=== PATIENT | female | born 1940 | race Caucasian/White ===

== ENCOUNTER 2017-04-21 11:37 | Emergency (ER) | payer OTHER ==
[2017-04-21 11:57] VITALS: BP 190/86; BMI 38.9
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
== END 2017-04-21 14:54 | disposition home or self-care (01) ==
LOC: ER 13:51
DX: Z04.3 Encounter for examination and observation following other accident (principal); M25.551 Pain in right hip; M79.89 Other specified soft tissue disorders; M16.11 Unilateral primary osteoarthritis, right hip; V49.9XXA Car occupant (driver) (passenger) injured in unspecified traffic accident, initial encounter
CPT/HCPCS: 73501; 73590; 99282

== ENCOUNTER 2020-11-20 11:23 | Inpatient (IN) ==
--- NOTE | 2020-11-20 13:24 | DR.H&P ---
H&P History & Physical for Day of: H&P Date: 11/20/20 Chief Complaint Chief Complaint: Fever, shortness of breath Chest pain, Weakness Allergies Allergies Allergy/AdvReac Type Severity Reaction Status Date / Time celecoxib [From Celebrex] Allergy Verified 04/21/17 12:14 codeine Allergy Verified 04/21/17 12:14 diphenhydramine Allergy Verified 04/21/17 12:14 [From Benadryl] Sulfa (Sulfonamide Allergy Verified 04/21/17 12:14 Antibiotics) [SULFA] sulfamethoxazole Allergy Verified 04/21/17 12:14 [From Bactrim] trimethoprim [From Bactrim] Allergy Verified 04/21/17 12:14 History of Present Illness History of Present Illness: Pt is a 80 year old female past medical history of atrial fibrillation(taking ASA 325mg), hypertension, hyperlipidemia, presenting as a direct admission from clinic after failing outpatient treatment. Pt reports for the past week having fevers, chills, chest pain, shortness of breath, and generalized weakness. Daughter reports she has been very weak and having intermittent fever spikes. Pt went to ED yesterday, with workup negative except for leukocytosis and fever. She was told to follow up with pcp. In clinic patient borderline hypoxic with pulse ox between 88%-90%. She reported continued fever and shortness of breath. Also having reduced appetite and oral intake. Denies abdominal pain, diarrhea, dysuria. Labs/imaging: Wbc 24.2, Hgb 13.9, Plt 162, Na 139, K 3.5, Creatinine 1.16, Glucose 102, D-dimer 1.52, LA 1.7, UA negative, Rapid flu, RSV, and COVID-19 negative, Troponin 0.04, Ekg NSR, Blood culture pending, CXR: 1. Mild cardiomegaly without evidence of failure. 2. No other significant abnormality identified. CTA Chest: 1. No evidence of pulmonary embolism. 2. Findings concerning for acute infection involving the right upper lobe with possible internal cavitation. Pt with RUL pneumonia seen on CTA of chest. Will start patient on IVF NS@75ml/h, antibiotics: Vancomycin and Zosyn, supplemental O2, consult RT, obtain sputum cultures, restart home medications. Will continue to monitor and follow up labs/imaging in the morning. Time spent on clinical assessment, reviewing labs and imaging, decision making, and documentation greater than 75 minutes. 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, Spleenectomy and Lithotripsy Family History Family Medical History: [place] and Hypertension Medications Home Medications: celecoxib [From Celebrex] Allergy (Verified 04/21/17 12:14) codeine Allergy (Verified 04/21/17 12:14) diphenhydramine [From Benadryl] Allergy (Verified 04/21/17 12:14) Sulfa (Sulfonamide Antibiotics) [SULFA] Allergy (Verified 04/21/17 12:14) sulfamethoxazole [From Bactrim] Allergy (Verified 04/21/17 12:14) trimethoprim [From Bactrim] Allergy (Verified 04/21/17 12:14) Labs Result Diagrams: 11/21/20 04:45 11/21/20 09:10 Review of Systems Constitutional: Fever, Chills and Weakness Eyes: No Symptoms Reported ENT: No Symptoms Reported Respiratory: Cough and Shortness of Breath; denies Sputum Cardiovascular: Chest Pain Gastrointestinal: No Symptoms Reported Genitourinary: No Symptoms Reported Musculoskeletal: No Symptoms Reported Skin: No Symptoms Reported Neurological: No Symptoms Reported Physical Exam Vital Signs: Blood Pressure [Left Arm] 143/74 Blood Pressure [Right Arm] 137/58 Blood Pressure 153/65 Oriented: Normal Eyes: Normal Ear: Normal Nose: Normal Throat: Normal Respiratory: RUL Diminished Cardiovascular: Normal : Normal Auscultation: Bowel Sounds: Normal Palpation: Normal Tenderness: Normal Skin: Normal Musculoskeletal: Normal Psychiatric: Normal Mood Description: Calm and Appropriate Affect: Normal Speech Pattern: Clear and Appropriate Assessment/Plan (1) CAP (community acquired pneumonia): Qualifiers: Laterality: right Lung location: upper lobe of lung Qualified Code(s): J18.9 - Pneumonia, unspecified organism Status: Acute Plan: RUL pneumonia Abx: Vancomycin and Zosyn Supplemental O2, RT support, pneumonia protocol Review H&P Reviewed: Yes Patient was examined?: Yes
[2020-11-20 13:42] LABS: BASOPHILS # (AUTO) 0.1 X10^3/uL (0.0-0.1); BASOPHILS % (AUTO) 0.5 % (0.2-1.0); EOSINOPHILS % (AUTO) 0.1 % (0.9-2.9); HEMOGLOBIN 13.9 g/dL (12.0-16.0); LYMPHOCYTES # (AUTO) 2.1 X10^3/uL (1.3-2.9); LYMPHOCYTES % (AUTO) 8.8 % (21.0-51.0); MEAN CORPUSCULAR HEMOGLOBIN 31.4 pg (27.0-34.0); MEAN CORPUSCULAR HGB CONC 34.6 g/dL (33.0-35.0); MEAN CORPUSCULAR VOLUME 90.6 fL (80.0-100.0); MEAN PLATELET VOLUME 10.3 fL (7.4-11.0); MONOCYTES # (AUTO) 1.9 x10^3/uL (0.3-0.8); MONOCYTES % (AUTO) 7.9 % (0.0-13.0); NEUTROPHILS % (AUTO) 82.7 % (42.0-75.0); PLATELET COUNT 162 X10^3/uL (150.0-450.0); RED BLOOD COUNT 4.42 X10^6/uL (3.5-5.4); RED CELL DISTRIBUTION WIDTH 13.9 % (11.6-16.5); WHITE BLOOD COUNT 24.2 X10^3/uL (3.6-10.0)
[2020-11-20 13:57] LABS: ALANINE AMINOTRANSFERASE 10 Units/L (12-78); ALBUMIN 2.9 g/dL (3.4-5.0); ALKALINE PHOSPHATASE 87 Units/L (46-116); ASPARTATE AMINO TRANSFERASE 22 Units/L (15-37); BLOOD UREA NITROGEN 22 mg/dL (7-18); CALCIUM 8.8 mg/dL (8.5-10.1); CARBON DIOXIDE 29.6 mmol/L (21-32); CHLORIDE 101 mmol/L (98-107); COR CA(FOR HYPOALB) 9.7 mg/dL (8.5-10.1); CREATININE 1.16 mg/dL (0.55-1.02); SODIUM 139 mmol/L (136-145); TOTAL PROTEIN 8.1 g/dL (6.4-8.2); TROPONIN I 0.04 ng/mL (0-1.5); eGFR NON BLACK RACES 48 (>60)
[2020-11-20 14:03] LABS: BAND NEUTROPHILS % 1 % (0-10); GIANT PLATELET RARE; PLATELET MORPHOLOGY COMMENT ABNORMAL (NORMAL)
[2020-11-20 14:04] LABS: ANISOCYTOSIS SLIGHT; POIKILOCYTOSIS SLIGHT
[2020-11-20] MEDS ORDERED: SALINE 3% 15 ML NEB TX NEB ONE (14:41)
[2020-11-20] MEDS ORDERED: PHARMACY CONSULT - VANCOMYCIN XX SCH (15:00)
[2020-11-20 15:22] VITALS: BMI 31.8
--- NOTE | 2020-11-20 15:32 | RAD ---
PROCEDURE: Chest X-ray 1 View .HISTORY: Short of breath and pneumonia.TECHNIQUE: PA view.COMPARISON: 11/19/2020.TECHNICAL QUALITY: Satisfactory .FINDINGS:Mild cardiomegaly.Mediastinum and hilar regions show no masses or lymphadenopathy .Normal central vascularity .No pulmonary consolidation, masses, pleural fluid, or pneumothorax .No acute bony abnormality .IMPRESSION:1. Mild cardiomegaly without evidence of failure.2. No other significant abnormality identified.Electronically signed by: Farzad Kitchen (Nov 20, 2020 15:30:02)
[2020-11-20] MEDS: NS 1000 ML 1,000 ML IV SCH (15:51)
[2020-11-20] MEDS: VANCOMYCIN IV *PREMIX 1.25 G/250 ML BAG 1.25 G/250 ML PIGGYBACK IV SCH (15:51)
[2020-11-20] MEDS: ZOSYN VIAL 3.375 GRAMS 3.375 G in NS 100 ML IV + SPIKE MINIBAG* 100 ML IV SCH ×3 (15:51→21:25)
[2020-11-20] MEDS ORDERED: NS 100 ML IV 100 ML ONE (16:05)
[2020-11-20 16:49] LABS: RSV AG DETECTION NEGATIVE (NEGATIVE)
--- NOTE | 2020-11-20 17:27 | CT ---
CTA CHESTCLINICAL INDICATION: ELEVATED DDIMERPROCEDURE: Non gated axial images of the chest were obtained with intravenous contrast according to pulmonary embolism protocol. MIPS were reconstructed Dose reduction techniques including Automated Exposure Control (AEC) and adjustment of mA and kV were utlized.COMPARISON:NoneFINDINGS:No evidence of a pulmonary embolism to the level of the segmental pulmonary arteries.Cardiomegaly.. No pericardial effusion . No suspicious mediastinal or axillary lymph nodes. Focal consolidation in the right upper lobe with internal cavitation. Subtle patchy regions of ground-glass throughout the lungs bilaterally. Streaky atelectasis at the lung bases..Airways are patent . No suspicious pulmonary nodules or masses .Limited images of the upper abdomen are unremarkable.No aggressive osseous lesions.IMPRESSION:1. No evidence of pulmonary embolism.2. Findings concerning for acute infection involving the right upper lobe with possible internal cavitation.Electronically signed by: WALKER SKY (Nov 20, 2020 17:24:39)
[2020-11-20] MEDS ORDERED: XOPENEX 1.25 MG/3 ML NEBULE NEB SCH (21:00)
[2020-11-20] MEDS ORDERED: K-RIDER 10 MEQ/NS 100 ML 10 MEQ/100 ML BAG IV PRN (22:52)
[2020-11-20] MEDS ORDERED: POTASSIUM CHL 60 MEQ/NS 0.45% 500 ML IV PRN (22:52)
[2020-11-20] MEDS ORDERED: POTASSIUM CHLORIDE LIQ 20 MEQ UDC PO PRN (22:52)
[2020-11-20] MEDS ORDERED: MICRO K EXTEN CAP 10 MEQ PO PRN (22:52)
[2020-11-20] MEDS ORDERED: POTASSIUM CHL 40 MEQ/NS 0.45% 500 ML IV PRN (22:52)
[2020-11-20] MEDS ORDERED: KLOR-CON PO PRN (22:52)
[2020-11-21] MEDS ORDERED: CATAPRES TAB 0.1 MG PO ONE (04:01)
[2020-11-21] MEDS ORDERED: LOPRESSOR TAB 25 MG PO ONE (04:01)
[2020-11-21] MEDS ORDERED: CATAPRES TAB 0.1 MG ONE (04:02)
[2020-11-21] MEDS ORDERED: LOPRESSOR TAB 25 MG ONE (04:02)
[2020-11-21] MEDS: NS 1000 ML 1,000 ML IV SCH ×3 (05:04→20:55)
[2020-11-21] MEDS: ZOSYN VIAL 3.375 GRAMS 3.375 G in NS 100 ML IV + SPIKE MINIBAG* 100 ML IV SCH ×3 (05:23→21:30)
[2020-11-21 05:56] LABS: ALANINE AMINOTRANSFERASE 7 Units/L (12-78); ALBUMIN 2.1 g/dL (3.4-5.0); ALKALINE PHOSPHATASE 78 Units/L (46-116); ASPARTATE AMINO TRANSFERASE 21 Units/L (15-37); BLOOD UREA NITROGEN 19 mg/dL (7-18); CARBON DIOXIDE 24.7 mmol/L (21-32); CHLORIDE 106 mmol/L (98-107); COR CA(FOR HYPOALB) 9.5 mg/dL (8.5-10.1); CREATININE 1.06 mg/dL (0.55-1.02); MAGNESIUM 1.7 mg/dL (1.7-2.9); SODIUM 142 mmol/L (136-145); TOTAL PROTEIN 6.4 g/dL (6.4-8.2); eGFR NON BLACK RACES 53 (>60)
[2020-11-21 06:05] LABS: BASOPHILS # (AUTO) 0.1 X10^3/uL (0.0-0.1); BASOPHILS % (AUTO) 0.3 % (0.2-1.0); EOSINOPHILS % (AUTO) 0.2 % (0.9-2.9); HEMATOCRIT 36.6 % (36.0-47.0); HEMOGLOBIN 12.6 g/dL (12.0-16.0); LYMPHOCYTES # (AUTO) 1.6 X10^3/uL (1.3-2.9); LYMPHOCYTES % (AUTO) 8.3 % (21.0-51.0); MEAN CORPUSCULAR HEMOGLOBIN 31.4 pg (27.0-34.0); MEAN CORPUSCULAR HGB CONC 34.4 g/dL (33.0-35.0); MEAN CORPUSCULAR VOLUME 91.5 fL (80.0-100.0); MEAN PLATELET VOLUME 10.4 fL (7.4-11.0); MONOCYTES # (AUTO) 1.8 x10^3/uL (0.3-0.8); MONOCYTES % (AUTO) 9.5 % (0.0-13.0); NEUTROPHILS # (AUTO) 15.7 x10^3/uL (2.2-4.8); NEUTROPHILS % (AUTO) 81.7 % (42.0-75.0); PLATELET COUNT 130 X10^3/uL (150.0-450.0); RED CELL DISTRIBUTION WIDTH 13.8 % (11.6-16.5); WHITE BLOOD COUNT 19.2 X10^3/uL (3.6-10.0)
[2020-11-21] MEDS: K-DUR TAB 20 MEQ PO PRN ×2 (06:20→23:21)
[2020-11-21 06:59] LABS: GIANT PLATELET PRESENT; PLATELET MORPHOLOGY COMMENT ABNORMAL (NORMAL)
[2020-11-21] MEDS ORDERED: TYLENOL 500 MG TAB EXTRA STRENGTH PO PRN (08:00)
[2020-11-21] MEDS: HYDROCHLOROTHIAZIDE 12.5 MG CAP PO SCH ×2 (08:42→20:33)
[2020-11-21] MEDS: VANCOMYCIN IV *PREMIX 1.25 G/250 ML BAG 1.25 G/250 ML PIGGYBACK IV SCH (08:42)
[2020-11-21] MEDS: CATAPRES TAB 0.1 MG PO SCH ×3 (08:43→21:30)
[2020-11-21] MEDS: ASPIRIN PO SCH (08:43)
[2020-11-21] MEDS: LOPRESSOR TAB 25 MG PO SCH ×3 (08:43→21:30)
[2020-11-21] MEDS: NexIUM PO SCH (08:43)
[2020-11-21] MEDS: VASOTEC TAB 20 MG PO SCH ×2 (09:41→20:34)
[2020-11-21] MEDS: LOVENOX INJ 40 MG SYR SC SCH (11:22)
--- NOTE | 2020-11-21 11:57 | PCM.PROG ---
Progress Note Progress Note for Day of Date of Exam: 11/21/20 Subjective Subjective: Pt is a 80 year old female past medical history of atrial fibrillation(taking ASA 325mg), hypertension, hyperlipidemia, admitted for community acquired pneumonia of right upper lobe. This morning patient reports still feeling weak, short of breath, loss of appetite, with fever overnight. She is currently on 2L nasal cannula supplemental O2. Labs/imaging: Wbc 24.2>19.2, Hgb 12.6, Plt 130, Na 142, K 3.3, Creatinine 1.06, Glucose 102, Blood cultures pending, CTA Chest: 1. No evidence of pulmonary embolism. 2. Findings concerning for acute infection involving the right upper lobe with possible internal cavitation. Treatment course includes: IVF NS@75ml/h, antibiotics: Vancomycin and Zosyn, supplemental O2, consult RT, obtain sputum cultures, home medications were resumed. Leukocytosis gradually trending down, add tylenol prn for fever. Will continue to monitor and follow up labs/imaging in the morning. Past Medical Family Social History Past Med/Fam/Surg Hx: No changes since H&P Allergies: Allergies celecoxib [From Celebrex] Allergy (Verified 04/21/17 12:14) codeine Allergy (Verified 04/21/17 12:14) diphenhydramine [From Benadryl] Allergy (Verified 04/21/17 12:14) Sulfa (Sulfonamide Antibiotics) [SULFA] Allergy (Verified 04/21/17 12:14) sulfamethoxazole [From Bactrim] Allergy (Verified 04/21/17 12:14) trimethoprim [From Bactrim] Allergy (Verified 04/21/17 12:14) Review of Systems ROS: No change since H&P Vital Signs and I&O's Vital Signs: Temperature 98.1 F Pulse Rate [Radial] 60 Pulse Rate 83 Respiratory Rate 22 Blood Pressure [Left Arm] 120/59 Blood Pressure [Right Arm] 147/66 Blood Pressure 153/65 O2 Sat by Pulse Oximetry 97 Intake and Output: Intake & Output 11/18/20 11/19/20 11/20/20 11/21/20 23:59 23:59 23:59 23:59 Intake Total 515 / 515 175 / 175 Balance 515 / 515 175 / 175 Physical Exam Oriented: Normal Eyes: Normal Ear: Normal Nose: Normal Throat: Normal Respiratory: Normal Cardiovascular: Normal : Normal Auscultation: Bowel Sounds: Normal Tenderness: Normal Skin: Normal Musculoskeletal: Normal Psychiatric: Normal Mood Description: Calm and Appropriate Affect: Normal Speech Pattern: Clear and Appropriate Laboratory and Diagnostics Result Diagrams: 11/21/20 04:45 11/21/20 09:10 Labs: 11/20/20 20:50 Urine,Clean Catch Urine Culture - Preliminary Laboratory WBC 19.2 X10^3/uL (3.6-10.0) H 11/21/20 04:45 RBC 4.00 X10^6/uL (3.5-5.4) 11/21/20 04:45 Hgb 12.6 g/dL (12.0-16.0) 11/21/20 04:45 Hct 36.6 % (36.0-47.0) 11/21/20 04:45 MCV 91.5 fL (80.0-100.0) 11/21/20 04:45 MCH 31.4 pg (27.0-34.0) 11/21/20 04:45 MCHC 34.4 g/dL (33.0-35.0) 11/21/20 04:45 RDW 13.8 % (11.6-16.5) 11/21/20 04:45 Plt Count 130 X10^3/uL (150.0-450.0) L 11/21/20 04:45 Plt Count Comment Adequate (ADEQUATE) 11/21/20 04:45 MPV 10.4 fL (7.4-11.0) 11/21/20 04:45 Neut % (Auto) 81.7 % (42.0-75.0) H 11/21/20 04:45 Lymph % (Auto) 8.3 % (21.0-51.0) L 11/21/20 04:45 [place] % (Auto) 9.5 % (0.0-13.0) 11/21/20 04:45 Eos % (Auto) 0.2 % (0.9-2.9) L 11/21/20 04:45 Baso % (Auto) 0.3 % (0.2-1.0) 11/21/20 04:45 Neut # (Auto) 15.7 x10^3/uL (2.2-4.8) H 11/21/20 04:45 Lymph # (Auto) 1.6 X10^3/uL (1.3-2.9) 11/21/20 04:45 [place] # (Auto) 1.8 x10^3/uL (0.3-0.8) H 11/21/20 04:45 Eos # (Auto) 0.0 x10^3/uL (0.0-0.2) 11/21/20 04:45 Baso # (Auto) 0.1 X10^3/uL (0.0-0.1) 11/21/20 04:45 Absolute Nucleated RBC 0.0 /100WBC 11/21/20 04:45 Total Counted 100 11/20/20 13:21 Neutrophils % (Manual) 81 % (39-76) H 11/20/20 13:21 Band Neutrophils % 1 % (0-10) 11/20/20 13:21 Lymphocytes % (Manual) 13 % (13-43) 11/20/20 13:21 Monocytes % (Manual) 5 % (4-9) 11/20/20 13:21 Giant Platelets Present 11/21/20 04:45 Plt Morphology Comment Abnormal (NORMAL) A 11/21/20 04:45 RBC Morphology Normal (NORMAL) 11/21/20 04:45 Poikilocytosis Slight A 11/20/20 13:21 Anisocytosis Slight A 11/20/20 13:21 D-Dimer 1.52 ug/ml (0.0-0.57) H* 11/20/20 13:21 Sodium 142 mmol/L (136-145) 11/21/20 04:45 Corrected Sodium TNP 11/21/20 04:45 Potassium 3.4 mmol/L (3.5-5.1) L 11/21/20 09:10 Chloride 106 mmol/L (98-107) 11/21/20 04:45 Carbon Dioxide 24.7 mmol/L (21-32) 11/21/20 04:45 BUN 19 mg/dL (7-18) H 11/21/20 04:45 Creatinine 1.06 mg/dL (0.55-1.02) H 11/21/20 04:45 Est GFR (MDRD) Af Amer > 60 (>60) 11/21/20 04:45 Est GFR (MDRD) Non-Af 53 (>60) L 11/21/20 04:45 Glucose 102 mg/dL (65-99) H 11/21/20 04:45 Lactic Acid 1.7 mmol/L (0.4-2.0) 11/20/20 14:59 Calcium 8.0 mg/dL (8.5-10.1) L 11/21/20 04:45 Corrected Calcium 9.5 mg/dL (8.5-10.1) 11/21/20 04:45 Magnesium 1.7 mg/dL (1.7-2.9) 11/21/20 04:45 Total Bilirubin 1.00 mg/dL (0.2-1.0) 11/21/20 04:45 AST 21 Units/L (15-37) 11/21/20 04:45 ALT 7 Units/L (12-78) L 11/21/20 04:45 Alkaline Phosphatase 78 Units/L (46-116) 11/21/20 04:45 Troponin I 0.04 ng/mL (0-1.5) 11/20/20 13:21 Total Protein 6.4 g/dL (6.4-8.2) 11/21/20 04:45 Albumin 2.1 g/dL (3.4-5.0) L 11/21/20 04:45 Globulin 4.3 g/dL (2.5-4.5) 11/21/20 04:45 Albumin/Globulin Ratio 0.5 Ratio (1.1-2.1) L 11/21/20 04:45 RSV Nasal Swab Negative (NEGATIVE) 11/20/20 16:07 Influenza Type A Ag Negative-presumptive (NEGATIVE) 11/20/20 16:07 Influenza Type B Ag Negative-presumptive (NEGATIVE) 11/20/20 16:07 SARS CoV-2 RNA Rapid SACHI Negative (NEGATIVE) 11/20/20 12:43 Plan (1) CAP (community acquired pneumonia): Status: Acute Qualifiers: Laterality: right Lung location: upper lobe of lung Qualified Code(s): J18.9 - Pneumonia, unspecified organism Plan: RUL pneumonia Abx: Vancomycin and Zosyn Supplemental O2, RT support, pneumonia protocol
[2020-11-21] MEDS: MAGNESIUM SULFATE 1 GRAM/100 mL PREMIX 1 GM/100 ML BAG IV PRN ×2 (16:27→18:40)
[2020-11-21] MEDS: MIRALAX POWDER (1 DOSE 17 G) PO SCH (20:36)
[2020-11-22 04:50] LABS: BASOPHILS % (AUTO) 0.3 % (0.2-1.0); EOSINOPHILS # (AUTO) 0.3 x10^3/uL (0.0-0.2); EOSINOPHILS % (AUTO) 2.1 % (0.9-2.9); HEMATOCRIT 35.3 % (36.0-47.0); HEMOGLOBIN 12.1 g/dL (12.0-16.0); LYMPHOCYTES # (AUTO) 2.1 X10^3/uL (1.3-2.9); LYMPHOCYTES % (AUTO) 13.5 % (21.0-51.0); MEAN CORPUSCULAR HEMOGLOBIN 31.3 pg (27.0-34.0); MEAN CORPUSCULAR HGB CONC 34.2 g/dL (33.0-35.0); MEAN CORPUSCULAR VOLUME 91.5 fL (80.0-100.0); MEAN PLATELET VOLUME 10.3 fL (7.4-11.0); MONOCYTES # (AUTO) 1.6 x10^3/uL (0.3-0.8); MONOCYTES % (AUTO) 10.2 % (0.0-13.0); NEUTROPHILS # (AUTO) 11.7 x10^3/uL (2.2-4.8); NEUTROPHILS % (AUTO) 73.9 % (42.0-75.0); PLATELET COUNT 150 X10^3/uL (150.0-450.0); RED BLOOD COUNT 3.86 X10^6/uL (3.5-5.4); RED CELL DISTRIBUTION WIDTH 14.2 % (11.6-16.5); WHITE BLOOD COUNT 15.8 X10^3/uL (3.6-10.0)
[2020-11-22 04:59] LABS: ALANINE AMINOTRANSFERASE 11 Units/L (12-78); ALKALINE PHOSPHATASE 82 Units/L (46-116); ASPARTATE AMINO TRANSFERASE 19 Units/L (15-37); BLOOD UREA NITROGEN 11 mg/dL (7-18); CALCIUM 8.1 mg/dL (8.5-10.1); CARBON DIOXIDE 28.2 mmol/L (21-32); CHLORIDE 107 mmol/L (98-107); COR CA(FOR HYPOALB) 9.7 mg/dL (8.5-10.1); CREATININE 1.12 mg/dL (0.55-1.02); MAGNESIUM 2.4 mg/dL (1.7-2.9); SODIUM 143 mmol/L (136-145); TOTAL PROTEIN 6.5 g/dL (6.4-8.2); eGFR NON BLACK RACES 50 (>60)
[2020-11-22 05:12] LABS: GIANT PLATELET FEW; PLATELET MORPHOLOGY COMMENT ABNORMAL (NORMAL)
[2020-11-22] MEDS: CATAPRES TAB 0.1 MG PO SCH ×3 (05:16→22:01)
[2020-11-22] MEDS: ZOSYN VIAL 3.375 GRAMS 3.375 G in NS 100 ML IV + SPIKE MINIBAG* 100 ML IV SCH ×3 (05:16→22:01)
[2020-11-22] MEDS: LOPRESSOR TAB 25 MG PO SCH ×3 (05:16→22:01)
[2020-11-22] MEDS: K-DUR TAB 20 MEQ PO PRN (05:22)
--- NOTE | 2020-11-22 07:22 | RAD ---
HISTORYF/U PNEUMONIASTUDYCHEST, 1 VIEWCOMPARISONChest radiograph dated November 20, 2020.FINDINGSThe trachea is midline. The cardiac silhouette is stable. There is a worsening right upper lobe infiltrate/pneumonia which may be aggressive, given the recent chest CT findings. No other cardiopulmonary changes are identified. The bony thorax is unremarkable.IMPRESSIONWorsening right lower lobe lobar infiltrate/pneumonia which may be aggressive in nature, given the recent findings on chest imaging. Please correlate for anaerobic/aggressive infections to account for this finding. Radiographic/clinical follow-up to complete resolution is recommended.Electronically signed by: ISAIAS KHAN III (Nov 22, 2020 07:21:29)
[2020-11-22] MEDS: HYDROCHLOROTHIAZIDE 12.5 MG CAP PO SCH ×2 (08:53→20:38)
[2020-11-22] MEDS: ASPIRIN PO SCH (08:53)
[2020-11-22] MEDS: LOVENOX INJ 40 MG SYR SC SCH (08:53)
[2020-11-22] MEDS: NexIUM PO SCH (08:54)
[2020-11-22] MEDS: VASOTEC TAB 20 MG PO SCH ×2 (08:55→20:38)
[2020-11-22] MEDS: NS 1000 ML 1,000 ML IV SCH ×3 (09:13→22:01)
[2020-11-22 09:53] LABS: CREATININE 0.98 mg/dL (0.55-1.02)
[2020-11-22] MEDS: VANCOMYCIN IV *PREMIX 1.25 G/250 ML BAG 1.25 G/250 ML PIGGYBACK IV SCH (09:55)
--- NOTE | 2020-11-22 10:30 | PCM.PROG ---
Progress Note Progress Note for Day of Date of Exam: 11/22/20 Subjective Subjective: Pt is a 80 year old female past medical history of atrial fibrillation(taking ASA 325mg), hypertension, hyperlipidemia, admitted for community acquired pneumonia. This morning patient reports some improvement in symptoms. She does not feel as short of breath as before and did not spike a fev er overnight. She remains on 2L nasal cannula supplemental O2. Labs/imaging: Wbc 15.8, Hgb 12.1, Plt 150, Na 143, K 3.6, Creatinine 1.12, Glucose 100, Blood cultures NGTD, CXR was obtained and revealed: Worsening right lower lobe lobar infiltrate/pneumonia which may be aggressive in nature, given the recent findings on chest imaging. Please correlate for anaerobic/aggressive infections to account for this finding. Radiographic/clinical follow-up to complete resolution is recommended. Treatment course includes: IVF NS@75ml/h, antibiotics: Vancomycin and Zosyn, supplemental O2, RT, obtain sputum cultures(pt has not been able to give sample), home medications. Leukocytosis gradually trending down. Will add Levaquin due to CXR findings, however pt appears to be improving clinically. Will continue to monitor and follow up labs/imaging in the morning. Past Medical Family Social History Past Med/Fam/Surg Hx: No changes since H&P Allergies: Allergies celecoxib [From Celebrex] Allergy (Verified 04/21/17 12:14) codeine Allergy (Verified 04/21/17 12:14) diphenhydramine [From Benadryl] Allergy (Verified 04/21/17 12:14) Sulfa (Sulfonamide Antibiotics) [SULFA] Allergy (Verified 04/21/17 12:14) sulfamethoxazole [From Bactrim] Allergy (Verified 04/21/17 12:14) trimethoprim [From Bactrim] Allergy (Verified 04/21/17 12:14) Review of Systems ROS: No change since H&P Vital Signs and I&O's Vital Signs: Temperature 99.2 F Pulse Rate [Radial] 66 Pulse Rate 74 Respiratory Rate 24 Blood Pressure [Left Arm] 121/58 Blood Pressure [Right Arm] 147/66 Blood Pressure 153/65 O2 Sat by Pulse Oximetry 97 Intake and Output: Intake & Output 11/19/20 11/20/20 11/21/20 11/22/20 23:59 23:59 23:59 23:59 Intake Total 515 / 515 1863 / 1863 1256 / 1256 Balance 515 / 515 1862 / 1863 1256 / 1256 Physical Exam Oriented: Normal Eyes: Normal Ear: Normal Nose: Normal Throat: Normal Respiratory: Normal Cardiovascular: Normal : Normal Auscultation: Bowel Sounds: Normal Tenderness: Normal Skin: Normal Musculoskeletal: Normal Psychiatric: Normal Mood Description: Calm and Appropriate Affect: Normal Speech Pattern: Clear and Appropriate Laboratory and Diagnostics Result Diagrams: 11/22/20 04:17 11/22/20 09:25 Labs: 11/20/20 13:32 Blood Blood Culture - Preliminary 11/20/20 13:21 Blood Blood Culture - Preliminary 11/20/20 20:50 Urine,Clean Catch Urine Culture - Final Laboratory WBC 15.8 X10^3/uL (3.6-10.0) H 11/22/20 04:17 RBC 3.86 X10^6/uL (3.5-5.4) 11/22/20 04:17 Hgb 12.1 g/dL (12.0-16.0) 11/22/20 04:17 Hct 35.3 % (36.0-47.0) L 11/22/20 04:17 MCV 91.5 fL (80.0-100.0) 11/22/20 04:17 MCH 31.3 pg (27.0-34.0) 11/22/20 04:17 MCHC 34.2 g/dL (33.0-35.0) 11/22/20 04:17 RDW 14.2 % (11.6-16.5) 11/22/20 04:17 Plt Count 150 X10^3/uL (150.0-450.0) 11/22/20 04:17 Plt Count Comment Adequate (ADEQUATE) 11/22/20 04:17 MPV 10.3 fL (7.4-11.0) 11/22/20 04:17 Neut % (Auto) 73.9 % (42.0-75.0) 11/22/20 04:17 Lymph % (Auto) 13.5 % (21.0-51.0) L 11/22/20 04:17 [place] % (Auto) 10.2 % (0.0-13.0) 11/22/20 04:17 Eos % (Auto) 2.1 % (0.9-2.9) 11/22/20 04:17 Baso % (Auto) 0.3 % (0.2-1.0) 11/22/20 04:17 Neut # (Auto) 11.7 x10^3/uL (2.2-4.8) H 11/22/20 04:17 Lymph # (Auto) 2.1 X10^3/uL (1.3-2.9) 11/22/20 04:17 [place] # (Auto) 1.6 x10^3/uL (0.3-0.8) H 11/22/20 04:17 Eos # (Auto) 0.3 x10^3/uL (0.0-0.2) H 11/22/20 04:17 Baso # (Auto) 0.0 X10^3/uL (0.0-0.1) 11/22/20 04:17 Absolute Nucleated RBC 0.0 /100WBC 11/22/20 04:17 Total Counted 100 11/20/20 13:21 Neutrophils % (Manual) 81 % (39-76) H 11/20/20 13:21 Band Neutrophils % 1 % (0-10) 11/20/20 13:21 Lymphocytes % (Manual) 13 % (13-43) 11/20/20 13:21 Monocytes % (Manual) 5 % (4-9) 11/20/20 13:21 Giant Platelets Few 11/22/20 04:17 Plt Morphology Comment Abnormal (NORMAL) A 11/22/20 04:17 RBC Morphology Normal (NORMAL) 11/22/20 04:17 Poikilocytosis Slight A 11/20/20 13:21 Anisocytosis Slight A 11/20/20 13:21 D-Dimer 1.52 ug/ml (0.0-0.57) H* 11/20/20 13:21 Sodium 143 mmol/L (136-145) 11/22/20 04:17 Corrected Sodium TNP 11/22/20 04:17 Potassium 3.6 mmol/L (3.5-5.1) 11/22/20 04:17 Chloride 107 mmol/L (98-107) 11/22/20 04:17 Carbon Dioxide 28.2 mmol/L (21-32) 11/22/20 04:17 BUN 11 mg/dL (7-18) 11/22/20 04:17 Creatinine 0.98 mg/dL (0.55-1.02) 11/22/20 09:25 Est GFR (MDRD) Af Amer > 60 (>60) 11/22/20 04:17 Est GFR (MDRD) Non-Af 50 (>60) L 11/22/20 04:17 Glucose 100 mg/dL (65-99) H 11/22/20 04:17 Lactic Acid 1.7 mmol/L (0.4-2.0) 11/20/20 14:59 Calcium 8.1 mg/dL (8.5-10.1) L 11/22/20 04:17 Corrected Calcium 9.7 mg/dL (8.5-10.1) 11/22/20 04:17 Magnesium 2.4 mg/dL (1.7-2.9) 11/22/20 04:17 Total Bilirubin 0.70 mg/dL (0.2-1.0) 11/22/20 04:17 AST 19 Units/L (15-37) 11/22/20 04:17 ALT 11 Units/L (12-78) L 11/22/20 04:17 Alkaline Phosphatase 82 Units/L (46-116) 11/22/20 04:17 Troponin I 0.04 ng/mL (0-1.5) 11/20/20 13:21 Total Protein 6.5 g/dL (6.4-8.2) 11/22/20 04:17 Albumin 2.0 g/dL (3.4-5.0) L 11/22/20 04:17 Globulin 4.5 g/dL (2.5-4.5) 11/22/20 04:17 Albumin/Globulin Ratio 0.4 Ratio (1.1-2.1) L 11/22/20 04:17 RSV Nasal Swab Negative (NEGATIVE) 11/20/20 16:07 Vancomycin Trough 12.0 ug/mL (15-20) L 11/22/20 09:25 Influenza Type A Ag Negative-presumptive (NEGATIVE) 11/20/20 16:07 Influenza Type B Ag Negative-presumptive (NEGATIVE) 11/20/20 16:07 SARS CoV-2 RNA Rapid SACHI Negative (NEGATIVE) 11/20/20 12:43 Plan (1) CAP (community acquired pneumonia): Status: Acute Qualifiers: Laterality: right Lung location: upper lobe of lung Qualified Code(s): J18.9 - Pneumonia, unspecified organism Plan: Abx: Vancomycin, Levaquin, Zosyn Supplemental O2, RT support, pneumonia protocol
[2020-11-22] MEDS ORDERED: LEVAQUIN PREMIX IV 500 MG 500 MG/100 ML BAG IV SCH (11:00)
[2020-11-22] MEDS: XOPENEX 1.25 MG/3 ML NEBULE NEB PRN (14:40)
[2020-11-22] MEDS: MIRALAX POWDER (1 DOSE 17 G) PO SCH (20:38)
[2020-11-23] MEDS: XOPENEX 1.25 MG/3 ML NEBULE NEB PRN (00:15)
[2020-11-23 04:53] LABS: BASOPHILS # (AUTO) 0.1 X10^3/uL (0.0-0.1); BASOPHILS % (AUTO) 0.4 % (0.2-1.0); EOSINOPHILS # (AUTO) 0.3 x10^3/uL (0.0-0.2); EOSINOPHILS % (AUTO) 2.4 % (0.9-2.9); HEMATOCRIT 33.9 % (36.0-47.0); HEMOGLOBIN 11.6 g/dL (12.0-16.0); LYMPHOCYTES # (AUTO) 1.9 X10^3/uL (1.3-2.9); LYMPHOCYTES % (AUTO) 12.8 % (21.0-51.0); MEAN CORPUSCULAR HEMOGLOBIN 31.1 pg (27.0-34.0); MEAN CORPUSCULAR HGB CONC 34.1 g/dL (33.0-35.0); MEAN CORPUSCULAR VOLUME 91.3 fL (80.0-100.0); MEAN PLATELET VOLUME 10.6 fL (7.4-11.0); MONOCYTES # (AUTO) 1.7 x10^3/uL (0.3-0.8); MONOCYTES % (AUTO) 11.5 % (0.0-13.0); NEUTROPHILS # (AUTO) 10.7 x10^3/uL (2.2-4.8); NEUTROPHILS % (AUTO) 72.9 % (42.0-75.0); PLATELET COUNT 151 X10^3/uL (150.0-450.0); RED BLOOD COUNT 3.71 X10^6/uL (3.5-5.4); WHITE BLOOD COUNT 14.6 X10^3/uL (3.6-10.0)
[2020-11-23 05:03] LABS: ALANINE AMINOTRANSFERASE 12 Units/L (12-78); ALBUMIN 1.7 g/dL (3.4-5.0); ALKALINE PHOSPHATASE 77 Units/L (46-116); ASPARTATE AMINO TRANSFERASE 19 Units/L (15-37); BLOOD UREA NITROGEN 7 mg/dL (7-18); CALCIUM 7.8 mg/dL (8.5-10.1); CARBON DIOXIDE 25.4 mmol/L (21-32); CHLORIDE 108 mmol/L (98-107); COR CA(FOR HYPOALB) 9.6 mg/dL (8.5-10.1); CREATININE 0.88 mg/dL (0.55-1.02); SODIUM 143 mmol/L (136-145); TOTAL PROTEIN 6.2 g/dL (6.4-8.2); eGFR NON BLACK RACES > 60 (>60)
[2020-11-23] MEDS: LOPRESSOR TAB 25 MG PO SCH ×3 (05:37→21:43)
[2020-11-23] MEDS: ZOSYN VIAL 3.375 GRAMS 3.375 G in NS 100 ML IV + SPIKE MINIBAG* 100 ML IV SCH ×3 (05:37→21:43)
[2020-11-23] MEDS: NS 1000 ML 1,000 ML IV SCH ×2 (05:37→13:33)
[2020-11-23] MEDS: CATAPRES TAB 0.1 MG PO SCH ×3 (05:37→21:43)
[2020-11-23 05:42] LABS: GIANT PLATELET FEW; PLATELET MORPHOLOGY COMMENT ABNORMAL (NORMAL)
[2020-11-23] MEDS: XOPENEX 1.25 MG/3 ML NEBULE NEB SCH ×4 (06:04→20:25)
--- NOTE | 2020-11-23 06:04 | RAD ---
HISTORYPNEUMONIASTUDYCHEST, 1 VIEWCOMPARISONChest radiograph dated November 22, 2020.FINDINGSThe trachea is midline. The cardiac silhouette is stable. There is an unchanged infiltrate seen throughout the right upper lobe. No other cardiopulmonary changes from prior identified. The bony thorax is unremarkable.IMPRESSIONUnchanged right upper lobe lobar infiltrate/pneumonia. Follow-up to resolution is recommended.Electronically signed by: ISAIAS KHAN III (Nov 23, 2020 06:01:47)
[2020-11-23] MEDS ORDERED: PHARMACY COMMENT IV NR (08:30)
[2020-11-23] MEDS: VASOTEC TAB 20 MG PO SCH ×2 (08:51→20:43)
[2020-11-23] MEDS: NexIUM PO SCH (08:52)
[2020-11-23] MEDS: HYDROCHLOROTHIAZIDE 12.5 MG CAP PO SCH ×2 (08:52→20:43)
[2020-11-23] MEDS: ASPIRIN PO SCH (08:52)
[2020-11-23 08:54] LABS: CREATININE 0.98 mg/dL (0.55-1.02); VANCOMYCIN,TROUGH 12.1 ug/mL (15-20)
[2020-11-23] MEDS: LOVENOX INJ 40 MG SYR SC SCH (08:58)
[2020-11-23] MEDS: VANCOMYCIN IV *PREMIX 1.25 G/250 ML BAG 1.25 G/250 ML PIGGYBACK IV SCH (08:59)
[2020-11-23] MEDS ORDERED: ZITHROMAX INJ 500 MG VIAL 500 MG in NS 250 ML IV 250 ML IV SCH (09:00)
--- NOTE | 2020-11-23 10:57 | PCM.PROG ---
Progress Note Progress Note for Day of Date of Exam: 11/23/20 Subjective Subjective: Pt is a 80 year old female past medical history of atrial fibrillation(taking ASA 325mg), hypertension, hyperlipidemia, admitted for community acquired pneumonia. This morning patient states she is feeling better than yesterday. Denies any fevers for the past 24 hours. She is on 2L nasal can nula supplemental O2. Labs/imaging: Wbc 14.6, Hgb 11.6, Plt 151, Na 143, K 3.4, Creatinine 0.88, Glucose 104, Blood cultures NGTD, CXR was obtained and revealed: Unchanged right upper lobe lobar infiltrate/pneumonia. Treatment course includes: IVF NS@75ml/h, antibiotics: Vancomycin, Zosyn, Azithromycin, supplemental O2, RT, home medications. Leukocytosis gradually trending down. Pt appears to be improving clinically. Otherwise continue with current treatment plan. Monitor and follow up labs/imaging in the morning. Past Medical Family Social History Past Med/Fam/Surg Hx: No changes since H&P Allergies: Allergies celecoxib [From Celebrex] Allergy (Verified 04/21/17 12:14) codeine Allergy (Verified 04/21/17 12:14) diphenhydramine [From Benadryl] Allergy (Verified 04/21/17 12:14) levofloxacin [From Levaquin] Allergy (Verified 11/22/20 13:08) DAUGHTER STATES GANG HEMSTITCHING MACHINE OPERATOR TOLD PT. TO NOT TAKE IT BECAUSE OF HER HEART AND A-FIB Sulfa (Sulfonamide Antibiotics) [SULFA] Allergy (Verified 04/21/17 12:14) sulfamethoxazole [From Bactrim] Allergy (Verified 04/21/17 12:14) trimethoprim [From Bactrim] Allergy (Verified 04/21/17 12:14) Review of Systems ROS: No change since H&P Vital Signs and I&O's Vital Signs: Temperature 97.9 F Pulse Rate [Radial] 69 Pulse Rate 77 Respiratory Rate 28 Blood Pressure [Left Arm] 126/61 Blood Pressure [Right Arm] 147/66 Blood Pressure 153/65 O2 Sat by Pulse Oximetry 96 Intake and Output: Intake & Output 11/20/20 11/21/20 11/22/20 11/23/20 23:59 23:59 23:59 23:59 Intake Total 515 / 515 1863 / 1863 3566 / 3566 759 / 266 Balance 515 / 515 1862 / 3565 998 / 774 Physical Exam Oriented: Normal Eyes: Normal Ear: Normal Nose: Normal Throat: Normal Respiratory: Normal Cardiovascular: Normal : Normal Auscultation: Bowel Sounds: Normal Tenderness: Normal Skin: Normal Musculoskeletal: Normal Psychiatric: Normal Mood Description: Calm and Appropriate Affect: Normal Speech Pattern: Clear and Appropriate Laboratory and Diagnostics Result Diagrams: 11/23/20 04:27 11/23/20 08:29 Labs: 11/20/20 13:32 Blood Blood Culture - Preliminary 11/20/20 13:21 Blood Blood Culture - Preliminary 11/20/20 20:50 Urine,Clean Catch Urine Culture - Final Laboratory WBC 14.6 X10^3/uL (3.6-10.0) H 11/23/20 04:27 RBC 3.71 X10^6/uL (3.5-5.4) 11/23/20 04:27 Hgb 11.6 g/dL (12.0-16.0) L 11/23/20 04:27 Hct 33.9 % (36.0-47.0) L 11/23/20 04:27 MCV 91.3 fL (80.0-100.0) 11/23/20 04:27 MCH 31.1 pg (27.0-34.0) 11/23/20 04:27 MCHC 34.1 g/dL (33.0-35.0) 11/23/20 04:27 RDW 14.0 % (11.6-16.5) 11/23/20 04:27 Plt Count 151 X10^3/uL (150.0-450.0) 11/23/20 04:27 Plt Count Comment Adequate (ADEQUATE) 11/23/20 04:27 MPV 10.6 fL (7.4-11.0) 11/23/20 04:27 Neut % (Auto) 72.9 % (42.0-75.0) 11/23/20 04:27 Lymph % (Auto) 12.8 % (21.0-51.0) L 11/23/20 04:27 [place] % (Auto) 11.5 % (0.0-13.0) 11/23/20 04:27 Eos % (Auto) 2.4 % (0.9-2.9) 11/23/20 04:27 Baso % (Auto) 0.4 % (0.2-1.0) 11/23/20 04:27 Neut # (Auto) 10.7 x10^3/uL (2.2-4.8) H 11/23/20 04:27 Lymph # (Auto) 1.9 X10^3/uL (1.3-2.9) 11/23/20 04:27 [place] # (Auto) 1.7 x10^3/uL (0.3-0.8) H 11/23/20 04:27 Eos # (Auto) 0.3 x10^3/uL (0.0-0.2) H 11/23/20 04:27 Baso # (Auto) 0.1 X10^3/uL (0.0-0.1) 11/23/20 04:27 Absolute Nucleated RBC 0.0 /100WBC 11/23/20 04:27 Total Counted 100 11/20/20 13:21 Neutrophils % (Manual) 81 % (39-76) H 11/20/20 13:21 Band Neutrophils % 1 % (0-10) 11/20/20 13:21 Lymphocytes % (Manual) 13 % (13-43) 11/20/20 13:21 Monocytes % (Manual) 5 % (4-9) 11/20/20 13:21 Giant Platelets Few 11/23/20 04:27 Plt Morphology Comment Abnormal (NORMAL) A 11/23/20 04:27 RBC Morphology Normal (NORMAL) 11/23/20 04:27 Poikilocytosis Slight A 11/20/20 13:21 Anisocytosis Slight A 11/20/20 13:21 D-Dimer 1.52 ug/ml (0.0-0.57) H* 11/20/20 13:21 Sodium 143 mmol/L (136-145) 11/23/20 04:27 Corrected Sodium TNP 11/23/20 04:27 Potassium 3.4 mmol/L (3.5-5.1) L 11/23/20 04:27 Chloride 108 mmol/L (98-107) H 11/23/20 04:27 Carbon Dioxide 25.4 mmol/L (21-32) 11/23/20 04:27 BUN 7 mg/dL (7-18) 11/23/20 04:27 Creatinine 0.98 mg/dL (0.55-1.02) 11/23/20 08:29 Est GFR (MDRD) Af Amer > 60 (>60) 11/23/20 04:27 Est GFR (MDRD) Non-Af > 60 (>60) 11/23/20 04:27 Glucose 104 mg/dL (65-99) H 11/23/20 04:27 Lactic Acid 1.7 mmol/L (0.4-2.0) 11/20/20 14:59 Calcium 7.8 mg/dL (8.5-10.1) L 11/23/20 04:27 Corrected Calcium 9.6 mg/dL (8.5-10.1) 11/23/20 04:27 Magnesium 2.4 mg/dL (1.7-2.9) 11/22/20 04:17 Total Bilirubin 0.40 mg/dL (0.2-1.0) 11/23/20 04:27 AST 19 Units/L (15-37) 11/23/20 04:27 ALT 12 Units/L (12-78) 11/23/20 04:27 Alkaline Phosphatase 77 Units/L (46-116) 11/23/20 04:27 Troponin I 0.04 ng/mL (0-1.5) 11/20/20 13:21 Total Protein 6.2 g/dL (6.4-8.2) L 11/23/20 04:27 Albumin 1.7 g/dL (3.4-5.0) L 11/23/20 04:27 Globulin 4.5 g/dL (2.5-4.5) 11/23/20 04:27 Albumin/Globulin Ratio 0.4 Ratio (1.1-2.1) L 11/23/20 04:27 RSV Nasal Swab Negative (NEGATIVE) 11/20/20 16:07 Vancomycin Trough 12.1 ug/mL (15-20) L 11/23/20 08:29 Influenza Type A Ag Negative-presumptive (NEGATIVE) 11/20/20 16:07 Influenza Type B Ag Negative-presumptive (NEGATIVE) 11/20/20 16:07 SARS CoV-2 RNA Rapid SACHI Negative (NEGATIVE) 11/20/20 12:43 Plan (1) CAP (community acquired pneumonia): Status: Acute Qualifiers: Laterality: right Lung location: upper lobe of lung Qualified Code(s): J18.9 - Pneumonia, unspecified organism Plan: Abx: Vancomycin, Azithromycin, Zosyn Supplemental O2, RT support, pneumonia protocol
[2020-11-23] MEDS ORDERED: MAGIC MOUTHWASH MT PRN (16:40)
[2020-11-23] MEDS: MIRALAX POWDER (1 DOSE 17 G) PO SCH (20:43)
[2020-11-24 04:38] LABS: BASOPHILS # (AUTO) 0.1 X10^3/uL (0.0-0.1); BASOPHILS % (AUTO) 0.8 % (0.2-1.0); EOSINOPHILS # (AUTO) 0.5 x10^3/uL (0.0-0.2); EOSINOPHILS % (AUTO) 3.9 % (0.9-2.9); HEMATOCRIT 35.3 % (36.0-47.0); LYMPHOCYTES # (AUTO) 2.3 X10^3/uL (1.3-2.9); LYMPHOCYTES % (AUTO) 16.6 % (21.0-51.0); MEAN CORPUSCULAR HEMOGLOBIN 30.9 pg (27.0-34.0); MEAN CORPUSCULAR HGB CONC 34.1 g/dL (33.0-35.0); MEAN CORPUSCULAR VOLUME 90.4 fL (80.0-100.0); MEAN PLATELET VOLUME 10.9 fL (7.4-11.0); MONOCYTES # (AUTO) 1.5 x10^3/uL (0.3-0.8); MONOCYTES % (AUTO) 10.9 % (0.0-13.0); NEUTROPHILS # (AUTO) 9.3 x10^3/uL (2.2-4.8); NEUTROPHILS % (AUTO) 67.8 % (42.0-75.0); PLATELET COUNT 211 X10^3/uL (150.0-450.0); RED CELL DISTRIBUTION WIDTH 13.9 % (11.6-16.5); WHITE BLOOD COUNT 13.8 X10^3/uL (3.6-10.0)
[2020-11-24 04:46] LABS: ALANINE AMINOTRANSFERASE 13 Units/L (12-78); ALBUMIN 1.9 g/dL (3.4-5.0); ALKALINE PHOSPHATASE 88 Units/L (46-116); ASPARTATE AMINO TRANSFERASE 24 Units/L (15-37); BLOOD UREA NITROGEN 6 mg/dL (7-18); CALCIUM 8.2 mg/dL (8.5-10.1); CHLORIDE 107 mmol/L (98-107); COR CA(FOR HYPOALB) 9.9 mg/dL (8.5-10.1); CREATININE 1.04 mg/dL (0.55-1.02); SODIUM 143 mmol/L (136-145); TOTAL PROTEIN 6.9 g/dL (6.4-8.2); eGFR NON BLACK RACES 54 (>60)
[2020-11-24 05:06] LABS: GIANT PLATELET FEW; PLATELET MORPHOLOGY COMMENT ABNORMAL (NORMAL)
[2020-11-24] MEDS: NS 1000 ML 1,000 ML IV SCH (05:13)
[2020-11-24] MEDS: CATAPRES TAB 0.1 MG PO SCH (05:13)
[2020-11-24] MEDS: ZOSYN VIAL 3.375 GRAMS 3.375 G in NS 100 ML IV + SPIKE MINIBAG* 100 ML IV SCH (05:14)
[2020-11-24] MEDS: LOPRESSOR TAB 25 MG PO SCH (05:14)
[2020-11-24] MEDS: K-DUR TAB 20 MEQ PO PRN (05:33)
[2020-11-24] MEDS: XOPENEX 1.25 MG/3 ML NEBULE NEB SCH (06:00)
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
[2020-11-24 08:30] VITALS: BP 134/63
[2020-11-24] MEDS: VANCOMYCIN IV *PREMIX 1.25 G/250 ML BAG 1.25 G/250 ML PIGGYBACK IV SCH (08:48)
[2020-11-24] MEDS: HYDROCHLOROTHIAZIDE 12.5 MG CAP PO SCH (08:50)
[2020-11-24] MEDS: VASOTEC TAB 20 MG PO SCH (08:50)
[2020-11-24] MEDS: NexIUM PO SCH (08:50)
[2020-11-24] MEDS: ASPIRIN PO SCH (08:50)
[2020-11-24] MEDS: LOVENOX INJ 40 MG SYR SC SCH (08:51)
[2020-11-24] MEDS ORDERED: ZITHROMAX TAB 250 MG PO SCH (09:00)
== END 2020-11-24 11:45 | disposition home health service (06) | DRG 195 ==
LOC: OBS → MED/SURG 13:54
PROVIDERS: ADMIT Family Medicine; ATTEND Family Medicine
DX: R06.02 Shortness of breath; J18.8 Other pneumonia, unspecified organism; E86.0 Dehydration; I48.91 Unspecified atrial fibrillation; R07.89 Other chest pain; Z20.822 Contact with and (suspected) exposure to COVID-19; E78.2 Mixed hyperlipidemia; J06.9 Acute upper respiratory infection, unspecified; I10 Essential (primary) hypertension

== ENCOUNTER 2020-11-26 14:01 | Observation (INO) ==
[2020-11-26 14:58] LABS: BASOPHILS # (AUTO) 0.1 X10^3/uL (0.0-0.1); BASOPHILS % (AUTO) 0.4 % (0.2-1.0); EOSINOPHILS # (AUTO) 0.2 x10^3/uL (0.0-0.2); EOSINOPHILS % (AUTO) 1.7 % (0.9-2.9); HEMATOCRIT 38.6 % (36.0-47.0); HEMOGLOBIN 13.4 g/dL (12.0-16.0); LYMPHOCYTES # (AUTO) 2.8 X10^3/uL (1.3-2.9); MEAN CORPUSCULAR HGB CONC 34.6 g/dL (33.0-35.0); MEAN CORPUSCULAR VOLUME 89.4 fL (80.0-100.0); MEAN PLATELET VOLUME 10.4 fL (7.4-11.0); MONOCYTES # (AUTO) 1.6 x10^3/uL (0.3-0.8); MONOCYTES % (AUTO) 11.6 % (0.0-13.0); NEUTROPHILS # (AUTO) 8.7 x10^3/uL (2.2-4.8); NEUTROPHILS % (AUTO) 65.3 % (42.0-75.0); PLATELET COUNT 309 X10^3/uL (150.0-450.0); RED BLOOD COUNT 4.32 X10^6/uL (3.5-5.4); RED CELL DISTRIBUTION WIDTH 13.7 % (11.6-16.5); WHITE BLOOD COUNT 13.4 X10^3/uL (3.6-10.0)
[2020-11-26 15:02] LABS: ALANINE AMINOTRANSFERASE 19 Units/L (12-78); ALBUMIN 2.3 g/dL (3.4-5.0); ALKALINE PHOSPHATASE 91 Units/L (46-116); ASPARTATE AMINO TRANSFERASE 26 Units/L (15-37); BLOOD UREA NITROGEN 8 mg/dL (7-18); CALCIUM 9.2 mg/dL (8.5-10.1); CARBON DIOXIDE 29.5 mmol/L (21-32); CHLORIDE 106 mmol/L (98-107); COR CA(FOR HYPOALB) 10.6 mg/dL (8.5-10.1); CREATININE 1.05 mg/dL (0.55-1.02); SODIUM 144 mmol/L (136-145); eGFR NON BLACK RACES 54 (>60)
[2020-11-26 15:22] LABS: GIANT PLATELET FEW; OVALOCYTES SLIGHT; PLATELET MORPHOLOGY COMMENT ABNORMAL (NORMAL)
[2020-11-26] MEDS ORDERED: KLOR-CON PO PRN (15:42)
[2020-11-26] MEDS ORDERED: MICRO K EXTEN CAP 10 MEQ PO PRN (15:42)
[2020-11-26] MEDS ORDERED: POTASSIUM CHL 60 MEQ/NS 0.45% 500 ML IV PRN (15:42)
[2020-11-26] MEDS ORDERED: POTASSIUM CHLORIDE LIQ 20 MEQ UDC PO PRN (15:42)
[2020-11-26] MEDS ORDERED: K-DUR TAB 20 MEQ PO PRN (15:42)
[2020-11-26] MEDS ORDERED: POTASSIUM CHL 40 MEQ/NS 0.45% 500 ML IV PRN (15:42)
[2020-11-26] MEDS ORDERED: K-RIDER 10 MEQ/NS 100 ML 10 MEQ/100 ML BAG IV PRN (15:42)
[2020-11-26] MEDS ORDERED: MAGNESIUM SULFATE 1 GRAM/100 mL PREMIX 1 GM/100 ML BAG IV PRN (15:42)
[2020-11-26 15:50] VITALS: BMI 34.3
[2020-11-26] MEDS: LOPRESSOR TAB 25 MG PO SCH ×2 (15:59→20:59)
[2020-11-26] MEDS: VASOTEC TAB 20 MG PO SCH ×2 (15:59→21:00)
[2020-11-26] MEDS: ASPIRIN PO SCH (16:00)
[2020-11-26] MEDS: CATAPRES TAB 0.1 MG PO SCH ×2 (16:00→21:00)
[2020-11-26] MEDS: ROCEPHIN 1 GRAM IV PREMIX 1 G/50 ML IV.SOLN. IV SCH (16:02)
[2020-11-26] MEDS: NS 1000 ML 1,000 ML IV SCH (16:03)
[2020-11-26 16:44] LABS: CRYPTOSPORIDIUM PARVUM ANTIGEN NEGATIVE (NEGATIVE); GIARDIA LAMBLIA ANTIGEN NEGATIVE (NEGATIVE)
[2020-11-26] MEDS: HYDROCHLOROTHIAZIDE 25 MG TAB PO SCH (20:58)
[2020-11-26] MEDS: NYSTATIN SUSP MT SCH (20:59)
[2020-11-27 05:06] LABS: BASOPHILS # (AUTO) 0.1 X10^3/uL (0.0-0.1); BASOPHILS % (AUTO) 1.2 % (0.2-1.0); EOSINOPHILS # (AUTO) 0.4 x10^3/uL (0.0-0.2); EOSINOPHILS % (AUTO) 3.8 % (0.9-2.9); HEMATOCRIT 33.2 % (36.0-47.0); HEMOGLOBIN 11.5 g/dL (12.0-16.0); LYMPHOCYTES % (AUTO) 18.5 % (21.0-51.0); MEAN CORPUSCULAR HGB CONC 34.6 g/dL (33.0-35.0); MEAN CORPUSCULAR VOLUME 89.5 fL (80.0-100.0); MEAN PLATELET VOLUME 10.5 fL (7.4-11.0); MONOCYTES # (AUTO) 1.8 x10^3/uL (0.3-0.8); MONOCYTES % (AUTO) 16.4 % (0.0-13.0); NEUTROPHILS # (AUTO) 6.5 x10^3/uL (2.2-4.8); NEUTROPHILS % (AUTO) 60.1 % (42.0-75.0); PLATELET COUNT 327 X10^3/uL (150.0-450.0); RED CELL DISTRIBUTION WIDTH 13.7 % (11.6-16.5); WHITE BLOOD COUNT 10.8 X10^3/uL (3.6-10.0)
[2020-11-27 05:16] LABS: ALANINE AMINOTRANSFERASE 18 Units/L (12-78); ALBUMIN 1.8 g/dL (3.4-5.0); ALKALINE PHOSPHATASE 70 Units/L (46-116); ASPARTATE AMINO TRANSFERASE 27 Units/L (15-37); BLOOD UREA NITROGEN 8 mg/dL (7-18); CALCIUM 8.6 mg/dL (8.5-10.1); CHLORIDE 111 mmol/L (98-107); COR CA(FOR HYPOALB) 10.4 mg/dL (8.5-10.1); CREATININE 0.85 mg/dL (0.55-1.02); MAGNESIUM 1.9 mg/dL (1.7-2.9); SODIUM 146 mmol/L (136-145); TOTAL PROTEIN 6.4 g/dL (6.4-8.2); eGFR NON BLACK RACES > 60 (>60)
[2020-11-27] MEDS: CATAPRES TAB 0.1 MG PO SCH ×3 (05:25→22:04)
[2020-11-27] MEDS: LOPRESSOR TAB 25 MG PO SCH ×3 (05:26→22:05)
[2020-11-27] MEDS: NS 1000 ML 1,000 ML IV SCH ×2 (05:26→20:16)
[2020-11-27 05:34] LABS: GIANT PLATELET FEW; PLATELET MORPHOLOGY COMMENT ABNORMAL (NORMAL)
[2020-11-27] MEDS: XOPENEX 1.25 MG/3 ML NEBULE NEB PRN ×4 (05:36→21:13)
--- NOTE | 2020-11-27 08:05 | DR.H&P ---
H&P History & Physical for Day of: H&P Date: 11/26/20 Chief Complaint Chief Complaint: Shortness of breath Weakness Allergies Allergies Allergy/AdvReac Type Severity Reaction Status Date / Time celecoxib [From Celebrex] Allergy Verified 11/26/20 15:02 codeine Allergy Verified 11/26/20 15:02 diphenhydramine Allergy Verified 11/26/20 15:02 [From Benadryl] levofloxacin [From Levaquin] Allergy Verified 11/26/20 15:02 Sulfa (Sulfonamide Allergy Verified 11/26/20 15:02 Antibiotics) [SULFA] sulfamethoxazole Allergy Verified 11/26/20 15:02 [From Bactrim] trimethoprim [From Bactrim] Allergy Verified 11/26/20 15:02 History of Present Illness History of Present Illness: Pt is a 80 year old female past medical history of atrial fibrillation(taking ASA 325mg), hypertension, hyperlipidemia, recently discharged for pneumonia returning due to continuing shortness of breath and significant weakness. Per daughter, pt has not been able to tolerate much activity to care for herself due to weakness. She also becomes short of breath easily. Pt has not been eating or drinking adequate amount since back home. Reports also having frequent loose stools since discharge. Denies abdominal pain. Labs/imaging: Wbc 13.4, Hgb 13.4, Plt 327, Na 144, K 2.9, Creatinine 1.05, Glucose 96, CXR:1. Persistent right upper lobe opacity without significant change from prior. Pt admitted for pneumonia, generalized weakness, and dehydrat ion. Her leukocytosis continues to trend down as she had continued antibiotic course at home. Stool cultures were obtained and negative for C.diff or other organisms. Will start on IV Rocephin, IVF NS@75ml/h, supplemental O2, RT consult for bronchodilators prn, PT/OT, restart home medications. Replete electrolytes per protocol. Continue to monitor and follow up labs/imaging in the morning. 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: MANAGER SUMMER Surgery, Spleenectomy and Lithotripsy Family History Family Medical History: MS and Hypertension Social History Does patient currently use any type of tobacco product: No Have you used tobacco products in the last 12 months: No Type of Tobacco Use: None Does any household member use tobacco: No Alcohol Use: None Drug Use: None Medications Home Medications: celecoxib [From Celebrex] Allergy (Verified 11/26/20 15:02) codeine Allergy (Verified 11/26/20 15:02) diphenhydramine [From Benadryl] Allergy (Verified 11/26/20 15:02) levofloxacin [From Levaquin] Allergy (Verified 11/26/20 15:02) Sulfa (Sulfonamide Antibiotics) [SULFA] Allergy (Verified 11/26/20 15:02) sulfamethoxazole [From Bactrim] Allergy (Verified 11/26/20 15:02) trimethoprim [From Bactrim] Allergy (Verified 11/26/20 15:02) Labs Result Diagrams: 11/27/20 04:12 11/27/20 04:12 Labs: 11/26/20 10:20 Stool - Final Laboratory WBC 10.8 X10^3/uL (3.6-10.0) H 11/27/20 04:12 RBC 3.70 X10^6/uL (3.5-5.4) 11/27/20 04:12 Hgb 11.5 g/dL (12.0-16.0) L 11/27/20 04:12 Hct 33.2 % (36.0-47.0) L 11/27/20 04:12 MCV 89.5 fL (80.0-100.0) 11/27/20 04:12 MCH 31.0 pg (27.0-34.0) 11/27/20 04:12 MCHC 34.6 g/dL (33.0-35.0) 11/27/20 04:12 RDW 13.7 % (11.6-16.5) 11/27/20 04:12 Plt Count 327 X10^3/uL (150.0-450.0) 11/27/20 04:12 Plt Count Comment Adequate (ADEQUATE) 11/27/20 04:12 MPV 10.5 fL (7.4-11.0) 11/27/20 04:12 Neut % (Auto) 60.1 % (42.0-75.0) 11/27/20 04:12 Lymph % (Auto) 18.5 % (21.0-51.0) L 11/27/20 04:12 [place] % (Auto) 16.4 % (0.0-13.0) H 11/27/20 04:12 Eos % (Auto) 3.8 % (0.9-2.9) H 11/27/20 04:12 Baso % (Auto) 1.2 % (0.2-1.0) H 11/27/20 04:12 Neut # (Auto) 6.5 x10^3/uL (2.2-4.8) H 11/27/20 04:12 Lymph # (Auto) 2.0 X10^3/uL (1.3-2.9) 11/27/20 04:12 [place] # (Auto) 1.8 x10^3/uL (0.3-0.8) H 11/27/20 04:12 Eos # (Auto) 0.4 x10^3/uL (0.0-0.2) H 11/27/20 04:12 Baso # (Auto) 0.1 X10^3/uL (0.0-0.1) 11/27/20 04:12 Absolute Nucleated RBC 0.2 /100WBC 11/27/20 04:12 Giant Platelets Few 11/27/20 04:12 Plt Morphology Comment Abnormal (NORMAL) A 11/27/20 04:12 RBC Morphology Normal (NORMAL) 11/27/20 04:12 Ovalocytes Slight A 11/26/20 14:25 Sodium 146 mmol/L (136-145) H 11/27/20 04:12 Corrected Sodium TNP 11/27/20 04:12 Potassium 3.5 mmol/L (3.5-5.1) 11/27/20 04:12 Chloride 111 mmol/L (98-107) H 11/27/20 04:12 Carbon Dioxide 27.0 mmol/L (21-32) 11/27/20 04:12 BUN 8 mg/dL (7-18) 11/27/20 04:12 Creatinine 0.85 mg/dL (0.55-1.02) 11/27/20 04:12 Est GFR (MDRD) Af Amer > 60 (>60) 11/27/20 04:12 Est GFR (MDRD) Non-Af > 60 (>60) 11/27/20 04:12 Glucose 93 mg/dL (65-99) 11/27/20 04:12 Calcium 8.6 mg/dL (8.5-10.1) 11/27/20 04:12 Corrected Calcium 10.4 mg/dL (8.5-10.1) H 11/27/20 04:12 Magnesium 1.9 mg/dL (1.7-2.9) 11/27/20 04:12 Total Bilirubin 0.20 mg/dL (0.2-1.0) 11/27/20 04:12 AST 27 Units/L (15-37) 11/27/20 04:12 ALT 18 Units/L (12-78) 11/27/20 04:12 Alkaline Phosphatase 70 Units/L (46-116) 11/27/20 04:12 Total Protein 6.4 g/dL (6.4-8.2) 11/27/20 04:12 Albumin 1.8 g/dL (3.4-5.0) L 11/27/20 04:12 Globulin 4.6 g/dL (2.5-4.5) H 11/27/20 04:12 Albumin/Globulin Ratio 0.4 Ratio (1.1-2.1) L 11/27/20 04:12 Stool Description 50g brown mucoid 11/26/20 10:20 Stool Description 50g brown mucoid 11/26/20 10:20 Stl Occult Blood (IFOB) Positive (NEGATIVE) A 11/26/20 10:20 Stool for White Cells Positive (NEGATIVE) A 11/26/20 10:20 Stl C. diff Tox B Gene Negative (NEGATIVE) 11/26/20 10:20 Stl C. diff [id number] Presumptive negative (NEGATIVE) 11/26/20 10:20 Cryptosporid parvum Ag Negative (NEGATIVE) 11/26/20 10:20 Giardia lamblia Ag Negative (NEGATIVE) 11/26/20 10:20 SARS CoV-2 RNA Rapid SACHI Negative (NEGATIVE) 11/26/20 17:30 Review of Systems Constitutional: Weakness; denies Fever and Chills Eyes: No Symptoms Reported ENT: No Symptoms Reported Respiratory: Shortness of Breath; denies Cough and Wheezing Cardiovascular: No Symptoms Reported Gastrointestinal: No Symptoms Reported Genitourinary: No Symptoms Reported Musculoskeletal: No Symptoms Reported Skin: No Symptoms Reported Neurological: No Symptoms Reported Physical Exam Vital Signs: Temperature 98.2 F Pulse Rate [Right Brachial] 68 Pulse Rate 77 Respiratory Rate 28 Blood Pressure [Right Arm] 177/73 Blood Pressure [Left Arm] 134/63 Blood Pressure 153/65 O2 Sat by Pulse Oximetry 95 Oriented: Normal Eyes: Normal Ear: Normal Nose: Normal Throat: Normal Respiratory: Clear Throughout Cardiovascular: Normal : Normal Auscultation: Bowel Sounds: Normal Palpation: Normal Tenderness: Normal Skin: Decreased [place] Musculoskeletal: Normal Psychiatric: Normal Mood Description: Calm and Appropriate Affect: Normal Speech Pattern: Clear and Appropriate Assessment/Plan (1) CAP (community acquired pneumonia): Qualifiers: Laterality: right Lung location: upper lobe of lung Qualified Code(s): J18.9 - Pneumonia, unspecified organism Status: Acute Plan: IV Rocephin (2) Generalized weakness: Status: Acute Plan: PT/OT (3) Dehydration: Status: Acute Plan: IVF (4) Hypokalemia: Status: Acute Plan: Replete per protocol Review H&P Reviewed: Yes Patient was examined?: Yes
[2020-11-27] MEDS: NYSTATIN SUSP MT SCH ×5 (09:28→20:17)
[2020-11-27] MEDS: VSL#3 PO SCH (09:28)
[2020-11-27] MEDS: VASOTEC TAB 20 MG PO SCH ×2 (09:28→20:19)
[2020-11-27] MEDS: HYDROCHLOROTHIAZIDE 25 MG TAB PO SCH ×2 (09:28→20:18)
[2020-11-27] MEDS: ROCEPHIN 1 GRAM IV PREMIX 1 G/50 ML IV.SOLN. IV SCH (09:29)
--- NOTE | 2020-11-27 09:59 | RAD ---
CHEST, 1 VIEWHISTORY: SOBStudy: Single view of the chest.Comparison:CT November 20, 2020Findings:Cardiomegaly.Right upper lobe opacity is present. Similar to recent CT osseous structures demonstrate no acute abnormality.IMPRESSION:1. Persistent right upper lobe opacity without significant change from priorElectronically signed by: WALKER SKY (Nov 26, 2020 15:21:39)
[2020-11-27] MEDS: ASPIRIN PO SCH (10:27)
[2020-11-27] MEDS: LOVENOX INJ 40 MG SYR SC SCH (10:28)
--- NOTE | 2020-11-27 11:10 | PCM.PROG ---
Progress Note Progress Note for Day of Date of Exam: 11/27/20 Subjective Subjective: Pt is a 80 year old female past medical history of atrial fibrillation(taking ASA 325mg), hypertension, hyperlipidemia, admitted for pneumonia, generalized weakness, and dehydration. This morning she is sitting up in bed eating some of her breakfast. Reports some improvement in breathing and weakness. She still has loose stools when she goes to the bathroom. Labs/imaging: Wbc 10.8, Hgb 11.5, Plt 327, Na 146, K 3.5, Creatinine 0.85, Glucose 93, Hospital/treatment course includes: IV Rocephin, IVF NS@75ml/h,supplemental O2, RT consult for bronchodilators prn, PT/OT, home medications. Leukocytosis continues to trend down. Will add probiotics and immodium to help with loose stools. PT/OT to evaluate patient, follow up recommendations. Continue to monitor and follow up labs/imaging in the morning. Past Medical Family Social History Past Med/Fam/Surg Hx: No changes since H&P Allergies: Allergies celecoxib [From Celebrex] Allergy (Verified 11/26/20 15:02) codeine Allergy (Verified 11/26/20 15:02) diphenhydramine [From Benadryl] Allergy (Verified 11/26/20 15:02) levofloxacin [From Levaquin] Allergy (Verified 11/26/20 15:02) DAUGHTER STATES [employer] TOLD PT. TO NOT TAKE IT BECAUSE OF HER HEART AND A-FIB Sulfa (Sulfonamide Antibiotics) [SULFA] Allergy (Verified 11/26/20 15:02) sulfamethoxazole [From Bactrim] Allergy (Verified 11/26/20 15:02) trimethoprim [From Bactrim] Allergy (Verified 11/26/20 15:02) Review of Systems ROS: No change since H&P Vital Signs and I&O's Vital Signs: Temperature 98.2 F Pulse Rate [Right Brachial] 62 Pulse Rate 84 Respiratory Rate 18 Blood Pressure [Right Arm] 136/63 Blood Pressure [Left Arm] 134/63 Blood Pressure 153/65 O2 Sat by Pulse Oximetry 94 Intake and Output: Intake & Output 11/24/20 11/25/20 11/26/20 11/27/20 23:59 23:59 23:59 23:59 Intake Total 510 / 510 500 / 500 Balance 510 / 510 500 / 500 Physical Exam Oriented: Normal Eyes: Normal Ear: Normal Nose: Normal Throat: Normal Respiratory: Normal Cardiovascular: Normal : Normal Auscultation: Bowel Sounds: Normal Tenderness: Normal Skin: Decreased [place] Musculoskeletal: Normal Psychiatric: Normal Mood Description: Calm and Appropriate Affect: Normal Speech Pattern: Clear and Appropriate Laboratory and Diagnostics Result Diagrams: 11/27/20 04:12 11/27/20 04:12 Labs: 11/26/20 10:20 Stool - Final Laboratory WBC 10.8 X10^3/uL (3.6-10.0) H 11/27/20 04:12 RBC 3.70 X10^6/uL (3.5-5.4) 11/27/20 04:12 Hgb 11.5 g/dL (12.0-16.0) L 11/27/20 04:12 Hct 33.2 % (36.0-47.0) L 11/27/20 04:12 MCV 89.5 fL (80.0-100.0) 11/27/20 04:12 MCH 31.0 pg (27.0-34.0) 11/27/20 04:12 MCHC 34.6 g/dL (33.0-35.0) 11/27/20 04:12 RDW 13.7 % (11.6-16.5) 11/27/20 04:12 Plt Count 327 X10^3/uL (150.0-450.0) 11/27/20 04:12 Plt Count Comment Adequate (ADEQUATE) 11/27/20 04:12 MPV 10.5 fL (7.4-11.0) 11/27/20 04:12 Neut % (Auto) 60.1 % (42.0-75.0) 11/27/20 04:12 Lymph % (Auto) 18.5 % (21.0-51.0) L 11/27/20 04:12 [place] % (Auto) 16.4 % (0.0-13.0) H 11/27/20 04:12 Eos % (Auto) 3.8 % (0.9-2.9) H 11/27/20 04:12 Baso % (Auto) 1.2 % (0.2-1.0) H 11/27/20 04:12 Neut # (Auto) 6.5 x10^3/uL (2.2-4.8) H 11/27/20 04:12 Lymph # (Auto) 2.0 X10^3/uL (1.3-2.9) 11/27/20 04:12 [place] # (Auto) 1.8 x10^3/uL (0.3-0.8) H 11/27/20 04:12 Eos # (Auto) 0.4 x10^3/uL (0.0-0.2) H 11/27/20 04:12 Baso # (Auto) 0.1 X10^3/uL (0.0-0.1) 11/27/20 04:12 Absolute Nucleated RBC 0.2 /100WBC 11/27/20 04:12 Giant Platelets Few 11/27/20 04:12 Plt Morphology Comment Abnormal (NORMAL) A 11/27/20 04:12 RBC Morphology Normal (NORMAL) 11/27/20 04:12 Ovalocytes Slight A 11/26/20 14:25 Sodium 146 mmol/L (136-145) H 11/27/20 04:12 Corrected Sodium TNP 11/27/20 04:12 Potassium 3.5 mmol/L (3.5-5.1) 11/27/20 04:12 Chloride 111 mmol/L (98-107) H 11/27/20 04:12 Carbon Dioxide 27.0 mmol/L (21-32) 11/27/20 04:12 BUN 8 mg/dL (7-18) 11/27/20 04:12 Creatinine 0.85 mg/dL (0.55-1.02) 11/27/20 04:12 Est GFR (MDRD) Af Amer > 60 (>60) 11/27/20 04:12 Est GFR (MDRD) Non-Af > 60 (>60) 11/27/20 04:12 Glucose 93 mg/dL (65-99) 11/27/20 04:12 Calcium 8.6 mg/dL (8.5-10.1) 11/27/20 04:12 Corrected Calcium 10.4 mg/dL (8.5-10.1) H 11/27/20 04:12 Magnesium 1.9 mg/dL (1.7-2.9) 11/27/20 04:12 Total Bilirubin 0.20 mg/dL (0.2-1.0) 11/27/20 04:12 AST 27 Units/L (15-37) 11/27/20 04:12 ALT 18 Units/L (12-78) 11/27/20 04:12 Alkaline Phosphatase 70 Units/L (46-116) 11/27/20 04:12 Total Protein 6.4 g/dL (6.4-8.2) 11/27/20 04:12 Albumin 1.8 g/dL (3.4-5.0) L 11/27/20 04:12 Globulin 4.6 g/dL (2.5-4.5) H 11/27/20 04:12 Albumin/Globulin Ratio 0.4 Ratio (1.1-2.1) L 11/27/20 04:12 Stool Description 50g brown mucoid 11/26/20 10:20 Stool Description 50g brown mucoid 11/26/20 10:20 Stl Occult Blood (IFOB) Positive (NEGATIVE) A 11/26/20 10:20 Stool for White Cells Positive (NEGATIVE) A 11/26/20 10:20 Stl C. diff Tox B Gene Negative (NEGATIVE) 11/26/20 10:20 Stl C. diff [id number]-[id number] Presumptive negative (NEGATIVE) 11/26/20 10:20 Cryptosporid parvum Ag Negative (NEGATIVE) 11/26/20 10:20 Giardia lamblia Ag Negative (NEGATIVE) 11/26/20 10:20 SARS CoV-2 RNA Rapid SACHI Negative (NEGATIVE) 11/26/20 17:30 Plan (1) CAP (community acquired pneumonia): Status: Acute Qualifiers: Laterality: right Lung location: upper lobe of lung Qualified Code(s): J18.9 - Pneumonia, unspecified organism Plan: IV Rocephin (2) Generalized weakness: Status: Acute Plan: PT/OT (3) Dehydration: Status: Acute Plan: IVF (4) Hypokalemia: Status: Acute Plan: Replete per protocol
[2020-11-27] MEDS: IMODIUM CAP 2 MG PO PRN ×2 (18:02→23:09)
[2020-11-28] MEDS: CATAPRES TAB 0.1 MG PO SCH ×2 (05:28→14:43)
[2020-11-28] MEDS: LOPRESSOR TAB 25 MG PO SCH ×2 (05:28→14:43)
[2020-11-28] MEDS: IMODIUM CAP 2 MG PO PRN (05:31)
[2020-11-28 06:34] LABS: ALANINE AMINOTRANSFERASE 22 Units/L (12-78); ALBUMIN 2.1 g/dL (3.4-5.0); ALKALINE PHOSPHATASE 79 Units/L (46-116); ASPARTATE AMINO TRANSFERASE 23 Units/L (15-37); BLOOD UREA NITROGEN 4 mg/dL (7-18); CALCIUM 8.6 mg/dL (8.5-10.1); CARBON DIOXIDE 31.2 mmol/L (21-32); CHLORIDE 107 mmol/L (98-107); COR CA(FOR HYPOALB) 10.1 mg/dL (8.5-10.1); CREATININE 1.08 mg/dL (0.55-1.02); SODIUM 146 mmol/L (136-145); TOTAL PROTEIN 7.1 g/dL (6.4-8.2); eGFR NON BLACK RACES 52 (>60)
[2020-11-28 06:36] LABS: BASOPHILS # (AUTO) 0.1 X10^3/uL (0.0-0.1); BASOPHILS % (AUTO) 0.7 % (0.2-1.0); EOSINOPHILS # (AUTO) 0.6 x10^3/uL (0.0-0.2); EOSINOPHILS % (AUTO) 5.2 % (0.9-2.9); HEMATOCRIT 34.3 % (36.0-47.0); HEMOGLOBIN 11.9 g/dL (12.0-16.0); MEAN CORPUSCULAR HEMOGLOBIN 31.2 pg (27.0-34.0); MEAN CORPUSCULAR HGB CONC 34.7 g/dL (33.0-35.0); MEAN PLATELET VOLUME 10.3 fL (7.4-11.0); MONOCYTES # (AUTO) 1.7 x10^3/uL (0.3-0.8); MONOCYTES % (AUTO) 14.8 % (0.0-13.0); NEUTROPHILS % (AUTO) 61.3 % (42.0-75.0); PLATELET COUNT 422 X10^3/uL (150.0-450.0); RED BLOOD COUNT 3.81 X10^6/uL (3.5-5.4); WHITE BLOOD COUNT 11.3 X10^3/uL (3.6-10.0)
[2020-11-28 07:22] LABS: GIANT PLATELET FEW; PLATELET MORPHOLOGY COMMENT ABNORMAL (NORMAL)
[2020-11-28] MEDS: ASPIRIN PO SCH (08:45)
[2020-11-28] MEDS: HYDROCHLOROTHIAZIDE 25 MG TAB PO SCH (08:45)
[2020-11-28] MEDS: LOVENOX INJ 40 MG SYR SC SCH (08:45)
[2020-11-28] MEDS: ROCEPHIN 1 GRAM IV PREMIX 1 G/50 ML IV.SOLN. IV SCH (08:46)
[2020-11-28] MEDS: VASOTEC TAB 20 MG PO SCH (08:46)
[2020-11-28] MEDS: VSL#3 PO SCH (08:46)
[2020-11-28] MEDS: NYSTATIN SUSP MT SCH ×3 (08:46→17:10)
[2020-11-28 08:57] LABS: CKMB % 2.1 % (<4); CREATINE KINASE MB 1.6 ng/mL (0-4.0); TROPONIN I 0.17 ng/mL (0-1.5)
[2020-11-28] MEDS: NS 1000 ML 1,000 ML IV SCH (10:04)
--- NOTE | 2020-11-28 10:17 | CT ---
CHEST W/O CONCLINICAL INDICATION: PNUEMONIA FOLLOW UPPROCEDURE: Noncontrast CT images were obtained through the chest. Dose reduction techniques including Automated Exposure Control (AEC) and adjustment of mA and kV were utlized.COMPARISON: [November 20, 2020]FINDINGS:The sensitivity for focal lesion detection within the mediastinum is diminished without the use of IV contrast.Cardiomegaly. No pericardial effusion . No suspicious mediastinal or axillary lymph nodes. Worsening cavitary consolidation of the right lung apex with new sub solid opacity in the right lung base. New small bilateral pleural effusions also present..Airways are patent . No suspicious pulmonary nodules or masses .Limited images of the upper abdomen are unremarkable.No aggressive osseous lesions.IMPRESSION:1. Worsening cavitary consolidation in the right lung apex. Differential considerations include necrotizing pneumonia or possibly tuberculosis. Bilateral parapneumonic effusions are now present as well as a new opacity right lower lobe suggesting worsening infection.Electronically signed by: WALKER SKY (Nov 28, 2020 10:15:32)
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
[2020-11-28] MEDS ORDERED: PHARMACY CONSULT - VANCOMYCIN XX SCH (11:00)
[2020-11-28] MEDS ORDERED: VANCOMYCIN IV *PREMIX 1.25 G/250 ML BAG 1.25 G/250 ML PIGGYBACK IV SCH (11:00)
[2020-11-28] MEDS: ZOSYN VIAL 3.375 GRAMS 3.375 G in NS 100 ML IV + SPIKE MINIBAG* 100 ML IV SCH ×2 (11:10→14:44)
[2020-11-28] MEDS ORDERED: SALINE 3% 15 ML NEB TX ONE (12:02)
[2020-11-28] MEDS: XOPENEX 1.25 MG/3 ML NEBULE NEB PRN ×2 (12:05→16:02)
[2020-11-28] MEDS ORDERED: SALINE 3% 15 ML NEB TX NEB ONE (12:05)
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
--- NOTE | 2020-11-28 16:01 | RAD ---
HISTORYCENTRAL LINE PLACEMENTSTUDYCHEST, 1 VIEWCOMPARISONChest radiograph, November 26, [address], November 28, 2020TE[facility]t [facility], frontal projection, 1 imageFINDINGSNo cardiomegaly.Airspace disease in the right upper lobe.Interval placement of a right subclavian central line with the tip overlying the cavoatrial junction.No pleural effusion.No pneumothorax.No acute osseous abnormality.IMPRESSION1. Airspace disease in the right upper lobe has progressed since the previous chest radiograph. See the same day CT report for further discussion.2. Interval placement of a right subclavian central line with the tip overlying the cavoatrial junction.Electronically signed by: Yasir Casillas (Nov 28, 2020 15:58:42)
[2020-11-28 17:09] VITALS: BP 134/61
[2020-11-29] MEDS ORDERED: PHARMACY COMMENT IV NR (20:30)
== END 2020-11-28 17:45 | disposition short-term general hospital (02) ==
LOC: MED/SURG
PROVIDERS: ADMIT Family Medicine; ATTEND Family Medicine
DX: R26.89 Other abnormalities of gait and mobility; J18.8 Other pneumonia, unspecified organism; R94.31 Abnormal electrocardiogram [ECG] [EKG]; E78.2 Mixed hyperlipidemia; I48.91 Unspecified atrial fibrillation; E86.0 Dehydration; R53.1 Weakness; Z20.822 Contact with and (suspected) exposure to COVID-19; I10 Essential (primary) hypertension; E87.6 Hypokalemia; R06.02 Shortness of breath

== ENCOUNTER 2021-03-09 10:15 | Inpatient (IN) ==
--- NOTE | 2021-03-09 10:39 | DR.GENAD ---
HPI Time Seen Time Seen by Provider: 03/09/21 10:39 PCP Primary Care Physician: Ananya Garcia Complaint/Symptoms Chief Complaint:: Pt has been feeling weak for several days, has congestion and junky cough, also c/o diarrhea. Pt was dx with COVID on 03/04/21, had antibody infusion 03/06/21. Pt was sent for eval of her cough and a-fib; phototypesetting equipment monitor showing a-fib 148. COVID-19 Coronavirus risk:travel/contact w/high risk person: No Has patient experienced Coronavirus symptoms: Yes Coronavirus symptoms experienced: Coughing and Shortness of Breath Source History Provided: Patient and EMS Mode of Arrival Mode of Arrival: EMS Timing Onset of Chief Complaint: 03/07/21 PMH PMH Past Medical History: Yes Past Medical History: Hypertension Past Medical History Comment: atrial fib Past Surgical History: Yes Surgical History: Spleenectomy Past Surgical History Comment: R oophrectomy, cataracts Family History History of Family Medical Conditions: Yes Family Medical History: Heart Failure and Hypertension Social History Alcohol Use: None Do you use any recreational Drugs:: No Lives Where: Home Travel Risk Coronavirus risk:travel/contact w/high risk person: No Has patient experienced Coronavirus symptoms: Yes Coronavirus symptoms experienced: Coughing and Shortness of Breath Infectious screening In the last 2 months have you had wt loss of >10#?: NO Have you had fever, night sweats or hemotysis?: No Have you traveled outside the country in the last 6 months?: No Isolation: Droplet PE Vital Signs Vitals: Temperature 98.5 F Pulse Rate 79 Respiratory Rate 26 Blood Pressure [Right Arm] 188/74 Blood Pressure 126/58 O2 Sat by Pulse Oximetry 93 ROR Labs Reviewed Result Diagrams: 03/09/21 11:10 03/09/21 11:10 Laboratory: 03/09/21 12:21 Sputum - Expectorated Sputum - Final WBC 15.4 X10^3/uL (3.6-10.0) H 03/09/21 11:10 RBC 4.75 X10^6/uL (3.5-5.4) 03/09/21 11:10 Hgb 14.6 g/dL (12.0-16.0) 03/09/21 11:10 Hct 42.5 % (36.0-47.0) 03/09/21 11:10 MCV 89.6 fL (80.0-100.0) 03/09/21 11:10 MCH 30.8 pg (27.0-34.0) 03/09/21 11:10 MCHC 34.4 g/dL (33.0-35.0) 03/09/21 11:10 RDW 13.6 % (11.6-16.5) 03/09/21 11:10 Plt Count 168 X10^3/uL (150.0-450.0) 03/09/21 11:10 Plt Count Comment Adequate (ADEQUATE) 03/09/21 11:10 MPV 10.2 fL (7.4-11.0) 03/09/21 11:10 Neut % (Auto) 73.2 % (42.0-75.0) 03/09/21 11:10 Lymph % (Auto) 16.3 % (21.0-51.0) L 03/09/21 11:10 [place] % (Auto) 9.6 % (0.0-13.0) 03/09/21 11:10 Eos % (Auto) 0.1 % (0.9-2.9) L 03/09/21 11:10 Baso % (Auto) 0.8 % (0.2-1.0) 03/09/21 11:10 Neut # (Auto) 11.3 x10^3/uL (2.2-4.8) H 03/09/21 11:10 Lymph # (Auto) 2.5 X10^3/uL (1.3-2.9) 03/09/21 11:10 [place] # (Auto) 1.5 x10^3/uL (0.3-0.8) H 03/09/21 11:10 Eos # (Auto) 0.0 x10^3/uL (0.0-0.2) 03/09/21 11:10 Baso # (Auto) 0.1 X10^3/uL (0.0-0.1) 03/09/21 11:10 Absolute Nucleated RBC 0.3 /100WBC 03/09/21 11:10 Giant Platelets Few 03/09/21 11:10 Plt Morphology Comment Abnormal (NORMAL) A 03/09/21 11:10 RBC Morphology Normal (NORMAL) 03/09/21 11:10 D-Dimer 0.56 ug/ml (0.0-0.57) 03/09/21 12:42 Sodium 138 mmol/L (136-145) 03/09/21 11:10 Corrected Sodium TNP 03/09/21 11:10 Potassium 3.0 mmol/L (3.5-5.1) L* 03/09/21 11:10 Chloride 102 mmol/L (98-107) 03/09/21 11:10 Carbon Dioxide 26.7 mmol/L (21-32) 03/09/21 11:10 BUN 19 mg/dL (7-18) H 03/09/21 11:10 Creatinine 1.24 mg/dL (0.55-1.02) H 03/09/21 11:10 Est GFR (MDRD) Af Amer 54 (>60) L 03/09/21 11:10 Est GFR (MDRD) Non-Af 44 (>60) L 03/09/21 11:10 Glucose 109 mg/dL (65-99) H 03/09/21 11:10 Calcium 8.5 mg/dL (8.5-10.1) 03/09/21 11:10 Corrected Calcium 9.5 mg/dL (8.5-10.1) 03/09/21 11:10 Ferritin 378 ng/mL (8-252) H 03/09/21 12:42 Total Bilirubin 0.60 mg/dL (0.2-1.0) 03/09/21 11:10 AST 37 Units/L (15-37) 03/09/21 11:10 ALT 27 Units/L (12-78) 03/09/21 11:10 Alkaline Phosphatase 78 Units/L (46-116) 03/09/21 11:10 Creatine Kinase 58 Units/L (26-192) 03/09/21 11:10 CK-MB (CK-2) < 1.0 ng/mL (0-4.0) 03/09/21 11:10 CK/CKMB % Calc 1.7 % (<4) 03/09/21 11:10 Troponin I < 0.02 ng/mL (0-1.5) 03/09/21 11:10 C-Reactive Protein 22.80 mg/L (0-3.0) H 03/09/21 12:42 B-Natriuretic Peptide 273 pg/mL (0-79) H 03/09/21 11:10 Total Protein 7.8 g/dL (6.4-8.2) 03/09/21 11:10 Albumin 2.8 g/dL (3.4-5.0) L 03/09/21 11:10 Globulin 5.0 g/dL (2.5-4.5) H 03/09/21 11:10 Albumin/Globulin Ratio 0.6 Ratio (1.1-2.1) L 03/09/21 11:10 Specimen Type Clean catch urine 03/09/21 14:52 Urine Color Straw (YELLOW) 03/09/21 14:52 Urine Appearance Clear (CLEAR) 03/09/21 14:52 Urine pH 6.5 (5.0 - 8.0) 03/09/21 14:52 Ur Specific [place] 1.010 (1.000-1.030) 03/09/21 14:52 Urine Protein 2+ (NEGATIVE) 03/09/21 14:52 Urine Glucose (UA) Negative (NEGATIVE) 03/09/21 14:52 Urine Ketones Negative (NEGATIVE) 03/09/21 14:52 Urine Occult Blood Negative (NEGATIVE) 03/09/21 14:52 Urine Nitrite Negative (NEGATIVE) 03/09/21 14:52 Urine Bilirubin Negative (NEGATIVE) 03/09/21 14:52 Urine Urobilinogen Normal (NORMAL) 03/09/21 14:52 Ur Leukocyte Esterase Negative (NEGATIVE) 03/09/21 14:52 Urine RBC 3-5 /HPF (0-3) A 03/09/21 14:52 Urine WBC 0-2 /HPF (0-5) 03/09/21 14:52 Ur Squamous Epith Cells Moderate /HPF (NEGATIVE) 03/09/21 14:52 Ur Transition Epith Cell Few /HPF (NEGATIVE) 03/09/21 14:52 Urine Bacteria Trace /HPF (NEGATIVE) 03/09/21 14:52 Urine Mucus Rare /HPF (NEGATIVE) 03/09/21 14:52 Ur Culture Indicated? No/not indicated 03/09/21 14:52 SARS-CoV-2 (PCR) Positive (NEGATIVE) A 03/09/21 13:54 Influenza Type A (PCR) Negative (NEGATIVE) 03/09/21 13:54 Influenza Type B (PCR) Negative (NEGATIVE) 03/09/21 13:54 RSV (PCR) Negative (NEGATIVE) 03/09/21 13:54 Opioid Opioid Risk Tool Age (Harry box if 16-45): No History of Preadolescent Sexual Abuse: No Total: 0 Total Score Risk Category: Low Risk Copyright: [facility] predicting aberrant behaviors Diagnosis Discharge Problem: Atrial fibrillation with rapid ventricular response, Hypokalemia, Acute respiratory distress, Bronchitis Instructions Forms: Precautions for COVID19 [facility] Patient [facility] Social Distancing
[2021-03-09 11:27] LABS: BASOPHILS # (AUTO) 0.1 X10^3/uL (0.0-0.1); BASOPHILS % (AUTO) 0.8 % (0.2-1.0); EOSINOPHILS % (AUTO) 0.1 % (0.9-2.9); HEMATOCRIT 42.5 % (36.0-47.0); HEMOGLOBIN 14.6 g/dL (12.0-16.0); LYMPHOCYTES # (AUTO) 2.5 X10^3/uL (1.3-2.9); LYMPHOCYTES % (AUTO) 16.3 % (21.0-51.0); MEAN CORPUSCULAR HEMOGLOBIN 30.8 pg (27.0-34.0); MEAN CORPUSCULAR HGB CONC 34.4 g/dL (33.0-35.0); MEAN CORPUSCULAR VOLUME 89.6 fL (80.0-100.0); MEAN PLATELET VOLUME 10.2 fL (7.4-11.0); MONOCYTES # (AUTO) 1.5 x10^3/uL (0.3-0.8); MONOCYTES % (AUTO) 9.6 % (0.0-13.0); NEUTROPHILS # (AUTO) 11.3 x10^3/uL (2.2-4.8); NEUTROPHILS % (AUTO) 73.2 % (42.0-75.0); PLATELET COUNT 168 X10^3/uL (150.0-450.0); RED BLOOD COUNT 4.75 X10^6/uL (3.5-5.4); RED CELL DISTRIBUTION WIDTH 13.6 % (11.6-16.5); WHITE BLOOD COUNT 15.4 X10^3/uL (3.6-10.0)
--- NOTE | 2021-03-09 11:37 | RAD ---
HISTORYCP, SOB, AFIB HX: HTN, MVP, A-FIB SX: SPLEENECTOMYSTUDYCHEST, 1 VIEWCOMPARISONPortable chest November 28, 2020FINDINGSThe trachea is midline. The cardiac silhouette is unremarkable. The lungs are clear without focal infiltrate or effusion. The bony thorax is unremarkable.IMPRESSIONNo acute cardiopulmonary disease. The infiltrate that was present previously in the right upper lobe in November of 2020 has resolved without residual.Electronically signed by: ROMEL ALLEN (Mar 09, 2021 11:35:23)
[2021-03-09 11:43] LABS: GIANT PLATELET FEW; PLATELET MORPHOLOGY COMMENT ABNORMAL (NORMAL)
[2021-03-09 11:53] LABS: ALANINE AMINOTRANSFERASE 27 Units/L (12-78); ALBUMIN 2.8 g/dL (3.4-5.0); ALKALINE PHOSPHATASE 78 Units/L (46-116); ASPARTATE AMINO TRANSFERASE 37 Units/L (15-37); BLOOD UREA NITROGEN 19 mg/dL (7-18); CALCIUM 8.5 mg/dL (8.5-10.1); CARBON DIOXIDE 26.7 mmol/L (21-32); CHLORIDE 102 mmol/L (98-107); CKMB % 1.7 % (<4); COR CA(FOR HYPOALB) 9.5 mg/dL (8.5-10.1); CREATINE KINASE 58 Units/L (26-192); CREATINE KINASE MB < 1.0 ng/mL (0-4.0); CREATININE 1.24 mg/dL (0.55-1.02); SODIUM 138 mmol/L (136-145); TOTAL PROTEIN 7.8 g/dL (6.4-8.2); TROPONIN I < 0.02 ng/mL (0-1.5); eGFR NON BLACK RACES 44 (>60)
[2021-03-09] MEDS ORDERED: CARDIZEM INJ 50 MG VIAL IVP ONE (12:31)
[2021-03-09] MEDS ORDERED: NS 100 ML IV + SPIKE MINIBAG* 100 ML IV ONE ×2 (12:48→16:06)
[2021-03-09] MEDS ORDERED: CARDIZEM INJ 125 MG VIAL ONE (12:49)
[2021-03-09] MEDS ORDERED: CARDIZEM INJ 50 MG VIAL ONE (12:49)
[2021-03-09] MEDS: CARDIZEM INJ 125 MG VIAL 125 MG in NS 100 ML IV 100 ML IV PRN ×2 (13:06→21:30)
[2021-03-09] MEDS ORDERED: KLOR-CON PO ONE (13:14)
[2021-03-09] MEDS ORDERED: KLOR-CON ONE (13:24)
[2021-03-09 15:20] LABS: BILIRUBIN,URINE NEGATIVE (NEGATIVE); BLOOD/HEMOGLOBIN,URINE NEGATIVE (NEGATIVE); GLUCOSE, URINE NEGATIVE (NEGATIVE); KETONES,URINE NEGATIVE (NEGATIVE); LEUKOCYTE ESTERASE ,URINE NEGATIVE (NEGATIVE); NITRITES,URINE NEGATIVE (NEGATIVE); PH,URINE 6.5 (5.0 - 8.0); PROTEIN,URINE 2+ (NEGATIVE); UROBILINOGEN,URINE NORMAL (NORMAL)
[2021-03-09] MEDS ORDERED: ZOSYN VIAL 3.375 GRAMS 3.375 G in NS 50 ML IV + SPIKE MINIBAG* 50 ML IV ONE (15:27)
[2021-03-09 15:30] LABS: APPEARANCE,URINE CLEAR (CLEAR); BACTERIA,URINE TRACE /HPF (NEGATIVE); COLOR,URINE STRAW (YELLOW); MUCUS,URINE RARE /HPF (NEGATIVE); SQUAMOUS EPITHELIAL CELL,UR MODERATE /HPF (NEGATIVE); TRANSITIONAL EPI CELLS,URINE FEW /HPF (NEGATIVE)
[2021-03-09] MEDS ORDERED: ZOSYN VIAL 3.375 GRAMS IV ONE (16:06)
[2021-03-09] MEDS ORDERED: MIRALAX POWDER (1 DOSE 17 G) PO PRN (16:44)
[2021-03-09] MEDS ORDERED: BROVANA ONE (19:18)
[2021-03-09] MEDS ORDERED: PULMICORT NEB TX 0.5 MG NEB ONE (19:18)
[2021-03-09] MEDS ORDERED: PULMICORT NEB TX 0.5 MG NEB SCH (21:00)
[2021-03-09] MEDS ORDERED: BROVANA IN SCH (21:00)
[2021-03-09] MEDS ORDERED: CARDIZEM INJ 125 MG VIAL 125 MG in NS 100 ML IV 100 ML IV PRN (21:16)
[2021-03-09] MEDS ORDERED: NS 50 ML IV + SPIKE MINIBAG* 50 ML IV ONE (21:19)
[2021-03-09] MEDS: ASCORBIC ACID INJ MULTI-DOSE VIAL 1,500 MG in NS 100 ML IV 100 ML IV SCH (21:28)
[2021-03-09] MEDS: ZOSYN VIAL 3.375 GRAMS 3.375 G in NS 50 ML IV + SPIKE MINIBAG* 50 ML IV SCH (21:29)
[2021-03-09] MEDS: SOLU-Medrol 40 MG VIAL IVP SCH (21:29)
[2021-03-09] MEDS: ZINC SULFATE PO SCH (21:30)
[2021-03-09] MEDS: PEPCID TAB 40 MG PO SCH (21:30)
[2021-03-09] MEDS: LOVENOX INJ 30 MG SYR SC SCH (21:31)
[2021-03-09] MEDS: HYDROCHLOROTHIAZIDE 25 MG TAB PO SCH (21:32)
[2021-03-09] MEDS: LOPRESSOR TAB 25 MG PO SCH (21:32)
[2021-03-09] MEDS: ZANAFLEX PO SCH (21:32)
[2021-03-09] MEDS: COZAAR PO SCH (21:33)
[2021-03-09] MEDS: CATAPRES TAB 0.1 MG PO SCH (21:33)
[2021-03-10] MEDS: ASCORBIC ACID INJ MULTI-DOSE VIAL 1,500 MG in NS 100 ML IV 100 ML IV SCH ×3 (02:44→16:30)
[2021-03-10 05:16] LABS: BASOPHILS % (AUTO) 0.2 % (0.2-1.0); HEMATOCRIT 39.2 % (36.0-47.0); HEMOGLOBIN 13.7 g/dL (12.0-16.0); LYMPHOCYTES # (AUTO) 1.3 X10^3/uL (1.3-2.9); LYMPHOCYTES % (AUTO) 6.5 % (21.0-51.0); MEAN CORPUSCULAR HEMOGLOBIN 30.8 pg (27.0-34.0); MEAN CORPUSCULAR HGB CONC 34.9 g/dL (33.0-35.0); MEAN CORPUSCULAR VOLUME 88.2 fL (80.0-100.0); MEAN PLATELET VOLUME 10.9 fL (7.4-11.0); MONOCYTES # (AUTO) 0.4 x10^3/uL (0.3-0.8); NEUTROPHILS # (AUTO) 17.6 x10^3/uL (2.2-4.8); NEUTROPHILS % (AUTO) 91.3 % (42.0-75.0); PLATELET COUNT 163 X10^3/uL (150.0-450.0); RED BLOOD COUNT 4.45 X10^6/uL (3.5-5.4); RED CELL DISTRIBUTION WIDTH 14.1 % (11.6-16.5); WHITE BLOOD COUNT 19.2 X10^3/uL (3.6-10.0)
[2021-03-10 05:41] LABS: ALANINE AMINOTRANSFERASE 23 Units/L (12-78); ALBUMIN 2.5 g/dL (3.4-5.0); ALKALINE PHOSPHATASE 78 Units/L (46-116); ASPARTATE AMINO TRANSFERASE 32 Units/L (15-37); BLOOD UREA NITROGEN 15 mg/dL (7-18); CALCIUM 8.3 mg/dL (8.5-10.1); CARBON DIOXIDE 25.8 mmol/L (21-32); CHLORIDE 101 mmol/L (98-107); CKMB % 2.6 % (<4); COR CA(FOR HYPOALB) 9.5 mg/dL (8.5-10.1); COR NA(FOR HYPERGLY) 138 mmol/L (136-145); CREATINE KINASE 39 Units/L (26-192); CREATINE KINASE MB < 1.0 ng/mL (0-4.0); CREATININE 1.08 mg/dL (0.55-1.02); SODIUM 137 mmol/L (136-145); TOTAL PROTEIN 7.4 g/dL (6.4-8.2); TROPONIN I < 0.02 ng/mL (0-1.5); eGFR NON BLACK RACES 52 (>60)
[2021-03-10 05:52] LABS: GIANT PLATELET MANY; PLATELET MORPHOLOGY COMMENT ABNORMAL (NORMAL)
[2021-03-10] MEDS: SOLU-Medrol 40 MG VIAL IVP SCH (05:52)
[2021-03-10] MEDS: ZOSYN VIAL 3.375 GRAMS 3.375 G in NS 50 ML IV + SPIKE MINIBAG* 50 ML IV SCH ×3 (05:53→21:01)
[2021-03-10] MEDS ORDERED: POTASSIUM CHL 40 MEQ/NS 0.45% 500 ML IV PRN (05:54)
[2021-03-10] MEDS ORDERED: POTASSIUM CHLORIDE LIQ 20 MEQ UDC PO PRN (05:54)
[2021-03-10] MEDS ORDERED: MICRO K EXTEN CAP 10 MEQ PO PRN (05:54)
[2021-03-10] MEDS ORDERED: POTASSIUM CHL 60 MEQ/NS 0.45% 500 ML IV PRN (05:54)
[2021-03-10] MEDS ORDERED: K-RIDER 10 MEQ/NS 100 ML 10 MEQ/100 ML BAG IV PRN (05:54)
[2021-03-10] MEDS: KLOR-CON PO PRN (06:44)
[2021-03-10] MEDS: HYDROCHLOROTHIAZIDE 25 MG TAB PO SCH ×2 (08:44→21:12)
[2021-03-10] MEDS: ZINC SULFATE PO SCH ×2 (08:46→20:55)
[2021-03-10] MEDS: MOBIC TAB 15 MG PO SCH (08:47)
[2021-03-10] MEDS: PEPCID TAB 40 MG PO SCH ×2 (08:48→20:54)
[2021-03-10] MEDS: COZAAR PO SCH ×2 (08:49→20:52)
[2021-03-10] MEDS: PriLOSEC PO SCH (08:49)
[2021-03-10] MEDS: LOVENOX INJ 30 MG SYR SC SCH ×2 (08:49→20:53)
[2021-03-10] MEDS: CATAPRES TAB 0.1 MG PO SCH ×2 (08:50→23:38)
[2021-03-10] MEDS: ASPIRIN PO SCH (08:50)
[2021-03-10] MEDS ORDERED: NS 1000 ML 1,000 ML ONE (08:54)
[2021-03-10] MEDS ORDERED: VITAMIN A PO SCH (09:00)
[2021-03-10] MEDS ORDERED: VITAMIN D (1.25MG) PO SCH (09:00)
[2021-03-10] MEDS: NS 1000 ML 1,000 ML IV SCH ×2 (09:00→23:38)
[2021-03-10] MEDS ORDERED: SOLU-Medrol 40 MG VIAL IVP SCH (09:00)
[2021-03-10] MEDS ORDERED: TRICOR TAB 160 MG PO SCH (09:00)
--- NOTE | 2021-03-10 09:30 | DR.H&P ---
H&P History & Physical for Day of: H&P Date: 03/10/21 Chief Complaint Chief Complaint: Generalized weakness, Diarrhea Palpitations Allergies Allergies Allergy/AdvReac Type Severity Reaction Status Date / Time celecoxib [From Celebrex] Allergy Unknown Verified 03/06/21 10:53 codeine Allergy Unknown Verified 03/06/21 10:53 diphenhydramine Allergy Unknown Verified 03/06/21 10:53 [From Benadryl] levofloxacin [From Levaquin] Allergy Unknown Verified 03/06/21 10:53 Sulfa (Sulfonamide Allergy Unknown Verified 03/06/21 10:53 Antibiotics) [SULFA] sulfamethoxazole Allergy Unknown Verified 03/06/21 10:53 [From Bactrim] trimethoprim [From Bactrim] Allergy Unknown Verified 03/06/21 10:53 History of Present Illness History of Present Illness: Pt is a 80 year old female past medical history of Atrial fibrillation, Hypertension, presenting after feeling weak and having diarrhea for the past 3-4 days. She was recently diagnosed with COVID-19 and received Regen-COV infusion outpatient. Her fatigue and weakness did not improve since. In the ED, she was noted have Atrial fibrillation with RVR and was started on a cardizem gtt. Labs/imaging:COVID-19 positive, Wbc 19.2, Hgb 13.7, Plt 163, Na 137, K 3.3, Creatinine 1.08, Glucose 153, Troponin negative x 2, CRP 22, UA negative, D-dimer 0.56, Sputum culture pending, CXR: No acute cardiopulmonary disease. The infiltrate that was present previously in the right upper lobe in November of 2020 has resolved without residual. Pt was started on treatment: IVF NS@75ml/h, Remdesivir, IV Solumedrol 80mg Q8h, Antibiotics: Zosyn, scheduled bronchodilators, immune supporting supplements, Lovenox 30mg BID, physical therapy, respiratory therapy. She is currently utilizing 2L nasal cannula supplemental O2, however has had respiratory concerns. She has declined bronchodilators because she believes it will effect her atrial fibrillation. Since no concerns with lungs, will discontinue bronchodilators and monitor. Decrease IV Solumedrol to 40mg daily. Overnight patient became bradycardic, cardizem gtt discontinued. Restart home medications. Replete potassium. Leukocytosis likely steroid induced. Continue to closely monitor and follow up labs/imaging in the morning. Time spent on clinical assessment, reviewing labs/imaging, decision making, and documentation greater than 45 minutes. Past Medical History Past Medical History: Hypertension Past Surgical History Surgical History: Spleenectomy Family History Family Medical History: Heart Failure and Hypertension Social History Does patient currently use any type of tobacco product: No Have you used tobacco products in the last 12 months: No Type of Tobacco Use: None Does any household member use tobacco: No Alcohol Use: None Drug Use: None Medications Home Medications: celecoxib [From Celebrex] Allergy (Unknown, Verified 03/06/21 10:53) codeine Allergy (Unknown, Verified 03/06/21 10:53) diphenhydramine [From Benadryl] Allergy (Unknown, Verified 03/06/21 10:53) levofloxacin [From Levaquin] Allergy (Unknown, Verified 03/06/21 10:53) Sulfa (Sulfonamide Antibiotics) [SULFA] Allergy (Unknown, Verified 03/06/21 10:53) sulfamethoxazole [From Bactrim] Allergy (Unknown, Verified 03/06/21 10:53) trimethoprim [From Bactrim] Allergy (Unknown, Verified 03/06/21 10:53) CONTINUE taking the following medications losartan 50 mg PO BID 03/09/21 [History] omeprazole 40 mg PO DAILY 03/09/21 [History] polyethylene glycol 3350 [Miralax] 17 g PO DAILY PRN 03/09/21 [History] tizanidine 2 mg PO QHS 03/09/21 [History] Labs Result Diagrams: 03/10/21 04:37 03/10/21 04:37 Labs: 03/09/21 12:21 Sputum - Expectorated Sputum - Final Laboratory WBC 19.2 X10^3/uL (3.6-10.0) H 03/10/21 04:37 RBC 4.45 X10^6/uL (3.5-5.4) 03/10/21 04:37 Hgb 13.7 g/dL (12.0-16.0) 03/10/21 04:37 Hct 39.2 % (36.0-47.0) 03/10/21 04:37 MCV 88.2 fL (80.0-100.0) 03/10/21 04:37 MCH 30.8 pg (27.0-34.0) 03/10/21 04:37 MCHC 34.9 g/dL (33.0-35.0) 03/10/21 04:37 RDW 14.1 % (11.6-16.5) 03/10/21 04:37 Plt Count 163 X10^3/uL (150.0-450.0) 03/10/21 04:37 Plt Count Comment Adequate (ADEQUATE) 03/10/21 04:37 MPV 10.9 fL (7.4-11.0) 03/10/21 04:37 Neut % (Auto) 91.3 % (42.0-75.0) H 03/10/21 04:37 Lymph % (Auto) 6.5 % (21.0-51.0) L 03/10/21 04:37 [place] % (Auto) 2.0 % (0.0-13.0) 03/10/21 04:37 Eos % (Auto) 0.0 % (0.9-2.9) L 03/10/21 04:37 Baso % (Auto) 0.2 % (0.2-1.0) 03/10/21 04:37 Neut # (Auto) 17.6 x10^3/uL (2.2-4.8) H 03/10/21 04:37 Lymph # (Auto) 1.3 X10^3/uL (1.3-2.9) 03/10/21 04:37 [place] # (Auto) 0.4 x10^3/uL (0.3-0.8) 03/10/21 04:37 Eos # (Auto) 0.0 x10^3/uL (0.0-0.2) 03/10/21 04:37 Baso # (Auto) 0.0 X10^3/uL (0.0-0.1) 03/10/21 04:37 Absolute Nucleated RBC 0.3 /100WBC 03/10/21 04:37 Total Counted 100 03/10/21 04:37 Neutrophils % (Manual) 92 % (39-76) H 03/10/21 04:37 Lymphocytes % (Manual) 6 % (13-43) L 03/10/21 04:37 Monocytes % (Manual) 2 % (4-9) L 03/10/21 04:37 Giant Platelets Many 03/10/21 04:37 Plt Morphology Comment Abnormal (NORMAL) A 03/10/21 04:37 RBC Morphology Normal (NORMAL) 03/10/21 04:37 PT 14.3 SECONDS (11.8-14.3) 03/10/21 04:37 INR Target Range - 03/10/21 04:37 INR 1.17 (0.8-1.3) 03/10/21 04:37 APTT 39.1 SECONDS (22.9-36.5) H 03/10/21 04:37 PTT Comment - 03/10/21 04:37 D-Dimer 0.56 ug/ml (0.0-0.57) 03/09/21 12:42 Sodium 137 mmol/L (136-145) 03/10/21 04:37 Corrected Sodium 138 mmol/L (136-145) 03/10/21 04:37 Potassium 3.3 mmol/L (3.5-5.1) L 03/10/21 04:37 Chloride 101 mmol/L (98-107) 03/10/21 04:37 Carbon Dioxide 25.8 mmol/L (21-32) 03/10/21 04:37 BUN 15 mg/dL (7-18) 03/10/21 04:37 Creatinine 1.08 mg/dL (0.55-1.02) H 03/10/21 04:37 Est GFR (MDRD) Af Amer > 60 (>60) 03/10/21 04:37 Est GFR (MDRD) Non-Af 52 (>60) L 03/10/21 04:37 Glucose 153 mg/dL (65-99) H 03/10/21 04:37 Calcium 8.3 mg/dL (8.5-10.1) L 03/10/21 04:37 Corrected Calcium 9.5 mg/dL (8.5-10.1) 03/10/21 04:37 Magnesium 2.0 mg/dL (1.7-2.9) 03/10/21 04:37 Magnesium 2.1 mg/dL (1.7-2.9) 03/10/21 04:37 Ferritin 378 ng/mL (8-252) H 03/09/21 12:42 Total Bilirubin 1.00 mg/dL (0.2-1.0) 03/10/21 04:37 AST 32 Units/L (15-37) 03/10/21 04:37 ALT 23 Units/L (12-78) 03/10/21 04:37 Alkaline Phosphatase 78 Units/L (46-116) 03/10/21 04:37 Creatine Kinase 39 Units/L (26-192) 03/10/21 04:37 CK-MB (CK-2) < 1.0 ng/mL (0-4.0) 03/10/21 04:37 CK/CKMB % Calc 2.6 % (<4) 03/10/21 04:37 Troponin I < 0.02 ng/mL (0-1.5) 03/10/21 04:37 C-Reactive Protein 22.80 mg/L (0-3.0) H 03/09/21 12:42 B-Natriuretic Peptide 273 pg/mL (0-79) H 03/09/21 11:10 Total Protein 7.4 g/dL (6.4-8.2) 03/10/21 04:37 Albumin 2.5 g/dL (3.4-5.0) L 03/10/21 04:37 Globulin 4.9 g/dL (2.5-4.5) H 03/10/21 04:37 Albumin/Globulin Ratio 0.5 Ratio (1.1-2.1) L 03/10/21 04:37 Specimen Type Clean catch urine 03/09/21 14:52 Urine Color Straw (YELLOW) 03/09/21 14:52 Urine Appearance Clear (CLEAR) 03/09/21 14:52 Urine pH 6.5 (5.0 - 8.0) 03/09/21 14:52 Ur Specific [place] 1.010 (1.000-1.030) 03/09/21 14:52 Urine Protein 2+ (NEGATIVE) 03/09/21 14:52 Urine Glucose (UA) Negative (NEGATIVE) 03/09/21 14:52 Urine Ketones Negative (NEGATIVE) 03/09/21 14:52 Urine Occult Blood Negative (NEGATIVE) 03/09/21 14:52 Urine Nitrite Negative (NEGATIVE) 03/09/21 14:52 Urine Bilirubin Negative (NEGATIVE) 03/09/21 14:52 Urine Urobilinogen Normal (NORMAL) 03/09/21 14:52 Ur Leukocyte Esterase Negative (NEGATIVE) 03/09/21 14:52 Urine RBC 3-5 /HPF (0-3) A 03/09/21 14:52 Urine WBC 0-2 /HPF (0-5) 03/09/21 14:52 Ur Squamous Epith Cells Moderate /HPF (NEGATIVE) 03/09/21 14:52 Ur Transition Epith Cell Few /HPF (NEGATIVE) 03/09/21 14:52 Urine Bacteria Trace /HPF (NEGATIVE) 03/09/21 14:52 Urine Mucus Rare /HPF (NEGATIVE) 03/09/21 14:52 Ur Culture Indicated? No/not indicated 03/09/21 14:52 SARS-CoV-2 (PCR) Positive (NEGATIVE) A 03/09/21 13:54 Influenza Type A (PCR) Negative (NEGATIVE) 03/09/21 13:54 Influenza Type B (PCR) Negative (NEGATIVE) 03/09/21 13:54 RSV (PCR) Negative (NEGATIVE) 03/09/21 13:54 Review of Systems Constitutional: Weakness; denies Fever and Chills Eyes: No Symptoms Reported ENT: No Symptoms Reported Respiratory: No Symptoms Reported Cardiovascular: Palpitations Gastrointestinal: Diarrhea Genitourinary: No Symptoms Reported Musculoskeletal: No Symptoms Reported Skin: No Symptoms Reported Neurological: No Symptoms Reported Physical Exam Vital Signs: Temperature 97.9 F Pulse Rate [Left] 60 Pulse Rate 49 Respiratory Rate 29 Blood Pressure [Right Arm] 106/54 Blood Pressure 148/65 O2 Sat by Pulse Oximetry 96 Oriented: Normal Eyes: Normal Ear: Normal Nose: Normal Throat: Normal Respiratory: Clear Throughout Cardiovascular: Tachycardia and Irregular : Normal Auscultation: Bowel Sounds: Normal Palpation: Normal Tenderness: Normal Skin: Normal Musculoskeletal: Normal Psychiatric: Normal Mood Description: Calm and Appropriate Affect: Normal Speech Pattern: Clear and Appropriate Assessment/Plan (1) Atrial fibrillation with rapid ventricular response: Status: Acute (2) Hypokalemia: Status: Acute (3) Generalized weakness: Status: Acute (4) Dehydration: Status: Acute (5) COVID-19: Status: Acute Review H&P Reviewed: Yes Patient was examined?: Yes
[2021-03-10] MEDS ORDERED: REMDESIVIR 200 MG in NS 100 ML IV 140 ML IV NR (09:46)
[2021-03-10] MEDS: LOPRESSOR TAB 25 MG PO SCH ×2 (12:14→20:51)
[2021-03-10 15:36] LABS: APPEARANCE,URINE CLEAR (CLEAR); BLOOD/HEMOGLOBIN,URINE NEGATIVE (NEGATIVE); COLOR,URINE YELLOW (YELLOW); GLUCOSE, URINE NEGATIVE (NEGATIVE); KETONES,URINE 1+ (NEGATIVE); NITRITES,URINE NEGATIVE (NEGATIVE); PROTEIN,URINE 2+ (NEGATIVE)
[2021-03-10 15:37] LABS: BILIRUBIN,URINE NEGATIVE (NEGATIVE); LEUKOCYTE ESTERASE ,URINE NEGATIVE (NEGATIVE); UROBILINOGEN,URINE NORMAL (NORMAL)
[2021-03-10 15:38] LABS: BACTERIA,URINE TRACE /HPF (NEGATIVE); RBC,URINE NONE SEEN /HPF (0-3); SQUAMOUS EPITHELIAL CELL,UR FEW /HPF (NEGATIVE)
[2021-03-10] MEDS: TYLENOL 325 MG TAB PO PRN (18:05)
[2021-03-10] MEDS: ZANAFLEX PO SCH (20:55)
[2021-03-11 05:11] LABS: BASOPHILS # (AUTO) 0.1 X10^3/uL (0.0-0.1); BASOPHILS % (AUTO) 0.7 % (0.2-1.0); EOSINOPHILS # (AUTO) 0.1 x10^3/uL (0.0-0.2); EOSINOPHILS % (AUTO) 0.4 % (0.9-2.9); HEMATOCRIT 39.7 % (36.0-47.0); HEMOGLOBIN 13.5 g/dL (12.0-16.0); LYMPHOCYTES # (AUTO) 1.5 X10^3/uL (1.3-2.9); LYMPHOCYTES % (AUTO) 7.4 % (21.0-51.0); MEAN CORPUSCULAR HEMOGLOBIN 30.5 pg (27.0-34.0); MEAN CORPUSCULAR HGB CONC 34.1 g/dL (33.0-35.0); MEAN CORPUSCULAR VOLUME 89.4 fL (80.0-100.0); MONOCYTES # (AUTO) 0.7 x10^3/uL (0.3-0.8); MONOCYTES % (AUTO) 3.5 % (0.0-13.0); NEUTROPHILS # (AUTO) 17.6 x10^3/uL (2.2-4.8); PLATELET COUNT 175 X10^3/uL (150.0-450.0); RED BLOOD COUNT 4.44 X10^6/uL (3.5-5.4); RED CELL DISTRIBUTION WIDTH 14.2 % (11.6-16.5)
[2021-03-11] MEDS: ZOSYN VIAL 3.375 GRAMS 3.375 G in NS 50 ML IV + SPIKE MINIBAG* 50 ML IV SCH ×3 (05:23→22:14)
[2021-03-11 05:35] LABS: ALBUMIN 2.2 g/dL (3.4-5.0); CALCIUM 8.3 mg/dL (8.5-10.1); CARBON DIOXIDE 27.5 mmol/L (21-32); COR CA(FOR HYPOALB) 9.7 mg/dL (8.5-10.1); CREATININE 1.36 mg/dL (0.55-1.02); TOTAL PROTEIN 7.4 g/dL (6.4-8.2)
[2021-03-11 05:58] LABS: GIANT PLATELET MANY; PLATELET MORPHOLOGY COMMENT ABNORMAL (NORMAL)
[2021-03-11] MEDS: ASPIRIN PO SCH (08:51)
[2021-03-11] MEDS: HYDROCHLOROTHIAZIDE 25 MG TAB PO SCH ×2 (08:53→20:58)
[2021-03-11] MEDS: CATAPRES TAB 0.1 MG PO SCH ×2 (08:55→22:47)
[2021-03-11] MEDS: COZAAR PO SCH ×2 (08:55→20:56)
[2021-03-11] MEDS: LOVENOX INJ 30 MG SYR SC SCH ×2 (08:56→20:58)
[2021-03-11] MEDS: REMDESIVIR 100 MG in NS 100 ML IV + SPIKE MINIBAG* 120 ML IV SCH (08:56)
[2021-03-11] MEDS: LOPRESSOR TAB 25 MG PO SCH ×2 (08:56→20:58)
[2021-03-11] MEDS: PEPCID TAB 40 MG PO SCH (08:57)
[2021-03-11] MEDS: MOBIC TAB 15 MG PO SCH (08:57)
[2021-03-11] MEDS: VITAMIN C PO SCH (08:57)
[2021-03-11] MEDS: PriLOSEC PO SCH (08:58)
[2021-03-11] MEDS: VITAMIN D3 125 mcg (5,000 UNITS) PO SCH (08:58)
[2021-03-11] MEDS: ZINC SULFATE PO SCH ×2 (08:58→21:00)
[2021-03-11] MEDS ORDERED: VITAMIN A PO SCH (09:00)
[2021-03-11] MEDS ORDERED: IMODIUM CAP 2 MG PO PRN (09:03)
--- NOTE | 2021-03-11 09:11 | PCM.PROG ---
Progress Note Progress Note for Day of Date of Exam: 03/11/21 Subjective Subjective: Pt is a 80 year old female past medical history of Atrial fibrillation, Hypertension, admitted for COVID-19 infection, Atrial fibrillation w/ RVR(resolved), generalized weakness and diarrhea. This morning patient reports feeling a little better. She states she had episode of diarrhea this mo rning and does feel some abdominal discomfort and nausea at times. Labs/imaging: Wbc 19.2>20, Hgb 13.5, Plt 175, Na 139, K 4.0, Creatinine 1.36, Glucose 128, Sputum culture prelim gram negative rods. Pt is currently receiving treatments: IVF NS@KVO, Remdesivir, IV Solumedrol 40mg daily, Antibiotics: Zosyn, scheduled bronchodilators, immune supporting supplements, Lovenox 30mg BID, physical therapy, respiratory therapy. Her oxygen saturations are excellent. Will discontinue IV Solumedrol and monitor if leukocytosis improves. Previous sputum culture also showed gram negative rods that was positive for pseudomonas resistant to zosyn, will add ciprofloxacin for additional coverage while awaiting culture results. Will order stool cultures, add carafate for abdominal discomfort, loperamide for diarrhea, and add probiotic. Continue to closely monitor and follow up labs/imaging in the morning. Time spent on clinical assessment, reviewing labs/imaging, decision making, and documentation greater than 45 minutes. Past Medical Family Social History Past Med/Fam/Surg Hx: No changes since H&P Allergies: Allergies celecoxib [From Celebrex] Allergy (Unknown, Verified 03/06/21 10:53) codeine Allergy (Unknown, Verified 03/06/21 10:53) diphenhydramine [From Benadryl] Allergy (Unknown, Verified 03/06/21 10:53) levofloxacin [From Levaquin] Allergy (Unknown, Verified 03/06/21 10:53) DAUGHTER STATES TUBE CUTTER TOLD PT. TO NOT TAKE IT BECAUSE OF HER HEART AND A-FIB Sulfa (Sulfonamide Antibiotics) [SULFA] Allergy (Unknown, Verified 03/06/21 10:53) sulfamethoxazole [From Bactrim] Allergy (Unknown, Verified 03/06/21 10:53) trimethoprim [From Bactrim] Allergy (Unknown, Verified 03/06/21 10:53) Review of Systems ROS: No change since H&P Vital Signs and I&O's Vital Signs: Temperature 98.1 F Pulse Rate [Left] 60 Pulse Rate 70 Respiratory Rate 24 Blood Pressure [Right Arm] 106/54 Blood Pressure 170/75 O2 Sat by Pulse Oximetry 98 Intake and Output: Intake & Output 03/08/21 03/09/21 03/10/21 03/11/21 23:59 23:59 23:59 23:59 Intake Total 695 / 695 2359 / 2359 220 / 220 Balance 695 / 695 2359 / 2359 220 / 220 Physical Exam Oriented: Normal Eyes: Normal Ear: Normal Nose: Normal Throat: Normal Respiratory: Diminished and Rales Cardiovascular: Normal and Irregular : Normal Auscultation: Bowel Sounds: Normal Tenderness: Normal Skin: Normal Musculoskeletal: Normal Psychiatric: Normal Mood Description: Calm and Appropriate Affect: Normal Speech Pattern: Clear and Appropriate Laboratory and Diagnostics Result Diagrams: 03/11/21 04:40 03/11/21 04:40 Labs: 03/09/21 12:21 Sputum - Expectorated Sputum Sputum Culture - Preliminary 03/09/21 12:21 Sputum - Expectorated Sputum - Final Laboratory WBC 20.0 X10^3/uL (3.6-10.0) H 03/11/21 04:40 RBC 4.44 X10^6/uL (3.5-5.4) 03/11/21 04:40 Hgb 13.5 g/dL (12.0-16.0) 03/11/21 04:40 Hct 39.7 % (36.0-47.0) 03/11/21 04:40 MCV 89.4 fL (80.0-100.0) 03/11/21 04:40 MCH 30.5 pg (27.0-34.0) 03/11/21 04:40 MCHC 34.1 g/dL (33.0-35.0) 03/11/21 04:40 RDW 14.2 % (11.6-16.5) 03/11/21 04:40 Plt Count 175 X10^3/uL (150.0-450.0) 03/11/21 04:40 Plt Count Comment Adequate (ADEQUATE) 03/11/21 04:40 MPV 11.0 fL (7.4-11.0) 03/11/21 04:40 Neut % (Auto) 88.0 % (42.0-75.0) H 03/11/21 04:40 Lymph % (Auto) 7.4 % (21.0-51.0) L 03/11/21 04:40 [place] % (Auto) 3.5 % (0.0-13.0) 03/11/21 04:40 Eos % (Auto) 0.4 % (0.9-2.9) L 03/11/21 04:40 Baso % (Auto) 0.7 % (0.2-1.0) 03/11/21 04:40 Neut # (Auto) 17.6 x10^3/uL (2.2-4.8) H 03/11/21 04:40 Lymph # (Auto) 1.5 X10^3/uL (1.3-2.9) 03/11/21 04:40 [place] # (Auto) 0.7 x10^3/uL (0.3-0.8) 03/11/21 04:40 Eos # (Auto) 0.1 x10^3/uL (0.0-0.2) 03/11/21 04:40 Baso # (Auto) 0.1 X10^3/uL (0.0-0.1) 03/11/21 04:40 Absolute Nucleated RBC 0.1 /100WBC 03/11/21 04:40 Total Counted 100 03/11/21 04:40 Neutrophils % (Manual) 85 % (39-76) H 03/11/21 04:40 Lymphocytes % (Manual) 7 % (13-43) L 03/11/21 04:40 Monocytes % (Manual) 8 % (4-9) 03/11/21 04:40 Giant Platelets Many 03/11/21 04:40 Plt Morphology Comment Abnormal (NORMAL) A 03/11/21 04:40 RBC Morphology Normal (NORMAL) 03/11/21 04:40 PT 14.3 SECONDS (11.8-14.3) 03/10/21 04:37 INR Target Range - 03/10/21 04:37 INR 1.17 (0.8-1.3) 03/10/21 04:37 APTT 39.1 SECONDS (22.9-36.5) H 03/10/21 04:37 PTT Comment - 03/10/21 04:37 D-Dimer 0.56 ug/ml (0.0-0.57) 03/09/21 12:42 Sodium 139 mmol/L (136-145) 03/11/21 04:40 Corrected Sodium 140 mmol/L (136-145) 03/11/21 04:40 Potassium 4.0 mmol/L (3.5-5.1) 03/11/21 04:40 Chloride 104 mmol/L (98-107) 03/11/21 04:40 Carbon Dioxide 27.5 mmol/L (21-32) 03/11/21 04:40 BUN 24 mg/dL (7-18) H 03/11/21 04:40 Creatinine 1.36 mg/dL (0.55-1.02) H 03/11/21 04:40 Est GFR (MDRD) Af Amer 48 (>60) L 03/11/21 04:40 Est GFR (MDRD) Non-Af 40 (>60) L 03/11/21 04:40 Glucose 128 mg/dL (65-99) H 03/11/21 04:40 Calcium 8.3 mg/dL (8.5-10.1) L 03/11/21 04:40 Corrected Calcium 9.7 mg/dL (8.5-10.1) 03/11/21 04:40 Magnesium 2.0 mg/dL (1.7-2.9) 03/10/21 04:37 Magnesium 2.1 mg/dL (1.7-2.9) 03/10/21 04:37 Ferritin 378 ng/mL (8-252) H 03/09/21 12:42 Total Bilirubin 0.50 mg/dL (0.2-1.0) 03/11/21 04:40 AST 29 Units/L (15-37) 03/11/21 04:40 ALT 20 Units/L (12-78) 03/11/21 04:40 Alkaline Phosphatase 77 Units/L (46-116) 03/11/21 04:40 Creatine Kinase 39 Units/L (26-192) 03/10/21 04:37 CK-MB (CK-2) < 1.0 ng/mL (0-4.0) 03/10/21 04:37 CK/CKMB % Calc 2.6 % (<4) 03/10/21 04:37 Troponin I < 0.02 ng/mL (0-1.5) 03/10/21 04:37 C-Reactive Protein 22.80 mg/L (0-3.0) H 03/09/21 12:42 B-Natriuretic Peptide 273 pg/mL (0-79) H 03/09/21 11:10 Total Protein 7.4 g/dL (6.4-8.2) 03/11/21 04:40 Albumin 2.2 g/dL (3.4-5.0) L 03/11/21 04:40 Globulin 5.2 g/dL (2.5-4.5) H 03/11/21 04:40 Albumin/Globulin Ratio 0.4 Ratio (1.1-2.1) L 03/11/21 04:40 Specimen Type Clean catch urine 03/10/21 14:50 Urine Color Yellow (YELLOW) 03/10/21 14:50 Urine Appearance Clear (CLEAR) 03/10/21 14:50 Urine pH 5.0 (5.0 - 8.0) 03/10/21 14:50 Ur Specific [place] 1.015 (1.000-1.030) 03/10/21 14:50 Urine Protein 2+ (NEGATIVE) 03/10/21 14:50 Urine Glucose (UA) Negative (NEGATIVE) 03/10/21 14:50 Urine Ketones 1+ (NEGATIVE) 03/10/21 14:50 Urine Occult Blood Negative (NEGATIVE) 03/10/21 14:50 Urine Nitrite Negative (NEGATIVE) 03/10/21 14:50 Urine Bilirubin Negative (NEGATIVE) 03/10/21 14:50 Urine Urobilinogen Normal (NORMAL) 03/10/21 14:50 Ur Leukocyte Esterase Negative (NEGATIVE) 03/10/21 14:50 Urine RBC None seen /HPF (0-3) 03/10/21 14:50 Urine WBC 3-5 /HPF (0-5) 03/10/21 14:50 Ur Squamous Epith Cells Few /HPF (NEGATIVE) 03/10/21 14:50 Ur Transition Epith Cell Few /HPF (NEGATIVE) 03/09/21 14:52 Urine Bacteria Trace /HPF (NEGATIVE) 03/10/21 14:50 Urine Mucus Rare /HPF (NEGATIVE) 03/09/21 14:52 Ur Culture Indicated? No/not indicated 03/10/21 14:50 SARS-CoV-2 (PCR) Positive (NEGATIVE) A 03/09/21 13:54 Influenza Type A (PCR) Negative (NEGATIVE) 03/09/21 13:54 Influenza Type B (PCR) Negative (NEGATIVE) 03/09/21 13:54 RSV (PCR) Negative (NEGATIVE) 03/09/21 13:54 Plan (1) Atrial fibrillation with rapid ventricular response: Status: Acute (2) Hypokalemia: Status: Acute (3) Generalized weakness: Status: Acute (4) Dehydration: Status: Acute (5) COVID-19: Status: Acute
[2021-03-11] MEDS: VSL#3 PO SCH (10:15)
[2021-03-11] MEDS: CIPRO IV 400 MG PREMIX* 400 MG/200 ML IV.SOLN. IV SCH ×2 (10:15→20:55)
[2021-03-11] MEDS: CARAFATE ORAL SUSP PO SCH ×4 (11:41→20:55)
[2021-03-11] MEDS: NS 1000 ML 1,000 ML IV SCH (13:23)
[2021-03-11 18:16] LABS: CRYPTOSPORIDIUM PARVUM ANTIGEN NEGATIVE (NEGATIVE); GIARDIA LAMBLIA ANTIGEN NEGATIVE (NEGATIVE)
[2021-03-11] MEDS: ZANAFLEX PO SCH (20:59)
[2021-03-12] MEDS: NS 1000 ML 1,000 ML IV SCH ×2 (04:28→17:40)
[2021-03-12] MEDS: ZOSYN VIAL 3.375 GRAMS 3.375 G in NS 50 ML IV + SPIKE MINIBAG* 50 ML IV SCH (05:05)
[2021-03-12 05:14] LABS: BASOPHILS % (AUTO) 0.1 % (0.2-1.0); HEMATOCRIT 36.7 % (36.0-47.0); HEMOGLOBIN 12.4 g/dL (12.0-16.0); LYMPHOCYTES # (AUTO) 2.3 X10^3/uL (1.3-2.9); LYMPHOCYTES % (AUTO) 12.7 % (21.0-51.0); MEAN CORPUSCULAR HEMOGLOBIN 30.2 pg (27.0-34.0); MEAN CORPUSCULAR HGB CONC 33.9 g/dL (33.0-35.0); MEAN CORPUSCULAR VOLUME 89.1 fL (80.0-100.0); MEAN PLATELET VOLUME 10.3 fL (7.4-11.0); MONOCYTES # (AUTO) 1.3 x10^3/uL (0.3-0.8); MONOCYTES % (AUTO) 7.1 % (0.0-13.0); NEUTROPHILS # (AUTO) 14.5 x10^3/uL (2.2-4.8); NEUTROPHILS % (AUTO) 80.1 % (42.0-75.0); PLATELET COUNT 179 X10^3/uL (150.0-450.0); RED BLOOD COUNT 4.12 X10^6/uL (3.5-5.4); RED CELL DISTRIBUTION WIDTH 14.3 % (11.6-16.5); WHITE BLOOD COUNT 18.2 X10^3/uL (3.6-10.0)
[2021-03-12 05:36] LABS: CALCIUM 7.9 mg/dL (8.5-10.1); CARBON DIOXIDE 26.1 mmol/L (21-32); COR CA(FOR HYPOALB) 9.5 mg/dL (8.5-10.1); CREATININE 1.58 mg/dL (0.55-1.02); TOTAL PROTEIN 6.3 g/dL (6.4-8.2)
[2021-03-12 05:41] LABS: GIANT PLATELET MODERATE; PLATELET MORPHOLOGY COMMENT ABNORMAL (NORMAL)
[2021-03-12] MEDS: KLOR-CON PO PRN (06:04)
--- NOTE | 2021-03-12 06:22 | RAD ---
HISTORYCOVID-19STUDYAP [id number]/2021FINDINGSNormal heart size with clear right lung. There is now noted obscuration of the left diaphragm, previously visualized. The hilar structures and pleural spaces are unremarkable.IMPRESSIONFindings at the left base may be related to technical artifact although a developing airspace process in the left lower lobe is not excluded. Continued follow-up suggested.Electronically signed by: ABDULKADIR RUTHERFORD (Mar 12, 2021 06:20:25)
[2021-03-12] MEDS: CIPRO IV 400 MG PREMIX* 400 MG/200 ML IV.SOLN. IV SCH (10:41)
[2021-03-12] MEDS: ASPIRIN PO SCH (10:41)
[2021-03-12] MEDS: CARAFATE ORAL SUSP PO SCH ×4 (10:41→22:17)
[2021-03-12] MEDS: LOPRESSOR TAB 25 MG PO SCH ×2 (10:42→21:08)
[2021-03-12] MEDS: CATAPRES TAB 0.1 MG PO SCH ×2 (10:42→21:06)
[2021-03-12] MEDS: COZAAR PO SCH (10:42)
[2021-03-12] MEDS: HYDROCHLOROTHIAZIDE 25 MG TAB PO SCH ×2 (10:42→21:07)
[2021-03-12] MEDS: PriLOSEC PO SCH (10:43)
[2021-03-12] MEDS: PEPCID TAB 20 MG PO SCH (10:43)
[2021-03-12] MEDS: LOVENOX INJ 30 MG SYR SC SCH ×2 (10:43→21:08)
[2021-03-12] MEDS: MOBIC TAB 15 MG PO SCH (10:43)
[2021-03-12] MEDS: VITAMIN D3 125 mcg (5,000 UNITS) PO SCH (10:44)
[2021-03-12] MEDS: REMDESIVIR 100 MG in NS 100 ML IV + SPIKE MINIBAG* 120 ML IV SCH (10:44)
[2021-03-12] MEDS: VITAMIN C PO SCH (10:44)
[2021-03-12] MEDS: ZINC SULFATE PO SCH ×2 (10:45→21:09)
[2021-03-12] MEDS: VSL#3 PO SCH (10:45)
[2021-03-12] MEDS: MAXIPIME VIAL 1 GRAM 1 G in NS 50 ML IV + SPIKE MINIBAG* 50 ML IV SCH ×2 (14:54→21:08)
[2021-03-12] MEDS ORDERED: DIFLUCAN 200 MG IV PREMIX* 200 MG/100 ML BAG IV ONE (15:00)
[2021-03-12] MEDS: ZANAFLEX PO SCH (21:09)
[2021-03-13] MEDS: ZINC SULFATE PO SCH ×3 (02:15→20:46)
[2021-03-13 05:24] LABS: ALANINE AMINOTRANSFERASE 14 Units/L (12-78); ALKALINE PHOSPHATASE 72 Units/L (46-116); ASPARTATE AMINO TRANSFERASE 20 Units/L (15-37); BLOOD UREA NITROGEN 27 mg/dL (7-18); CALCIUM 8.2 mg/dL (8.5-10.1); CHLORIDE 106 mmol/L (98-107); COR CA(FOR HYPOALB) 9.8 mg/dL (8.5-10.1); CREATININE 1.23 mg/dL (0.55-1.02); SODIUM 139 mmol/L (136-145); TOTAL PROTEIN 6.5 g/dL (6.4-8.2); eGFR NON BLACK RACES 45 (>60)
[2021-03-13 05:52] LABS: BASOPHILS # (AUTO) 0.1 X10^3/uL (0.0-0.1); BASOPHILS % (AUTO) 0.4 % (0.2-1.0); EOSINOPHILS # (AUTO) 0.2 x10^3/uL (0.0-0.2); EOSINOPHILS % (AUTO) 1.3 % (0.9-2.9); HEMATOCRIT 38.6 % (36.0-47.0); HEMOGLOBIN 13.2 g/dL (12.0-16.0); LYMPHOCYTES # (AUTO) 3.5 X10^3/uL (1.3-2.9); LYMPHOCYTES % (AUTO) 24.7 % (21.0-51.0); MEAN CORPUSCULAR HEMOGLOBIN 30.6 pg (27.0-34.0); MEAN CORPUSCULAR HGB CONC 34.3 g/dL (33.0-35.0); MEAN CORPUSCULAR VOLUME 89.4 fL (80.0-100.0); MEAN PLATELET VOLUME 11.1 fL (7.4-11.0); MONOCYTES # (AUTO) 1.9 x10^3/uL (0.3-0.8); MONOCYTES % (AUTO) 13.4 % (0.0-13.0); NEUTROPHILS # (AUTO) 8.6 x10^3/uL (2.2-4.8); NEUTROPHILS % (AUTO) 60.2 % (42.0-75.0); PLATELET COUNT 206 X10^3/uL (150.0-450.0); RED BLOOD COUNT 4.32 X10^6/uL (3.5-5.4); WHITE BLOOD COUNT 14.2 X10^3/uL (3.6-10.0)
[2021-03-13] MEDS: ZOFRAN INJ 4 MG VIAL IVP PRN (06:00)
[2021-03-13] MEDS: CARAFATE ORAL SUSP PO SCH ×4 (06:16→20:48)
[2021-03-13 06:17] LABS: BURR CELLS PRESENT; GIANT PLATELET FEW; PLATELET MORPHOLOGY COMMENT ABNORMAL (NORMAL); TARGET CELLS PRESENT
[2021-03-13] MEDS: NS 1000 ML 1,000 ML IV SCH ×2 (08:17→23:02)
[2021-03-13] MEDS: ASPIRIN PO SCH (09:00)
[2021-03-13] MEDS: HYDROCHLOROTHIAZIDE 25 MG TAB PO SCH ×2 (09:00→20:45)
[2021-03-13] MEDS: COZAAR PO SCH (09:01)
[2021-03-13] MEDS: CATAPRES TAB 0.1 MG PO SCH ×3 (09:01→23:03)
[2021-03-13] MEDS: LOPRESSOR TAB 25 MG PO SCH ×2 (09:01→20:47)
[2021-03-13] MEDS: DIFLUCAN 100 MG IV (MIX by PHARMACY)* 100 MG/50 ML BAG IV SCH (09:01)
[2021-03-13] MEDS: VITAMIN C PO SCH (09:02)
[2021-03-13] MEDS: MAXIPIME VIAL 1 GRAM 1 G in NS 50 ML IV + SPIKE MINIBAG* 50 ML IV SCH ×2 (09:02→20:46)
[2021-03-13] MEDS: VITAMIN D3 125 mcg (5,000 UNITS) PO SCH (09:02)
[2021-03-13] MEDS: MOBIC TAB 15 MG PO SCH (09:03)
[2021-03-13] MEDS: PEPCID TAB 20 MG PO SCH (09:03)
[2021-03-13] MEDS: VSL#3 PO SCH (09:03)
[2021-03-13] MEDS: PriLOSEC PO SCH (09:03)
[2021-03-13] MEDS: LOVENOX INJ 30 MG SYR SC SCH ×2 (09:04→20:47)
[2021-03-13] MEDS: REMDESIVIR 100 MG in NS 100 ML IV + SPIKE MINIBAG* 120 ML IV SCH (10:32)
--- NOTE | 2021-03-13 14:35 | PCM.PROG ---
Progress Note Progress Note for Day of Date of Exam: 03/12/21 Subjective Subjective: Pt is a 80 year old female past medical history of Atrial fibrillation, Hypertension, admitted for COVID-19 infection, Atrial fibrillation w/ RVR(resolved), generalized weakness and diarrhea. This morning patient reports some improvement in her symptoms. No acute events overnight. Labs/imagi ng: Wbc 18.2, Hgb 12.4, Plt 179, Na 142, K 3.0, Creatinine 1.58, Glucose 116, Sputum culture positive Pseudomonas aur. Pt is currently receiving treatments: IVF NS@KVO, Remdesivir, Antibiotics: Zosyn, scheduled bronchodilators, immune supporting supplements, Lovenox 30mg BID, physical therapy, respiratory therapy. Her oxygen saturations are excellent. Will add ciprofloxacin for additional coverage while awaiting culture results. Stool cultures positive for yeast, will add diflucan. Increase IVF to 75ml/h. Pt has been having episodes of bradycardia. Will decrease metoprolol tartrate to 25mg BID. Otherwise continue with current treatment plan. Continue to closely monitor and follow up labs/estiven ging in the morning. Time spent on clinical assessment, reviewing labs/imaging, decision making, and documentation greater than 45 minutes. Past Medical Family Social History Past Med/Fam/Surg Hx: No changes since H&P Allergies: Allergies celecoxib [From Celebrex] Allergy (Unknown, Verified 03/06/21 10:53) codeine Allergy (Unknown, Verified 03/06/21 10:53) diphenhydramine [From Benadryl] Allergy (Unknown, Verified 03/06/21 10:53) levofloxacin [From Levaquin] Allergy (Unknown, Verified 03/06/21 10:53) DAUGHTER STATES ANTIQUE REFINISHER TOLD PT. TO NOT TAKE IT BECAUSE OF HER HEART AND A-FIB Sulfa (Sulfonamide Antibiotics) [SULFA] Allergy (Unknown, Verified 03/06/21 10:53) sulfamethoxazole [From Bactrim] Allergy (Unknown, Verified 03/06/21 10:53) trimethoprim [From Bactrim] Allergy (Unknown, Verified 03/06/21 10:53) Review of Systems ROS: No change since H&P Vital Signs and I&O's Vital Signs: Temperature 98.2 F Pulse Rate [Left] 60 Pulse Rate 67 Respiratory Rate 27 Blood Pressure [Right Arm] 106/54 Blood Pressure 161/72 O2 Sat by Pulse Oximetry 95 Intake and Output: Intake & Output 03/10/21 03/11/21 03/12/21 03/13/21 23:59 23:59 23:59 23:59 Intake Total 2359 / 2359 1406 / 1406 1166 / 1166 591 / 591 Balance 2359 / 2359 1406 / 1406 1166 / 1166 591 / 591 Physical Exam Oriented: Normal Eyes: Normal Ear: Normal Nose: Normal Throat: Normal Respiratory: Normal Cardiovascular: Normal and Irregular : Normal Auscultation: Bowel Sounds: Normal Tenderness: Normal Skin: Normal Musculoskeletal: Normal Psychiatric: Normal Mood Description: Calm and Appropriate Affect: Normal Speech Pattern: Clear and Appropriate Laboratory and Diagnostics Result Diagrams: 03/13/21 04:40 03/13/21 04:40 Labs: 03/11/21 16:24 Stool Stool Culture - Preliminary 03/11/21 16:24 Stool - Final 03/09/21 12:21 Sputum - Expectorated Sputum Sputum Culture - Final Pseudomonas Aeruginosa 03/09/21 12:21 Sputum - Expectorated Sputum - Final Laboratory WBC 14.2 X10^3/uL (3.6-10.0) H 03/13/21 04:40 RBC 4.32 X10^6/uL (3.5-5.4) 03/13/21 04:40 Hgb 13.2 g/dL (12.0-16.0) 03/13/21 04:40 Hct 38.6 % (36.0-47.0) 03/13/21 04:40 MCV 89.4 fL (80.0-100.0) 03/13/21 04:40 MCH 30.6 pg (27.0-34.0) 03/13/21 04:40 MCHC 34.3 g/dL (33.0-35.0) 03/13/21 04:40 RDW 14.0 % (11.6-16.5) 03/13/21 04:40 Plt Count 206 X10^3/uL (150.0-450.0) 03/13/21 04:40 Plt Count Comment Adequate (ADEQUATE) 03/13/21 04:40 MPV 11.1 fL (7.4-11.0) H 03/13/21 04:40 Neut % (Auto) 60.2 % (42.0-75.0) 03/13/21 04:40 Lymph % (Auto) 24.7 % (21.0-51.0) 03/13/21 04:40 [place] % (Auto) 13.4 % (0.0-13.0) H 03/13/21 04:40 Eos % (Auto) 1.3 % (0.9-2.9) 03/13/21 04:40 Baso % (Auto) 0.4 % (0.2-1.0) 03/13/21 04:40 Neut # (Auto) 8.6 x10^3/uL (2.2-4.8) H 03/13/21 04:40 Lymph # (Auto) 3.5 X10^3/uL (1.3-2.9) H 03/13/21 04:40 [place] # (Auto) 1.9 x10^3/uL (0.3-0.8) H 03/13/21 04:40 Eos # (Auto) 0.2 x10^3/uL (0.0-0.2) 03/13/21 04:40 Baso # (Auto) 0.1 X10^3/uL (0.0-0.1) 03/13/21 04:40 Absolute Nucleated RBC 0.2 /100WBC 03/13/21 04:40 Total Counted 100 03/11/21 04:40 Neutrophils % (Manual) 85 % (39-76) H 03/11/21 04:40 Lymphocytes % (Manual) 7 % (13-43) L 03/11/21 04:40 Monocytes % (Manual) 8 % (4-9) 03/11/21 04:40 Giant Platelets Few 03/13/21 04:40 Plt Morphology Comment Abnormal (NORMAL) A 03/13/21 04:40 RBC Morphology Abnormal (NORMAL) A 03/13/21 04:40 Target Cells Present 03/13/21 04:40 Michael Cells Present 03/13/21 04:40 PT 14.3 SECONDS (11.8-14.3) 03/10/21 04:37 INR Target Range - 03/10/21 04:37 INR 1.17 (0.8-1.3) 03/10/21 04:37 APTT 39.1 SECONDS (22.9-36.5) H 03/10/21 04:37 PTT Comment - 03/10/21 04:37 D-Dimer 0.56 ug/ml (0.0-0.57) 03/09/21 12:42 Sodium 139 mmol/L (136-145) 03/13/21 04:40 Corrected Sodium TNP 03/13/21 04:40 Potassium 3.5 mmol/L (3.5-5.1) 03/13/21 04:40 Chloride 106 mmol/L (98-107) 03/13/21 04:40 Carbon Dioxide 26.0 mmol/L (21-32) 03/13/21 04:40 BUN 27 mg/dL (7-18) H 03/13/21 04:40 Creatinine 1.23 mg/dL (0.55-1.02) H 03/13/21 04:40 Est GFR (MDRD) Af Amer 54 (>60) L 03/13/21 04:40 Est GFR (MDRD) Non-Af 45 (>60) L 03/13/21 04:40 Glucose 94 mg/dL (65-99) 03/13/21 04:40 Calcium 8.2 mg/dL (8.5-10.1) L 03/13/21 04:40 Corrected Calcium 9.8 mg/dL (8.5-10.1) 03/13/21 04:40 Magnesium 2.0 mg/dL (1.7-2.9) 03/10/21 04:37 Magnesium 2.1 mg/dL (1.7-2.9) 03/10/21 04:37 Ferritin 378 ng/mL (8-252) H 03/09/21 12:42 Total Bilirubin 0.30 mg/dL (0.2-1.0) 03/13/21 04:40 AST 20 Units/L (15-37) 03/13/21 04:40 ALT 14 Units/L (12-78) 03/13/21 04:40 Alkaline Phosphatase 72 Units/L (46-116) 03/13/21 04:40 Creatine Kinase 39 Units/L (26-192) 03/10/21 04:37 CK-MB (CK-2) < 1.0 ng/mL (0-4.0) 03/10/21 04:37 CK/CKMB % Calc 2.6 % (<4) 03/10/21 04:37 Troponin I < 0.02 ng/mL (0-1.5) 03/10/21 04:37 C-Reactive Protein 22.80 mg/L (0-3.0) H 03/09/21 12:42 B-Natriuretic Peptide 273 pg/mL (0-79) H 03/09/21 11:10 Total Protein 6.5 g/dL (6.4-8.2) 03/13/21 04:40 Albumin 2.0 g/dL (3.4-5.0) L 03/13/21 04:40 Globulin 4.5 g/dL (2.5-4.5) 03/13/21 04:40 Albumin/Globulin Ratio 0.4 Ratio (1.1-2.1) L 03/13/21 04:40 Specimen Type Clean catch urine 03/10/21 14:50 Urine Color Yellow (YELLOW) 03/10/21 14:50 Urine Appearance Clear (CLEAR) 03/10/21 14:50 Urine pH 5.0 (5.0 - 8.0) 03/10/21 14:50 Ur Specific [place] 1.015 (1.000-1.030) 03/10/21 14:50 Urine Protein 2+ (NEGATIVE) 03/10/21 14:50 Urine Glucose (UA) Negative (NEGATIVE) 03/10/21 14:50 Urine Ketones 1+ (NEGATIVE) 03/10/21 14:50 Urine Occult Blood Negative (NEGATIVE) 03/10/21 14:50 Urine Nitrite Negative (NEGATIVE) 03/10/21 14:50 Urine Bilirubin Negative (NEGATIVE) 03/10/21 14:50 Urine Urobilinogen Normal (NORMAL) 03/10/21 14:50 Ur Leukocyte Esterase Negative (NEGATIVE) 03/10/21 14:50 Urine RBC None seen /HPF (0-3) 03/10/21 14:50 Urine WBC 3-5 /HPF (0-5) 03/10/21 14:50 Ur Squamous Epith Cells Few /HPF (NEGATIVE) 03/10/21 14:50 Ur Transition Epith Cell Few /HPF (NEGATIVE) 03/09/21 14:52 Urine Bacteria Trace /HPF (NEGATIVE) 03/10/21 14:50 Urine Mucus Rare /HPF (NEGATIVE) 03/09/21 14:52 Ur Culture Indicated? No/not indicated 03/10/21 14:50 Stool Description 25 gms soft brown 03/11/21 16:24 Stl C. diff Tox B Gene Negative (NEGATIVE) 03/11/21 16:24 Stl C. diff [id number] Presumptive negative (NEGATIVE) 03/11/21 16:24 SARS-CoV-2 (PCR) Positive (NEGATIVE) A 03/09/21 13:54 Cryptosporid parvum Ag Negative (NEGATIVE) 03/11/21 16:24 Giardia lamblia Ag Negative (NEGATIVE) 03/11/21 16:24 Influenza Type A (PCR) Negative (NEGATIVE) 03/09/21 13:54 Influenza Type B (PCR) Negative (NEGATIVE) 03/09/21 13:54 RSV (PCR) Negative (NEGATIVE) 03/09/21 13:54 Plan (1) Atrial fibrillation with rapid ventricular response: Status: Acute (2) Hypokalemia: Status: Acute (3) Generalized weakness: Status: Acute (4) Dehydration: Status: Acute (5) COVID-19: Status: Acute
--- NOTE | 2021-03-13 14:42 | PCM.PROG ---
Progress Note Progress Note for Day of Date of Exam: 03/13/21 Subjective Subjective: Pt is a 80 year old female past medical history of Atrial fibrillation, Hypertension, admitted for COVID-19 infection, Atrial fibrillation w/ RVR(resolved), generalized weakness and diarrhea. Yesterday, pt had facial flushing after given ciprofloxacin. Changed antibiotic to cefepime. Stool c ultures positive for yeast. No acute events overnight. Labs/imaging: Wbc 18.2>14.2, Hgb 13.2, Plt 206, Na 139, K 3.5, Creatinine 1.58>1.23, Glucose 94, Sputum culture positive Pseudomonas aur. Pt is currently receiving treatments: IVF NS@75ml/h, Remdesivir, Antibiotics: Cefepime, Diflucan, scheduled bronchodilators, immune supporting supplements, Lovenox 30mg BID, physical therapy, respiratory therapy. Her oxygen saturations are excellent, she is on room air. Decrease IVF back to KVO to prevent fluid overload. Renal function has improved. Heart rate well controlled. Otherwise continue with current treatment plan. Continue to closely monitor and follow up labs/imaging in the morning. Past Medical Family Social History Past Med/Fam/Surg Hx: No changes since H&P Allergies: Allergies celecoxib [From Celebrex] Allergy (Unknown, Verified 03/06/21 10:53) codeine Allergy (Unknown, Verified 03/06/21 10:53) diphenhydramine [From Benadryl] Allergy (Unknown, Verified 03/06/21 10:53) levofloxacin [From Levaquin] Allergy (Unknown, Verified 03/06/21 10:53) DAUGHTER STATES MEDICAL DELIVERY TECHNICIAN TOLD PT. TO NOT TAKE IT BECAUSE OF HER HEART AND A-FIB Sulfa (Sulfonamide Antibiotics) [SULFA] Allergy (Unknown, Verified 03/06/21 10:53) sulfamethoxazole [From Bactrim] Allergy (Unknown, Verified 03/06/21 10:53) trimethoprim [From Bactrim] Allergy (Unknown, Verified 03/06/21 10:53) Review of Systems ROS: No change since H&P Vital Signs and I&O's Vital Signs: Temperature 98.3 F Pulse Rate [Left] 60 Pulse Rate 67 Respiratory Rate 27 Blood Pressure [Right Arm] 106/54 Blood Pressure 161/72 O2 Sat by Pulse Oximetry 95 Intake and Output: Intake & Output 03/10/21 03/11/21 03/12/21 03/13/21 23:59 23:59 23:59 23:59 Intake Total 2359 / 2359 1406 / 1406 1166 / 1166 591 / 591 Balance 2359 / 2359 1406 / 1406 1166 / 1166 591 / 591 Physical Exam Oriented: Normal Eyes: Normal Ear: Normal Nose: Normal Throat: Normal Respiratory: Normal Cardiovascular: Normal and Irregular : Normal Auscultation: Bowel Sounds: Normal Tenderness: Normal Skin: Normal Musculoskeletal: Normal Psychiatric: Normal Mood Description: Calm and Appropriate Affect: Normal Speech Pattern: Clear and Appropriate Laboratory and Diagnostics Result Diagrams: 03/13/21 04:40 03/13/21 04:40 Labs: 03/11/21 16:24 Stool Stool Culture - Preliminary 03/11/21 16:24 Stool - Final 03/09/21 12:21 Sputum - Expectorated Sputum Sputum Culture - Final Pseudomonas Aeruginosa 03/09/21 12:21 Sputum - Expectorated Sputum - Final Laboratory WBC 14.2 X10^3/uL (3.6-10.0) H 03/13/21 04:40 RBC 4.32 X10^6/uL (3.5-5.4) 03/13/21 04:40 Hgb 13.2 g/dL (12.0-16.0) 03/13/21 04:40 Hct 38.6 % (36.0-47.0) 03/13/21 04:40 MCV 89.4 fL (80.0-100.0) 03/13/21 04:40 MCH 30.6 pg (27.0-34.0) 03/13/21 04:40 MCHC 34.3 g/dL (33.0-35.0) 03/13/21 04:40 RDW 14.0 % (11.6-16.5) 03/13/21 04:40 Plt Count 206 X10^3/uL (150.0-450.0) 03/13/21 04:40 Plt Count Comment Adequate (ADEQUATE) 03/13/21 04:40 MPV 11.1 fL (7.4-11.0) H 03/13/21 04:40 Neut % (Auto) 60.2 % (42.0-75.0) 03/13/21 04:40 Lymph % (Auto) 24.7 % (21.0-51.0) 03/13/21 04:40 [place] % (Auto) 13.4 % (0.0-13.0) H 03/13/21 04:40 Eos % (Auto) 1.3 % (0.9-2.9) 03/13/21 04:40 Baso % (Auto) 0.4 % (0.2-1.0) 03/13/21 04:40 Neut # (Auto) 8.6 x10^3/uL (2.2-4.8) H 03/13/21 04:40 Lymph # (Auto) 3.5 X10^3/uL (1.3-2.9) H 03/13/21 04:40 [place] # (Auto) 1.9 x10^3/uL (0.3-0.8) H 03/13/21 04:40 Eos # (Auto) 0.2 x10^3/uL (0.0-0.2) 03/13/21 04:40 Baso # (Auto) 0.1 X10^3/uL (0.0-0.1) 03/13/21 04:40 Absolute Nucleated RBC 0.2 /100WBC 03/13/21 04:40 Total Counted 100 03/11/21 04:40 Neutrophils % (Manual) 85 % (39-76) H 03/11/21 04:40 Lymphocytes % (Manual) 7 % (13-43) L 03/11/21 04:40 Monocytes % (Manual) 8 % (4-9) 03/11/21 04:40 Giant Platelets Few 03/13/21 04:40 Plt Morphology Comment Abnormal (NORMAL) A 03/13/21 04:40 RBC Morphology Abnormal (NORMAL) A 03/13/21 04:40 Target Cells Present 03/13/21 04:40 [place] Cells Present 03/13/21 04:40 PT 14.3 SECONDS (11.8-14.3) 03/10/21 04:37 INR Target Range - 03/10/21 04:37 INR 1.17 (0.8-1.3) 03/10/21 04:37 APTT 39.1 SECONDS (22.9-36.5) H 03/10/21 04:37 PTT Comment - 03/10/21 04:37 D-Dimer 0.56 ug/ml (0.0-0.57) 03/09/21 12:42 Sodium 139 mmol/L (136-145) 03/13/21 04:40 Corrected Sodium TNP 03/13/21 04:40 Potassium 3.5 mmol/L (3.5-5.1) 03/13/21 04:40 Chloride 106 mmol/L (98-107) 03/13/21 04:40 Carbon Dioxide 26.0 mmol/L (21-32) 03/13/21 04:40 BUN 27 mg/dL (7-18) H 03/13/21 04:40 Creatinine 1.23 mg/dL (0.55-1.02) H 03/13/21 04:40 Est GFR (MDRD) Af Amer 54 (>60) L 03/13/21 04:40 Est GFR (MDRD) Non-Af 45 (>60) L 03/13/21 04:40 Glucose 94 mg/dL (65-99) 03/13/21 04:40 Calcium 8.2 mg/dL (8.5-10.1) L 03/13/21 04:40 Corrected Calcium 9.8 mg/dL (8.5-10.1) 03/13/21 04:40 Magnesium 2.0 mg/dL (1.7-2.9) 03/10/21 04:37 Magnesium 2.1 mg/dL (1.7-2.9) 03/10/21 04:37 Ferritin 378 ng/mL (8-252) H 03/09/21 12:42 Total Bilirubin 0.30 mg/dL (0.2-1.0) 03/13/21 04:40 AST 20 Units/L (15-37) 03/13/21 04:40 ALT 14 Units/L (12-78) 03/13/21 04:40 Alkaline Phosphatase 72 Units/L (46-116) 03/13/21 04:40 Creatine Kinase 39 Units/L (26-192) 03/10/21 04:37 CK-MB (CK-2) < 1.0 ng/mL (0-4.0) 03/10/21 04:37 CK/CKMB % Calc 2.6 % (<4) 03/10/21 04:37 Troponin I < 0.02 ng/mL (0-1.5) 03/10/21 04:37 C-Reactive Protein 22.80 mg/L (0-3.0) H 03/09/21 12:42 B-Natriuretic Peptide 273 pg/mL (0-79) H 03/09/21 11:10 Total Protein 6.5 g/dL (6.4-8.2) 03/13/21 04:40 Albumin 2.0 g/dL (3.4-5.0) L 03/13/21 04:40 Globulin 4.5 g/dL (2.5-4.5) 03/13/21 04:40 Albumin/Globulin Ratio 0.4 Ratio (1.1-2.1) L 03/13/21 04:40 Specimen Type Clean catch urine 03/10/21 14:50 Urine Color Yellow (YELLOW) 03/10/21 14:50 Urine Appearance Clear (CLEAR) 03/10/21 14:50 Urine pH 5.0 (5.0 - 8.0) 03/10/21 14:50 Ur Specific [place] 1.015 (1.000-1.030) 03/10/21 14:50 Urine Protein 2+ (NEGATIVE) 03/10/21 14:50 Urine Glucose (UA) Negative (NEGATIVE) 03/10/21 14:50 Urine Ketones 1+ (NEGATIVE) 03/10/21 14:50 Urine Occult Blood Negative (NEGATIVE) 03/10/21 14:50 Urine Nitrite Negative (NEGATIVE) 03/10/21 14:50 Urine Bilirubin Negative (NEGATIVE) 03/10/21 14:50 Urine Urobilinogen Normal (NORMAL) 03/10/21 14:50 Ur Leukocyte Esterase Negative (NEGATIVE) 03/10/21 14:50 Urine RBC None seen /HPF (0-3) 03/10/21 14:50 Urine WBC 3-5 /HPF (0-5) 03/10/21 14:50 Ur Squamous Epith Cells Few /HPF (NEGATIVE) 03/10/21 14:50 Ur Transition Epith Cell Few /HPF (NEGATIVE) 03/09/21 14:52 Urine Bacteria Trace /HPF (NEGATIVE) 03/10/21 14:50 Urine Mucus Rare /HPF (NEGATIVE) 03/09/21 14:52 Ur Culture Indicated? No/not indicated 03/10/21 14:50 Stool Description 25 gms soft brown 03/11/21 16:24 Stl C. diff Tox B Gene Negative (NEGATIVE) 03/11/21 16:24 Stl C. diff [id number] Presumptive negative (NEGATIVE) 03/11/21 16:24 SARS-CoV-2 (PCR) Positive (NEGATIVE) A 03/09/21 13:54 Cryptosporid parvum Ag Negative (NEGATIVE) 03/11/21 16:24 Giardia lamblia Ag Negative (NEGATIVE) 03/11/21 16:24 Influenza Type A (PCR) Negative (NEGATIVE) 03/09/21 13:54 Influenza Type B (PCR) Negative (NEGATIVE) 03/09/21 13:54 RSV (PCR) Negative (NEGATIVE) 03/09/21 13:54 Plan (1) Atrial fibrillation with rapid ventricular response: Status: Acute (2) Hypokalemia: Status: Acute (3) Generalized weakness: Status: Acute (4) Dehydration: Status: Acute (5) COVID-19: Status: Acute
--- NOTE | 2021-03-13 15:34 | RAD ---
HISTORYCENTRAL LINE PLACEMENT A FIB.brSTUDYCHEST, 1 VIEWCOMPARISONPortable chest March 12, 2021FINDINGSThe trachea is midline. The cardiac silhouette is unremarkable. There is a new right subclavian central venous catheter tip in good position at the junction of the superior vena cava to the right atrium. There is no pneumothorax. The infiltrate in the right costophrenic angle has increased in density in distribution compared to yesterdays film. The lungs are clear without focal infiltrate or effusion. The bony thorax is unremarkable.IMPRESSIONMild worsening of the infiltrate in the right costophrenic angle compared to March 12, 2021New right subclavian central venous catheter in good position without pneumothorax.Electronically signed by: ROMEL ALLEN (Mar 13, 2021 15:33:27)
[2021-03-13] MEDS: ZANAFLEX PO SCH (20:46)
[2021-03-14] MEDS: CATAPRES TAB 0.1 MG PO SCH ×3 (05:06→21:00)
[2021-03-14 05:26] LABS: BASOPHILS % (AUTO) 0.4 % (0.2-1.0); EOSINOPHILS # (AUTO) 0.4 x10^3/uL (0.0-0.2); EOSINOPHILS % (AUTO) 2.9 % (0.9-2.9); HEMOGLOBIN 12.2 g/dL (12.0-16.0); LYMPHOCYTES # (AUTO) 2.7 X10^3/uL (1.3-2.9); LYMPHOCYTES % (AUTO) 21.4 % (21.0-51.0); MEAN CORPUSCULAR HEMOGLOBIN 30.1 pg (27.0-34.0); MEAN CORPUSCULAR HGB CONC 33.9 g/dL (33.0-35.0); MEAN CORPUSCULAR VOLUME 88.9 fL (80.0-100.0); MEAN PLATELET VOLUME 10.8 fL (7.4-11.0); MONOCYTES # (AUTO) 1.7 x10^3/uL (0.3-0.8); MONOCYTES % (AUTO) 13.3 % (0.0-13.0); NEUTROPHILS # (AUTO) 7.7 x10^3/uL (2.2-4.8); PLATELET COUNT 204 X10^3/uL (150.0-450.0); RED BLOOD COUNT 4.05 X10^6/uL (3.5-5.4); RED CELL DISTRIBUTION WIDTH 14.2 % (11.6-16.5); WHITE BLOOD COUNT 12.5 X10^3/uL (3.6-10.0)
[2021-03-14 05:40] LABS: ALANINE AMINOTRANSFERASE 13 Units/L (12-78); ALBUMIN 1.7 g/dL (3.4-5.0); ALKALINE PHOSPHATASE 69 Units/L (46-116); ASPARTATE AMINO TRANSFERASE 21 Units/L (15-37); BLOOD UREA NITROGEN 21 mg/dL (7-18); CARBON DIOXIDE 27.2 mmol/L (21-32); CHLORIDE 107 mmol/L (98-107); COR CA(FOR HYPOALB) 9.8 mg/dL (8.5-10.1); CREATININE 0.95 mg/dL (0.55-1.02); SODIUM 140 mmol/L (136-145); TOTAL PROTEIN 5.7 g/dL (6.4-8.2); eGFR NON BLACK RACES > 60 (>60)
[2021-03-14] MEDS: CARAFATE ORAL SUSP PO SCH ×4 (06:07→21:00)
[2021-03-14] MEDS: K-DUR TAB 20 MEQ PO PRN (06:09)
[2021-03-14 06:12] LABS: BURR CELLS PRESENT; GIANT PLATELET FEW; PLATELET MORPHOLOGY COMMENT ABNORMAL (NORMAL); TARGET CELLS PRESENT
[2021-03-14] MEDS: COZAAR PO SCH (10:03)
[2021-03-14] MEDS: ASPIRIN PO SCH (10:03)
[2021-03-14] MEDS: MOBIC TAB 15 MG PO SCH (10:04)
[2021-03-14] MEDS: MAXIPIME VIAL 1 GRAM 1 G in NS 50 ML IV + SPIKE MINIBAG* 50 ML IV SCH ×2 (10:04→21:00)
[2021-03-14] MEDS: DIFLUCAN 100 MG IV (MIX by PHARMACY)* 100 MG/50 ML BAG IV SCH (10:04)
[2021-03-14] MEDS: PriLOSEC PO SCH (10:04)
[2021-03-14] MEDS: LOPRESSOR TAB 25 MG PO SCH ×2 (10:04→21:00)
[2021-03-14] MEDS: PEPCID TAB 20 MG PO SCH (10:04)
[2021-03-14] MEDS: HYDROCHLOROTHIAZIDE 25 MG TAB PO SCH ×2 (10:04→21:00)
[2021-03-14] MEDS: REMDESIVIR 100 MG in NS 100 ML IV + SPIKE MINIBAG* 120 ML IV SCH (10:05)
[2021-03-14] MEDS: LOVENOX INJ 30 MG SYR SC SCH ×2 (10:05→21:00)
[2021-03-14] MEDS: VITAMIN D3 125 mcg (5,000 UNITS) PO SCH (10:05)
[2021-03-14] MEDS: VSL#3 PO SCH (10:05)
[2021-03-14] MEDS: ZINC SULFATE PO SCH ×2 (10:05→21:00)
[2021-03-14] MEDS: VITAMIN C PO SCH (10:05)
[2021-03-14] MEDS: NS 1000 ML 1,000 ML IV SCH ×2 (12:31→21:00)
--- NOTE | 2021-03-14 16:10 | PCM.PROG ---
Progress Note Progress Note for Day of Date of Exam: 03/14/21 Subjective Subjective: Pt is a 80 year old female past medical history of Atrial fibrillation, Hypertension, admitted for COVID-19 infection, Atrial fibrillation w/ RVR(resolved), generalized weakness and diarrhea. Yesterday, pt had facial flushing after given ciprofloxacin. Changed antibiotic to cefepime. Stool c ultures positive for yeast. No acute events overnight. Labs/imaging: Wbc 18.2>14.2, Hgb 13.2, Plt 206, Na 139, K 3.5, Creatinine 1.58>1.23, Glucose 94, Sputum culture positive Pseudomonas aur. Pt is currently receiving treatments: IVF NS@75ml/h, Remdesivir, Antibiotics: Cefepime, Diflucan, scheduled bronchodilators, immune supporting supplements, Lovenox 30mg BID, physical therapy, respiratory therapy. Her oxygen saturations are excellent, she is on room air. Decrease IVF back to KVO to prevent fluid overload. Renal function has improved. Heart rate well controlled. Otherwise continue with current treatment plan. Continue to closely monitor and follow up labs/imaging in the morning. Past Medical Family Social History Past Med/Fam/Surg Hx: No changes since H&P Allergies: Allergies celecoxib [From Celebrex] Allergy (Unknown, Verified 03/06/21 10:53) codeine Allergy (Unknown, Verified 03/06/21 10:53) diphenhydramine [From Benadryl] Allergy (Unknown, Verified 03/06/21 10:53) levofloxacin [From Levaquin] Allergy (Unknown, Verified 03/06/21 10:53) DAUGHTER STATES TRACE EVIDENCE TECHNICIAN TOLD PT. TO NOT TAKE IT BECAUSE OF HER HEART AND A-FIB Sulfa (Sulfonamide Antibiotics) [SULFA] Allergy (Unknown, Verified 03/06/21 10:53) sulfamethoxazole [From Bactrim] Allergy (Unknown, Verified 03/06/21 10:53) trimethoprim [From Bactrim] Allergy (Unknown, Verified 03/06/21 10:53) Review of Systems ROS: No change since H&P Vital Signs and I&O's Vital Signs: Temperature 98.1 F Pulse Rate [Left] 60 Pulse Rate 61 Respiratory Rate 24 Blood Pressure [Right Arm] 106/54 Blood Pressure 162/70 O2 Sat by Pulse Oximetry 96 Intake and Output: Intake & Output 03/12/21 03/13/21 03/14/21 03/15/21 11:59 11:59 11:59 11:59 Intake Total 1554 / 1554 1389 / 1389 1752 / 1752 120 / 120 Output Total 300 / 300 Balance 1554 / 1554 1389 / 1389 1452 / 1452 120 / 120 Physical Exam Oriented: Normal Eyes: Normal Respiratory: Normal Cardiovascular: Normal and Irregular : Normal Auscultation: Bowel Sounds: Normal Tenderness: Normal Skin: Normal Musculoskeletal: Normal Psychiatric: Normal Mood Description: Calm and Appropriate Affect: Normal Speech Pattern: Clear and Appropriate Laboratory and Diagnostics Result Diagrams: 03/14/21 04:43 03/14/21 12:12 Labs: 03/11/21 16:24 Stool Stool Culture - Preliminary 03/11/21 16:24 Stool - Final 03/09/21 12:21 Sputum - Expectorated Sputum Sputum Culture - Final Pseudomonas Aeruginosa 03/09/21 12:21 Sputum - Expectorated Sputum - Final Laboratory WBC 12.5 X10^3/uL (3.6-10.0) H 03/14/21 04:43 RBC 4.05 X10^6/uL (3.5-5.4) 03/14/21 04:43 Hgb 12.2 g/dL (12.0-16.0) 03/14/21 04:43 Hct 36.0 % (36.0-47.0) 03/14/21 04:43 MCV 88.9 fL (80.0-100.0) 03/14/21 04:43 MCH 30.1 pg (27.0-34.0) 03/14/21 04:43 MCHC 33.9 g/dL (33.0-35.0) 03/14/21 04:43 RDW 14.2 % (11.6-16.5) 03/14/21 04:43 Plt Count 204 X10^3/uL (150.0-450.0) 03/14/21 04:43 Plt Count Comment Adequate (ADEQUATE) 03/14/21 04:43 MPV 10.8 fL (7.4-11.0) 03/14/21 04:43 Neut % (Auto) 62.0 % (42.0-75.0) 03/14/21 04:43 Lymph % (Auto) 21.4 % (21.0-51.0) 03/14/21 04:43 [place] % (Auto) 13.3 % (0.0-13.0) H 03/14/21 04:43 Eos % (Auto) 2.9 % (0.9-2.9) 03/14/21 04:43 Baso % (Auto) 0.4 % (0.2-1.0) 03/14/21 04:43 Neut # (Auto) 7.7 x10^3/uL (2.2-4.8) H 03/14/21 04:43 Lymph # (Auto) 2.7 X10^3/uL (1.3-2.9) 03/14/21 04:43 [place] # (Auto) 1.7 x10^3/uL (0.3-0.8) H 03/14/21 04:43 Eos # (Auto) 0.4 x10^3/uL (0.0-0.2) H 03/14/21 04:43 Baso # (Auto) 0.0 X10^3/uL (0.0-0.1) 03/14/21 04:43 Absolute Nucleated RBC 0.1 /100WBC 03/14/21 04:43 Total Counted 100 03/11/21 04:40 Neutrophils % (Manual) 85 % (39-76) H 03/11/21 04:40 Lymphocytes % (Manual) 7 % (13-43) L 03/11/21 04:40 Monocytes % (Manual) 8 % (4-9) 03/11/21 04:40 Giant Platelets Few 03/14/21 04:43 Plt Morphology Comment Abnormal (NORMAL) A 03/14/21 04:43 RBC Morphology Abnormal (NORMAL) A 03/14/21 04:43 Target Cells Present 03/14/21 04:43 [place] Cells Present 03/14/21 04:43 PT 14.3 SECONDS (11.8-14.3) 03/10/21 04:37 INR Target Range - 03/10/21 04:37 INR 1.17 (0.8-1.3) 03/10/21 04:37 APTT 39.1 SECONDS (22.9-36.5) H 03/10/21 04:37 PTT Comment - 03/10/21 04:37 D-Dimer 0.56 ug/ml (0.0-0.57) 03/09/21 12:42 Sodium 140 mmol/L (136-145) 03/14/21 04:43 Corrected Sodium TNP 03/14/21 04:43 Potassium 3.6 mmol/L (3.5-5.1) 03/14/21 12:12 Chloride 107 mmol/L (98-107) 03/14/21 04:43 Carbon Dioxide 27.2 mmol/L (21-32) 03/14/21 04:43 BUN 21 mg/dL (7-18) H 03/14/21 04:43 Creatinine 0.95 mg/dL (0.55-1.02) 03/14/21 04:43 Est GFR (MDRD) Af Amer > 60 (>60) 03/14/21 04:43 Est GFR (MDRD) Non-Af > 60 (>60) 03/14/21 04:43 Glucose 106 mg/dL (65-99) H 03/14/21 04:43 POC Glucose (mg/dL) 131 mg/dL (65-99) H 03/13/21 17:33 Calcium 8.0 mg/dL (8.5-10.1) L 03/14/21 04:43 Corrected Calcium 9.8 mg/dL (8.5-10.1) 03/14/21 04:43 Magnesium 2.0 mg/dL (1.7-2.9) 03/14/21 05:04 Ferritin 378 ng/mL (8-252) H 03/09/21 12:42 Total Bilirubin 0.30 mg/dL (0.2-1.0) 03/14/21 04:43 AST 21 Units/L (15-37) 03/14/21 04:43 ALT 13 Units/L (12-78) 03/14/21 04:43 Alkaline Phosphatase 69 Units/L (46-116) 03/14/21 04:43 Creatine Kinase 39 Units/L (26-192) 03/10/21 04:37 CK-MB (CK-2) < 1.0 ng/mL (0-4.0) 03/10/21 04:37 CK/CKMB % Calc 2.6 % (<4) 03/10/21 04:37 Troponin I < 0.02 ng/mL (0-1.5) 03/10/21 04:37 C-Reactive Protein 22.80 mg/L (0-3.0) H 03/09/21 12:42 B-Natriuretic Peptide 273 pg/mL (0-79) H 03/09/21 11:10 Total Protein 5.7 g/dL (6.4-8.2) L 03/14/21 04:43 Albumin 1.7 g/dL (3.4-5.0) L 03/14/21 04:43 Globulin 4.0 g/dL (2.5-4.5) 03/14/21 04:43 Albumin/Globulin Ratio 0.4 Ratio (1.1-2.1) L 03/14/21 04:43 Specimen Type Clean catch urine 03/10/21 14:50 Urine Color Yellow (YELLOW) 03/10/21 14:50 Urine Appearance Clear (CLEAR) 03/10/21 14:50 Urine pH 5.0 (5.0 - 8.0) 03/10/21 14:50 Ur Specific [place] 1.015 (1.000-1.030) 03/10/21 14:50 Urine Protein 2+ (NEGATIVE) 03/10/21 14:50 Urine Glucose (UA) Negative (NEGATIVE) 03/10/21 14:50 Urine Ketones 1+ (NEGATIVE) 03/10/21 14:50 Urine Occult Blood Negative (NEGATIVE) 03/10/21 14:50 Urine Nitrite Negative (NEGATIVE) 03/10/21 14:50 Urine Bilirubin Negative (NEGATIVE) 03/10/21 14:50 Urine Urobilinogen Normal (NORMAL) 03/10/21 14:50 Ur Leukocyte Esterase Negative (NEGATIVE) 03/10/21 14:50 Urine RBC None seen /HPF (0-3) 03/10/21 14:50 Urine WBC 3-5 /HPF (0-5) 03/10/21 14:50 Ur Squamous Epith Cells Few /HPF (NEGATIVE) 03/10/21 14:50 Ur Transition Epith Cell Few /HPF (NEGATIVE) 03/09/21 14:52 Urine Bacteria Trace /HPF (NEGATIVE) 03/10/21 14:50 Urine Mucus Rare /HPF (NEGATIVE) 03/09/21 14:52 Ur Culture Indicated? No/not indicated 03/10/21 14:50 Stool Description 25 gms soft brown 03/11/21 16:24 Stl C. diff Tox B Gene Negative (NEGATIVE) 03/11/21 16:24 Stl C. diff [id number] Presumptive negative (NEGATIVE) 03/11/21 16:24 SARS-CoV-2 (PCR) Positive (NEGATIVE) A 03/09/21 13:54 Cryptosporid parvum Ag Negative (NEGATIVE) 03/11/21 16:24 Giardia lamblia Ag Negative (NEGATIVE) 03/11/21 16:24 Influenza Type A (PCR) Negative (NEGATIVE) 03/09/21 13:54 Influenza Type B (PCR) Negative (NEGATIVE) 03/09/21 13:54 RSV (PCR) Negative (NEGATIVE) 03/09/21 13:54 Plan (1) Atrial fibrillation with rapid ventricular response: Status: Acute (2) Hypokalemia: Status: Acute (3) Generalized weakness: Status: Acute (4) Dehydration: Status: Acute (5) COVID-19: Status: Acute Narrative Support Text: Still Improving. Plan: Cont. Rx plan.
[2021-03-14] MEDS: ZANAFLEX PO SCH (21:00)
[2021-03-15] MEDS: NS 1000 ML 1,000 ML IV SCH ×2 (00:59→16:22)
[2021-03-15] MEDS: TYLENOL 325 MG TAB PO PRN (03:45)
[2021-03-15] MEDS: CATAPRES TAB 0.1 MG PO SCH ×3 (05:22→21:07)
[2021-03-15 05:57] LABS: BASOPHILS # (AUTO) 0.1 X10^3/uL (0.0-0.1); BASOPHILS % (AUTO) 0.6 % (0.2-1.0); EOSINOPHILS # (AUTO) 0.4 x10^3/uL (0.0-0.2); EOSINOPHILS % (AUTO) 3.2 % (0.9-2.9); HEMATOCRIT 34.9 % (36.0-47.0); HEMOGLOBIN 11.9 g/dL (12.0-16.0); LYMPHOCYTES # (AUTO) 2.5 X10^3/uL (1.3-2.9); LYMPHOCYTES % (AUTO) 18.4 % (21.0-51.0); MEAN CORPUSCULAR HEMOGLOBIN 30.2 pg (27.0-34.0); MEAN CORPUSCULAR HGB CONC 34.2 g/dL (33.0-35.0); MEAN CORPUSCULAR VOLUME 88.2 fL (80.0-100.0); MEAN PLATELET VOLUME 10.7 fL (7.4-11.0); MONOCYTES # (AUTO) 1.7 x10^3/uL (0.3-0.8); MONOCYTES % (AUTO) 12.6 % (0.0-13.0); NEUTROPHILS % (AUTO) 65.2 % (42.0-75.0); PLATELET COUNT 220 X10^3/uL (150.0-450.0); RED BLOOD COUNT 3.95 X10^6/uL (3.5-5.4); RED CELL DISTRIBUTION WIDTH 14.2 % (11.6-16.5); WHITE BLOOD COUNT 13.7 X10^3/uL (3.6-10.0)
[2021-03-15] MEDS: CARAFATE ORAL SUSP PO SCH ×4 (06:03→21:02)
[2021-03-15 06:11] LABS: ALANINE AMINOTRANSFERASE 13 Units/L (12-78); ALBUMIN 1.7 g/dL (3.4-5.0); ALKALINE PHOSPHATASE 76 Units/L (46-116); ASPARTATE AMINO TRANSFERASE 18 Units/L (15-37); BLOOD UREA NITROGEN 26 mg/dL (7-18); CALCIUM 8.1 mg/dL (8.5-10.1); CARBON DIOXIDE 26.7 mmol/L (21-32); CHLORIDE 107 mmol/L (98-107); COR CA(FOR HYPOALB) 9.9 mg/dL (8.5-10.1); CREATININE 0.96 mg/dL (0.55-1.02); SODIUM 140 mmol/L (136-145); TOTAL PROTEIN 5.9 g/dL (6.4-8.2); eGFR NON BLACK RACES 60 (>60)
--- NOTE | 2021-03-15 06:23 | RAD ---
HISTORYCOVID-19STUDYCHEST, 1 [id number]/08/2021FINDINGSThe cardiomediastinal silhouette is stable. Right-sided central venous catheter unchanged. Slight improvement of right basilar airspace opacities. Possible developing left basilar opacities. The bony thorax appears intact.IMPRESSIONImproving right basilar opacities. Possible developing left basilar opacities.Electronically signed by: TIFFANY IVERSON (Mar 15, 2021 06:21:50)
[2021-03-15 07:43] LABS: GIANT PLATELET RARE; PLATELET MORPHOLOGY COMMENT ABNORMAL (NORMAL)
[2021-03-15 07:44] LABS: HOWELL-JOLLY BODIES PRESENT; TARGET CELLS PRESENT
[2021-03-15 07:46] LABS: POIKILOCYTOSIS SLIGHT
[2021-03-15] MEDS: DIFLUCAN 200 MG IV PREMIX* 200 MG/100 ML BAG IV SCH (10:24)
[2021-03-15] MEDS: ASPIRIN PO SCH (10:24)
[2021-03-15] MEDS: COZAAR PO SCH (10:24)
[2021-03-15] MEDS: MOBIC TAB 15 MG PO SCH (10:25)
[2021-03-15] MEDS: HYDROCHLOROTHIAZIDE 25 MG TAB PO SCH ×2 (10:25→21:02)
[2021-03-15] MEDS: MAXIPIME VIAL 1 GRAM 1 G in NS 50 ML IV + SPIKE MINIBAG* 50 ML IV SCH ×2 (10:25→21:04)
[2021-03-15] MEDS: LOPRESSOR TAB 25 MG PO SCH ×2 (10:25→21:03)
[2021-03-15] MEDS: VITAMIN C PO SCH (10:25)
[2021-03-15] MEDS: PEPCID TAB 20 MG PO SCH (10:25)
[2021-03-15] MEDS: PriLOSEC PO SCH (10:25)
[2021-03-15] MEDS: VITAMIN D3 125 mcg (5,000 UNITS) PO SCH (10:26)
[2021-03-15] MEDS: ZINC SULFATE PO SCH ×2 (10:26→21:07)
[2021-03-15] MEDS: VSL#3 PO SCH (10:26)
[2021-03-15] MEDS: LOVENOX INJ 30 MG SYR SC SCH ×2 (10:35→21:04)
[2021-03-15] MEDS ORDERED: MUCINEX DM PO SCH (11:00)
--- NOTE | 2021-03-15 14:07 | PCM.PROG ---
Progress Note Progress Note for Day of Date of Exam: 03/15/21 Subjective Subjective: Pt is a 80 year old female past medical history of Atrial fibrillation, Hypertension, admitted for COVID-19 infection, Atrial fibrillation w/ RVR(resolved), generalized weakness and diarrhea. Yesterday, pt had facial flushing after given ciprofloxacin. Changed antibiotic to cefepime. Stool c ultures positive for yeast. No acute events overnight. Labs/imaging: Wbc 18.2>14.2, Hgb 13.2, Plt 206, Na 139, K 3.5, Creatinine 1.58>1.23, Glucose 94, Sputum culture positive Pseudomonas aur. Pt is currently receiving treatments: IVF NS@75ml/h, Remdesivir, Antibiotics: Cefepime, Diflucan, scheduled bronchodilators, immune supporting supplements, Lovenox 30mg BID, physical therapy, respiratory therapy. Her oxygen saturations are excellent, she is on room air. Decrease IVF back to KVO to prevent fluid overload. Renal function has improved. Heart rate well controlled. Otherwise continue with current treatment plan. Continue to closely monitor and follow up labs/imaging in the morning. Past Medical Family Social History Past Med/Fam/Surg Hx: No changes since H&P Allergies: Allergies ciprofloxacin Allergy (Severe, Verified 03/15/21 13:58) CARDIOVASCULAR COMPLICATIONS patient has flushing and cardiovascular complications including bijeminy and freq pvcs celecoxib [From Celebrex] Allergy (Unknown, Verified 03/06/21 10:53) codeine Allergy (Unknown, Verified 03/06/21 10:53) diphenhydramine [From Benadryl] Allergy (Unknown, Verified 03/06/21 10:53) levofloxacin [From Levaquin] Allergy (Unknown, Verified 03/06/21 10:53) DAUGHTER STATES MANAGER CHANGE TOLD PT. TO NOT TAKE IT BECAUSE OF HER HEART AND A-FIB Sulfa (Sulfonamide Antibiotics) [SULFA] Allergy (Unknown, Verified 03/06/21 10:53) sulfamethoxazole [From Bactrim] Allergy (Unknown, Verified 03/06/21 10:53) trimethoprim [From Bactrim] Allergy (Unknown, Verified 03/06/21 10:53) Review of Systems ROS: No change since H&P Vital Signs and I&O's Vital Signs: Temperature 97.9 F Pulse Rate [Left] 60 Pulse Rate 55 Respiratory Rate 25 Blood Pressure [Right Arm] 106/54 Blood Pressure 119/58 O2 Sat by Pulse Oximetry 93 Intake and Output: Intake & Output 03/13/21 03/14/21 03/15/21 03/16/21 11:59 11:59 11:59 11:59 Intake Total 1389 / 1389 1752 / 1752 1179 / 1179 Output Total 300 / 300 Balance 1389 / 1389 1452 / 1452 1179 / 1179 Physical Exam Oriented: Normal Eyes: Normal Respiratory: Right, Left and Rhonchi Cardiovascular: Normal and Irregular : Normal Auscultation: Bowel Sounds: Normal Tenderness: Normal Skin: Normal Musculoskeletal: Normal Psychiatric: Normal Mood Description: Calm and Appropriate Affect: Normal Speech Pattern: Clear and Appropriate Laboratory and Diagnostics Result Diagrams: 03/15/21 05:14 03/15/21 05:14 Labs: 03/11/21 16:24 Stool Stool Culture - Preliminary 03/11/21 16:24 Stool - Final 03/09/21 12:21 Sputum - Expectorated Sputum Sputum Culture - Final Pseudomonas Aeruginosa 03/09/21 12:21 Sputum - Expectorated Sputum - Final Laboratory WBC 13.7 X10^3/uL (3.6-10.0) H 03/15/21 05:14 RBC 3.95 X10^6/uL (3.5-5.4) 03/15/21 05:14 Hgb 11.9 g/dL (12.0-16.0) L 03/15/21 05:14 Hct 34.9 % (36.0-47.0) L 03/15/21 05:14 MCV 88.2 fL (80.0-100.0) 03/15/21 05:14 MCH 30.2 pg (27.0-34.0) 03/15/21 05:14 MCHC 34.2 g/dL (33.0-35.0) 03/15/21 05:14 RDW 14.2 % (11.6-16.5) 03/15/21 05:14 Plt Count 220 X10^3/uL (150.0-450.0) 03/15/21 05:14 Plt Count Comment Adequate (ADEQUATE) 03/15/21 05:14 MPV 10.7 fL (7.4-11.0) 03/15/21 05:14 Neut % (Auto) 65.2 % (42.0-75.0) 03/15/21 05:14 Lymph % (Auto) 18.4 % (21.0-51.0) L 03/15/21 05:14 [place] % (Auto) 12.6 % (0.0-13.0) 03/15/21 05:14 Eos % (Auto) 3.2 % (0.9-2.9) H 03/15/21 05:14 Baso % (Auto) 0.6 % (0.2-1.0) 03/15/21 05:14 Neut # (Auto) 9.0 x10^3/uL (2.2-4.8) H 03/15/21 05:14 Lymph # (Auto) 2.5 X10^3/uL (1.3-2.9) 03/15/21 05:14 [place] # (Auto) 1.7 x10^3/uL (0.3-0.8) H 03/15/21 05:14 Eos # (Auto) 0.4 x10^3/uL (0.0-0.2) H 03/15/21 05:14 Baso # (Auto) 0.1 X10^3/uL (0.0-0.1) 03/15/21 05:14 Absolute Nucleated RBC 0.0 /100WBC 03/15/21 05:14 Total Counted 100 03/11/21 04:40 Neutrophils % (Manual) 85 % (39-76) H 03/11/21 04:40 Lymphocytes % (Manual) 7 % (13-43) L 03/11/21 04:40 Monocytes % (Manual) 8 % (4-9) 03/11/21 04:40 Giant Platelets Rare 03/15/21 05:14 Plt Morphology Comment Abnormal (NORMAL) A 03/15/21 05:14 RBC Morphology Abnormal (NORMAL) A 03/15/21 05:14 Poikilocytosis Slight A 03/15/21 05:14 Target Cells Present 03/15/21 05:14 [place] Bodies Present 03/15/21 05:14 Michael Cells Present 03/14/21 04:43 Acanthocytes (Spur) Present 03/15/21 05:14 PT 14.3 SECONDS (11.8-14.3) 03/10/21 04:37 INR Target Range - 03/10/21 04:37 INR 1.17 (0.8-1.3) 03/10/21 04:37 APTT 39.1 SECONDS (22.9-36.5) H 03/10/21 04:37 PTT Comment - 03/10/21 04:37 D-Dimer 0.56 ug/ml (0.0-0.57) 03/09/21 12:42 Sodium 140 mmol/L (136-145) 03/15/21 05:14 Corrected Sodium TNP 03/15/21 05:14 Potassium 3.7 mmol/L (3.5-5.1) 03/15/21 05:14 Chloride 107 mmol/L (98-107) 03/15/21 05:14 Carbon Dioxide 26.7 mmol/L (21-32) 03/15/21 05:14 BUN 26 mg/dL (7-18) H 03/15/21 05:14 Creatinine 0.96 mg/dL (0.55-1.02) 03/15/21 05:14 Est GFR (MDRD) Af Amer > 60 (>60) 03/15/21 05:14 Est GFR (MDRD) Non-Af 60 (>60) 03/15/21 05:14 Glucose 110 mg/dL (65-99) H 03/15/21 05:14 POC Glucose (mg/dL) 131 mg/dL (65-99) H 03/13/21 17:33 Calcium 8.1 mg/dL (8.5-10.1) L 03/15/21 05:14 Corrected Calcium 9.9 mg/dL (8.5-10.1) 03/15/21 05:14 Magnesium 2.0 mg/dL (1.7-2.9) 03/14/21 05:04 Ferritin 378 ng/mL (8-252) H 03/09/21 12:42 Total Bilirubin 0.30 mg/dL (0.2-1.0) 03/15/21 05:14 AST 18 Units/L (15-37) 03/15/21 05:14 ALT 13 Units/L (12-78) 03/15/21 05:14 Alkaline Phosphatase 76 Units/L (46-116) 03/15/21 05:14 Creatine Kinase 39 Units/L (26-192) 03/10/21 04:37 CK-MB (CK-2) < 1.0 ng/mL (0-4.0) 03/10/21 04:37 CK/CKMB % Calc 2.6 % (<4) 03/10/21 04:37 Troponin I < 0.02 ng/mL (0-1.5) 03/10/21 04:37 C-Reactive Protein 22.80 mg/L (0-3.0) H 03/09/21 12:42 B-Natriuretic Peptide 273 pg/mL (0-79) H 03/09/21 11:10 Total Protein 5.9 g/dL (6.4-8.2) L 03/15/21 05:14 Albumin 1.7 g/dL (3.4-5.0) L 03/15/21 05:14 Globulin 4.2 g/dL (2.5-4.5) 03/15/21 05:14 Albumin/Globulin Ratio 0.4 Ratio (1.1-2.1) L 03/15/21 05:14 Specimen Type Clean catch urine 03/10/21 14:50 Urine Color Yellow (YELLOW) 03/10/21 14:50 Urine Appearance Clear (CLEAR) 03/10/21 14:50 Urine pH 5.0 (5.0 - 8.0) 03/10/21 14:50 Ur Specific [place] 1.015 (1.000-1.030) 03/10/21 14:50 Urine Protein 2+ (NEGATIVE) 03/10/21 14:50 Urine Glucose (UA) Negative (NEGATIVE) 03/10/21 14:50 Urine Ketones 1+ (NEGATIVE) 03/10/21 14:50 Urine Occult Blood Negative (NEGATIVE) 03/10/21 14:50 Urine Nitrite Negative (NEGATIVE) 03/10/21 14:50 Urine Bilirubin Negative (NEGATIVE) 03/10/21 14:50 Urine Urobilinogen Normal (NORMAL) 03/10/21 14:50 Ur Leukocyte Esterase Negative (NEGATIVE) 03/10/21 14:50 Urine RBC None seen /HPF (0-3) 03/10/21 14:50 Urine WBC 3-5 /HPF (0-5) 03/10/21 14:50 Ur Squamous Epith Cells Few /HPF (NEGATIVE) 03/10/21 14:50 Ur Transition Epith Cell Few /HPF (NEGATIVE) 03/09/21 14:52 Urine Bacteria Trace /HPF (NEGATIVE) 03/10/21 14:50 Urine Mucus Rare /HPF (NEGATIVE) 03/09/21 14:52 Ur Culture Indicated? No/not indicated 03/10/21 14:50 Stool Description 25 gms soft brown 03/11/21 16:24 Stl C. diff Tox B Gene Negative (NEGATIVE) 03/11/21 16:24 Stl C. diff [id number] Presumptive negative (NEGATIVE) 03/11/21 16:24 SARS-CoV-2 (PCR) Positive (NEGATIVE) A 03/09/21 13:54 Cryptosporid parvum Ag Negative (NEGATIVE) 03/11/21 16:24 Giardia lamblia Ag Negative (NEGATIVE) 03/11/21 16:24 Influenza Type A (PCR) Negative (NEGATIVE) 03/09/21 13:54 Influenza Type B (PCR) Negative (NEGATIVE) 03/09/21 13:54 RSV (PCR) Negative (NEGATIVE) 03/09/21 13:54 Radiology Reviewed: Yes Plan (1) Pulmonary infiltrate in left lung on CXR: Status: Acute Plan: Continue Cefepime and will add Fortaz. (2) Atrial fibrillation with rapid ventricular response: Status: Acute (3) Hypokalemia: Status: Acute (4) Generalized weakness: Status: Acute (5) Dehydration: Status: Acute (6) COVID-19: Status: Acute Plan: Cont. Rx plan.
[2021-03-15] MEDS: ZOFRAN INJ 4 MG VIAL IVP PRN ×2 (14:54→21:08)
[2021-03-15] MEDS ORDERED: ZOFRAN INJ 4 MG VIAL IV ONE (16:25)
[2021-03-15] MEDS: VIBRAMYCIN 100 MG in D5W 250 ML IV 250 ML IV SCH ×2 (21:06→21:53)
[2021-03-15] MEDS: ZANAFLEX PO SCH (21:06)
[2021-03-16] MEDS: CATAPRES TAB 0.1 MG PO SCH ×3 (05:00→23:12)
[2021-03-16] MEDS: NS 1000 ML 1,000 ML IV SCH ×2 (05:00→20:25)
[2021-03-16] MEDS: ZOFRAN INJ 4 MG VIAL IVP PRN ×2 (05:01→19:35)
[2021-03-16 05:11] LABS: BASOPHILS # (AUTO) 0.3 X10^3/uL (0.0-0.1); BASOPHILS % (AUTO) 1.6 % (0.2-1.0); EOSINOPHILS # (AUTO) 0.4 x10^3/uL (0.0-0.2); EOSINOPHILS % (AUTO) 2.7 % (0.9-2.9); HEMATOCRIT 35.3 % (36.0-47.0); LYMPHOCYTES # (AUTO) 2.8 X10^3/uL (1.3-2.9); LYMPHOCYTES % (AUTO) 17.2 % (21.0-51.0); MEAN CORPUSCULAR HEMOGLOBIN 30.1 pg (27.0-34.0); MEAN CORPUSCULAR HGB CONC 33.9 g/dL (33.0-35.0); MEAN CORPUSCULAR VOLUME 88.9 fL (80.0-100.0); MEAN PLATELET VOLUME 10.7 fL (7.4-11.0); MONOCYTES # (AUTO) 1.8 x10^3/uL (0.3-0.8); MONOCYTES % (AUTO) 10.9 % (0.0-13.0); NEUTROPHILS % (AUTO) 67.6 % (42.0-75.0); PLATELET COUNT 255 X10^3/uL (150.0-450.0); RED BLOOD COUNT 3.97 X10^6/uL (3.5-5.4); WHITE BLOOD COUNT 16.2 X10^3/uL (3.6-10.0)
[2021-03-16 05:35] LABS: ALANINE AMINOTRANSFERASE 12 Units/L (12-78); ALBUMIN 1.9 g/dL (3.4-5.0); ALKALINE PHOSPHATASE 85 Units/L (46-116); ASPARTATE AMINO TRANSFERASE 19 Units/L (15-37); BLOOD UREA NITROGEN 23 mg/dL (7-18); CALCIUM 8.2 mg/dL (8.5-10.1); CARBON DIOXIDE 26.4 mmol/L (21-32); CHLORIDE 105 mmol/L (98-107); COR CA(FOR HYPOALB) 9.9 mg/dL (8.5-10.1); CREATININE 0.92 mg/dL (0.55-1.02); SODIUM 139 mmol/L (136-145); TOTAL PROTEIN 6.4 g/dL (6.4-8.2); eGFR NON BLACK RACES > 60 (>60)
[2021-03-16 05:53] LABS: GIANT PLATELET RARE; PLATELET MORPHOLOGY COMMENT ABNORMAL (NORMAL); TARGET CELLS PRESENT
[2021-03-16] MEDS: CARAFATE ORAL SUSP PO SCH ×2 (06:31→14:17)
--- NOTE | 2021-03-16 06:56 | RAD ---
HISTORYCOVID PNEUMONIASTUDYCHEST, 1 [id number]/10/2021.TECHNIQUEAP view of the chestFINDINGSRight subclavian central line is in good position. Cardiac and mediastinal contours are within normal limits. Development of a small right pneumothorax with approximately 1.9 cm of pleural separation at the lateral right base. No convincing depression of the right hemidiaphragm or contralateral shift of the heart and mediastinum. No pleural effusion. Similar mild patchy right base opacity.IMPRESSIONSmall right pneumothorax without evidence of tension.Electronically signed by: Lawrence Campbell (Mar 16, 2021 06:55:03)
[2021-03-16] MEDS: ASPIRIN PO SCH ×2 (08:46→17:29)
[2021-03-16] MEDS: COZAAR PO SCH (08:47)
[2021-03-16] MEDS: HYDROCHLOROTHIAZIDE 25 MG TAB PO SCH ×2 (08:47→20:26)
[2021-03-16] MEDS: LOPRESSOR TAB 25 MG PO SCH ×2 (08:49→20:31)
[2021-03-16] MEDS: LOVENOX INJ 30 MG SYR SC SCH ×2 (08:49→20:32)
[2021-03-16] MEDS: MAXIPIME VIAL 1 GRAM 1 G in NS 50 ML IV + SPIKE MINIBAG* 50 ML IV SCH ×2 (08:49→20:32)
[2021-03-16] MEDS: MOBIC TAB 15 MG PO SCH ×2 (08:50→17:29)
[2021-03-16] MEDS: PEPCID TAB 20 MG PO SCH ×2 (08:50→17:32)
[2021-03-16] MEDS: VSL#3 PO SCH ×2 (08:51→17:33)
[2021-03-16] MEDS: PriLOSEC PO SCH ×2 (08:51→17:33)
[2021-03-16] MEDS: VITAMIN C PO SCH (08:51)
[2021-03-16] MEDS: VITAMIN D3 125 mcg (5,000 UNITS) PO SCH (08:51)
[2021-03-16 09:39] LABS: CKMB % 3.5 % (<4); CREATINE KINASE 29 Units/L (26-192); TROPONIN I < 0.02 ng/mL (0-1.5)
[2021-03-16] MEDS: DIFLUCAN 200 MG IV PREMIX* 200 MG/100 ML BAG IV SCH (09:40)
--- NOTE | 2021-03-16 14:24 | PCM.PROG ---
Progress Note Progress Note for Day of Date of Exam: 03/16/21 Subjective Subjective: Pt is a 80 year old female past medical history of Atrial fibrillation, Hypertension, admitted for COVID-19 infection, Atrial fibrillation w/ RVR(resolved), generalized weakness and diarrhea. Over the weekend, treatments were continued with addition of vibramycin and central line placement due to poor vascular access. Labs/imaging: Wbc 16.2, Hgb 12, Plt 255, Na 139, K 3.5, Creatinine 0.92, Glucose 91, Sputum culture positive Pseudomonas aur. Pt is currently receiving treatments: IVF NS@KVO, Remdesivir(completed), Antibiotics: Cefepime, Diflucan, scheduled bronchodilators, immune supporting supplements, Lovenox 30mg BID, physical therapy, respiratory therapy. Concern this morning for possible small right pneumothorax that appears non-tension on CXR. Will consult surgery-Dr Dill for further evaluation. Heart rate well controlled. Pt appears nauseous that she attributes to new medications. Will discontinue vibramycin. Otherwise continue with current treatment plan. Continue to closely monitor and follow up labs/imaging. Past Medical Family Social History Past Med/Fam/Surg Hx: No changes since H&P Allergies: Allergies ciprofloxacin Allergy (Severe, Verified 03/15/21 13:58) CARDIOVASCULAR COMPLICATIONS patient has flushing and cardiovascular complications including bijeminy and freq pvcs celecoxib [From Celebrex] Allergy (Unknown, Verified 03/06/21 10:53) codeine Allergy (Unknown, Verified 03/06/21 10:53) diphenhydramine [From Benadryl] Allergy (Unknown, Verified 03/06/21 10:53) levofloxacin [From Levaquin] Allergy (Unknown, Verified 03/06/21 10:53) [facility] STATES CHEESE PROCESSOR TOLD PT. TO NOT TAKE IT BECAUSE OF HER HEART AND A-FIB Sulfa (Sulfonamide Antibiotics) [SULFA] Allergy (Unknown, Verified 03/06/21 10:53) sulfamethoxazole [From Bactrim] Allergy (Unknown, Verified 03/06/21 10:53) trimethoprim [From Bactrim] Allergy (Unknown, Verified 03/06/21 10:53) Review of Systems ROS: No change since H&P Vital Signs and I&O's Vital Signs: Temperature 98.4 F Pulse Rate [Left] 60 Pulse Rate 75 Respiratory Rate 30 Blood Pressure [Right Arm] 106/54 Blood Pressure 183/78 O2 Sat by Pulse Oximetry 90 Intake and Output: Intake & Output 03/13/21 03/14/21 03/15/21 03/16/21 23:59 23:59 23:59 23:59 Intake Total 1644 / 1644 1683 / 1683 441 / 441 293 / 293 Output Total 300 / 300 Balance 1644 / 1644 1383 / 1383 441 / 441 293 / 293 Physical Exam Oriented: Normal Eyes: Normal Ear: Normal Nose: Normal Throat: Normal Respiratory: Right, Left and Rhonchi Cardiovascular: Normal and Irregular : Normal Auscultation: Bowel Sounds: Normal Tenderness: Normal Skin: Normal Musculoskeletal: Normal Psychiatric: Normal Mood Description: Calm and Appropriate Affect: Normal Speech Pattern: Clear and Appropriate Laboratory and Diagnostics Result Diagrams: 03/16/21 04:37 03/16/21 04:37 Labs: 03/16/21 04:30 Sputum - Expectorated Sputum - Final 03/11/21 16:24 Stool Stool Culture - Preliminary 03/11/21 16:24 Stool - Final 03/09/21 12:21 Sputum - Expectorated Sputum Sputum Culture - Final Pseudomonas Aeruginosa 03/09/21 12:21 Sputum - Expectorated Sputum - Final Laboratory WBC 16.2 X10^3/uL (3.6-10.0) H 03/16/21 04:37 RBC 3.97 X10^6/uL (3.5-5.4) 03/16/21 04:37 Hgb 12.0 g/dL (12.0-16.0) 03/16/21 04:37 Hct 35.3 % (36.0-47.0) L 03/16/21 04:37 MCV 88.9 fL (80.0-100.0) 03/16/21 04:37 MCH 30.1 pg (27.0-34.0) 03/16/21 04:37 MCHC 33.9 g/dL (33.0-35.0) 03/16/21 04:37 RDW 14.0 % (11.6-16.5) 03/16/21 04:37 Plt Count 255 X10^3/uL (150.0-450.0) 03/16/21 04:37 Plt Count Comment Adequate (ADEQUATE) 03/16/21 04:37 MPV 10.7 fL (7.4-11.0) 03/16/21 04:37 Neut % (Auto) 67.6 % (42.0-75.0) 03/16/21 04:37 Lymph % (Auto) 17.2 % (21.0-51.0) L 03/16/21 04:37 [place] % (Auto) 10.9 % (0.0-13.0) 03/16/21 04:37 Eos % (Auto) 2.7 % (0.9-2.9) 03/16/21 04:37 Baso % (Auto) 1.6 % (0.2-1.0) H 03/16/21 04:37 Neut # (Auto) 11.0 x10^3/uL (2.2-4.8) H 03/16/21 04:37 Lymph # (Auto) 2.8 X10^3/uL (1.3-2.9) 03/16/21 04:37 [place] # (Auto) 1.8 x10^3/uL (0.3-0.8) H 03/16/21 04:37 Eos # (Auto) 0.4 x10^3/uL (0.0-0.2) H 03/16/21 04:37 Baso # (Auto) 0.3 X10^3/uL (0.0-0.1) H 03/16/21 04:37 Absolute Nucleated RBC 0.0 /100WBC 03/16/21 04:37 Total Counted 100 03/11/21 04:40 Neutrophils % (Manual) 85 % (39-76) H 03/11/21 04:40 Lymphocytes % (Manual) 7 % (13-43) L 03/11/21 04:40 Monocytes % (Manual) 8 % (4-9) 03/11/21 04:40 Giant Platelets Rare 03/16/21 04:37 Plt Morphology Comment Abnormal (NORMAL) A 03/16/21 04:37 RBC Morphology Abnormal (NORMAL) A 03/16/21 04:37 Poikilocytosis Slight A 03/15/21 05:14 Target Cells Present 03/16/21 04:37 [place] Bodies Present 03/15/21 05:14 Michael Cells Present 03/14/21 04:43 Acanthocytes (Spur) Present 03/16/21 04:37 PT 14.3 SECONDS (11.8-14.3) 03/10/21 04:37 INR Target Range - 03/10/21 04:37 INR 1.17 (0.8-1.3) 03/10/21 04:37 APTT 39.1 SECONDS (22.9-36.5) H 03/10/21 04:37 PTT Comment - 03/10/21 04:37 D-Dimer 0.56 ug/ml (0.0-0.57) 03/09/21 12:42 Sodium 139 mmol/L (136-145) 03/16/21 04:37 Corrected Sodium TNP 03/16/21 04:37 Potassium 3.5 mmol/L (3.5-5.1) 03/16/21 04:37 Chloride 105 mmol/L (98-107) 03/16/21 04:37 Carbon Dioxide 26.4 mmol/L (21-32) 03/16/21 04:37 BUN 23 mg/dL (7-18) H 03/16/21 04:37 Creatinine 0.92 mg/dL (0.55-1.02) 03/16/21 04:37 Est GFR (MDRD) Af Amer > 60 (>60) 03/16/21 04:37 Est GFR (MDRD) Non-Af > 60 (>60) 03/16/21 04:37 Glucose 91 mg/dL (65-99) 03/16/21 04:37 POC Glucose (mg/dL) 131 mg/dL (65-99) H 03/13/21 17:33 Calcium 8.2 mg/dL (8.5-10.1) L 03/16/21 04:37 Corrected Calcium 9.9 mg/dL (8.5-10.1) 03/16/21 04:37 Magnesium 2.0 mg/dL (1.7-2.9) 03/14/21 05:04 Ferritin 378 ng/mL (8-252) H 03/09/21 12:42 Total Bilirubin 0.50 mg/dL (0.2-1.0) 03/16/21 04:37 AST 19 Units/L (15-37) 03/16/21 04:37 ALT 12 Units/L (12-78) 03/16/21 04:37 Alkaline Phosphatase 85 Units/L (46-116) 03/16/21 04:37 Creatine Kinase 29 Units/L (26-192) 03/16/21 09:03 CK-MB (CK-2) 1.0 ng/mL (0-4.0) 03/16/21 09:03 CK/CKMB % Calc 3.5 % (<4) 03/16/21 09:03 Troponin I < 0.02 ng/mL (0-1.5) 03/16/21 09:03 C-Reactive Protein 22.80 mg/L (0-3.0) H 03/09/21 12:42 B-Natriuretic Peptide 273 pg/mL (0-79) H 03/09/21 11:10 Total Protein 6.4 g/dL (6.4-8.2) 03/16/21 04:37 Albumin 1.9 g/dL (3.4-5.0) L 03/16/21 04:37 Globulin 4.5 g/dL (2.5-4.5) 03/16/21 04:37 Albumin/Globulin Ratio 0.4 Ratio (1.1-2.1) L 03/16/21 04:37 Specimen Type Clean catch urine 03/10/21 14:50 Urine Color Yellow (YELLOW) 03/10/21 14:50 Urine Appearance Clear (CLEAR) 03/10/21 14:50 Urine pH 5.0 (5.0 - 8.0) 03/10/21 14:50 Ur Specific [place] 1.015 (1.000-1.030) 03/10/21 14:50 Urine Protein 2+ (NEGATIVE) 03/10/21 14:50 Urine Glucose (UA) Negative (NEGATIVE) 03/10/21 14:50 Urine Ketones 1+ (NEGATIVE) 03/10/21 14:50 Urine Occult Blood Negative (NEGATIVE) 03/10/21 14:50 Urine Nitrite Negative (NEGATIVE) 03/10/21 14:50 Urine Bilirubin Negative (NEGATIVE) 03/10/21 14:50 Urine Urobilinogen Normal (NORMAL) 03/10/21 14:50 Ur Leukocyte Esterase Negative (NEGATIVE) 03/10/21 14:50 Urine RBC None seen /HPF (0-3) 03/10/21 14:50 Urine WBC 3-5 /HPF (0-5) 03/10/21 14:50 Ur Squamous Epith Cells Few /HPF (NEGATIVE) 03/10/21 14:50 Ur Transition Epith Cell Few /HPF (NEGATIVE) 03/09/21 14:52 Urine Bacteria Trace /HPF (NEGATIVE) 03/10/21 14:50 Urine Mucus Rare /HPF (NEGATIVE) 03/09/21 14:52 Ur Culture Indicated? No/not indicated 03/10/21 14:50 Stool Description 25 gms soft brown 03/11/21 16:24 Stl C. diff Tox B Gene Negative (NEGATIVE) 03/11/21 16:24 Stl C. diff [id number] Presumptive negative (NEGATIVE) 03/11/21 16:24 SARS-CoV-2 (PCR) Positive (NEGATIVE) A 03/09/21 13:54 Cryptosporid parvum Ag Negative (NEGATIVE) 03/11/21 16:24 Giardia lamblia Ag Negative (NEGATIVE) 03/11/21 16:24 Influenza Type A (PCR) Negative (NEGATIVE) 03/09/21 13:54 Influenza Type B (PCR) Negative (NEGATIVE) 03/09/21 13:54 RSV (PCR) Negative (NEGATIVE) 03/09/21 13:54 Plan (1) Pulmonary infiltrate in left lung on CXR: Status: Acute Plan: Continue Cefepime (2) Atrial fibrillation with rapid ventricular response: Status: Acute (3) Hypokalemia: Status: Acute (4) Generalized weakness: Status: Acute (5) Dehydration: Status: Acute (6) COVID-19: Status: Acute Plan: Cont. Rx plan.
--- NOTE | 2021-03-16 15:46 | DR.PROGNOT ---
Hospital Progress Notes - Progress Note for Day of: Progress Note Date: 03/16/21 - Chief Complaint Chief Complaint: called to check for small Rt pneumothorax . no acute resperatoty distress. - Past Medical Family Social History Past Med/Fam/Surg Hx: No changes since H&P Allergies: Allergies ciprofloxacin Allergy (Severe, Verified 03/15/21 13:58) CARDIOVASCULAR COMPLICATIONS patient has flushing and cardiovascular complications including bijeminy and freq pvcs celecoxib [From Celebrex] Allergy (Unknown, Verified 03/06/21 10:53) codeine Allergy (Unknown, Verified 03/06/21 10:53) diphenhydramine [From Benadryl] Allergy (Unknown, Verified 03/06/21 10:53) levofloxacin [From Levaquin] Allergy (Unknown, Verified 03/06/21 10:53) DAUGHTER STATES DIRECTOR ERP TOLD PT. TO NOT TAKE IT BECAUSE OF HER HEART AND A-FIB Sulfa (Sulfonamide Antibiotics) [SULFA] Allergy (Unknown, Verified 03/06/21 10:53) sulfamethoxazole [From Bactrim] Allergy (Unknown, Verified 03/06/21 10:53) trimethoprim [From Bactrim] Allergy (Unknown, Verified 03/06/21 10:53) - Review Of Systems ROS: No change since H&P - Vital Signs Vital Signs: Temperature 98.2 F Pulse Rate [Left] 60 Pulse Rate 78 Respiratory Rate 30 Blood Pressure [Right Arm] 106/54 Blood Pressure 189/83 O2 Sat by Pulse Oximetry 90 - Physical Exam Oriented: Normal Eyes: Normal Ear: Normal Nose: Normal Throat: Normal Respiratory: Right, Left, Rhonchi Cardiovascular: Irregular, Normal : Normal GI:Auscultation: Normal GI:Palpation: Normal GI: Tenderness: Normal Skin: Normal Musculoskeletal: Normal Psychiatric: Normal Mood Description: Calm, Appropriate Affect: Normal Speech Pattern: Clear, Appropriate - Laboratory and Diagnostics Result Diagrams: 03/16/21 04:37 03/16/21 04:37 Labs: 03/16/21 04:30 Sputum - Expectorated Sputum - Final 03/11/21 16:24 Stool Stool Culture - Preliminary 03/11/21 16:24 Stool - Final 03/09/21 12:21 Sputum - Expectorated Sputum Sputum Culture - Final Pseudomonas Aeruginosa 03/09/21 12:21 Sputum - Expectorated Sputum - Final Laboratory WBC 16.2 X10^3/uL (3.6-10.0) H 03/16/21 04:37 RBC 3.97 X10^6/uL (3.5-5.4) 03/16/21 04:37 Hgb 12.0 g/dL (12.0-16.0) 03/16/21 04:37 Hct 35.3 % (36.0-47.0) L 03/16/21 04:37 MCV 88.9 fL (80.0-100.0) 03/16/21 04:37 MCH 30.1 pg (27.0-34.0) 03/16/21 04:37 MCHC 33.9 g/dL (33.0-35.0) 03/16/21 04:37 RDW 14.0 % (11.6-16.5) 03/16/21 04:37 Plt Count 255 X10^3/uL (150.0-450.0) 03/16/21 04:37 Plt Count Comment Adequate (ADEQUATE) 03/16/21 04:37 MPV 10.7 fL (7.4-11.0) 03/16/21 04:37 Neut % (Auto) 67.6 % (42.0-75.0) 03/16/21 04:37 Lymph % (Auto) 17.2 % (21.0-51.0) L 03/16/21 04:37 [place] % (Auto) 10.9 % (0.0-13.0) 03/16/21 04:37 Eos % (Auto) 2.7 % (0.9-2.9) 03/16/21 04:37 Baso % (Auto) 1.6 % (0.2-1.0) H 03/16/21 04:37 Neut # (Auto) 11.0 x10^3/uL (2.2-4.8) H 03/16/21 04:37 Lymph # (Auto) 2.8 X10^3/uL (1.3-2.9) 03/16/21 04:37 [place] # (Auto) 1.8 x10^3/uL (0.3-0.8) H 03/16/21 04:37 Eos # (Auto) 0.4 x10^3/uL (0.0-0.2) H 03/16/21 04:37 Baso # (Auto) 0.3 X10^3/uL (0.0-0.1) H 03/16/21 04:37 Absolute Nucleated RBC 0.0 /100WBC 03/16/21 04:37 Total Counted 100 03/11/21 04:40 Neutrophils % (Manual) 85 % (39-76) H 03/11/21 04:40 Lymphocytes % (Manual) 7 % (13-43) L 03/11/21 04:40 Monocytes % (Manual) 8 % (4-9) 03/11/21 04:40 Giant Platelets Rare 03/16/21 04:37 Plt Morphology Comment Abnormal (NORMAL) A 03/16/21 04:37 RBC Morphology Abnormal (NORMAL) A 03/16/21 04:37 Poikilocytosis Slight A 03/15/21 05:14 Target Cells Present 03/16/21 04:37 [place] Bodies Present 03/15/21 05:14 [place] Cells Present 03/14/21 04:43 Acanthocytes (Spur) Present 03/16/21 04:37 PT 14.3 SECONDS (11.8-14.3) 03/10/21 04:37 INR Target Range - 03/10/21 04:37 INR 1.17 (0.8-1.3) 03/10/21 04:37 APTT 39.1 SECONDS (22.9-36.5) H 03/10/21 04:37 PTT Comment - 03/10/21 04:37 D-Dimer 0.56 ug/ml (0.0-0.57) 03/09/21 12:42 Sodium 139 mmol/L (136-145) 03/16/21 04:37 Corrected Sodium TNP 03/16/21 04:37 Potassium 3.5 mmol/L (3.5-5.1) 03/16/21 04:37 Chloride 105 mmol/L (98-107) 03/16/21 04:37 Carbon Dioxide 26.4 mmol/L (21-32) 03/16/21 04:37 BUN 23 mg/dL (7-18) H 03/16/21 04:37 Creatinine 0.92 mg/dL (0.55-1.02) 03/16/21 04:37 Est GFR (MDRD) Af Amer > 60 (>60) 03/16/21 04:37 Est GFR (MDRD) Non-Af > 60 (>60) 03/16/21 04:37 Glucose 91 mg/dL (65-99) 03/16/21 04:37 POC Glucose (mg/dL) 131 mg/dL (65-99) H 03/13/21 17:33 Calcium 8.2 mg/dL (8.5-10.1) L 03/16/21 04:37 Corrected Calcium 9.9 mg/dL (8.5-10.1) 03/16/21 04:37 Magnesium 2.0 mg/dL (1.7-2.9) 03/14/21 05:04 Ferritin 378 ng/mL (8-252) H 03/09/21 12:42 Total Bilirubin 0.50 mg/dL (0.2-1.0) 03/16/21 04:37 AST 19 Units/L (15-37) 03/16/21 04:37 ALT 12 Units/L (12-78) 03/16/21 04:37 Alkaline Phosphatase 85 Units/L (46-116) 03/16/21 04:37 Creatine Kinase 29 Units/L (26-192) 03/16/21 09:03 CK-MB (CK-2) 1.0 ng/mL (0-4.0) 03/16/21 09:03 CK/CKMB % Calc 3.5 % (<4) 03/16/21 09:03 Troponin I < 0.02 ng/mL (0-1.5) 03/16/21 09:03 C-Reactive Protein 22.80 mg/L (0-3.0) H 03/09/21 12:42 B-Natriuretic Peptide 273 pg/mL (0-79) H 03/09/21 11:10 Total Protein 6.4 g/dL (6.4-8.2) 03/16/21 04:37 Albumin 1.9 g/dL (3.4-5.0) L 03/16/21 04:37 Globulin 4.5 g/dL (2.5-4.5) 03/16/21 04:37 Albumin/Globulin Ratio 0.4 Ratio (1.1-2.1) L 03/16/21 04:37 Specimen Type Clean catch urine 03/10/21 14:50 Urine Color Yellow (YELLOW) 03/10/21 14:50 Urine Appearance Clear (CLEAR) 03/10/21 14:50 Urine pH 5.0 (5.0 - 8.0) 03/10/21 14:50 Ur Specific [place] 1.015 (1.000-1.030) 03/10/21 14:50 Urine Protein 2+ (NEGATIVE) 03/10/21 14:50 Urine Glucose (UA) Negative (NEGATIVE) 03/10/21 14:50 Urine Ketones 1+ (NEGATIVE) 03/10/21 14:50 Urine Occult Blood Negative (NEGATIVE) 03/10/21 14:50 Urine Nitrite Negative (NEGATIVE) 03/10/21 14:50 Urine Bilirubin Negative (NEGATIVE) 03/10/21 14:50 Urine Urobilinogen Normal (NORMAL) 03/10/21 14:50 Ur Leukocyte Esterase Negative (NEGATIVE) 03/10/21 14:50 Urine RBC None seen /HPF (0-3) 03/10/21 14:50 Urine WBC 3-5 /HPF (0-5) 03/10/21 14:50 Ur Squamous Epith Cells Few /HPF (NEGATIVE) 03/10/21 14:50 Ur Transition Epith Cell Few /HPF (NEGATIVE) 03/09/21 14:52 Urine Bacteria Trace /HPF (NEGATIVE) 03/10/21 14:50 Urine Mucus Rare /HPF (NEGATIVE) 03/09/21 14:52 Ur Culture Indicated? No/not indicated 03/10/21 14:50 Stool Description 25 gms soft brown 03/11/21 16:24 Stl C. diff Tox B Gene Negative (NEGATIVE) 03/11/21 16:24 Stl C. diff [id number] Presumptive negative (NEGATIVE) 03/11/21 16:24 SARS-CoV-2 (PCR) Positive (NEGATIVE) A 03/09/21 13:54 Cryptosporid parvum Ag Negative (NEGATIVE) 03/11/21 16:24 Giardia lamblia Ag Negative (NEGATIVE) 03/11/21 16:24 Influenza Type A (PCR) Negative (NEGATIVE) 03/09/21 13:54 Influenza Type B (PCR) Negative (NEGATIVE) 03/09/21 13:54 RSV (PCR) Negative (NEGATIVE) 03/09/21 13:54 - Assessment and Plan 1: small RT pneumothorax . to observe for now and repeat chest Xray in am .. - Problem Patient Problems: Patient Problems Atrial fibrillation with rapid ventricular response (Acute) I48.91 Hypokalemia (Acute) E87.6 Acute respiratory distress (Acute) R06.03 Bronchitis (Acute) J40
[2021-03-16] MEDS ORDERED: APRESOLINE INJ 20 MG VIAL IVP PRN (17:21)
[2021-03-16] MEDS ORDERED: APRESOLINE INJ 20 MG VIAL ONE (17:23)
[2021-03-16 18:12] VITALS: BMI 33.6
[2021-03-16 19:49] LABS: BILIRUBIN,URINE NEGATIVE (NEGATIVE); BLOOD/HEMOGLOBIN,URINE NEGATIVE (NEGATIVE); GLUCOSE, URINE NEGATIVE (NEGATIVE); KETONES,URINE 3+ (NEGATIVE); LEUKOCYTE ESTERASE ,URINE NEGATIVE (NEGATIVE); NITRITES,URINE NEGATIVE (NEGATIVE); PROTEIN,URINE NEGATIVE (NEGATIVE); UROBILINOGEN,URINE NORMAL (NORMAL)
[2021-03-16 19:55] LABS: APPEARANCE,URINE CLEAR (CLEAR); COLOR,URINE YELLOW (YELLOW)
[2021-03-16 20:30] LABS: ABG ALLEN TEST POS; ABG BASE EXCESS 2.4 mmol/L (-2.0-2.0); ABG HCO3 26.4 mmol/L (22-26)
[2021-03-16] MEDS: ZANAFLEX PO SCH (20:33)
--- NOTE | 2021-03-16 20:57 | RAD ---
Chest AP portableIndication: [email or web address] radiograph from earlier the same day.Findings: Moderate right pneumothorax is essentially unchanged from the prior, about 30 percent volume. Heart size is prominent. Left lung is clear. Patchy right upper lobe opacity and right lower lobe opacity suspected. No large effusion seenImpression: 30 percent right pneumothorax. This is similar to slightly increased from the prior.Electronically signed by: DIXIE RAI (Mar 16, 2021 20:55:45)
[2021-03-16] MEDS ORDERED: STERILE WATER IRRIGATION IR ONE (21:19)
[2021-03-16] MEDS ORDERED: XYLOCAINE 1 % (PLAIN) ONE (21:26)
[2021-03-17] MEDS: KLOR-CON PO PRN (00:14)
[2021-03-17] MEDS: CATAPRES TAB 0.1 MG PO SCH ×3 (05:18→21:07)
[2021-03-17] MEDS: NS 1000 ML 1,000 ML IV SCH ×2 (05:19→13:08)
[2021-03-17 05:33] LABS: BASOPHILS # (AUTO) 0.2 X10^3/uL (0.0-0.1); BASOPHILS % (AUTO) 1.2 % (0.2-1.0); EOSINOPHILS # (AUTO) 0.3 x10^3/uL (0.0-0.2); EOSINOPHILS % (AUTO) 2.2 % (0.9-2.9); LYMPHOCYTES # (AUTO) 2.1 X10^3/uL (1.3-2.9); LYMPHOCYTES % (AUTO) 15.2 % (21.0-51.0); MEAN CORPUSCULAR HEMOGLOBIN 30.4 pg (27.0-34.0); MEAN CORPUSCULAR HGB CONC 34.4 g/dL (33.0-35.0); MEAN CORPUSCULAR VOLUME 88.3 fL (80.0-100.0); MEAN PLATELET VOLUME 10.3 fL (7.4-11.0); MONOCYTES # (AUTO) 1.4 x10^3/uL (0.3-0.8); MONOCYTES % (AUTO) 10.2 % (0.0-13.0); NEUTROPHILS # (AUTO) 9.7 x10^3/uL (2.2-4.8); NEUTROPHILS % (AUTO) 71.2 % (42.0-75.0); PLATELET COUNT 263 X10^3/uL (150.0-450.0); RED BLOOD COUNT 3.96 X10^6/uL (3.5-5.4); RED CELL DISTRIBUTION WIDTH 14.1 % (11.6-16.5); WHITE BLOOD COUNT 13.6 X10^3/uL (3.6-10.0)
[2021-03-17 05:47] LABS: ALANINE AMINOTRANSFERASE 11 Units/L (12-78); ALBUMIN 1.9 g/dL (3.4-5.0); ALKALINE PHOSPHATASE 82 Units/L (46-116); ASPARTATE AMINO TRANSFERASE 18 Units/L (15-37); BLOOD UREA NITROGEN 17 mg/dL (7-18); CALCIUM 8.6 mg/dL (8.5-10.1); CARBON DIOXIDE 26.5 mmol/L (21-32); CHLORIDE 101 mmol/L (98-107); COR CA(FOR HYPOALB) 10.3 mg/dL (8.5-10.1); CREATININE 0.83 mg/dL (0.55-1.02); SODIUM 136 mmol/L (136-145); TOTAL PROTEIN 6.6 g/dL (6.4-8.2); eGFR NON BLACK RACES > 60 (>60)
[2021-03-17] MEDS: K-DUR TAB 20 MEQ PO PRN (06:16)
[2021-03-17 06:17] LABS: GIANT PLATELET RARE; PLATELET MORPHOLOGY COMMENT ABNORMAL (NORMAL)
[2021-03-17 06:18] LABS: TARGET CELLS PRESENT
--- NOTE | 2021-03-17 06:27 | RAD ---
HISTORYSMALL RIGHT PNEUMOTHORAX F/USTUDYCHEST, 1 VIEWCOMPARISONOne day prior.TECHNIQUEAP view of the chestFINDINGSCardiac and mediastinal contours are within normal limits. No significant change in right-sided pneumothorax accompanying approximately 30 percent volume. No significant change in mild scattered right lung opacities. Blunted left costophrenic sulcus. Right subclavian central line is in good position.IMPRESSIONNo significant change in right pneumothorax.Electronically signed by: Lawrence Campbell (Mar 17, 2021 06:25:24)
[2021-03-17] MEDS ORDERED: APRESOLINE INJ 20 MG VIAL IVP PRN (06:46)
--- NOTE | 2021-03-17 08:38 | DR.PROGNOT ---
Hospital Progress Notes - Progress Note for Day of: Progress Note Date: 03/17/21 - Chief Complaint Chief Complaint: repeated chest X Ray still showin RT pneumothorax .. no changes in Pt's general condition or oxygenation .. - Past Medical Family Social History Past Med/Fam/Surg Hx: No changes since H&P Allergies: Allergies ciprofloxacin Allergy (Severe, Verified 03/15/21 13:58) CARDIOVASCULAR COMPLICATIONS patient has flushing and cardiovascular complications including bijeminy and freq pvcs celecoxib [From Celebrex] Allergy (Unknown, Verified 03/06/21 10:53) codeine Allergy (Unknown, Verified 03/06/21 10:53) diphenhydramine [From Benadryl] Allergy (Unknown, Verified 03/06/21 10:53) levofloxacin [From Levaquin] Allergy (Unknown, Verified 03/06/21 10:53) DAUGHTER STATES ENVIRONMENTAL SAFETY SPECIALIST TOLD PT. TO NOT TAKE IT BECAUSE OF HER HEART AND A-FIB Sulfa (Sulfonamide Antibiotics) [SULFA] Allergy (Unknown, Verified 03/06/21 10:53) sulfamethoxazole [From Bactrim] Allergy (Unknown, Verified 03/06/21 10:53) trimethoprim [From Bactrim] Allergy (Unknown, Verified 03/06/21 10:53) - Review Of Systems ROS: No change since H&P - Vital Signs Vital Signs: Temperature 97.9 F Pulse Rate [Left] 60 Pulse Rate 65 Respiratory Rate 27 Blood Pressure [Right Arm] 106/54 Blood Pressure 167/75 O2 Sat by Pulse Oximetry 98 - Physical Exam Oriented: Normal Eyes: Normal Ear: Normal Nose: Normal Throat: Normal Respiratory: Right, Left, Rhonchi Cardiovascular: Irregular, Normal : Normal GI:Auscultation: Normal GI:Palpation: Normal GI: Tenderness: Normal Skin: Normal Musculoskeletal: Normal Psychiatric: Normal Mood Description: Calm, Appropriate Affect: Normal Speech Pattern: Clear, Appropriate - Laboratory and Diagnostics Result Diagrams: 03/17/21 05:03 03/17/21 05:03 Labs: 03/16/21 04:30 Sputum - Expectorated Sputum - Final 03/11/21 16:24 Stool Stool Culture - Preliminary 03/11/21 16:24 Stool - Final 03/09/21 12:21 Sputum - Expectorated Sputum Sputum Culture - Final Pseudomonas Aeruginosa 03/09/21 12:21 Sputum - Expectorated Sputum - Final Laboratory WBC 13.6 X10^3/uL (3.6-10.0) H 03/17/21 05:03 RBC 3.96 X10^6/uL (3.5-5.4) 03/17/21 05:03 Hgb 12.0 g/dL (12.0-16.0) 03/17/21 05:03 Hct 35.0 % (36.0-47.0) L 03/17/21 05:03 MCV 88.3 fL (80.0-100.0) 03/17/21 05:03 MCH 30.4 pg (27.0-34.0) 03/17/21 05:03 MCHC 34.4 g/dL (33.0-35.0) 03/17/21 05:03 RDW 14.1 % (11.6-16.5) 03/17/21 05:03 Plt Count 263 X10^3/uL (150.0-450.0) 03/17/21 05:03 Plt Count Comment Adequate (ADEQUATE) 03/17/21 05:03 MPV 10.3 fL (7.4-11.0) 03/17/21 05:03 Neut % (Auto) 71.2 % (42.0-75.0) 03/17/21 05:03 Lymph % (Auto) 15.2 % (21.0-51.0) L 03/17/21 05:03 [place] % (Auto) 10.2 % (0.0-13.0) 03/17/21 05:03 Eos % (Auto) 2.2 % (0.9-2.9) 03/17/21 05:03 Baso % (Auto) 1.2 % (0.2-1.0) H 03/17/21 05:03 Neut # (Auto) 9.7 x10^3/uL (2.2-4.8) H 03/17/21 05:03 Lymph # (Auto) 2.1 X10^3/uL (1.3-2.9) 03/17/21 05:03 [place] # (Auto) 1.4 x10^3/uL (0.3-0.8) H 03/17/21 05:03 Eos # (Auto) 0.3 x10^3/uL (0.0-0.2) H 03/17/21 05:03 Baso # (Auto) 0.2 X10^3/uL (0.0-0.1) H 03/17/21 05:03 Absolute Nucleated RBC 0.0 /100WBC 03/17/21 05:03 Total Counted 100 03/11/21 04:40 Neutrophils % (Manual) 85 % (39-76) H 03/11/21 04:40 Lymphocytes % (Manual) 7 % (13-43) L 03/11/21 04:40 Monocytes % (Manual) 8 % (4-9) 03/11/21 04:40 Giant Platelets Rare 03/17/21 05:03 Plt Morphology Comment Abnormal (NORMAL) A 03/17/21 05:03 RBC Morphology Abnormal (NORMAL) A 03/17/21 05:03 Poikilocytosis Slight A 03/15/21 05:14 Target Cells Present 03/17/21 05:03 [place] Bodies Present 03/15/21 05:14 [place] Cells Present 03/14/21 04:43 Acanthocytes (Spur) Present 03/17/21 05:03 PT 14.3 SECONDS (11.8-14.3) 03/10/21 04:37 INR Target Range - 03/10/21 04:37 INR 1.17 (0.8-1.3) 03/10/21 04:37 APTT 39.1 SECONDS (22.9-36.5) H 03/10/21 04:37 PTT Comment - 03/10/21 04:37 D-Dimer 0.56 ug/ml (0.0-0.57) 03/09/21 12:42 Sample Site Lr 03/16/21 20:25 ABG pH 7.450 (7.35-7.45) 03/16/21 20:25 ABG pCO2 38.0 mmHg (35.0-45.0) 03/16/21 20:25 ABG pO2 73.0 mmHg (80.0-100.0) L 03/16/21 20:25 ABG HCO3 26.4 mmol/L (22-26) H 03/16/21 20:25 ABG O2 Saturation 95.0 % (90-100) 03/16/21 20:25 ABG Base Excess 2.4 mmol/L (-2.0-2.0) H 03/16/21 20:25 [place] Test Pos 03/16/21 20:25 A-a Gradient 79.0 mmHg 03/16/21 20:25 FiO2 28.0 03/16/21 20:25 Blood Gas Comments [place] well ae 03/16/21 20:25 Sodium 136 mmol/L (136-145) 03/17/21 05:03 Corrected Sodium TNP 03/17/21 05:03 Potassium 3.9 mmol/L (3.5-5.1) 03/17/21 05:03 Chloride 101 mmol/L (98-107) 03/17/21 05:03 Carbon Dioxide 26.5 mmol/L (21-32) 03/17/21 05:03 BUN 17 mg/dL (7-18) 03/17/21 05:03 Creatinine 0.83 mg/dL (0.55-1.02) 03/17/21 05:03 Est GFR (MDRD) Af Amer > 60 (>60) 03/17/21 05:03 Est GFR (MDRD) Non-Af > 60 (>60) 03/17/21 05:03 Glucose 83 mg/dL (65-99) 03/17/21 05:03 POC Glucose (mg/dL) 131 mg/dL (65-99) H 03/13/21 17:33 Calcium 8.6 mg/dL (8.5-10.1) 03/17/21 05:03 Corrected Calcium 10.3 mg/dL (8.5-10.1) H 03/17/21 05:03 Magnesium 2.0 mg/dL (1.7-2.9) 03/14/21 05:04 Ferritin 378 ng/mL (8-252) H 03/09/21 12:42 Total Bilirubin 0.50 mg/dL (0.2-1.0) 03/17/21 05:03 AST 18 Units/L (15-37) 03/17/21 05:03 ALT 11 Units/L (12-78) L 03/17/21 05:03 Alkaline Phosphatase 82 Units/L (46-116) 03/17/21 05:03 Creatine Kinase 29 Units/L (26-192) 03/16/21 09:03 CK-MB (CK-2) 1.0 ng/mL (0-4.0) 03/16/21 09:03 CK/CKMB % Calc 3.5 % (<4) 03/16/21 09:03 Troponin I < 0.02 ng/mL (0-1.5) 03/16/21 09:03 C-Reactive Protein 22.80 mg/L (0-3.0) H 03/09/21 12:42 B-Natriuretic Peptide 273 pg/mL (0-79) H 03/09/21 11:10 Total Protein 6.6 g/dL (6.4-8.2) 03/17/21 05:03 Albumin 1.9 g/dL (3.4-5.0) L 03/17/21 05:03 Globulin 4.7 g/dL (2.5-4.5) H 03/17/21 05:03 Albumin/Globulin Ratio 0.4 Ratio (1.1-2.1) L 03/17/21 05:03 Specimen Type Clean catch urine 03/16/21 19:30 Urine Color Yellow (YELLOW) 03/16/21 19:30 Urine Appearance Clear (CLEAR) 03/16/21 19:30 Urine pH 6.0 (5.0 - 8.0) 03/16/21 19:30 Ur Specific [place] 1.020 (1.000-1.030) 03/16/21 19:30 Urine Protein Negative (NEGATIVE) 03/16/21 19:30 Urine Glucose (UA) Negative (NEGATIVE) 03/16/21 19:30 Urine Ketones 3+ (NEGATIVE) 03/16/21 19:30 Urine Occult Blood Negative (NEGATIVE) 03/16/21 19:30 Urine Nitrite Negative (NEGATIVE) 03/16/21 19:30 Urine Bilirubin Negative (NEGATIVE) 03/16/21 19:30 Urine Urobilinogen Normal (NORMAL) 03/16/21 19: Ur Leukocyte Esterase Negative (NEGATIVE) 03/16/21 19:30 Urine RBC None seen /HPF (0-3) 03/10/21 14:50 Urine WBC 3-5 /HPF (0-5) 03/10/21 14:50 Ur Squamous Epith Cells Few /HPF (NEGATIVE) 03/10/21 14:50 Ur Transition Epith Cell Few /HPF (NEGATIVE) 03/09/21 14:52 Urine Bacteria Trace /HPF (NEGATIVE) 03/10/21 14:50 Urine Mucus Rare /HPF (NEGATIVE) 03/09/21 14:52 Ur Culture Indicated? No/not indicated 03/10/21 14:50 Stool Description 25 gms soft brown 03/11/21 16:24 Stl C. diff Tox B Gene Negative (NEGATIVE) 03/11/21 16:24 Stl C. diff [id number] Presumptive negative (NEGATIVE) 03/11/21 16:24 SARS-CoV-2 (PCR) Positive (NEGATIVE) A 03/09/21 13:54 Cryptosporid parvum Ag Negative (NEGATIVE) 03/11/21 16:24 Giardia lamblia Ag Negative (NEGATIVE) 03/11/21 16:24 Influenza Type A (PCR) Negative (NEGATIVE) 03/09/21 13:54 Influenza Type B (PCR) Negative (NEGATIVE) 03/09/21 13:54 RSV (PCR) Negative (NEGATIVE) 03/09/21 13:54 - Assessment and Plan 1: RT pneumothorax . still dont think she needs chest tube .. to observe for now and repeat chest Xray in am .. - Problem Patient Problems: Patient Problems Atrial fibrillation with rapid ventricular response (Acute) I48.91 Hypokalemia (Acute) E87.6 Acute respiratory distress (Acute) R06.03 Bronchitis (Acute) J40
[2021-03-17] MEDS: LOPRESSOR TAB 25 MG PO SCH ×2 (08:45→21:08)
[2021-03-17] MEDS: MOBIC TAB 15 MG PO SCH (08:45)
[2021-03-17] MEDS: HYDROCHLOROTHIAZIDE 25 MG TAB PO SCH ×2 (08:45→21:06)
[2021-03-17] MEDS: ASPIRIN PO SCH (08:45)
[2021-03-17] MEDS: PEPCID TAB 20 MG PO SCH (08:45)
[2021-03-17] MEDS: COZAAR PO SCH (08:45)
[2021-03-17] MEDS: PriLOSEC PO SCH (08:45)
[2021-03-17] MEDS: MAXIPIME VIAL 1 GRAM 1 G in NS 50 ML IV + SPIKE MINIBAG* 50 ML IV SCH (08:45)
[2021-03-17] MEDS: LOVENOX INJ 30 MG SYR SC SCH ×2 (08:45→21:07)
[2021-03-17] MEDS: VSL#3 PO SCH (09:11)
[2021-03-17] MEDS ORDERED: LASIX PO ONE (10:00)
--- NOTE | 2021-03-17 10:13 | PCM.PROG ---
Progress Note Progress Note for Day of Date of Exam: 03/17/21 Subjective Subjective: Pt is a 80 year old female past medical history of Atrial fibrillation, Hypertension, admitted for COVID-19 infection, Atrial fibrillation w/ RVR(resolved), generalized weakness, and right pneumothorax. This morning she reports some improvement compared to yesterday. She reports having some swelling in bother her hands. Labs/imaging: Wbc 13.6, Hgb 12, Plt 263, Na 136, K 3.9, Creatinine 0.83, Glucose 83, Sputum culture positive Pseudomonas aur. Pt is currently receiving treatments: IVF NS@KVO, Remdesivir(completed), Antibiotics: Cefepime, Diflucan, scheduled bronchodilators, immune supporting supplements, Lovenox 30mg BID, physical therapy, respiratory therapy. CXR this morning report s no change in right pneumothorax size. Surgery-Dr Dill was consulted, recommendations to monitor for now due to size and patient is not in any respiratory distress and does not require supplemental O2. Heart rate well controlled. Will discontinue antibiotics today, patient has completed course. Give one time PO lasix 20mg to help with upper extremity edema. PT to evaluate. Otherwise continue with current treatment plan. Repeat CXR in the morning. Continue to closely monitor and follow up labs/imaging. Past Medical Family Social History Past Med/Fam/Surg Hx: No changes since H&P Allergies: Allergies ciprofloxacin Allergy (Severe, Verified 03/15/21 13:58) CARDIOVASCULAR COMPLICATIONS patient has flushing and cardiovascular complications including bijeminy and freq pvcs celecoxib [From Celebrex] Allergy (Unknown, Verified 03/06/21 10:53) codeine Allergy (Unknown, Verified 03/06/21 10:53) diphenhydramine [From Benadryl] Allergy (Unknown, Verified 03/06/21 10:53) levofloxacin [From Levaquin] Allergy (Unknown, Verified 03/06/21 10:53) DAUGHTER STATES AGED OR DISABLED CARER TOLD PT. TO NOT TAKE IT BECAUSE OF HER HEART AND A-FIB Sulfa (Sulfonamide Antibiotics) [SULFA] Allergy (Unknown, Verified 03/06/21 10:53) sulfamethoxazole [From Bactrim] Allergy (Unknown, Verified 03/06/21 10:53) trimethoprim [From Bactrim] Allergy (Unknown, Verified 03/06/21 10:53) Review of Systems ROS: No change since H&P Vital Signs and I&O's Vital Signs: Temperature 97.9 F Pulse Rate [Left] 60 Pulse Rate 65 Respiratory Rate 27 Blood Pressure [Right Arm] 106/54 Blood Pressure 167/75 O2 Sat by Pulse Oximetry 98 Intake and Output: Intake & Output 03/14/21 03/15/21 03/16/21 03/17/21 23:59 23:59 23:59 23:59 Intake Total 1683 / 1683 441 / 441 1471 / 1471 293 / 293 Output Total 300 / 300 4 / 4 400 / 400 Balance 1383 / 1383 441 / 441 1467 / 1467 -107 / -107 Physical Exam Oriented: Normal Eyes: Normal Ear: Normal Nose: Normal Throat: Normal Respiratory: Right and Left Cardiovascular: Normal and Irregular : Normal Auscultation: Bowel Sounds: Normal Tenderness: Normal Skin: Normal Musculoskeletal: Normal Psychiatric: Normal Mood Description: Calm and Appropriate Affect: Normal Speech Pattern: Clear and Appropriate Laboratory and Diagnostics Result Diagrams: 03/17/21 05:03 03/17/21 08:46 Labs: 03/16/21 04:30 Sputum - Expectorated Sputum Sputum Culture - Preliminary 03/16/21 04:30 Sputum - Expectorated Sputum - Final 03/11/21 16:24 Stool Stool Culture - Preliminary 03/11/21 16:24 Stool - Final 03/09/21 12:21 Sputum - Expectorated Sputum Sputum Culture - Final Pseudomonas Aeruginosa 03/09/21 12:21 Sputum - Expectorated Sputum - Final Laboratory WBC 13.6 X10^3/uL (3.6-10.0) H 03/17/21 05:03 RBC 3.96 X10^6/uL (3.5-5.4) 03/17/21 05:03 Hgb 12.0 g/dL (12.0-16.0) 03/17/21 05:03 Hct 35.0 % (36.0-47.0) L 03/17/21 05:03 MCV 88.3 fL (80.0-100.0) 03/17/21 05:03 MCH 30.4 pg (27.0-34.0) 03/17/21 05:03 MCHC 34.4 g/dL (33.0-35.0) 03/17/21 05:03 RDW 14.1 % (11.6-16.5) 03/17/21 05:03 Plt Count 263 X10^3/uL (150.0-450.0) 03/17/21 05:03 Plt Count Comment Adequate (ADEQUATE) 03/17/21 05:03 MPV 10.3 fL (7.4-11.0) 03/17/21 05:03 Neut % (Auto) 71.2 % (42.0-75.0) 03/17/21 05:03 Lymph % (Auto) 15.2 % (21.0-51.0) L 03/17/21 05:03 [place] % (Auto) 10.2 % (0.0-13.0) 03/17/21 05:03 Eos % (Auto) 2.2 % (0.9-2.9) 03/17/21 05:03 Baso % (Auto) 1.2 % (0.2-1.0) H 03/17/21 05:03 Neut # (Auto) 9.7 x10^3/uL (2.2-4.8) H 03/17/21 05:03 Lymph # (Auto) 2.1 X10^3/uL (1.3-2.9) 03/17/21 05:03 [place] # (Auto) 1.4 x10^3/uL (0.3-0.8) H 03/17/21 05:03 Eos # (Auto) 0.3 x10^3/uL (0.0-0.2) H 03/17/21 05:03 Baso # (Auto) 0.2 X10^3/uL (0.0-0.1) H 03/17/21 05:03 Absolute Nucleated RBC 0.0 /100WBC 03/17/21 05:03 Total Counted 100 03/11/21 04:40 Neutrophils % (Manual) 85 % (39-76) H 03/11/21 04:40 Lymphocytes % (Manual) 7 % (13-43) L 03/11/21 04:40 Monocytes % (Manual) 8 % (4-9) 03/11/21 04:40 Giant Platelets Rare 03/17/21 05:03 Plt Morphology Comment Abnormal (NORMAL) A 03/17/21 05:03 RBC Morphology Abnormal (NORMAL) A 03/17/21 05:03 Poikilocytosis Slight A 03/15/21 05:14 Target Cells Present 03/17/21 05:03 [place] Bodies Present 03/15/21 05:14 [place] Cells Present 03/14/21 04:43 Acanthocytes (Spur) Present 03/17/21 05:03 PT 14.3 SECONDS (11.8-14.3) 03/10/21 04:37 INR Target Range - 03/10/21 04:37 INR 1.17 (0.8-1.3) 03/10/21 04:37 APTT 39.1 SECONDS (22.9-36.5) H 03/10/21 04:37 PTT Comment - 03/10/21 04:37 D-Dimer 0.56 ug/ml (0.0-0.57) 03/09/21 12:42 Sample Site Lr 03/16/21 20:25 ABG pH 7.450 (7.35-7.45) 03/16/21 20:25 ABG pCO2 38.0 mmHg (35.0-45.0) 03/16/21 20:25 ABG pO2 73.0 mmHg (80.0-100.0) L 03/16/21 20:25 ABG HCO3 26.4 mmol/L (22-26) H 03/16/21 20:25 ABG O2 Saturation 95.0 % (90-100) 03/16/21 20:25 ABG Base Excess 2.4 mmol/L (-2.0-2.0) H 03/16/21 20:25 Keyur Test Pos 03/16/21 20:25 A-a Gradient 79.0 mmHg 03/16/21 20:25 FiO2 28.0 03/16/21 20:25 Blood Gas Comments [place] well ae 03/16/21 20:25 Sodium 136 mmol/L (136-145) 03/17/21 05:03 Corrected Sodium TNP 03/17/21 05:03 Potassium 4.2 mmol/L (3.5-5.1) 03/17/21 08:46 Chloride 101 mmol/L (98-107) 03/17/21 05:03 Carbon Dioxide 26.5 mmol/L (21-32) 03/17/21 05:03 BUN 17 mg/dL (7-18) 03/17/21 05:03 Creatinine 0.83 mg/dL (0.55-1.02) 03/17/21 05:03 Est GFR (MDRD) Af Amer > 60 (>60) 03/17/21 05:03 Est GFR (MDRD) Non-Af > 60 (>60) 03/17/21 05:03 Glucose 83 mg/dL (65-99) 03/17/21 05:03 POC Glucose (mg/dL) 131 mg/dL (65-99) H 03/13/21 17:33 Calcium 8.6 mg/dL (8.5-10.1) 03/17/21 05:03 Corrected Calcium 10.3 mg/dL (8.5-10.1) H 03/17/21 05:03 Magnesium 2.0 mg/dL (1.7-2.9) 03/14/21 05:04 Ferritin 378 ng/mL (8-252) H 03/09/21 12:42 Total Bilirubin 0.50 mg/dL (0.2-1.0) 03/17/21 05:03 AST 18 Units/L (15-37) 03/17/21 05:03 ALT 11 Units/L (12-78) L 03/17/21 05:03 Alkaline Phosphatase 82 Units/L (46-116) 03/17/21 05:03 Creatine Kinase 29 Units/L (26-192) 03/16/21 09:03 CK-MB (CK-2) 1.0 ng/mL (0-4.0) 03/16/21 09:03 CK/CKMB % Calc 3.5 % (<4) 03/16/21 09:03 Troponin I < 0.02 ng/mL (0-1.5) 03/16/21 09:03 C-Reactive Protein 22.80 mg/L (0-3.0) H 03/09/21 12:42 B-Natriuretic Peptide 273 pg/mL (0-79) H 03/09/21 11:10 Total Protein 6.6 g/dL (6.4-8.2) 03/17/21 05:03 Albumin 1.9 g/dL (3.4-5.0) L 03/17/21 05:03 Globulin 4.7 g/dL (2.5-4.5) H 03/17/21 05:03 Albumin/Globulin Ratio 0.4 Ratio (1.1-2.1) L 03/17/21 05:03 Specimen Type Clean catch urine 03/16/21 19:30 Urine Color Yellow (YELLOW) 03/16/21 19:30 Urine Appearance Clear (CLEAR) 03/16/21 19: Urine pH 6.0 (5.0 - 8.0) 03/16/21 19:30 Ur Specific [place] 1.020 (1.000-1.030) 03/16/21 19:30 Urine Protein Negative (NEGATIVE) 03/16/21 19: Urine Glucose (UA) Negative (NEGATIVE) 03/16/21 19: Urine Ketones 3+ (NEGATIVE) 03/16/21 19: Urine Occult Blood Negative (NEGATIVE) 03/16/21 19: Urine Nitrite Negative (NEGATIVE) 03/16/21 19: Urine Bilirubin Negative (NEGATIVE) 03/16/21 19: Urine Urobilinogen Normal (NORMAL) 03/16/21 19:30 Ur Leukocyte Esterase Negative (NEGATIVE) 03/16/21 19:30 Urine RBC None seen /HPF (0-3) 03/10/21 14:50 Urine WBC 3-5 /HPF (0-5) 03/10/21 14:50 Ur Squamous Epith Cells Few /HPF (NEGATIVE) 03/10/21 14:50 Ur Transition Epith Cell Few /HPF (NEGATIVE) 03/09/21 14:52 Urine Bacteria Trace /HPF (NEGATIVE) 03/10/21 14:50 Urine Mucus Rare /HPF (NEGATIVE) 03/09/21 14:52 Ur Culture Indicated? No/not indicated 03/10/21 14:50 Stool Description 25 gms soft brown 03/11/21 16:24 Stl C. diff Tox B Gene Negative (NEGATIVE) 03/11/21 16:24 Stl C. diff [id number] Presumptive negative (NEGATIVE) 03/11/21 16:24 SARS-CoV-2 (PCR) Positive (NEGATIVE) A 03/09/21 13:54 Cryptosporid parvum Ag Negative (NEGATIVE) 03/11/21 16:24 Giardia lamblia Ag Negative (NEGATIVE) 10/06/21 16:24 Influenza Type A (PCR) Negative (NEGATIVE) 03/09/21 13:54 Influenza Type B (PCR) Negative (NEGATIVE) 03/09/21 13:54 RSV (PCR) Negative (NEGATIVE) 03/09/21 13:54 Plan (1) Pulmonary infiltrate in left lung on CXR: Status: Acute Plan: Continue Cefepime (2) Atrial fibrillation with rapid ventricular response: Status: Acute (3) Hypokalemia: Status: Acute (4) Generalized weakness: Status: Acute (5) Dehydration: Status: Acute (6) COVID-19: Status: Acute Plan: Cont. Rx plan. (7) Pneumothorax, right: Status: Acute
[2021-03-17] MEDS: ZANAFLEX PO SCH (21:07)
[2021-03-18] MEDS: NS 1000 ML 1,000 ML IV SCH ×2 (03:13→14:35)
[2021-03-18 05:25] LABS: BASOPHILS # (AUTO) 0.2 X10^3/uL (0.0-0.1); EOSINOPHILS # (AUTO) 0.5 x10^3/uL (0.0-0.2); EOSINOPHILS % (AUTO) 3.9 % (0.9-2.9); HEMATOCRIT 35.7 % (36.0-47.0); HEMOGLOBIN 12.3 g/dL (12.0-16.0); LYMPHOCYTES % (AUTO) 16.6 % (21.0-51.0); MEAN CORPUSCULAR HEMOGLOBIN 30.5 pg (27.0-34.0); MEAN CORPUSCULAR HGB CONC 34.5 g/dL (33.0-35.0); MEAN CORPUSCULAR VOLUME 88.3 fL (80.0-100.0); MONOCYTES # (AUTO) 1.6 x10^3/uL (0.3-0.8); MONOCYTES % (AUTO) 12.7 % (0.0-13.0); NEUTROPHILS % (AUTO) 64.8 % (42.0-75.0); PLATELET COUNT 257 X10^3/uL (150.0-450.0); RED BLOOD COUNT 4.04 X10^6/uL (3.5-5.4); WHITE BLOOD COUNT 12.3 X10^3/uL (3.6-10.0)
[2021-03-18 05:38] LABS: ALANINE AMINOTRANSFERASE 12 Units/L (12-78); ALKALINE PHOSPHATASE 92 Units/L (46-116); ASPARTATE AMINO TRANSFERASE 22 Units/L (15-37); BLOOD UREA NITROGEN 23 mg/dL (7-18); CALCIUM 8.8 mg/dL (8.5-10.1); CARBON DIOXIDE 29.4 mmol/L (21-32); CHLORIDE 100 mmol/L (98-107); COR CA(FOR HYPOALB) 10.4 mg/dL (8.5-10.1); COR NA(FOR HYPERGLY) 137 mmol/L (136-145); CREATININE 0.88 mg/dL (0.55-1.02); SODIUM 137 mmol/L (136-145); eGFR NON BLACK RACES > 60 (>60)
[2021-03-18] MEDS: CATAPRES TAB 0.1 MG PO SCH ×3 (05:40→21:15)
[2021-03-18] MEDS: LOPRESSOR TAB 25 MG PO SCH ×2 (05:40→14:35)
[2021-03-18 05:56] LABS: GIANT PLATELET RARE; PLATELET MORPHOLOGY COMMENT ABNORMAL (NORMAL); TARGET CELLS PRESENT
--- NOTE | 2021-03-18 05:57 | RAD ---
PROCEDURE: Chest X-ray 1 View .HISTORY: Follow-up pneumothorax.TECHNIQUE: AP view .COMPARISON: 03/17/2021.TECHNICAL QUALITY: Satisfactory .FINDINGS:Normal size heart .Mediastinum and hilar regions show no masses or lymphadenopathy .Normal central vascularity .Unchanged 20-30 percent pneumothorax on the right. No pleural fluid, significant atelectasis, or consolidation.No acute bony abnormality .IMPRESSION:Unchanged right-sided pneumothorax.Electronically signed by: Farzad Kitchen (Mar 18, 2021 05:55:19)
[2021-03-18] MEDS: LOVENOX INJ 30 MG SYR SC SCH ×2 (08:53→20:55)
[2021-03-18] MEDS: PriLOSEC PO SCH (08:53)
[2021-03-18] MEDS: PEPCID TAB 20 MG PO SCH (08:53)
[2021-03-18] MEDS: MOBIC TAB 15 MG PO SCH (08:53)
[2021-03-18] MEDS: HYDROCHLOROTHIAZIDE 25 MG TAB PO SCH ×2 (08:54→20:54)
[2021-03-18] MEDS: ASPIRIN PO SCH (08:54)
[2021-03-18] MEDS: COZAAR PO SCH (08:54)
[2021-03-18] MEDS: VSL#3 PO SCH (08:54)
[2021-03-18] MEDS ORDERED: LOPRESSOR INJ 5 MG AMP IVP ONE ×4 (09:57→18:25)
--- NOTE | 2021-03-18 10:05 | PCM.PROG ---
Progress Note Progress Note for Day of Date of Exam: 03/18/21 Subjective Subjective: Pt is a 80 year old female past medical history of Atrial fibrillation, Hypertension, admitted for COVID-19 infection, Atrial fibrillation w/ RVR(resolved), generalized weakness, and right pneumothorax. This morning she is feeling some abdominal discomfort. No acute events overnight. Labs/imaging: Wbc 12.3, Hgb 12.3, Plt 257, Na 137, K 3.8, Creatinine 0.88, Glucose 112. Pt is currently receiving treatments: IVF NS@KVO, Remdesivir(completed), Antibiotics: Cefepime(completed), Diflucan(completed), scheduled bronchodilators, immune supporting supplements, Lovenox 30mg BID, physical therapy, respiratory therapy. CXR this morning reports no change in right pneumothorax size. Surgery-Dr Crawley was consulted, recommendations to monitor for now due to size and patient is not in any respiratory distress and does not require supplemental O2. Heart rate well controlled. PT to evaluate. Otherwise continue with current treatment plan. Repeat CXR in the morning. Continue to closely monitor and follow up labs/imaging. Past Medical Family Social History Past Med/Fam/Surg Hx: No changes since H&P Allergies: Allergies ciprofloxacin Allergy (Severe, Verified 03/15/21 13:58) CARDIOVASCULAR COMPLICATIONS patient has flushing and cardiovascular complications including bijeminy and freq pvcs celecoxib [From Celebrex] Allergy (Unknown, Verified 03/06/21 10:53) codeine Allergy (Unknown, Verified 03/06/21 10:53) diphenhydramine [From Benadryl] Allergy (Unknown, Verified 03/06/21 10:53) levofloxacin [From Levaquin] Allergy (Unknown, Verified 03/06/21 10:53) DAUGHTER STATES HEEL PAINTER TOLD PT. TO NOT TAKE IT BECAUSE OF HER HEART AND A-FIB Sulfa (Sulfonamide Antibiotics) [SULFA] Allergy (Unknown, Verified 03/06/21 10:53) sulfamethoxazole [From Bactrim] Allergy (Unknown, Verified 03/06/21 10:53) trimethoprim [From Bactrim] Allergy (Unknown, Verified 03/06/21 10:53) Review of Systems ROS: No change since H&P Vital Signs and I&O's Vital Signs: Temperature 97.6 F Pulse Rate [Left] 60 Pulse Rate 76 Respiratory Rate 31 Blood Pressure [Right Arm] 106/54 Blood Pressure 175/77 O2 Sat by Pulse Oximetry 90 Intake and Output: Intake & Output 03/15/21 03/16/21 03/17/21 03/18/21 23:59 23:59 23:59 23:59 Intake Total 441 / 441 1471 / 1471 2378 / 2378 142 / 142 Output Total 4 / 400 / 400 Balance 441 / 441 1467 / 1467 1977 142 / 142 Physical Exam Oriented: Normal Eyes: Normal Ear: Normal Nose: Normal Throat: Normal Respiratory: Right and Left Cardiovascular: Normal and Irregular : Normal Auscultation: Bowel Sounds: Normal Tenderness: Normal Skin: Normal Musculoskeletal: Normal Psychiatric: Normal Mood Description: Calm and Appropriate Affect: Normal Speech Pattern: Clear and Appropriate Laboratory and Diagnostics Result Diagrams: 03/18/21 05:05 03/18/21 05:05 Labs: 03/16/21 04:30 Sputum - Expectorated Sputum Sputum Culture - Final 03/16/21 04:30 Sputum - Expectorated Sputum - Final 03/15/21 15:17 Blood Blood Culture - Preliminary 03/15/21 15:07 Blood Blood Culture - Preliminary 03/11/21 16:24 Stool Stool Culture - Preliminary 03/11/21 16:24 Stool - Final 03/09/21 12:21 Sputum - Expectorated Sputum Sputum Culture - Final Pseudomonas Aeruginosa 03/09/21 12:21 Sputum - Expectorated Sputum - Final Laboratory WBC 12.3 X10^3/uL (3.6-10.0) H 03/18/21 05:05 RBC 4.04 X10^6/uL (3.5-5.4) 03/18/21 05:05 Hgb 12.3 g/dL (12.0-16.0) 03/18/21 05:05 Hct 35.7 % (36.0-47.0) L 03/18/21 05:05 MCV 88.3 fL (80.0-100.0) 03/18/21 05:05 MCH 30.5 pg (27.0-34.0) 03/18/21 05:05 MCHC 34.5 g/dL (33.0-35.0) 03/18/21 05:05 RDW 14.0 % (11.6-16.5) 03/18/21 05:05 Plt Count 257 X10^3/uL (150.0-450.0) 03/18/21 05:05 Plt Count Comment Adequate (ADEQUATE) 03/18/21 05:05 MPV 10.0 fL (7.4-11.0) 03/18/21 05:05 Neut % (Auto) 64.8 % (42.0-75.0) 03/18/21 05:05 Lymph % (Auto) 16.6 % (21.0-51.0) L 03/18/21 05:05 [place] % (Auto) 12.7 % (0.0-13.0) 03/18/21 05:05 Eos % (Auto) 3.9 % (0.9-2.9) H 03/18/21 05:05 Baso % (Auto) 2.0 % (0.2-1.0) H 03/18/21 05:05 Neut # (Auto) 8.0 x10^3/uL (2.2-4.8) H 03/18/21 05:05 Lymph # (Auto) 2.0 X10^3/uL (1.3-2.9) 03/18/21 05:05 [place] # (Auto) 1.6 x10^3/uL (0.3-0.8) H 03/18/21 05:05 Eos # (Auto) 0.5 x10^3/uL (0.0-0.2) H 03/18/21 05:05 Baso # (Auto) 0.2 X10^3/uL (0.0-0.1) H 03/18/21 05:05 Absolute Nucleated RBC 0.0 /100WBC 03/18/21 05:05 Total Counted 100 03/18/21 05:05 Neutrophils % (Manual) 57 % (39-76) 03/18/21 05:05 Lymphocytes % (Manual) 24 % (13-43) 03/18/21 05:05 Monocytes % (Manual) 13 % (4-9) H 03/18/21 05:05 Eosinophils % (Manual) 6 % (0-6) 03/18/21 05:05 Giant Platelets Rare 03/18/21 05:05 Plt Morphology Comment Abnormal (NORMAL) A 03/18/21 05:05 RBC Morphology Abnormal (NORMAL) A 03/18/21 05:05 Poikilocytosis Slight A 03/15/21 05:14 Target Cells Present 03/18/21 05:05 [place] Bodies Present 03/15/21 05:14 [place] Cells Present 03/14/21 04:43 Acanthocytes (Spur) Present 03/17/21 05:03 PT 14.3 SECONDS (11.8-14.3) 03/10/21 04:37 INR Target Range - 03/10/21 04:37 INR 1.17 (0.8-1.3) 03/10/21 04:37 APTT 39.1 SECONDS (22.9-36.5) H 03/10/21 04:37 PTT Comment - 03/10/21 04:37 D-Dimer 0.56 ug/ml (0.0-0.57) 03/09/21 12:42 Sample Site Lr 03/16/21 20:25 ABG pH 7.450 (7.35-7.45) 03/16/21 20:25 ABG pCO2 38.0 mmHg (35.0-45.0) 03/16/21 20:25 ABG pO2 73.0 mmHg (80.0-100.0) L 03/16/21 20:25 ABG HCO3 26.4 mmol/L (22-26) H 03/16/21 20:25 ABG O2 Saturation 95.0 % (90-100) 03/16/21 20:25 ABG Base Excess 2.4 mmol/L (-2.0-2.0) H 03/16/21 20:25 Keyur Test Pos 03/16/21 20:25 A-a Gradient 79.0 mmHg 03/16/21 20:25 FiO2 28.0 03/16/21 20:25 Blood Gas Comments [place] well ae 03/16/21 20:25 Sodium 137 mmol/L (136-145) 03/18/21 05:05 Corrected Sodium 137 mmol/L (136-145) 03/18/21 05:05 Potassium 3.8 mmol/L (3.5-5.1) 03/18/21 05:05 Chloride 100 mmol/L (98-107) 03/18/21 05:05 Carbon Dioxide 29.4 mmol/L (21-32) 03/18/21 05:05 BUN 23 mg/dL (7-18) H 03/18/21 05:05 Creatinine 0.88 mg/dL (0.55-1.02) 03/18/21 05:05 Est GFR (MDRD) Af Amer > 60 (>60) 03/18/21 05:05 Est GFR (MDRD) Non-Af > 60 (>60) 03/18/21 05:05 Glucose 112 mg/dL (65-99) H 03/18/21 05:05 POC Glucose (mg/dL) 131 mg/dL (65-99) H 03/13/21 17:33 Calcium 8.8 mg/dL (8.5-10.1) 03/18/21 05:05 Corrected Calcium 10.4 mg/dL (8.5-10.1) H 03/18/21 05:05 Magnesium 2.0 mg/dL (1.7-2.9) 03/14/21 05:04 Ferritin 378 ng/mL (8-252) H 03/09/21 12:42 Total Bilirubin 0.30 mg/dL (0.2-1.0) 03/18/21 05:05 AST 22 Units/L (15-37) 03/18/21 05:05 ALT 12 Units/L (12-78) 03/18/21 05:05 Alkaline Phosphatase 92 Units/L (46-116) 03/18/21 05:05 Creatine Kinase 29 Units/L (26-192) 03/16/21 09:03 CK-MB (CK-2) 1.0 ng/mL (0-4.0) 03/16/21 09:03 CK/CKMB % Calc 3.5 % (<4) 03/16/21 09:03 Troponin I < 0.02 ng/mL (0-1.5) 03/16/21 09:03 C-Reactive Protein 22.80 mg/L (0-3.0) H 03/09/21 12:42 B-Natriuretic Peptide 273 pg/mL (0-79) H 03/09/21 11:10 Total Protein 7.0 g/dL (6.4-8.2) 03/18/21 05:05 Albumin 2.0 g/dL (3.4-5.0) L 03/18/21 05:05 Globulin 5.0 g/dL (2.5-4.5) H 03/18/21 05:05 Albumin/Globulin Ratio 0.4 Ratio (1.1-2.1) L 03/18/21 05:05 Specimen Type Clean catch urine 03/16/21 19:30 Urine Color Yellow (YELLOW) 03/16/21 19: Urine Appearance Clear (CLEAR) 03/16/21 19: Urine pH 6.0 (5.0 - 8.0) 03/16/21 19: Ur Specific [place] 1.020 (1.000-1.030) 03/16/21 19: Urine Protein Negative (NEGATIVE) 03/16/21 19: Urine Glucose (UA) Negative (NEGATIVE) 03/16/21 19: Urine Ketones 3+ (NEGATIVE) 03/16/21 19: Urine Occult Blood Negative (NEGATIVE) 03/16/21 19: Urine Nitrite Negative (NEGATIVE) 03/16/21 19: Urine Bilirubin Negative (NEGATIVE) 03/16/21 19:30 Urine Urobilinogen Normal (NORMAL) 03/16/21 19:30 Ur Leukocyte Esterase Negative (NEGATIVE) 03/16/21 19:30 Urine RBC None seen /HPF (0-3) 03/10/21 14:50 Urine WBC 3-5 /HPF (0-5) 03/10/21 14:50 Ur Squamous Epith Cells Few /HPF (NEGATIVE) 03/10/21 14:50 Ur Transition Epith Cell Few /HPF (NEGATIVE) 03/09/21 14:52 Urine Bacteria Trace /HPF (NEGATIVE) 03/10/21 14:50 Urine Mucus Rare /HPF (NEGATIVE) 03/09/21 14:52 Ur Culture Indicated? No/not indicated 03/10/21 14:50 Stool Description 25 gms soft brown 03/11/21 16:24 Stl C. diff Tox B Gene Negative (NEGATIVE) 03/11/21 16:24 Stl C. diff [id number] Presumptive negative (NEGATIVE) 03/11/21 16:24 SARS-CoV-2 (PCR) Positive (NEGATIVE) A 03/09/21 13:54 Cryptosporid parvum Ag Negative (NEGATIVE) 03/11/21 16:24 Giardia lamblia Ag Negative (NEGATIVE) 03/11/21 16:24 Influenza Type A (PCR) Negative (NEGATIVE) 03/09/21 13:54 Influenza Type B (PCR) Negative (NEGATIVE) 03/09/21 13:54 RSV (PCR) Negative (NEGATIVE) 03/09/21 13:54 Plan (1) Pulmonary infiltrate in left lung on CXR: Status: Acute Plan: Continue Cefepime (2) Atrial fibrillation with rapid ventricular response: Status: Acute (3) Hypokalemia: Status: Acute (4) Generalized weakness: Status: Acute (5) Dehydration: Status: Acute (6) COVID-19: Status: Acute Plan: Cont. Rx plan. (7) Pneumothorax, right: Status: Acute
--- NOTE | 2021-03-18 11:19 | RAD ---
HISTORYCHEST PAIN, A-FIBSTUDYCHEST x-ray, 1 VIEWCOMPARISONX-ray 03/18/2021FINDINGSRight-sided pneumothorax is likely [id number] in size, unchanged. There is likely associated atelectasis at the right lung base that is greater than prior study. Heart is normal in size. No mediastinal shift is seen. Central venous catheter terminates in the region of the distal SVC. No left pneumothorax is seen. Possible tiny left pleural effusion.IMPRESSIONNo change in right-sided pneumothorax.Electronically signed by: Noam Munoz (Mar 18, 2021 11:17:15)
[2021-03-18] MEDS: ZANAFLEX PO SCH (20:55)
[2021-03-18] MEDS: LOPRESSOR TAB 50 MG PO SCH (20:55)
[2021-03-18] MEDS ORDERED: LOPRESSOR INJ 5 MG AMP IVP PRN (22:57)
[2021-03-18] MEDS ORDERED: LANOXIN INJ IVP ONE (23:24)
[2021-03-19] MEDS: NS 1000 ML 1,000 ML IV SCH ×2 (04:56→18:42)
[2021-03-19] MEDS: CATAPRES TAB 0.1 MG PO SCH ×3 (05:00→23:00)
[2021-03-19 05:13] LABS: BASOPHILS # (AUTO) 0.1 X10^3/uL (0.0-0.1); BASOPHILS % (AUTO) 0.9 % (0.2-1.0); EOSINOPHILS # (AUTO) 0.3 x10^3/uL (0.0-0.2); EOSINOPHILS % (AUTO) 2.9 % (0.9-2.9); HEMATOCRIT 32.3 % (36.0-47.0); LYMPHOCYTES # (AUTO) 3.3 X10^3/uL (1.3-2.9); LYMPHOCYTES % (AUTO) 29.1 % (21.0-51.0); MEAN CORPUSCULAR HEMOGLOBIN 30.2 pg (27.0-34.0); MEAN CORPUSCULAR VOLUME 88.7 fL (80.0-100.0); MONOCYTES # (AUTO) 1.5 x10^3/uL (0.3-0.8); MONOCYTES % (AUTO) 13.2 % (0.0-13.0); NEUTROPHILS # (AUTO) 6.1 x10^3/uL (2.2-4.8); NEUTROPHILS % (AUTO) 53.9 % (42.0-75.0); PLATELET COUNT 236 X10^3/uL (150.0-450.0); RED BLOOD COUNT 3.63 X10^6/uL (3.5-5.4); RED CELL DISTRIBUTION WIDTH 14.1 % (11.6-16.5); WHITE BLOOD COUNT 11.4 X10^3/uL (3.6-10.0)
[2021-03-19 05:28] LABS: GIANT PLATELET RARE; PLATELET MORPHOLOGY COMMENT ABNORMAL (NORMAL); TARGET CELLS PRESENT
[2021-03-19 05:32] LABS: ALANINE AMINOTRANSFERASE 13 Units/L (12-78); ALBUMIN 1.9 g/dL (3.4-5.0); ALKALINE PHOSPHATASE 79 Units/L (46-116); ASPARTATE AMINO TRANSFERASE 26 Units/L (15-37); BLOOD UREA NITROGEN 17 mg/dL (7-18); CALCIUM 8.6 mg/dL (8.5-10.1); CARBON DIOXIDE 31.6 mmol/L (21-32); CHLORIDE 101 mmol/L (98-107); COR CA(FOR HYPOALB) 10.3 mg/dL (8.5-10.1); CREATININE 0.77 mg/dL (0.55-1.02); SODIUM 137 mmol/L (136-145); TOTAL PROTEIN 6.4 g/dL (6.4-8.2); eGFR NON BLACK RACES > 60 (>60)
[2021-03-19] MEDS: K-DUR TAB 20 MEQ PO PRN (06:20)
--- NOTE | 2021-03-19 06:40 | RAD ---
HISTORYPNEUMOTHORAX F/USTUDYCHEST, 1 VIEWCOMPARISONOne day prior.TECHNIQUEAP view of the chestFINDINGSCardiac and mediastinal contours are within normal limits. Stable right base parenchymal opacity. Stable right-sided pneumothorax. No evidence of tension. Blunted left costophrenic sulcus suspicious for pleural effusion. Right subclavian central line is in good position.IMPRESSIONNo significant change. Stable small to moderate right pneumothorax.Electronically signed by: Lawrence Campbell (Mar 19, 2021 06:38:12)
[2021-03-19] MEDS: ZOFRAN INJ 4 MG VIAL IVP PRN (08:15)
[2021-03-19] MEDS: ASPIRIN PO SCH (08:40)
[2021-03-19] MEDS: VSL#3 PO SCH (08:45)
[2021-03-19] MEDS: COZAAR PO SCH (08:45)
[2021-03-19] MEDS: MOBIC TAB 15 MG PO SCH (08:45)
[2021-03-19] MEDS: HYDROCHLOROTHIAZIDE 25 MG TAB PO SCH ×2 (08:45→20:11)
[2021-03-19] MEDS: LOPRESSOR TAB 50 MG PO SCH ×2 (08:45→20:12)
[2021-03-19] MEDS: PriLOSEC PO SCH (08:45)
[2021-03-19] MEDS: PEPCID TAB 20 MG PO SCH (08:45)
[2021-03-19] MEDS: LOVENOX INJ 30 MG SYR SC SCH ×2 (10:39→20:12)
[2021-03-19] MEDS: LANOXIN PO SCH (13:15)
[2021-03-19] MEDS: ZANAFLEX PO SCH (20:12)
--- NOTE | 2021-03-19 21:10 | PCM.PROG ---
Progress Note Progress Note for Day of Date of Exam: 03/19/21 Subjective Subjective: No significant events overnight. No new complaints. Past Medical Family Social History Past Med/Fam/Surg Hx: No changes since H&P Allergies: Allergies ciprofloxacin Allergy (Severe, Verified 03/15/21 13:58) CARDIOVASCULAR COMPLICATIONS patient has flushing and cardiovascular complications including bijeminy and freq pvcs celecoxib [From Celebrex] Allergy (Unknown, Verified 03/06/21 10:53) codeine Allergy (Unknown, Verified 03/06/21 10:53) diphenhydramine [From Benadryl] Allergy (Unknown, Verified 03/06/21 10:53) levofloxacin [From Levaquin] Allergy (Unknown, Verified 03/06/21 10:53) DAUGHTER STATES PLATE AND WELD INSPECTOR TOLD PT. TO NOT TAKE IT BECAUSE OF HER HEART AND A-FIB Sulfa (Sulfonamide Antibiotics) [SULFA] Allergy (Unknown, Verified 03/06/21 10:53) sulfamethoxazole [From Bactrim] Allergy (Unknown, Verified 03/06/21 10:53) trimethoprim [From Bactrim] Allergy (Unknown, Verified 03/06/21 10:53) Review of Systems ROS: No change since H&P Vital Signs and I&O's Vital Signs: Temperature 97.8 F Pulse Rate [Left] 60 Pulse Rate 73 Respiratory Rate 57 Blood Pressure [Right Arm] 106/54 Blood Pressure 153/69 O2 Sat by Pulse Oximetry 91 Intake and Output: Intake & Output 03/17/21 03/18/21 03/19/21 03/20/21 11:59 11:59 11:59 11:59 Intake Total 1471 / 1471 2227 / 2227 682 / 682 780 / 780 Output Total 404 / 404 840 / 840 Balance 1067 / 1067 2227 / 222 682 / 682 -60 / -60 Physical Exam Oriented: Normal Eyes: Normal Ear: Normal Respiratory: Right, Left and Diminished Cardiovascular: Normal and Irregular : Normal Auscultation: Bowel Sounds: Normal Tenderness: Normal Skin: Normal Musculoskeletal: Normal Psychiatric: Normal Mood Description: Calm and Appropriate Affect: Normal Speech Pattern: Clear and Appropriate Laboratory and Diagnostics Result Diagrams: 03/19/21 04:50 03/19/21 04:50 Labs: 03/11/21 16:24 Stool Stool Culture - Final 03/11/21 16:24 Stool - Final 03/16/21 04:30 Sputum - Expectorated Sputum Sputum Culture - Final 03/16/21 04:30 Sputum - Expectorated Sputum - Final 03/15/21 15:17 Blood Blood Culture - Preliminary 03/15/21 15:07 Blood Blood Culture - Preliminary 03/09/21 12:21 Sputum - Expectorated Sputum Sputum Culture - Final Pseudomonas Aeruginosa 03/09/21 12:21 Sputum - Expectorated Sputum - Final Laboratory WBC 11.4 X10^3/uL (3.6-10.0) H 03/19/21 04:50 RBC 3.63 X10^6/uL (3.5-5.4) 03/19/21 04:50 Hgb 11.0 g/dL (12.0-16.0) L 03/19/21 04:50 Hct 32.3 % (36.0-47.0) L 03/19/21 04:50 MCV 88.7 fL (80.0-100.0) 03/19/21 04:50 MCH 30.2 pg (27.0-34.0) 03/19/21 04:50 MCHC 34.0 g/dL (33.0-35.0) 03/19/21 04:50 RDW 14.1 % (11.6-16.5) 03/19/21 04:50 Plt Count 236 X10^3/uL (150.0-450.0) 03/19/21 04:50 Plt Count Comment Adequate (ADEQUATE) 03/19/21 04:50 MPV 10.0 fL (7.4-11.0) 03/19/21 04:50 Neut % (Auto) 53.9 % (42.0-75.0) 03/19/21 04:50 Lymph % (Auto) 29.1 % (21.0-51.0) 03/19/21 04:50 [place] % (Auto) 13.2 % (0.0-13.0) H 03/19/21 04:50 Eos % (Auto) 2.9 % (0.9-2.9) 03/19/21 04:50 Baso % (Auto) 0.9 % (0.2-1.0) 03/19/21 04:50 Neut # (Auto) 6.1 x10^3/uL (2.2-4.8) H 03/19/21 04:50 Lymph # (Auto) 3.3 X10^3/uL (1.3-2.9) H 03/19/21 04:50 [place] # (Auto) 1.5 x10^3/uL (0.3-0.8) H 03/19/21 04:50 Eos # (Auto) 0.3 x10^3/uL (0.0-0.2) H 03/19/21 04:50 Baso # (Auto) 0.1 X10^3/uL (0.0-0.1) 03/19/21 04:50 Absolute Nucleated RBC 0.1 /100WBC 03/19/21 04:50 Total Counted 100 03/18/21 05:05 Neutrophils % (Manual) 57 % (39-76) 03/18/21 05:05 Lymphocytes % (Manual) 24 % (13-43) 03/18/21 05:05 Monocytes % (Manual) 13 % (4-9) H 03/18/21 05:05 Eosinophils % (Manual) 6 % (0-6) 03/18/21 05:05 Giant Platelets Rare 03/19/21 04:50 Plt Morphology Comment Abnormal (NORMAL) A 03/19/21 04:50 RBC Morphology Abnormal (NORMAL) A 03/19/21 04:50 Poikilocytosis Slight A 03/15/21 05:14 Target Cells Present 03/19/21 04:50 [place] Bodies Present 03/15/21 05:14 [place] Cells Present 03/14/21 04:43 Acanthocytes (Spur) Present 03/17/21 05:03 PT 14.3 SECONDS (11.8-14.3) 03/10/21 04:37 INR Target Range - 03/10/21 04:37 INR 1.17 (0.8-1.3) 03/10/21 04:37 APTT 39.1 SECONDS (22.9-36.5) H 03/10/21 04:37 PTT Comment - 03/10/21 04:37 D-Dimer 0.56 ug/ml (0.0-0.57) 03/09/21 12:42 Sample Site Lr 03/16/21 20:25 ABG pH 7.450 (7.35-7.45) 03/16/21 20:25 ABG pCO2 38.0 mmHg (35.0-45.0) 03/16/21 20:25 ABG pO2 73.0 mmHg (80.0-100.0) L 03/16/21 20:25 ABG HCO3 26.4 mmol/L (22-26) H 03/16/21 20:25 ABG O2 Saturation 95.0 % (90-100) 03/16/21 20:25 ABG Base Excess 2.4 mmol/L (-2.0-2.0) H 03/16/21 20:25 Keyur Test Pos 03/16/21 20:25 A-a Gradient 79.0 mmHg 03/16/21 20:25 FiO2 28.0 03/16/21 20:25 Blood Gas Comments [place] well ae 03/16/21 20:25 Sodium 137 mmol/L (136-145) 03/19/21 04:50 Corrected Sodium TNP 03/19/21 04:50 Potassium 3.7 mmol/L (3.5-5.1) 03/19/21 04:50 Chloride 101 mmol/L (98-107) 03/19/21 04:50 Carbon Dioxide 31.6 mmol/L (21-32) 03/19/21 04:50 BUN 17 mg/dL (7-18) 03/19/21 04:50 Creatinine 0.77 mg/dL (0.55-1.02) 03/19/21 04:50 Est GFR (MDRD) Af Amer > 60 (>60) 03/19/21 04:50 Est GFR (MDRD) Non-Af > 60 (>60) 03/19/21 04:50 Glucose 95 mg/dL (65-99) 03/19/21 04:50 POC Glucose (mg/dL) 131 mg/dL (65-99) H 03/13/21 17:33 Calcium 8.6 mg/dL (8.5-10.1) 03/19/21 04:50 Corrected Calcium 10.3 mg/dL (8.5-10.1) H 03/19/21 04:50 Magnesium 2.0 mg/dL (1.7-2.9) 03/14/21 05:04 Ferritin 378 ng/mL (8-252) H 03/09/21 12:42 Total Bilirubin 0.30 mg/dL (0.2-1.0) 03/19/21 04:50 AST 26 Units/L (15-37) 03/19/21 04:50 ALT 13 Units/L (12-78) 03/19/21 04:50 Alkaline Phosphatase 79 Units/L (46-116) 03/19/21 04:50 Creatine Kinase 29 Units/L (26-192) 03/16/21 09:03 CK-MB (CK-2) 1.0 ng/mL (0-4.0) 03/16/21 09:03 CK/CKMB % Calc 3.5 % (<4) 03/16/21 09:03 Troponin I < 0.02 ng/mL (0-1.5) 03/16/21 09:03 C-Reactive Protein 22.80 mg/L (0-3.0) H 03/09/21 12:42 B-Natriuretic Peptide 273 pg/mL (0-79) H 03/09/21 11:10 Total Protein 6.4 g/dL (6.4-8.2) 03/19/21 04:50 Albumin 1.9 g/dL (3.4-5.0) L 03/19/21 04:50 Globulin 4.5 g/dL (2.5-4.5) 03/19/21 04:50 Albumin/Globulin Ratio 0.4 Ratio (1.1-2.1) L 03/19/21 04:50 Specimen Type Clean catch urine 03/16/21 19:30 Urine Color Yellow (YELLOW) 03/16/21 19:30 Urine Appearance Clear (CLEAR) 03/16/21 19:30 Urine pH 6.0 (5.0 - 8.0) 03/16/21 19:30 Ur Specific [place] 1.020 (1.000-1.030) 03/16/21 19:30 Urine Protein Negative (NEGATIVE) 03/16/21 19: Urine Glucose (UA) Negative (NEGATIVE) 03/16/21 19:30 Urine Ketones 3+ (NEGATIVE) 03/16/21 19:30 Urine Occult Blood Negative (NEGATIVE) 03/16/21 19: Urine Nitrite Negative (NEGATIVE) 03/16/21 19:30 Urine Bilirubin Negative (NEGATIVE) 03/16/21 19:30 Urine Urobilinogen Normal (NORMAL) 03/16/21 19:30 Ur Leukocyte Esterase Negative (NEGATIVE) 03/16/21 19:30 Urine RBC None seen /HPF (0-3) 03/10/21 14:50 Urine WBC 3-5 /HPF (0-5) 03/10/21 14:50 Ur Squamous Epith Cells Few /HPF (NEGATIVE) 03/10/21 14:50 Ur Transition Epith Cell Few /HPF (NEGATIVE) 03/09/21 14:52 Urine Bacteria Trace /HPF (NEGATIVE) 03/10/21 14:50 Urine Mucus Rare /HPF (NEGATIVE) 03/09/21 14:52 Ur Culture Indicated? No/not indicated 03/10/21 14:50 Stool Description 25 gms soft brown 03/11/21 16:24 Stl C. diff Tox B Gene Negative (NEGATIVE) 03/11/21 16:24 Stl C. diff [id number] Presumptive negative (NEGATIVE) 03/11/21 16:24 Digoxin < 0.20 ng/mL (0.9-2) L 03/19/21 04:50 SARS-CoV-2 (PCR) Positive (NEGATIVE) A 03/09/21 13:54 Cryptosporid parvum Ag Negative (NEGATIVE) 03/11/21 16:24 Giardia lamblia Ag Negative (NEGATIVE) 03/11/21 16:24 Influenza Type A (PCR) Negative (NEGATIVE) 03/09/21 13:54 Influenza Type B (PCR) Negative (NEGATIVE) 03/09/21 13:54 RSV (PCR) Negative (NEGATIVE) 03/09/21 13:54 Radiology Reviewed: Yes Plan (1) Pulmonary infiltrate in left lung on CXR: Status: Acute Plan: Continue Cefepime. (2) Atrial fibrillation with rapid ventricular response: Status: Acute Plan: Check dig level. Start po digoxin today. (3) Hypokalemia: Status: Acute (4) Generalized weakness: Status: Acute (5) Dehydration: Status: Acute (6) COVID-19: Status: Acute Plan: Cont. Rx plan. (7) Pneumothorax, right: Status: Acute Narrative Support Text: Small pneumothorax is still present. Plan: follow with cxr's
[2021-03-20 04:51] LABS: BASOPHILS # (AUTO) 0.1 X10^3/uL (0.0-0.1); EOSINOPHILS # (AUTO) 0.4 x10^3/uL (0.0-0.2); HEMATOCRIT 30.2 % (36.0-47.0); HEMOGLOBIN 10.3 g/dL (12.0-16.0); LYMPHOCYTES # (AUTO) 2.9 X10^3/uL (1.3-2.9); LYMPHOCYTES % (AUTO) 28.8 % (21.0-51.0); MEAN CORPUSCULAR HEMOGLOBIN 30.6 pg (27.0-34.0); MEAN CORPUSCULAR HGB CONC 34.2 g/dL (33.0-35.0); MEAN CORPUSCULAR VOLUME 89.3 fL (80.0-100.0); MEAN PLATELET VOLUME 10.5 fL (7.4-11.0); MONOCYTES # (AUTO) 1.3 x10^3/uL (0.3-0.8); MONOCYTES % (AUTO) 12.4 % (0.0-13.0); NEUTROPHILS # (AUTO) 5.5 x10^3/uL (2.2-4.8); NEUTROPHILS % (AUTO) 53.8 % (42.0-75.0); PLATELET COUNT 206 X10^3/uL (150.0-450.0); RED BLOOD COUNT 3.38 X10^6/uL (3.5-5.4); RED CELL DISTRIBUTION WIDTH 14.2 % (11.6-16.5); WHITE BLOOD COUNT 10.2 X10^3/uL (3.6-10.0)
[2021-03-20 05:08] LABS: ALANINE AMINOTRANSFERASE 18 Units/L (12-78); ALBUMIN 1.8 g/dL (3.4-5.0); ALKALINE PHOSPHATASE 76 Units/L (46-116); ASPARTATE AMINO TRANSFERASE 32 Units/L (15-37); BLOOD UREA NITROGEN 18 mg/dL (7-18); CALCIUM 8.5 mg/dL (8.5-10.1); CARBON DIOXIDE 32.8 mmol/L (21-32); CHLORIDE 102 mmol/L (98-107); COR CA(FOR HYPOALB) 10.3 mg/dL (8.5-10.1); CREATININE 0.82 mg/dL (0.55-1.02); SODIUM 137 mmol/L (136-145); TOTAL PROTEIN 5.9 g/dL (6.4-8.2); eGFR NON BLACK RACES > 60 (>60)
[2021-03-20] MEDS: CATAPRES TAB 0.1 MG PO SCH (05:50)
[2021-03-20] MEDS: NS 1000 ML 1,000 ML IV SCH (06:15)
--- NOTE | 2021-03-20 08:35 | DR.PROGNOT ---
Hospital Progress Notes - Progress Note for Day of: Progress Note Date: 03/20/21 - Chief Complaint Chief Complaint: repeated chest X Ray still showin small RT pneumothorax .. no changes in Pt's general condition or oxygenation .. - Past Medical Family Social History Past Med/Fam/Surg Hx: No changes since H&P Allergies: Allergies ciprofloxacin Allergy (Severe, Verified 03/15/21 13:58) CARDIOVASCULAR COMPLICATIONS patient has flushing and cardiovascular complications including bijeminy and freq pvcs celecoxib [From Celebrex] Allergy (Unknown, Verified 03/06/21 10:53) codeine Allergy (Unknown, Verified 03/06/21 10:53) diphenhydramine [From Benadryl] Allergy (Unknown, Verified 03/06/21 10:53) levofloxacin [From Levaquin] Allergy (Unknown, Verified 03/06/21 10:53) DAUGHTER STATES LOAN WORKOUT OFFICER TOLD PT. TO NOT TAKE IT BECAUSE OF HER HEART AND A-FIB Sulfa (Sulfonamide Antibiotics) [SULFA] Allergy (Unknown, Verified 03/06/21 10:53) sulfamethoxazole [From Bactrim] Allergy (Unknown, Verified 03/06/21 10:53) trimethoprim [From Bactrim] Allergy (Unknown, Verified 03/06/21 10:53) - Review Of Systems ROS: No change since H&P - Vital Signs Vital Signs: Temperature 97.7 F Pulse Rate [Left] 60 Pulse Rate 53 Respiratory Rate 19 Blood Pressure [Right Arm] 106/54 Blood Pressure 143/67 O2 Sat by Pulse Oximetry 99 - Physical Exam Oriented: Normal Eyes: Normal Ear: Normal Nose: Normal Throat: Normal Respiratory: Right, Left, Diminished Cardiovascular: Irregular, Normal : Normal GI:Auscultation: Normal GI:Palpation: Normal GI: Tenderness: Normal Skin: Normal Musculoskeletal: Normal Psychiatric: Normal Mood Description: Calm, Appropriate Affect: Normal Speech Pattern: Clear, Appropriate - Laboratory and Diagnostics Result Diagrams: 03/20/21 04:00 03/20/21 04:00 Labs: 03/11/21 16:24 Stool Stool Culture - Final 03/11/21 16:24 Stool - Final 03/16/21 04:30 Sputum - Expectorated Sputum Sputum Culture - Final 03/16/21 04:30 Sputum - Expectorated Sputum - Final 03/15/21 15:17 Blood Blood Culture - Preliminary 03/15/21 15:07 Blood Blood Culture - Preliminary 03/09/21 12:21 Sputum - Expectorated Sputum Sputum Culture - Final Pseudomonas Aeruginosa 03/09/21 12:21 Sputum - Expectorated Sputum - Final Laboratory WBC 10.2 X10^3/uL (3.6-10.0) H 03/20/21 04:00 RBC 3.38 X10^6/uL (3.5-5.4) L 03/20/21 04:00 Hgb 10.3 g/dL (12.0-16.0) L 03/20/21 04:00 Hct 30.2 % (36.0-47.0) L 03/20/21 04:00 MCV 89.3 fL (80.0-100.0) 03/20/21 04:00 MCH 30.6 pg (27.0-34.0) 03/20/21 04:00 MCHC 34.2 g/dL (33.0-35.0) 03/20/21 04:00 RDW 14.2 % (11.6-16.5) 03/20/21 04:00 Plt Count 206 X10^3/uL (150.0-450.0) 03/20/21 04:00 Plt Count Comment Adequate (ADEQUATE) 03/19/21 04:50 MPV 10.5 fL (7.4-11.0) 03/20/21 04:00 Neut % (Auto) 53.8 % (42.0-75.0) 03/20/21 04:00 Lymph % (Auto) 28.8 % (21.0-51.0) 03/20/21 04:00 [place] % (Auto) 12.4 % (0.0-13.0) 03/20/21 04:00 Eos % (Auto) 4.0 % (0.9-2.9) H 03/20/21 04:00 Baso % (Auto) 1.0 % (0.2-1.0) 03/20/21 04:00 Neut # (Auto) 5.5 x10^3/uL (2.2-4.8) H 03/20/21 04:00 Lymph # (Auto) 2.9 X10^3/uL (1.3-2.9) 03/20/21 04:00 [place] # (Auto) 1.3 x10^3/uL (0.3-0.8) H 03/20/21 04:00 Eos # (Auto) 0.4 x10^3/uL (0.0-0.2) H 03/20/21 04:00 Baso # (Auto) 0.1 X10^3/uL (0.0-0.1) 03/20/21 04:00 Absolute Nucleated RBC 0.1 /100WBC 03/20/21 04:00 Total Counted 100 03/18/21 05:05 Neutrophils % (Manual) 57 % (39-76) 03/18/21 05:05 Lymphocytes % (Manual) 24 % (13-43) 03/18/21 05:05 Monocytes % (Manual) 13 % (4-9) H 03/18/21 05:05 Eosinophils % (Manual) 6 % (0-6) 03/18/21 05:05 Giant Platelets Rare 03/19/21 04:50 Plt Morphology Comment Abnormal (NORMAL) A 03/19/21 04:50 RBC Morphology Abnormal (NORMAL) A 03/19/21 04:50 Poikilocytosis Slight A 03/15/21 05:14 Target Cells Present 03/19/21 04:50 [place] Bodies Present 03/15/21 05:14 [place] Cells Present 03/14/21 04:43 Acanthocytes (Spur) Present 03/17/21 05:03 PT 14.3 SECONDS (11.8-14.3) 03/10/21 04:37 INR Target Range - 03/10/21 04:37 INR 1.17 (0.8-1.3) 03/10/21 04:37 APTT 39.1 SECONDS (22.9-36.5) H 03/10/21 04:37 PTT Comment - 03/10/21 04:37 D-Dimer 0.56 ug/ml (0.0-0.57) 03/09/21 12:42 Sample Site Lr 03/16/21 20:25 ABG pH 7.450 (7.35-7.45) 03/16/21 20:25 ABG pCO2 38.0 mmHg (35.0-45.0) 03/16/21 20:25 ABG pO2 73.0 mmHg (80.0-100.0) L 03/16/21 20:25 ABG HCO3 26.4 mmol/L (22-26) H 03/16/21 20:25 ABG O2 Saturation 95.0 % (90-100) 03/16/21 20:25 ABG Base Excess 2.4 mmol/L (-2.0-2.0) H 03/16/21 20:25 Keyur Test Pos 03/16/21 20:25 A-a Gradient 79.0 mmHg 03/16/21 20:25 FiO2 28.0 03/16/21 20:25 Blood Gas Comments [place] well ae 03/16/21 20:25 Sodium 137 mmol/L (136-145) 03/20/21 04:00 Corrected Sodium TNP 03/20/21 04:00 Potassium 4.1 mmol/L (3.5-5.1) 03/20/21 04:00 Chloride 102 mmol/L (98-107) 03/20/21 04:00 Carbon Dioxide 32.8 mmol/L (21-32) H 03/20/21 04:00 BUN 18 mg/dL (7-18) 03/20/21 04:00 Creatinine 0.82 mg/dL (0.55-1.02) 03/20/21 04:00 Est GFR (MDRD) Af Amer > 60 (>60) 03/20/21 04:00 Est GFR (MDRD) Non-Af > 60 (>60) 03/20/21 04:00 Glucose 101 mg/dL (65-99) H 03/20/21 04:00 POC Glucose (mg/dL) 131 mg/dL (65-99) H 03/13/21 17:33 Calcium 8.5 mg/dL (8.5-10.1) 03/20/21 04:00 Corrected Calcium 10.3 mg/dL (8.5-10.1) H 03/20/21 04:00 Magnesium 2.1 mg/dL (1.7-2.9) 03/20/21 04:00 Ferritin 378 ng/mL (8-252) H 03/09/21 12:42 Total Bilirubin 0.20 mg/dL (0.2-1.0) 03/20/21 04:00 AST 32 Units/L (15-37) 03/20/21 04:00 ALT 18 Units/L (12-78) 03/20/21 04:00 Alkaline Phosphatase 76 Units/L (46-116) 03/20/21 04:00 Creatine Kinase 29 Units/L (26-192) 03/16/21 09:03 CK-MB (CK-2) 1.0 ng/mL (0-4.0) 03/16/21 09:03 CK/CKMB % Calc 3.5 % (<4) 03/16/21 09:03 Troponin I < 0.02 ng/mL (0-1.5) 03/16/21 09:03 C-Reactive Protein 22.80 mg/L (0-3.0) H 03/09/21 12:42 B-Natriuretic Peptide 273 pg/mL (0-79) H 03/09/21 11:10 Total Protein 5.9 g/dL (6.4-8.2) L 03/20/21 04:00 Albumin 1.8 g/dL (3.4-5.0) L 03/20/21 04:00 Globulin 4.1 g/dL (2.5-4.5) 03/20/21 04:00 Albumin/Globulin Ratio 0.4 Ratio (1.1-2.1) L 03/20/21 04:00 Specimen Type Clean catch urine 03/16/21 19: Urine Color Yellow (YELLOW) 03/16/21 19: Urine Appearance Clear (CLEAR) 03/16/21 19: Urine pH 6.0 (5.0 - 8.0) 03/16/21: Ur Specific [place] 1.020 (1.000-1.030) 03/16/21 19: Urine Protein Negative (NEGATIVE) 03/16/21 19: Urine Glucose (UA) Negative (NEGATIVE) 03/16/21: Urine Ketones 3+ (NEGATIVE) 03/16/21: Urine Occult Blood Negative (NEGATIVE) 03/16/21: Urine Nitrite Negative (NEGATIVE) 03/16/21: Urine Bilirubin Negative (NEGATIVE) 03/16/21: Urine Urobilinogen Normal (NORMAL) 03/16/21: Ur Leukocyte Esterase Negative (NEGATIVE) 10/11/21 19:30 Urine RBC None seen /HPF (0-3) 03/10/21 14:50 Urine WBC 3-5 /HPF (0-5) 03/10/21 14:50 Ur Squamous Epith Cells Few /HPF (NEGATIVE) 03/10/21 14:50 Ur Transition Epith Cell Few /HPF (NEGATIVE) 03/09/21 14:52 Urine Bacteria Trace /HPF (NEGATIVE) 03/10/21 14:50 Urine Mucus Rare /HPF (NEGATIVE) 03/09/21 14:52 Ur Culture Indicated? No/not indicated 03/10/21 14:50 Stool Description 25 gms soft brown 03/11/21 16:24 Stl C. diff Tox B Gene Negative (NEGATIVE) 03/11/21 16:24 Stl C. diff [id number] Presumptive negative (NEGATIVE) 03/11/21 16:24 Digoxin < 0.20 ng/mL (0.9-2) L 03/19/21 04:50 SARS-CoV-2 (PCR) Positive (NEGATIVE) A 03/09/21 13:54 Cryptosporid parvum Ag Negative (NEGATIVE) 03/11/21 16:24 Giardia lamblia Ag Negative (NEGATIVE) 03/11/21 16:24 Influenza Type A (PCR) Negative (NEGATIVE) 03/09/21 13:54 Influenza Type B (PCR) Negative (NEGATIVE) 03/09/21 13:54 RSV (PCR) Negative (NEGATIVE) 03/09/21 13:54 - Assessment and Plan 1: small , stable RT pneumothorax . Covid pneumonia and other medical problems as before . no needs chest tube .. to observe for now and repeat chest Xray in am .. - Problem Patient Problems: Patient Problems Atrial fibrillation with rapid ventricular response (Acute) I48.91 Hypokalemia (Acute) E87.6 Acute respiratory distress (Acute) R06.03 Bronchitis (Acute) J40
[2021-03-20] MEDS: LOPRESSOR TAB 50 MG PO SCH (10:00)
[2021-03-20] MEDS: PriLOSEC PO SCH (10:00)
[2021-03-20] MEDS: ASPIRIN PO SCH (10:00)
[2021-03-20] MEDS: HYDROCHLOROTHIAZIDE 25 MG TAB PO SCH (10:00)
[2021-03-20] MEDS: COZAAR PO SCH (10:00)
[2021-03-20] MEDS: PEPCID TAB 20 MG PO SCH (10:00)
[2021-03-20] MEDS: MOBIC TAB 15 MG PO SCH (10:00)
[2021-03-20] MEDS: VSL#3 PO SCH (10:00)
[2021-03-20] MEDS: LOVENOX INJ 30 MG SYR SC SCH (10:00)
[2021-03-20 10:06] VITALS: BP 139/65
[2021-03-20] MEDS: LANOXIN PO SCH (10:17)
== END 2021-03-20 11:00 | DRG 178 ==
LOC: ER 10:15 → ICU 16:31
PROVIDERS: ADMIT Family Medicine; ATTEND Family Medicine
DX: E86.0 Dehydration; B96.5 Pseudomonas (aeruginosa) (mallei) (pseudomallei) as the cause of diseases classified elsewhere; R79.89 Other specified abnormal findings of blood chemistry; I87.2 Venous insufficiency (chronic) (peripheral); I48.91 Unspecified atrial fibrillation; B37.89 Other sites of candidiasis; R06.03 Acute respiratory distress; I10 Essential (primary) hypertension; J20.8 Acute bronchitis due to other specified organisms; R79.82 Elevated C-reactive protein (CRP); J93.83 Other pneumothorax; U07.1 COVID-19; E87.6 Hypokalemia; R91.8 Other nonspecific abnormal finding of lung field; R53.1 Weakness; R94.31 Abnormal electrocardiogram [ECG] [EKG]; R19.7 Diarrhea, unspecified

== ENCOUNTER 2022-03-18 07:43 | Inpatient (IN) ==
--- NOTE | 2022-03-18 07:47 | DR.GENAD ---
HPI <JERONIMO HODGE - Last Filed: 03/18/22 08:07> Time Seen Time Seen by Provider: 03/18/22 07:47 HPI Comment HPI Comment: A 81 y/o female presenting with - 1): Upper abdominal pain, chest pain and SOB since last night. The c/p is not radiating. She is oxygen dependent at home. She has hx. of A. fib. 2): She has nausea, vomiting and diarrhea x 2 days. There is associated fever. She denies recent travel or consumption of poorly prepared meals. COVID-19 Coronavirus symptoms experienced: Fever and Shortness of Breath Nurses notes reviewed Nurses Notes Review: Yes Source History Provided: Patient and EMS Mode of Arrival Mode of Arrival: EMS Timing Onset of Chief Complaint: 03/16/22 Came on: Gradually Duration Duration: Intermittent Modifying Factors Worsens:: nothing Improves:: nothing PMH <JERONIMO HODGE - Last Filed: 03/18/22 08:07> PMH Past Medical History: Hypertension Past Surgical History: Yes Surgical History: Spleenectomy Family History Family Medical History: Heart Failure and Hypertension Social History Do you use any recreational Drugs:: No ROS <JERONIMO KIRAN Last Filed: 03/18/22 08:07> Review of Systems Constitutional: Fever Eyes: No Symptoms Reported ENTM: No Symptoms Reported Respiratoy: Short of Breath Cardiovascular: Chest Pain Gastrointestinal/Abdominal: Diarrhea, Nausea and Vomiting Genitourinary: No Symptoms Reported Neurological: No Symptoms Reported Musculoskeletal: No Symptoms Reported Integumentary: No Symptoms Reported Hematologic/Lymphatic: No Symptoms Reported Endocrine: No Symptoms Reported Psychiatric: No Symptoms Reported All Other Systems: Reviewed and Negative PE <JERONIMO KIRAN - Last Filed: 03/18/22 08:07> Vital Signs Vitals: Temperature 98.8 F Pulse Rate 85 Respiratory Rate 40 Blood Pressure [Right Arm] 106/54 Blood Pressure 153/70 O2 Sat by Pulse Oximetry 93 General Limitations: No Limitations General Appearance: Alert and In No Apparent Distress Head Head Exam: Normal Inspection, Atraumatic and Normocephalic Eyes Eye exam: Normal Appearance and EOMI ENT ENT Exam: Normal Exam, Normal Oropharynx, Normal External Ear Exam and Mucous Membranes Moist Neck Neck Exam: Normal Inspection, Full ROM and Trachea Midline Chest Chest Inspection: Normal Inspection and Symmetric Chest Wall Rise Respiratory Respiratory Exam: Normal Lung Sounds Bilat Cardiovascular Cardiovascular Exam: Regular Rate, Normal Rhythm, Normal Heart Sounds, +S1 and +S2 Abdominal Exam Abdominal Exam: Normal Inspection, Normal Bowel Sounds and Soft Extremities Extremities Exam: Normal Inspection and Full ROM Back Back Exam: Normal Inspection and Full ROM Neurologic Neurological Exam: Alert and Oriented X3 Psychiatric Psychiatric Exam: Normal Affect and Normal Mood Skin Skin Exam: Dry, Intact and Normal Color <Ajit Rolon - Last Filed: 03/18/22 11:30> Vital Signs Vitals: Temperature 98.8 F Pulse Rate 85 Respiratory Rate 40 Blood Pressure [Right Arm] 106/54 Blood Pressure 153/70 O2 Sat by Pulse Oximetry 93 COURSE <SHARRONDWIGHTCARMEN TOBARKAYLIN - Last Filed: 03/18/22 08:07> Treatment Treatment: Her initial encounter notes was put in and labs wer ordered/pending. Her care was endorsed to incoming Dr. Rolon. <Ajit Rolon - Last Filed: 03/18/22 11:30> Treatment Treatment: Her initial encounter notes was put in and labs wer ordered/pending. Her care was endorsed to incoming Dr. Rolon. [id number] - Pt remains stable. WBC elevated 25K, with left shift, CXR - with consolidation of RUL, possible cavitary. CT with IV contrast recommended, but pt had a CT of chest with IV contrast done 03/02, no mention of RUL abnormalitiy then. Discussed with Dr Johnson, will admit and treat for pneumonia. ROR <HSARRONLISA AMADOUKAYLIN - Last Filed: 03/18/22 08:07> Labs Reviewed Result Diagrams: 03/18/22 08:00 03/18/22 08:00 Laboratory: WBC 25.9 X10^3/uL (3.6-10.0) H 03/18/22 08:00 RBC 4.70 X10^6/uL (3.5-5.4) 03/18/22 08:00 Hgb 14.6 g/dL (12.0-16.0) 03/18/22 08:00 Hct 42.3 % (36.0-47.0) 03/18/22 08:00 MCV 89.9 fL (80.0-100.0) 03/18/22 08:00 MCH 31.0 pg (27.0-34.0) 03/18/22 08:00 MCHC 34.5 g/dL (33.0-35.0) 03/18/22 08:00 RDW 14.1 % (11.6-16.5) 03/18/22 08:00 Plt Count 163 X10^3/uL (150.0-450.0) 03/18/22 08:00 Plt Count Comment Adequate (ADEQUATE) 03/18/22 08:00 MPV 10.0 fL (7.4-11.0) 03/18/22 08:00 Neut % (Auto) 87.8 % (42.0-75.0) H 03/18/22 08:00 Lymph % (Auto) 4.6 % (21.0-51.0) L 03/18/22 08:00 [place] % (Auto) 6.8 % (0.0-13.0) 03/18/22 08:00 Eos % (Auto) 0.7 % (0.9-2.9) L 03/18/22 08:00 Baso % (Auto) 0.1 % (0.2-1.0) L 03/18/22 08:00 Neut # (Auto) 22.8 x10^3/uL (2.2-4.8) H 03/18/22 08:00 Lymph # (Auto) 1.2 X10^3/uL (1.3-2.9) L 03/18/22 08:00 [place] # (Auto) 1.8 x10^3/uL (0.3-0.8) H 03/18/22 08:00 Eos # (Auto) 0.2 x10^3/uL (0.0-0.2) 03/18/22 08:00 Baso # (Auto) 0.0 X10^3/uL (0.0-0.1) 03/18/22 08:00 Absolute Nucleated RBC 0.0 /100WBC 03/18/22 08:00 Total Counted 100 03/18/22 08:00 Neutrophils % (Manual) 82 % (39-76) H 03/18/22 08:00 Band Neutrophils % 8 % (0-10) 03/18/22 08:00 Lymphocytes % (Manual) 4 % (13-43) L 03/18/22 08:00 Monocytes % (Manual) 6 % (4-9) 03/18/22 08:00 Plt Morphology Comment Normal (NORMAL) 03/18/22 08:00 RBC Morphology Normal (NORMAL) 03/18/22 08:00 Sodium 134 mmol/L (136-145) L 03/18/22 08:00 Corrected Sodium TNP 03/18/22 08:00 Potassium 3.6 mmol/L (3.5-5.1) 03/18/22 08:00 Chloride 99 mmol/L (98-107) 03/18/22 08:00 Carbon Dioxide 26.7 mmol/L (21-32) 03/18/22 08:00 BUN 27 mg/dL (7-18) H 03/18/22 08:00 Creatinine 1.03 mg/dL (0.55-1.02) H 03/18/22 08:00 Est GFR (MDRD) Af Amer > 60 (>60) 03/18/22 08:00 Est GFR (MDRD) Non-Af 55 (>60) L 03/18/22 08:00 Glucose 100 mg/dL (65-99) H 03/18/22 08:00 Calcium 8.3 mg/dL (8.5-10.1) L 03/18/22 08:00 Corrected Calcium 9.4 mg/dL (8.5-10.1) 03/18/22 08:00 Total Bilirubin 0.80 mg/dL (0.2-1.0) 03/18/22 08:00 AST 18 Units/L (15-37) 03/18/22 08:00 ALT 8 Units/L (12-78) L 03/18/22 08:00 Alkaline Phosphatase 115 Units/L (46-116) 03/18/22 08:00 Creatine Kinase 27 Units/L (26-192) 03/18/22 08:00 Troponin I High Sens 47.1 ng/L (4.0-60.0) 03/18/22 08:00 Total Protein 7.6 g/dL (6.4-8.2) 03/18/22 08:00 Albumin 2.6 g/dL (3.4-5.0) L 03/18/22 08:00 Globulin 5.0 g/dL (2.5-4.5) H 03/18/22 08:00 Albumin/Globulin Ratio 0.5 Ratio (1.1-2.1) L 03/18/22 08:00 SARS-CoV-2 (PCR) Negative (NEGATIVE) 03/18/22 08:00 Influenza Type A (PCR) Negative (NEGATIVE) 03/18/22 08:00 Influenza Type B (PCR) Negative (NEGATIVE) 03/18/22 08:00 RSV (PCR) Negative (NEGATIVE) 03/18/22 08:00 <Ajit Rolon - Last Filed: 03/18/22 11:30> Labs Reviewed Laboratory Results Reviewed?: Yes Laboratory: WBC 25.9 X10^3/uL (3.6-10.0) H 03/18/22 08:00 RBC 4.70 X10^6/uL (3.5-5.4) 03/18/22 08:00 Hgb 14.6 g/dL (12.0-16.0) 03/18/22 08:00 Hct 42.3 % (36.0-47.0) 03/18/22 08:00 MCV 89.9 fL (80.0-100.0) 03/18/22 08:00 MCH 31.0 pg (27.0-34.0) 03/18/22 08:00 MCHC 34.5 g/dL (33.0-35.0) 03/18/22 08:00 RDW 14.1 % (11.6-16.5) 03/18/22 08:00 Plt Count 163 X10^3/uL (150.0-450.0) 03/18/22 08:00 Plt Count Comment Adequate (ADEQUATE) 03/18/22 08:00 MPV 10.0 fL (7.4-11.0) 03/18/22 08:00 Neut % (Auto) 87.8 % (42.0-75.0) H 03/18/22 08:00 Lymph % (Auto) 4.6 % (21.0-51.0) L 03/18/22 08:00 [place] % (Auto) 6.8 % (0.0-13.0) 03/18/22 08:00 Eos % (Auto) 0.7 % (0.9-2.9) L 03/18/22 08:00 Baso % (Auto) 0.1 % (0.2-1.0) L 03/18/22 08:00 Neut # (Auto) 22.8 x10^3/uL (2.2-4.8) H 03/18/22 08:00 Lymph # (Auto) 1.2 X10^3/uL (1.3-2.9) L 03/18/22 08:00 [place] # (Auto) 1.8 x10^3/uL (0.3-0.8) H 03/18/22 08:00 Eos # (Auto) 0.2 x10^3/uL (0.0-0.2) 03/18/22 08:00 Baso # (Auto) 0.0 X10^3/uL (0.0-0.1) 03/18/22 08:00 Absolute Nucleated RBC 0.0 /100WBC 03/18/22 08:00 Total Counted 100 03/18/22 08:00 Neutrophils % (Manual) 82 % (39-76) H 03/18/22 08:00 Band Neutrophils % 8 % (0-10) 03/18/22 08:00 Lymphocytes % (Manual) 4 % (13-43) L 03/18/22 08:00 Monocytes % (Manual) 6 % (4-9) 03/18/22 08:00 Plt Morphology Comment Normal (NORMAL) 03/18/22 08:00 RBC Morphology Normal (NORMAL) 03/18/22 08:00 Sodium 134 mmol/L (136-145) L 03/18/22 08:00 Corrected Sodium TNP 03/18/22 08:00 Potassium 3.6 mmol/L (3.5-5.1) 03/18/22 08:00 Chloride 99 mmol/L (98-107) 03/18/22 08:00 Carbon Dioxide 26.7 mmol/L (21-32) 03/18/22 08:00 BUN 27 mg/dL (7-18) H 03/18/22 08:00 Creatinine 1.03 mg/dL (0.55-1.02) H 03/18/22 08:00 Est GFR (MDRD) Af Amer > 60 (>60) 03/18/22 08:00 Est GFR (MDRD) Non-Af 55 (>60) L 03/18/22 08:00 Glucose 100 mg/dL (65-99) H 03/18/22 08:00 Calcium 8.3 mg/dL (8.5-10.1) L 03/18/22 08:00 Corrected Calcium 9.4 mg/dL (8.5-10.1) 03/18/22 08:00 Total Bilirubin 0.80 mg/dL (0.2-1.0) 03/18/22 08:00 AST 18 Units/L (15-37) 03/18/22 08:00 ALT 8 Units/L (12-78) L 03/18/22 08:00 Alkaline Phosphatase 115 Units/L (46-116) 03/18/22 08:00 Creatine Kinase 27 Units/L (26-192) 03/18/22 08:00 Troponin I High Sens 47.1 ng/L (4.0-60.0) 03/18/22 08:00 Total Protein 7.6 g/dL (6.4-8.2) 03/18/22 08:00 Albumin 2.6 g/dL (3.4-5.0) L 03/18/22 08:00 Globulin 5.0 g/dL (2.5-4.5) H 03/18/22 08:00 Albumin/Globulin Ratio 0.5 Ratio (1.1-2.1) L 03/18/22 08:00 SARS-CoV-2 (PCR) Negative (NEGATIVE) 03/18/22 08:00 Influenza Type A (PCR) Negative (NEGATIVE) 03/18/22 08:00 Influenza Type B (PCR) Negative (NEGATIVE) 03/18/22 08:00 RSV (PCR) Negative (NEGATIVE) 03/18/22 08:00 + leukocytosis EKG Rate: 85 [place]: Normal Rhythm: NSR ST: Normal Opioid <ADEJeffUNMI SOBOWALE - Last Filed: 03/18/22 08:07> Opioid Risk Tool Age (Harry box if 16-45): No History of Preadolescent Sexual Abuse: No Total: 0 Total Score Risk Category: Low Risk Copyright: Dank PETERS predicting aberrant behaviors <Ajit Rolon - Last Filed: 03/18/22 11:30> Opioid Risk Tool Total: 0 Total Score Risk Category: Low Risk Discharge Plan Diagnosis Discharge Problem: Pneumonia Discharge Plan Patient Disposition: 09 ADMITTED INPATIENT Condition: Stable
[2022-03-18] MEDS ORDERED: ZOFRAN INJ 4 MG VIAL IVP ONE (08:07)
[2022-03-18] MEDS ORDERED: NS 500 ML IV 500 ML IV ONE ×2 (08:08→08:09)
[2022-03-18] MEDS ORDERED: ZOFRAN INJ 4 MG VIAL ONE (08:08)
[2022-03-18 08:17] LABS: BASOPHILS % (AUTO) 0.1 % (0.2-1.0); EOSINOPHILS # (AUTO) 0.2 x10^3/uL (0.0-0.2); EOSINOPHILS % (AUTO) 0.7 % (0.9-2.9); HEMATOCRIT 42.3 % (36.0-47.0); HEMOGLOBIN 14.6 g/dL (12.0-16.0); LYMPHOCYTES # (AUTO) 1.2 X10^3/uL (1.3-2.9); LYMPHOCYTES % (AUTO) 4.6 % (21.0-51.0); MEAN CORPUSCULAR HGB CONC 34.5 g/dL (33.0-35.0); MEAN CORPUSCULAR VOLUME 89.9 fL (80.0-100.0); MONOCYTES # (AUTO) 1.8 x10^3/uL (0.3-0.8); MONOCYTES % (AUTO) 6.8 % (0.0-13.0); NEUTROPHILS # (AUTO) 22.8 x10^3/uL (2.2-4.8); NEUTROPHILS % (AUTO) 87.8 % (42.0-75.0); RED CELL DISTRIBUTION WIDTH 14.1 % (11.6-16.5); WHITE BLOOD COUNT 25.9 X10^3/uL (3.6-10.0)
--- NOTE | 2022-03-18 08:26 | RAD ---
HISTORYShortness of breath, nausea, vomiting, feverSTUDYAcute abdominal [id number]/16/2021, CT chest 11/28/2020FINDINGSThe heart is enlarged. No congestive heart failure is noted. The rosita are normal. There is a dense area of abnormal parenchymal density in the right lung apex possibly with a central cavitation. Further evaluation with chest CT WITH CONTRAST is recommended. Remainder of the lung tripp are clear. Abdominal gas pattern is nonspecific and nonobstructive. No pneumoperitoneum is identified. No abnormal masses or abnormal calcifications are identified. Regional skeleton is intact.IMPRESSIONUnremarkable abdomenDense area of consolidation with possible cavitation in the right lung apex. Chest CT WITH CONTRAST is recommended for further evaluationCardiomegaly without congestive heart failureElectronically signed by: TIFFANY IVERSON (Mar 18, 2022 08:24:30)
[2022-03-18 08:32] LABS: ALANINE AMINOTRANSFERASE 8 Units/L (12-78); ALBUMIN 2.6 g/dL (3.4-5.0); ALKALINE PHOSPHATASE 115 Units/L (46-116); ASPARTATE AMINO TRANSFERASE 18 Units/L (15-37); BLOOD UREA NITROGEN 27 mg/dL (7-18); CALCIUM 8.3 mg/dL (8.5-10.1); CARBON DIOXIDE 26.7 mmol/L (21-32); CHLORIDE 99 mmol/L (98-107); COR CA(FOR HYPOALB) 9.4 mg/dL (8.5-10.1); CREATINE KINASE 27 Units/L (26-192); CREATININE 1.03 mg/dL (0.55-1.02); SODIUM 134 mmol/L (136-145); TOTAL PROTEIN 7.6 g/dL (6.4-8.2); eGFR NON BLACK RACES 55 (>60)
[2022-03-18 08:40] LABS: BAND NEUTROPHILS % 8 % (0-10)
[2022-03-18 08:41] LABS: PLATELET MORPHOLOGY COMMENT NORMAL (NORMAL)
[2022-03-18] MEDS ORDERED: ROCEPHIN VIAL 500 MG 500 MG in NS 25 ML IV 25 ML IV ONE (09:06)
[2022-03-18] MEDS ORDERED: NS 50 ML IV 50 ML IV ONE (09:08)
[2022-03-18] MEDS ORDERED: ROCEPHIN VIAL 500 MG ONE (09:08)
[2022-03-18] MEDS ORDERED: ROCEPHIN VIAL 1 GRAM 1 G in NS 100 ML IV 100 ML IV SCH (10:43)
[2022-03-18] MEDS ORDERED: MOBIC TAB 15 MG PO SCH (10:43)
[2022-03-18] MEDS: XOPENEX 1.25 MG/3 ML NEBULE NEB SCH ×2 (12:09→16:06)
[2022-03-18] MEDS: MOBIC TAB 15 MG PO PRN (13:19)
[2022-03-18] MEDS: LOPRESSOR TAB 25 MG PO SCH ×2 (13:19→21:19)
[2022-03-18] MEDS: NS 1,000 ML IV 1,000 ML IV SCH (13:20)
[2022-03-18] MEDS ORDERED: ZITHROMAX INJ 500 MG VIAL 500 MG in NS 250 ML IV 250 ML IV NR (15:10)
[2022-03-18] MEDS: ZOFRAN INJ 4 MG VIAL IVP PRN (15:30)
[2022-03-18] MEDS: TYLENOL 325 MG TAB PO PRN (15:33)
[2022-03-18] MEDS ORDERED: PULMICORT NEB TX 0.5 MG NEB ONE (19:41)
[2022-03-18] MEDS: CRESTOR TAB 10 MG PO SCH (20:15)
[2022-03-18] MEDS: PULMICORT NEB TX 0.5 MG NEB SCH (20:15)
[2022-03-18] MEDS ORDERED: K-DUR TAB 20 MEQ PO PRN (22:14)
[2022-03-18] MEDS ORDERED: MICRO K EXTEN CAP 10 MEQ PO PRN (22:14)
[2022-03-19] MEDS: XOPENEX 1.25 MG/3 ML NEBULE NEB SCH ×5 (00:15→21:43)
[2022-03-19] MEDS: NS 1,000 ML IV 1,000 ML IV SCH ×3 (04:27→19:13)
[2022-03-19] MEDS: LOPRESSOR TAB 25 MG PO SCH ×3 (05:36→21:23)
[2022-03-19 06:21] LABS: ALANINE AMINOTRANSFERASE 7 Units/L (12-78); ALKALINE PHOSPHATASE 107 Units/L (46-116); ASPARTATE AMINO TRANSFERASE 18 Units/L (15-37); BASOPHILS # (AUTO) 0.1 X10^3/uL (0.0-0.1); BASOPHILS % (AUTO) 0.2 % (0.2-1.0); BLOOD UREA NITROGEN 22 mg/dL (7-18); CALCIUM 7.7 mg/dL (8.5-10.1); CARBON DIOXIDE 27.6 mmol/L (21-32); CHLORIDE 104 mmol/L (98-107); COR CA(FOR HYPOALB) 9.3 mg/dL (8.5-10.1); CREATININE 0.98 mg/dL (0.55-1.02); HEMATOCRIT 38.3 % (36.0-47.0); LYMPHOCYTES # (AUTO) 0.9 X10^3/uL (1.3-2.9); LYMPHOCYTES % (AUTO) 4.2 % (21.0-51.0); MAGNESIUM 1.9 mg/dL (1.7-2.9); MEAN CORPUSCULAR HEMOGLOBIN 30.4 pg (27.0-34.0); MEAN CORPUSCULAR HGB CONC 33.9 g/dL (33.0-35.0); MEAN CORPUSCULAR VOLUME 89.6 fL (80.0-100.0); MONOCYTES # (AUTO) 1.8 x10^3/uL (0.3-0.8); MONOCYTES % (AUTO) 8.8 % (0.0-13.0); NEUTROPHILS # (AUTO) 18.2 x10^3/uL (2.2-4.8); NEUTROPHILS % (AUTO) 86.8 % (42.0-75.0); RED BLOOD COUNT 4.28 X10^6/uL (3.5-5.4); RED CELL DISTRIBUTION WIDTH 14.2 % (11.6-16.5); SODIUM 137 mmol/L (136-145); TOTAL PROTEIN 6.4 g/dL (6.4-8.2); eGFR NON BLACK RACES 58 (>60)
[2022-03-19] MEDS: PULMICORT NEB TX 0.5 MG NEB SCH ×2 (08:09→21:43)
--- NOTE | 2022-03-19 08:22 | DR.H&P ---
H&P History & Physical for Day of: H&P Date: 03/18/22 Chief Complaint Chief Complaint: Shortness of breath Fever, chills Generalized weakness Allergies Allergies Allergy/AdvReac Type Severity Reaction Status Date / Time ciprofloxacin Allergy Severe CARDIOVASCULAR Verified 03/15/21 13:58 COMPLICATIONS celecoxib [From Celebrex] Allergy Unknown Verified 03/06/21 10:53 codeine Allergy Unknown Verified 03/06/21 10:53 diphenhydramine Allergy Unknown Verified 03/06/21 10:53 [From Benadryl] levofloxacin [From Levaquin] Allergy Unknown Verified 03/06/21 10:53 Sulfa (Sulfonamide Allergy Unknown Verified 03/06/21 10:53 Antibiotics) [SULFA] sulfamethoxazole Allergy Unknown Verified 03/06/21 10:53 [From Bactrim] trimethoprim [From Bactrim] Allergy Unknown Verified 03/06/21 10:53 History of Present Illness History of Present Illness: Pt is a 81 year old female past medical history Atrial Fibrillation, Hypertension, presenting with fever, chills, shortness of breath, and weakness for the past 3-4 days. She reports symptoms have been getting worse with no improvement and associated with abdominal pain, loss of appetite. Pt presented to the ED and was discovered to have a pneumonia. Labs/imaging: Wbc 25, Hgb 14.6, Plt 163, Na 134, K 3.6, Creatinine 1.03, Glucose 100, COVID/Influenza/RSV negative. CXR was obtained: Dense area of consolidation with possible cavitation in the right lung apex. Chest CT WITH CONTRAST is recommended for further evaluation. Cardiomegaly without congestive heart failure. CT chest was obtained that revealed: 1. Right upper lobe cavitary lesion does not present and March 02. Given recent appearance, pulmonary abscess or septic embolism are considerations. 2.Similar bilateral faint groundglass opacities and peripheral bronchial mucus. Pt was admitted and started on IVF NS@75ml/h, antibiotics: IV Zosyn q8h, IV Azithromycin, Bronchodilators, supplemental oxygen. Will restart home medications. Wean/titrate oxygen as tolerated. Will continue to closely monitor and follow up labs/imaging. 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: CABG/Valve Surgery and Spleenectomy Family History Family Medical History: Cancer, [place], Coronary Artery Disease, Heart Failure, Sudden Cardiac and Hypertension Social History Does patient currently use any type of tobacco product: No Have you used tobacco products in the last 12 months: No Type of Tobacco Use: None Does any household member use tobacco: No Alcohol Use: None Drug Use: None Medications Home Medications: ciprofloxacin Allergy (Severe, Verified 03/15/21 13:58) CARDIOVASCULAR COMPLICATIONS celecoxib [From Celebrex] Allergy (Unknown, Verified 03/06/21 10:53) codeine Allergy (Unknown, Verified 03/06/21 10:53) diphenhydramine [From Benadryl] Allergy (Unknown, Verified 03/06/21 10:53) levofloxacin [From Levaquin] Allergy (Unknown, Verified 03/06/21 10:53) Sulfa (Sulfonamide Antibiotics) [SULFA] Allergy (Unknown, Verified 03/06/21 10:53) sulfamethoxazole [From Bactrim] Allergy (Unknown, Verified 03/06/21 10:53) trimethoprim [From Bactrim] Allergy (Unknown, Verified 03/06/21 10:53) CONTINUE taking the following medications aspirin 325 mg tablet 325 mg PO DAILY 03/18/22 [History] hydralazine 25 mg tablet 25 mg PO BID 03/18/22 [History] hydrochlorothiazide 12.5 mg tablet 12.5 mg PO QAM blood pressure 03/18/22 [History] meloxicam 15 mg tablet 15 mg PO QDAY PRN arthritis 03/18/22 [History] rosuvastatin 10 mg tablet 10 mg PO QPM 03/18/22 [History] Labs Result Diagrams: 03/21/22 06:40 03/21/22 06:40 Labs: Laboratory WBC 21.0 X10^3/uL (3.6-10.0) H 03/19/22 05:39 RBC 4.28 X10^6/uL (3.5-5.4) 03/19/22 05:39 Hgb 13.0 g/dL (12.0-16.0) 03/19/22 05:39 Hct 38.3 % (36.0-47.0) 03/19/22 05:39 MCV 89.6 fL (80.0-100.0) 03/19/22 05:39 MCH 30.4 pg (27.0-34.0) 03/19/22 05:39 MCHC 33.9 g/dL (33.0-35.0) 03/19/22 05:39 RDW 14.2 % (11.6-16.5) 03/19/22 05:39 Plt Count 141 X10^3/uL (150.0-450.0) L 03/19/22 05:39 Plt Count Comment Adequate (ADEQUATE) 03/18/22 08:00 MPV 11.0 fL (7.4-11.0) 03/19/22 05:39 Neut % (Auto) 86.8 % (42.0-75.0) H 03/19/22 05:39 Lymph % (Auto) 4.2 % (21.0-51.0) L 03/19/22 05:39 [place] % (Auto) 8.8 % (0.0-13.0) 03/19/22 05:39 Eos % (Auto) 0.0 % (0.9-2.9) L 03/19/22 05:39 Baso % (Auto) 0.2 % (0.2-1.0) 03/19/22 05:39 Neut # (Auto) 18.2 x10^3/uL (2.2-4.8) H 03/19/22 05:39 Lymph # (Auto) 0.9 X10^3/uL (1.3-2.9) L 03/19/22 05:39 [place] # (Auto) 1.8 x10^3/uL (0.3-0.8) H 03/19/22 05:39 Eos # (Auto) 0.0 x10^3/uL (0.0-0.2) 03/19/22 05:39 Baso # (Auto) 0.1 X10^3/uL (0.0-0.1) 03/19/22 05:39 Absolute Nucleated RBC 0.0 /100WBC 03/19/22 05:39 Total Counted 100 03/18/22 08:00 Neutrophils % (Manual) 82 % (39-76) H 03/18/22 08:00 Band Neutrophils % 8 % (0-10) 03/18/22 08:00 Lymphocytes % (Manual) 4 % (13-43) L 03/18/22 08:00 Monocytes % (Manual) 6 % (4-9) 03/18/22 08:00 Plt Morphology Comment Normal (NORMAL) 03/18/22 08:00 RBC Morphology Normal (NORMAL) 03/18/22 08:00 Sodium 137 mmol/L (136-145) 03/19/22 05:39 Corrected Sodium TNP 03/19/22 05:39 Potassium 4.0 mmol/L (3.5-5.1) 03/19/22 05:39 Chloride 104 mmol/L (98-107) 03/19/22 05:39 Carbon Dioxide 27.6 mmol/L (21-32) 03/19/22 05:39 BUN 22 mg/dL (7-18) H 03/19/22 05:39 Creatinine 0.98 mg/dL (0.55-1.02) 03/19/22 05:39 Est GFR (MDRD) Af Amer > 60 (>60) 03/19/22 05:39 Est GFR (MDRD) Non-Af 58 (>60) L 03/19/22 05:39 Glucose 106 mg/dL (65-99) H 03/19/22 05:39 Calcium 7.7 mg/dL (8.5-10.1) L 03/19/22 05:39 Corrected Calcium 9.3 mg/dL (8.5-10.1) 03/19/22 05:39 Magnesium 1.9 mg/dL (1.7-2.9) 03/19/22 05:39 Total Bilirubin 0.60 mg/dL (0.2-1.0) 03/19/22 05:39 AST 18 Units/L (15-37) 03/19/22 05:39 ALT 7 Units/L (12-78) L 03/19/22 05:39 Alkaline Phosphatase 107 Units/L (46-116) 03/19/22 05:39 Creatine Kinase 27 Units/L (26-192) 03/18/22 08:00 Troponin I High Sens 50.6 ng/L (4.0-60.0) 03/18/22 15:40 Total Protein 6.4 g/dL (6.4-8.2) 03/19/22 05:39 Albumin 2.0 g/dL (3.4-5.0) L 03/19/22 05:39 Globulin 4.4 g/dL (2.5-4.5) 03/19/22 05:39 Albumin/Globulin Ratio 0.5 Ratio (1.1-2.1) L 03/19/22 05:39 SARS-CoV-2 (PCR) Negative (NEGATIVE) 03/18/22 08:00 Influenza Type A (PCR) Negative (NEGATIVE) 03/18/22 08:00 Influenza Type B (PCR) Negative (NEGATIVE) 03/18/22 08:00 RSV (PCR) Negative (NEGATIVE) 03/18/22 08:00 Review of Systems Constitutional: Fever, Chills and Weakness Eyes: No Symptoms Reported ENT: No Symptoms Reported Respiratory: Cough and Shortness of Breath Cardiovascular: No Symptoms Reported Gastrointestinal: Nausea and Abdominal Pain Genitourinary: No Symptoms Reported Musculoskeletal: No Symptoms Reported Skin: No Symptoms Reported Neurological: No Symptoms Reported Physical Exam Vital Signs: Temperature 100.4 F Pulse Rate [Right Radial] 91 Pulse Rate 92 Respiratory Rate 20 Blood Pressure [Right Arm] 143/64 Blood Pressure 153/70 O2 Sat by Pulse Oximetry 94 Oriented: Normal Eyes: Normal Ear: Normal Nose: Normal Throat: Normal Respiratory: Diminished Throughout and RUL Rales Cardiovascular: Normal : Normal Auscultation: Bowel Sounds: Normal Palpation: Normal Tenderness: Normal Skin: Normal Musculoskeletal: Normal Psychiatric: Normal Mood Description: Calm and Appropriate Affect: Normal Speech Pattern: Clear and Appropriate Assessment/Plan (1) Pneumonia: Qualifiers: Laterality: right Lung location: upper lobe of lung Pneumonia type: due to unspecified organism Qualified Code(s): J18.9 - Pneumonia, unspecified organism Narrative Support Text: IV antibiotics Bronchodilators, supplemental oxygen Status: Acute (2) Neutrophilic leukocytosis: Status: Acute (3) Generalized weakness: Status: Acute Review H&P Reviewed: Yes Patient was examined?: Yes
[2022-03-19] MEDS ORDERED: COZAAR PO SCH (09:00)
[2022-03-19] MEDS ORDERED: ZITHROMAX INJ 500 MG VIAL 250 MG in NS 250 ML IV 250 ML IV SCH (09:00)
[2022-03-19] MEDS ORDERED: LOVENOX INJ 40 MG SYR SC SCH (09:00)
[2022-03-19] MEDS: ZITHROMAX INJ 500 MG VIAL 500 MG in NS 250 ML IV 250 ML IV SCH (09:01)
[2022-03-19] MEDS: HYDROCHLOROTHIAZIDE 12.5 MG CAP PO SCH (09:05)
[2022-03-19] MEDS: ZOSYN VIAL 3.375 GRAMS 3.375 G in NS 100 ML IV 100 ML IV SCH ×3 (09:05→21:23)
[2022-03-19] MEDS: ASPIRIN PO SCH (09:05)
[2022-03-19] MEDS: CARDIZEM CD 120 MG 24-HR PO SCH (09:05)
[2022-03-19] MEDS: TYLENOL 325 MG TAB PO PRN (09:16)
[2022-03-19] MEDS ORDERED: LOPRESSOR INJ 5 MG AMP IVP ONE (10:54)
[2022-03-19] MEDS: MAGNESIUM SULFATE 1 GRAM/100 mL PREMIX 1 G/100 ML BAG IV PRN ×2 (17:16→21:25)
[2022-03-19] MEDS ORDERED: LOVENOX INJ 30 MG SYR SC SCH (21:00)
[2022-03-19] MEDS: CRESTOR TAB 10 MG PO SCH (21:23)
[2022-03-19] MEDS: LOVENOX INJ 30 MG SYR SC SCH (23:01)
[2022-03-20] MEDS: XOPENEX 1.25 MG/3 ML NEBULE NEB SCH ×4 (00:32→17:32)
[2022-03-20] MEDS ORDERED: LOPRESSOR INJ 5 MG AMP IVP ONE (01:33)
[2022-03-20] MEDS ORDERED: LOPRESSOR INJ 5 MG AMP ONE (01:39)
[2022-03-20] MEDS: ZOSYN VIAL 3.375 GRAMS 3.375 G in NS 100 ML IV 100 ML IV SCH ×3 (05:06→21:20)
[2022-03-20] MEDS: LOPRESSOR TAB 25 MG PO SCH (05:06)
[2022-03-20 05:49] LABS: BASOPHILS # (AUTO) 0.1 X10^3/uL (0.0-0.1); BASOPHILS % (AUTO) 0.6 % (0.2-1.0); EOSINOPHILS % (AUTO) 0.1 % (0.9-2.9); LYMPHOCYTES # (AUTO) 1.4 X10^3/uL (1.3-2.9); LYMPHOCYTES % (AUTO) 6.5 % (21.0-51.0); MEAN CORPUSCULAR HGB CONC 33.4 g/dL (33.0-35.0); MEAN CORPUSCULAR VOLUME 89.9 fL (80.0-100.0); MEAN PLATELET VOLUME 10.3 fL (7.4-11.0); MONOCYTES # (AUTO) 2.1 x10^3/uL (0.3-0.8); MONOCYTES % (AUTO) 9.7 % (0.0-13.0); NEUTROPHILS # (AUTO) 17.8 x10^3/uL (2.2-4.8); NEUTROPHILS % (AUTO) 83.1 % (42.0-75.0); RED BLOOD COUNT 4.33 X10^6/uL (3.5-5.4); RED CELL DISTRIBUTION WIDTH 14.6 % (11.6-16.5); WHITE BLOOD COUNT 21.4 X10^3/uL (3.6-10.0)
[2022-03-20 06:06] LABS: PLATELET MORPHOLOGY COMMENT NORMAL (NORMAL)
[2022-03-20 06:07] LABS: TARGET CELLS 1+
[2022-03-20 06:13] LABS: ALANINE AMINOTRANSFERASE < 6 Units/L (12-78); ALKALINE PHOSPHATASE 122 Units/L (46-116); ASPARTATE AMINO TRANSFERASE 25 Units/L (15-37); BLOOD UREA NITROGEN 25 mg/dL (7-18); CALCIUM 7.8 mg/dL (8.5-10.1); CARBON DIOXIDE 25.4 mmol/L (21-32); CHLORIDE 102 mmol/L (98-107); COR CA(FOR HYPOALB) 9.4 mg/dL (8.5-10.1); CREATININE 1.07 mg/dL (0.55-1.02); MAGNESIUM 2.4 mg/dL (1.7-2.9); SODIUM 139 mmol/L (136-145); TOTAL PROTEIN 6.8 g/dL (6.4-8.2); eGFR NON BLACK RACES 53 (>60)
[2022-03-20] MEDS: KLOR-CON PO PRN (06:27)
--- NOTE | 2022-03-20 06:54 | RAD ---
CHEST, 1 VIEWHISTORY: SOBStudy: Single view of the chest.Comparison:March 18, 2022Findings:The cardiomediastinal silhouette is normal.dense right upper lobe opacity. Osseous structures demonstrate no acute abnormality.IMPRESSION:1. No acute cardiopulmonary process.2. Re-demonstration of dense right upper lobe opacity which appears to demonstrate cavitation.Electronically signed by: WALKER SKY (Mar 20, 2022 06:52:09)
[2022-03-20] MEDS: ASPIRIN PO SCH (08:00)
[2022-03-20] MEDS: CARDIZEM CD 120 MG 24-HR PO SCH (08:00)
[2022-03-20] MEDS: HYDROCHLOROTHIAZIDE 12.5 MG CAP PO SCH (08:00)
[2022-03-20] MEDS: LOVENOX INJ 30 MG SYR SC SCH ×2 (08:06→20:45)
[2022-03-20] MEDS: ZITHROMAX INJ 500 MG VIAL 500 MG in NS 250 ML IV 250 ML IV SCH (08:07)
[2022-03-20] MEDS ORDERED: LANOXIN INJ IVP ONE (09:46)
[2022-03-20] MEDS: PULMICORT NEB TX 0.5 MG NEB SCH ×2 (10:29→20:20)
[2022-03-20] MEDS: LOPRESSOR TAB 50 MG PO SCH ×2 (10:34→20:43)
[2022-03-20] MEDS: NS 1,000 ML IV 1,000 ML IV SCH ×3 (19:57→21:20)
[2022-03-20] MEDS: CRESTOR TAB 10 MG PO SCH (20:43)
--- NOTE | 2022-03-20 23:31 | PCM.PROG ---
Progress Note - Progress Note for Day of Date of Exam: 03/20/22 - Subjective Subjective: IS A 81 YEAR OLD PATIENT OF . SHE IS CURRENTLY INPATIENT STATUS FOR TREATMENT OF RIGHT UPPER LOBE PNEUMONIA. TODAY, SHE IS ALERT AND ORIENTED, LYING IN BED ON MORNING ROUNDS. SHE COMPLAINS OF SHORTNESS OF BREATH, COUGH, WEAKNESS, AND ELEVATED HEART RATE. HER HR HAS BEEN 120-140 THIS MORNING. SHE DOES HAVE A HISTORY OF ATRIAL FIBRILLATION. ON EXAMINATION, ATRIAL FIBRILLATION NOTED WITH HR 130. BILATERAL LUNGS ARE NOTED WITH DIMINISHED LUNG SOUNDS THROUGHOUT. ABDOMEN IS ROUND, SOFT, AND NON-TENDER WITH NORMAL BOWEL SOUNDS NOTED IN ALL QUADRANTS. TRACE LOWER EXTREMITY EDEMA NOTED. HER VITALS THIS MORNING ARE: 98.7-144-22-95%-119/74. LABS WERE OBTAINED. WBC 21.4, RBC 4.33, HGB 13, HCT 39.0, PLT COUNT 168, SODIUM 139, POTASSIUM 3.4, CHLORIDE 102, BUN 25, CREATININE 1.07, CALCIUM 7.9, GLUCOSE 97, AST 25, ALT <6, ALK PHOS 122, TOTAL PROTEIN 6.8, ALBUMIN 2.0. HER TROPONINS HAVE BEEN ELEVATED, BUT ARE NOW TRENDING DOWN. SHE IS CURRENTLY RECEIVING NORMAL SALINE AT 75 ML/HR, AZITHROMYCIN 500MG IV DAILY, ZOSYN 3.375G IV TID, XOPENEX NEB [place] Q6H, PULMICORT NEB TX BID, LOVENOX 30MG SC BID, ZOFRAN 4MG IV Q6H PRN, CARDIZEM 120MG PO DAILY, LOPRESSOR 25MG PO TID, AND HER HOME MEDICATIONS WERE RESUMED. TODAY, WE WILL CHANGE LOPRESSOR TO 50MG PO BID. WE WILL ADMINISTER DIGOXIN 500MCG IV X 1. OTHERWISE, WE WILL CONTINUE WITH CURRENT PLAN OF CARE. WE PLAN TO FOLLOW-UP WITH AM LABS AND CHEST XRAY AND CONTINUE TO MONITOR. TIME SPENT ON CLINICAL ASSESSMENT, REVIEWING LABS AND IMAGING, DECISION MAKING, AND DOCUMENTATION GREATER THAN 45 MINUTES. - Past Medical Family Social History Past Med/Fam/Surg Hx: No changes since H&P Allergies: Allergies ciprofloxacin Allergy (Severe, Verified 03/15/21 13:58) CARDIOVASCULAR COMPLICATIONS patient has flushing and cardiovascular complications including bijeminy and freq pvcs celecoxib [From Celebrex] Allergy (Unknown, Verified 10/01/21 10:53) codeine Allergy (Unknown, Verified 03/06/21 10:53) diphenhydramine [From Benadryl] Allergy (Unknown, Verified 03/06/21 10:53) levofloxacin [From Levaquin] Allergy (Unknown, Verified 03/06/21 10:53) DAUGHTER STATES SCRAP DEALER TOLD PT. TO NOT TAKE IT BECAUSE OF HER HEART AND A-FIB Sulfa (Sulfonamide Antibiotics) [SULFA] Allergy (Unknown, Verified 03/06/21 10:53) sulfamethoxazole [From Bactrim] Allergy (Unknown, Verified 03/06/21 10:53) trimethoprim [From Bactrim] Allergy (Unknown, Verified 03/06/21 10:53) - Review of Systems ROS: No change since H&P - Vital Signs and I&O's Vital Signs: Temperature 97.9 F Pulse Rate [Right Radial] 113 Pulse Rate 107 Respiratory Rate 22 Blood Pressure [Right Arm] 132/63 Blood Pressure 122/66 O2 Sat by Pulse Oximetry 96 Intake and Output: Intake & Output 03/18/22 03/19/22 03/20/22 03/21/22 11:59 11:59 11:59 11:59 Intake Total 3326 / 3326 1958 1022 / 1022 Balance 3326 / 3326 1958 1022 / 1022 - Physical Exam Oriented: Normal Eyes: Normal Ear: Normal Nose: Normal Throat: Normal Respiratory: Generalized, Diminished Cardiovascular: Tachycardia, Irregular : Normal Auscultation: Bowel Sounds: Normal Palpation: Normal Tenderness: Normal Skin: Normal Musculoskeletal: Normal Psychiatric: Normal Mood Description: Calm Affect: Normal Speech Pattern: Clear, Appropriate - Laboratory and Diagnostics Result Diagrams: 03/20/22 05:31 03/20/22 05:31 Labs: 03/18/22 10:00 Blood Blood Culture - Preliminary 03/18/22 09:59 Blood Blood Culture - Preliminary Laboratory WBC 21.4 X10^3/uL (3.6-10.0) H 03/20/22 05:31 RBC 4.33 X10^6/uL (3.5-5.4) 03/20/22 05:31 Hgb 13.0 g/dL (12.0-16.0) 03/20/22 05:31 Hct 39.0 % (36.0-47.0) 03/20/22 05:31 MCV 89.9 fL (80.0-100.0) 03/20/22 05:31 MCH 30.0 pg (27.0-34.0) 03/20/22 05:31 MCHC 33.4 g/dL (33.0-35.0) 03/20/22 05:31 RDW 14.6 % (11.6-16.5) 03/20/22 05:31 Plt Count 168 X10^3/uL (150.0-450.0) 03/20/22 05:31 Plt Count Comment Adequate (ADEQUATE) 03/20/22 05:31 MPV 10.3 fL (7.4-11.0) 03/20/22 05:31 Neut % (Auto) 83.1 % (42.0-75.0) H 03/20/22 05:31 Lymph % (Auto) 6.5 % (21.0-51.0) L 03/20/22 05:31 [place] % (Auto) 9.7 % (0.0-13.0) 03/20/22 05:31 Eos % (Auto) 0.1 % (0.9-2.9) L 03/20/22 05:31 Baso % (Auto) 0.6 % (0.2-1.0) 03/20/22 05:31 Neut # (Auto) 17.8 x10^3/uL (2.2-4.8) H 03/20/22 05:31 Lymph # (Auto) 1.4 X10^3/uL (1.3-2.9) 03/20/22 05:31 [place] # (Auto) 2.1 x10^3/uL (0.3-0.8) H 03/20/22 05:31 Eos # (Auto) 0.0 x10^3/uL (0.0-0.2) 03/20/22 05:31 Baso # (Auto) 0.1 X10^3/uL (0.0-0.1) 03/20/22 05:31 Absolute Nucleated RBC 0.0 /100WBC 03/20/22 05:31 Total Counted 100 03/20/22 05:31 Neutrophils % (Manual) 83 % (39-76) H 03/20/22 05:31 Band Neutrophils % 8 % (0-10) 03/18/22 08:00 Lymphocytes % (Manual) 10 % (13-43) L 03/20/22 05:31 Monocytes % (Manual) 7 % (4-9) 03/20/22 05:31 Atypical Lymphocytes Few A 03/20/22 05:31 Plt Morphology Comment Normal (NORMAL) 03/20/22 05:31 RBC Morphology Abnormal (NORMAL) A 03/20/22 05:31 Target Cells 1+ A 03/20/22 05:31 Sodium 139 mmol/L (136-145) 03/20/22 05:31 Corrected Sodium TNP 03/20/22 05:31 Potassium 3.4 mmol/L (3.5-5.1) L 03/20/22 05:31 Chloride 102 mmol/L (98-107) 03/20/22 05:31 Carbon Dioxide 25.4 mmol/L (21-32) 03/20/22 05:31 BUN 25 mg/dL (7-18) H 03/20/22 05:31 Creatinine 1.07 mg/dL (0.55-1.02) H 03/20/22 05:31 Est GFR (MDRD) Af Amer > 60 (>60) 03/20/22 05:31 Est GFR (MDRD) Non-Af 53 (>60) L 03/20/22 05:31 Glucose 97 mg/dL (65-99) 03/20/22 05:31 POC Glucose (mg/dL) 165 mg/dL (65-99) H 03/19/22 20:04 Calcium 7.8 mg/dL (8.5-10.1) L 03/20/22 05:31 Corrected Calcium 9.4 mg/dL (8.5-10.1) 03/20/22 05:31 Magnesium 2.4 mg/dL (1.7-2.9) 03/20/22 05:31 Total Bilirubin 0.50 mg/dL (0.2-1.0) 03/20/22 05:31 AST 25 Units/L (15-37) 03/20/22 05:31 ALT < 6 Units/L (12-78) L 03/20/22 05:31 Alkaline Phosphatase 122 Units/L (46-116) H 03/20/22 05:31 Creatine Kinase 27 Units/L (26-192) 03/18/22 08:00 Troponin I High Sens 128.4 ng/L (4.0-60.0) H* 03/20/22 19:05 Total Protein 6.8 g/dL (6.4-8.2) 03/20/22 05:31 Albumin 2.0 g/dL (3.4-5.0) L 03/20/22 05:31 Globulin 4.8 g/dL (2.5-4.5) H 03/20/22 05:31 Albumin/Globulin Ratio 0.4 Ratio (1.1-2.1) L 03/20/22 05:31 SARS-CoV-2 (PCR) Negative (NEGATIVE) 03/18/22 08:00 Influenza Type A (PCR) Negative (NEGATIVE) 03/18/22 08:00 Influenza Type B (PCR) Negative (NEGATIVE) 03/18/22 08:00 RSV (PCR) Negative (NEGATIVE) 03/18/22 08:00 - Plan (1) Pneumonia Status: Acute Qualifiers: Pneumonia type: due to unspecified organism Laterality: right Lung location: upper lobe of lung Qualified Code(s): J18.9 - Pneumonia, unspecified organism Plan: NORMAL SALINE AT 75 ML/HR, AZITHROMYCIN 500MG IV DAILY, ZOSYN 3.375G IV TID, XOPENEX NEB TX Q6H, PULMICORT NEB TX BID, LOVENOX 30MG SC BID, ZOFRAN 4MG IV Q6H PRN, CARDIZEM 120MG PO DAILY, LOPRESSOR 50MG PO BID, DIGOXIN 500MCG IV X 1, AND HER HOME MEDICATIONS WERE RESUMED. (2) Atrial fibrillation with rapid ventricular response Status: Acute
[2022-03-21] MEDS: XOPENEX 1.25 MG/3 ML NEBULE NEB SCH ×4 (00:25→17:46)
[2022-03-21] MEDS: ZOSYN VIAL 3.375 GRAMS 3.375 G in NS 100 ML IV 100 ML IV SCH ×3 (05:34→21:00)
[2022-03-21 06:56] LABS: BASOPHILS # (AUTO) 0.1 X10^3/uL (0.0-0.1); BASOPHILS % (AUTO) 0.4 % (0.2-1.0); EOSINOPHILS # (AUTO) 0.1 x10^3/uL (0.0-0.2); EOSINOPHILS % (AUTO) 0.5 % (0.9-2.9); HEMATOCRIT 34.8 % (36.0-47.0); HEMOGLOBIN 11.9 g/dL (12.0-16.0); LYMPHOCYTES # (AUTO) 1.8 X10^3/uL (1.3-2.9); LYMPHOCYTES % (AUTO) 10.3 % (21.0-51.0); MEAN CORPUSCULAR HEMOGLOBIN 30.6 pg (27.0-34.0); MEAN CORPUSCULAR HGB CONC 34.3 g/dL (33.0-35.0); MEAN CORPUSCULAR VOLUME 89.3 fL (80.0-100.0); MEAN PLATELET VOLUME 10.2 fL (7.4-11.0); MONOCYTES # (AUTO) 1.7 x10^3/uL (0.3-0.8); MONOCYTES % (AUTO) 9.6 % (0.0-13.0); NEUTROPHILS % (AUTO) 79.2 % (42.0-75.0); RED BLOOD COUNT 3.89 X10^6/uL (3.5-5.4); RED CELL DISTRIBUTION WIDTH 14.9 % (11.6-16.5); WHITE BLOOD COUNT 17.7 X10^3/uL (3.6-10.0)
[2022-03-21 07:01] LABS: ALANINE AMINOTRANSFERASE 12 Units/L (12-78); ALBUMIN 1.7 g/dL (3.4-5.0); ALKALINE PHOSPHATASE 122 Units/L (46-116); ASPARTATE AMINO TRANSFERASE 28 Units/L (15-37); BLOOD UREA NITROGEN 21 mg/dL (7-18); CALCIUM 7.7 mg/dL (8.5-10.1); CARBON DIOXIDE 21.8 mmol/L (21-32); CHLORIDE 103 mmol/L (98-107); COR CA(FOR HYPOALB) 9.5 mg/dL (8.5-10.1); COR NA(FOR HYPERGLY) 138 mmol/L (136-145); SODIUM 138 mmol/L (136-145); TOTAL PROTEIN 6.4 g/dL (6.4-8.2); eGFR NON BLACK RACES 57 (>60)
[2022-03-21] MEDS: PULMICORT NEB TX 0.5 MG NEB SCH ×2 (08:04→21:00)
--- NOTE | 2022-03-21 08:07 | RAD ---
CHEST, 1 VIEWHISTORY: SOBStudy: Single view of the chest.Comparison:March 20, 2022Findings:The cardiomediastinal silhouette is normal.No change in right upper lobe opacity which appears to demonstrate cavitation. Osseous structures demonstrate no acute abnormality.IMPRESSION:1. No change from priorElectronically signed by: WALKER SKY (Mar 21, 2022 08:05:35)
--- NOTE | 2022-03-21 09:23 | PCM.PROG ---
Progress Note - Progress Note for Day of Date of Exam: 03/21/22 - Subjective Subjective: IS A 81 YEAR OLD PATIENT OF . SHE IS CURRENTLY INPATIENT STATUS FOR TREATMENT OF RIGHT UPPER LOBE PNEUMONIA. TODAY, SHE IS ALERT AND ORIENTED, LYING IN BED ON MORNING ROUNDS. SHE COMPLAINS OF SHORTNESS OF BREATH, COUGH, WEAKNESS, AND ELEVATED HEART RATE. HER HR HAD BEEN NORMAL THROUGHOUT THE NIGHT, HOWEVER, IT IS SLIGHTLY ELEVATED THIS MORNING. SHE DOES HAVE A HISTORY OF ATRIAL FIBRILLATION. ON EXAMINATION, ATRIAL FIBRILLATION NOTED WITH HR 110-120. BILATERAL LUNGS ARE NOTED WITH DIMINISHED LUNG SOUNDS THROUGHOUT. ABDOMEN IS ROUND, SOFT, AND NON-TENDER WITH NORMAL BOWEL SOUNDS NOTED IN ALL QUADRANTS. TRACE LOWER EXTREMITY EDEMA NOTED. HER VITALS THIS MORNING ARE: 98.2-119-18-96%-137/57. LABS WERE OBTAINED. WBC 17.7, RBC 3.89, HGB 11.9, HCT 34.8, SODIUM 138, POTASSIUM 3.5, BUN 21, CREATININE 1.00, GLUCOSE 114, CALCIUM 7.7, AST 28, ALT 12, ALK PHOS 122, TOTAL PROTEIN 6.4, ALBUMIN 1.7. SHE IS CURRENTLY RECEIVING NORMAL SALINE AT 75 ML/HR, AZITHROMYCIN 500MG IV DAILY, ZOSYN 3.375G IV TID, XOPENEX NEB TX Q6H, PULMICORT NEB TX BID, LOVENOX 30MG SC BID, ZOFRAN 4MG IV Q6H PRN, CARDIZEM 120MG PO DAILY, LOPRESSOR 50MG BID, AND HER HOME MEDICATIONS WERE RESUMED. TODAY, WE WILL INCREASE CARDIZEM TO 180MG PO DAILY AND ADD DIGOXIN 0.125MG PO DAILY. OTHERWISE, WE WILL CONTINUE WITH CURRENT PLAN OF CARE. WE PLAN TO FOLLOW-UP WITH AM LABS AND CHEST XRAY AND CONTINUE TO MONITOR. TIME SPENT ON CLINICAL ASSESSMENT, REVIEWING LABS AND IMAGING, DECISION MAKING, AND DOCUMENTATION GREATER THAN 45 MINUTES. - Past Medical Family Social History Past Med/Fam/Surg Hx: No changes since H&P Allergies: Allergies ciprofloxacin Allergy (Severe, Verified 03/15/21 13:58) CARDIOVASCULAR COMPLICATIONS patient has flushing and cardiovascular complications including bijeminy and freq pvcs celecoxib [From Celebrex] Allergy (Unknown, Verified 03/06/21 10:53) codeine Allergy (Unknown, Verified 03/06/21 10:53) diphenhydramine [From Benadryl] Allergy (Unknown, Verified 03/06/21 10:53) levofloxacin [From Levaquin] Allergy (Unknown, Verified 03/06/21 10:53) DAUGHTER STATES CONTRACT ADMINISTRATOR TOLD PT. TO NOT TAKE IT BECAUSE OF HER HEART AND A-FIB Sulfa (Sulfonamide Antibiotics) [SULFA] Allergy (Unknown, Verified 03/06/21 10:53) sulfamethoxazole [From Bactrim] Allergy (Unknown, Verified 03/06/21 10:53) trimethoprim [From Bactrim] Allergy (Unknown, Verified 03/06/21 10:53) - Review of Systems ROS: No change since H&P - Vital Signs and I&O's Vital Signs: Temperature 98.2 F Pulse Rate [Right Radial] 119 Pulse Rate 98 Respiratory Rate 18 Blood Pressure [Right Arm] 137/57 Blood Pressure 122/66 O2 Sat by Pulse Oximetry 97 Intake and Output: Intake & Output 03/18/22 03/19/22 03/20/22 03/21/22 11:59 11:59 11:59 11:59 Intake Total 3326 / 3326 1958 1720 / 1720 Balance 3326 / 3326 1958 1720 / 1720 - Physical Exam Oriented: Normal Eyes: Normal Ear: Normal Nose: Normal Throat: Normal Respiratory: Generalized, Diminished Cardiovascular: Tachycardia, Irregular : Normal Auscultation: Bowel Sounds: Normal Tenderness: Normal Skin: Normal Musculoskeletal: Normal Psychiatric: Normal Mood Description: Calm Affect: Normal Speech Pattern: Clear, Appropriate - Laboratory and Diagnostics Result Diagrams: 03/21/22 06:40 03/21/22 06:40 Labs: 03/18/22 10:00 Blood Blood Culture - Preliminary 03/18/22 09:59 Blood Blood Culture - Preliminary Laboratory WBC 17.7 X10^3/uL (3.6-10.0) H 03/21/22 06:40 RBC 3.89 X10^6/uL (3.5-5.4) 03/21/22 06:40 Hgb 11.9 g/dL (12.0-16.0) L 03/21/22 06:40 Hct 34.8 % (36.0-47.0) L 03/21/22 06:40 MCV 89.3 fL (80.0-100.0) 03/21/22 06:40 MCH 30.6 pg (27.0-34.0) 03/21/22 06:40 MCHC 34.3 g/dL (33.0-35.0) 03/21/22 06:40 RDW 14.9 % (11.6-16.5) 03/21/22 06:40 Plt Count 195 X10^3/uL (150.0-450.0) 03/21/22 06:40 Plt Count Comment Adequate (ADEQUATE) 03/20/22 05:31 MPV 10.2 fL (7.4-11.0) 03/21/22 06:40 Neut % (Auto) 79.2 % (42.0-75.0) H 03/21/22 06:40 Lymph % (Auto) 10.3 % (21.0-51.0) L 03/21/22 06:40 [place] % (Auto) 9.6 % (0.0-13.0) 03/21/22 06:40 Eos % (Auto) 0.5 % (0.9-2.9) L 03/21/22 06:40 Baso % (Auto) 0.4 % (0.2-1.0) 03/21/22 06:40 Neut # (Auto) 14.0 x10^3/uL (2.2-4.8) H 03/21/22 06:40 Lymph # (Auto) 1.8 X10^3/uL (1.3-2.9) 03/21/22 06:40 [place] # (Auto) 1.7 x10^3/uL (0.3-0.8) H 03/21/22 06:40 Eos # (Auto) 0.1 x10^3/uL (0.0-0.2) 03/21/22 06:40 Baso # (Auto) 0.1 X10^3/uL (0.0-0.1) 03/21/22 06:40 Absolute Nucleated RBC 0.1 /100WBC 03/21/22 06:40 Total Counted 100 03/20/22 05:31 Neutrophils % (Manual) 83 % (39-76) H 03/20/22 05:31 Band Neutrophils % 8 % (0-10) 03/18/22 08:00 Lymphocytes % (Manual) 10 % (13-43) L 03/20/22 05:31 Monocytes % (Manual) 7 % (4-9) 03/20/22 05:31 Atypical Lymphocytes Few A 03/20/22 05:31 Plt Morphology Comment Normal (NORMAL) 03/20/22 05:31 RBC Morphology Abnormal (NORMAL) A 03/20/22 05:31 Target Cells 1+ A 03/20/22 05:31 Sodium 138 mmol/L (136-145) 03/21/22 06:40 Corrected Sodium 138 mmol/L (136-145) 03/21/22 06:40 Potassium 3.5 mmol/L (3.5-5.1) 03/21/22 06:40 Chloride 103 mmol/L (98-107) 03/21/22 06:40 Carbon Dioxide 21.8 mmol/L (21-32) 03/21/22 06:40 BUN 21 mg/dL (7-18) H 03/21/22 06:40 Creatinine 1.00 mg/dL (0.55-1.02) 03/21/22 06:40 Est GFR (MDRD) Af Amer > 60 (>60) 03/21/22 06:40 Est GFR (MDRD) Non-Af 57 (>60) L 03/21/22 06:40 Glucose 114 mg/dL (65-99) H 03/21/22 06:40 POC Glucose (mg/dL) 165 mg/dL (65-99) H 03/19/22 20:04 Calcium 7.7 mg/dL (8.5-10.1) L 03/21/22 06:40 Corrected Calcium 9.5 mg/dL (8.5-10.1) 03/21/22 06:40 Magnesium 2.4 mg/dL (1.7-2.9) 03/20/22 05:31 Total Bilirubin 0.40 mg/dL (0.2-1.0) 03/21/22 06:40 AST 28 Units/L (15-37) 03/21/22 06:40 ALT 12 Units/L (12-78) 03/21/22 06:40 Alkaline Phosphatase 122 Units/L (46-116) H 03/21/22 06:40 Creatine Kinase 27 Units/L (26-192) 03/18/22 08:00 Troponin I High Sens 154.9 ng/L (4.0-60.0) H* 03/21/22 00:00 Total Protein 6.4 g/dL (6.4-8.2) 03/21/22 06:40 Albumin 1.7 g/dL (3.4-5.0) L 03/21/22 06:40 Globulin 4.7 g/dL (2.5-4.5) H 03/21/22 06:40 Albumin/Globulin Ratio 0.4 Ratio (1.1-2.1) L 03/21/22 06:40 SARS-CoV-2 (PCR) Negative (NEGATIVE) 03/18/22 08:00 Influenza Type A (PCR) Negative (NEGATIVE) 03/18/22 08:00 Influenza Type B (PCR) Negative (NEGATIVE) 03/18/22 08:00 RSV (PCR) Negative (NEGATIVE) 03/18/22 08:00 Resp Viral Panel (PCR) See scanned report 03/18/22 12:04 - Plan (1) Pneumonia Status: Acute Qualifiers: Pneumonia type: due to unspecified organism Laterality: right Lung location: upper lobe of lung Qualified Code(s): J18.9 - Pneumonia, unspecified organism Plan: NORMAL SALINE AT 75 ML/HR, AZITHROMYCIN 500MG IV DAILY, ZOSYN 3.375G IV TID, XOPENEX NEB TX Q6H, PULMICORT NEB TX BID, LOVENOX 30MG SC BID, ZOFRAN 4MG IV Q6H PRN, CARDIZEM 180MG PO DAILY, LOPRESSOR 50MG PO BID, DIGOXIN 0.125MG PO DAILY, AND HER HOME MEDICATIONS WERE RESUMED. (2) Atrial fibrillation with rapid ventricular response Status: Acute
[2022-03-21] MEDS: LOPRESSOR TAB 50 MG PO SCH ×2 (09:30→20:54)
[2022-03-21] MEDS: LANOXIN or DIGITEK PO SCH (09:30)
[2022-03-21] MEDS: HYDROCHLOROTHIAZIDE 12.5 MG CAP PO SCH (09:30)
[2022-03-21] MEDS: ZITHROMAX INJ 500 MG VIAL 500 MG in NS 250 ML IV 250 ML IV SCH (09:30)
[2022-03-21] MEDS: ASPIRIN PO SCH (09:30)
[2022-03-21] MEDS: CARDIZEM CD 180 MG 24-HR PO SCH (09:30)
[2022-03-21] MEDS: LOVENOX INJ 30 MG SYR SC SCH ×2 (10:55→20:54)
[2022-03-21] MEDS: NS 1,000 ML IV 1,000 ML IV SCH (18:36)
[2022-03-21] MEDS: CRESTOR TAB 10 MG PO SCH (20:54)
[2022-03-21] MEDS: ZOFRAN INJ 4 MG VIAL IVP PRN (21:14)
[2022-03-22] MEDS: XOPENEX 1.25 MG/3 ML NEBULE NEB SCH ×4 (00:30→17:27)
[2022-03-22] MEDS: NS 1,000 ML IV 1,000 ML IV SCH ×2 (02:57→22:19)
[2022-03-22] MEDS: ZOSYN VIAL 3.375 GRAMS 3.375 G in NS 100 ML IV 100 ML IV SCH ×3 (05:09→21:02)
--- NOTE | 2022-03-22 06:55 | PCM.PROG ---
Progress Note Progress Note for Day of Date of Exam: 03/19/22 Subjective Subjective: Pt is a 81 year old female past medical history Atrial Fibrillation, Hypertension, admitted for pneumonia. This morning she reports little improvement in symptoms. She has been coughing up yellowish sputum. No acute events overnight. Labs/imaging: Wbc 21, Hgb 13, Plt 141, Na 137, K 4.0, Crea tinine 0.98, Glucose 106, Blood culture pending. CT chest had revealed: 1. Right upper lobe cavitary lesion does not present and March 02. Given recent appearance, pulmonary abscess or septic embolism are considerations. 2.Similar bilateral faint groundglass opacities and peripheral bronchial mucus. Pt is currently on IVF NS@75ml/h, antibiotics: IV Zosyn q8h, IV Azithromycin, Bronchodilators, supplemental oxygen. Home medications have been resumed. Wean/titrate oxygen as tolerated. Will continue to closely monitor and follow up labs/imaging. Past Medical Family Social History Past Med/Fam/Surg Hx: No changes since H&P Allergies: Allergies ciprofloxacin Allergy (Severe, Verified 03/15/21 13:58) CARDIOVASCULAR COMPLICATIONS patient has flushing and cardiovascular complications including bijeminy and freq pvcs celecoxib [From Celebrex] Allergy (Unknown, Verified 03/06/21 10:53) codeine Allergy (Unknown, Verified 03/06/21 10:53) diphenhydramine [From Benadryl] Allergy (Unknown, Verified 03/06/21 10:53) levofloxacin [From Levaquin] Allergy (Unknown, Verified 03/06/21 10:53) DAUGHTER STATES INDUCTION HEAT TREATER TOLD PT. TO NOT TAKE IT BECAUSE OF HER HEART AND A-FIB Sulfa (Sulfonamide Antibiotics) [SULFA] Allergy (Unknown, Verified 03/06/21 10:53) sulfamethoxazole [From Bactrim] Allergy (Unknown, Verified 03/06/21 10:53) trimethoprim [From Bactrim] Allergy (Unknown, Verified 03/06/21 10:53) Review of Systems ROS: No change since H&P ROS changes noted: See HPI Vital Signs and I&O's Vital Signs: Temperature 98.8 F Pulse Rate [Right Radial] 79 Pulse Rate 73 Respiratory Rate 18 Blood Pressure [Right Arm] 129/78 Blood Pressure 122/66 O2 Sat by Pulse Oximetry 93 Intake and Output: Intake & Output 03/19/22 03/20/22 03/21/22 03/22/22 23:59 23:59 23:59 23:59 Intake Total 2137 506 / 506 Balance 2137 506 / 506 Physical Exam Oriented: Normal Eyes: Normal Ear: Normal Nose: Normal Throat: Normal Respiratory: Generalized and Diminished Cardiovascular: Normal : Normal Auscultation: Bowel Sounds: Normal Tenderness: Normal Skin: Normal Musculoskeletal: Normal Psychiatric: Normal Mood Description: Calm and Appropriate Affect: Normal Speech Pattern: Clear and Appropriate Laboratory and Diagnostics Result Diagrams: 03/21/22 06:40 03/21/22 06:40 Labs: 03/18/22 10:00 Blood Blood Culture - Preliminary 03/18/22 09:59 Blood Blood Culture - Preliminary Laboratory WBC 17.7 X10^3/uL (3.6-10.0) H 03/21/22 06:40 RBC 3.89 X10^6/uL (3.5-5.4) 03/21/22 06:40 Hgb 11.9 g/dL (12.0-16.0) L 03/21/22 06:40 Hct 34.8 % (36.0-47.0) L 03/21/22 06:40 MCV 89.3 fL (80.0-100.0) 03/21/22 06:40 MCH 30.6 pg (27.0-34.0) 03/21/22 06:40 MCHC 34.3 g/dL (33.0-35.0) 03/21/22 06:40 RDW 14.9 % (11.6-16.5) 03/21/22 06:40 Plt Count 195 X10^3/uL (150.0-450.0) 03/21/22 06:40 Plt Count Comment Adequate (ADEQUATE) 03/20/22 05:31 MPV 10.2 fL (7.4-11.0) 03/21/22 06:40 Neut % (Auto) 79.2 % (42.0-75.0) H 03/21/22 06:40 Lymph % (Auto) 10.3 % (21.0-51.0) L 03/21/22 06:40 [place] % (Auto) 9.6 % (0.0-13.0) 03/21/22 06:40 Eos % (Auto) 0.5 % (0.9-2.9) L 03/21/22 06:40 Baso % (Auto) 0.4 % (0.2-1.0) 03/21/22 06:40 Neut # (Auto) 14.0 x10^3/uL (2.2-4.8) H 03/21/22 06:40 Lymph # (Auto) 1.8 X10^3/uL (1.3-2.9) 03/21/22 06:40 [place] # (Auto) 1.7 x10^3/uL (0.3-0.8) H 03/21/22 06:40 Eos # (Auto) 0.1 x10^3/uL (0.0-0.2) 03/21/22 06:40 Baso # (Auto) 0.1 X10^3/uL (0.0-0.1) 03/21/22 06:40 Absolute Nucleated RBC 0.1 /100WBC 03/21/22 06:40 Total Counted 100 03/20/22 05:31 Neutrophils % (Manual) 83 % (39-76) H 03/20/22 05:31 Band Neutrophils % 8 % (0-10) 03/18/22 08:00 Lymphocytes % (Manual) 10 % (13-43) L 03/20/22 05:31 Monocytes % (Manual) 7 % (4-9) 03/20/22 05:31 Atypical Lymphocytes Few A 03/20/22 05:31 Plt Morphology Comment Normal (NORMAL) 03/20/22 05:31 RBC Morphology Abnormal (NORMAL) A 03/20/22 05:31 Target Cells 1+ A 03/20/22 05:31 Sodium 138 mmol/L (136-145) 03/21/22 06:40 Corrected Sodium 138 mmol/L (136-145) 03/21/22 06:40 Potassium 3.5 mmol/L (3.5-5.1) 03/21/22 06:40 Chloride 103 mmol/L (98-107) 03/21/22 06:40 Carbon Dioxide 21.8 mmol/L (21-32) 03/21/22 06:40 BUN 21 mg/dL (7-18) H 03/21/22 06:40 Creatinine 1.00 mg/dL (0.55-1.02) 03/21/22 06:40 Est GFR (MDRD) Af Amer > 60 (>60) 03/21/22 06:40 Est GFR (MDRD) Non-Af 57 (>60) L 03/21/22 06:40 Glucose 114 mg/dL (65-99) H 03/21/22 06:40 POC Glucose (mg/dL) 165 mg/dL (65-99) H 03/19/22 20:04 Calcium 7.7 mg/dL (8.5-10.1) L 03/21/22 06:40 Corrected Calcium 9.5 mg/dL (8.5-10.1) 03/21/22 06:40 Magnesium 2.4 mg/dL (1.7-2.9) 03/20/22 05:31 Total Bilirubin 0.40 mg/dL (0.2-1.0) 03/21/22 06:40 AST 28 Units/L (15-37) 03/21/22 06:40 ALT 12 Units/L (12-78) 03/21/22 06:40 Alkaline Phosphatase 122 Units/L (46-116) H 03/21/22 06:40 Creatine Kinase 27 Units/L (26-192) 03/18/22 08:00 Troponin I High Sens 154.9 ng/L (4.0-60.0) H* 03/21/22 00:00 Total Protein 6.4 g/dL (6.4-8.2) 03/21/22 06:40 Albumin 1.7 g/dL (3.4-5.0) L 03/21/22 06:40 Globulin 4.7 g/dL (2.5-4.5) H 03/21/22 06:40 Albumin/Globulin Ratio 0.4 Ratio (1.1-2.1) L 03/21/22 06:40 SARS-CoV-2 (PCR) Negative (NEGATIVE) 03/18/22 08:00 Influenza Type A (PCR) Negative (NEGATIVE) 03/18/22 08:00 Influenza Type B (PCR) Negative (NEGATIVE) 03/18/22 08:00 RSV (PCR) Negative (NEGATIVE) 03/18/22 08:00 Resp Viral Panel (PCR) See scanned report 03/18/22 12:04 Plan (1) Pneumonia: Status: Acute Qualifiers: Laterality: right Lung location: upper lobe of lung Pneumonia type: due to unspecified organism Qualified Code(s): J18.9 - Pneumonia, unspecified organism Plan: NORMAL SALINE AT 75 ML/HR, AZITHROMYCIN 500MG IV DAILY, ZOSYN 3.375G IV TID, XOPENEX NEB TX Q6H, PULMICORT NEB TX BID, LOVENOX 30MG SC BID, ZOFRAN 4MG IV Q6H PRN, CARDIZEM 180MG PO DAILY, LOPRESSOR 50MG PO BID, DIGOXIN 0.125MG PO DAILY, AND HER HOME MEDICATIONS WERE RESUMED. (2) Neutrophilic leukocytosis: Status: Acute (3) Generalized weakness: Status: Acute
--- NOTE | 2022-03-22 07:13 | RAD ---
HISTORYSOBSTUDYAP chestCOMPARISONOct2021FINDINGSStable heart size with clear left lung. There is persistent airspace disease in the right upper lobe partly obscured by overlying anatomic structures. There is no additional involvement elsewhere, developing pleural effusion or pneumothorax.IMPRESSIONNo definite change identified since 1 day prior.Electronically signed by: ABDULKADIR RUTHERFORD (Mar 22, 2022 07:12:39)
[2022-03-22] MEDS: PULMICORT NEB TX 0.5 MG NEB SCH ×2 (08:05→20:57)
[2022-03-22] MEDS: CARDIZEM CD 180 MG 24-HR PO SCH (09:39)
[2022-03-22] MEDS: LOPRESSOR TAB 50 MG PO SCH ×2 (09:39→20:57)
[2022-03-22] MEDS: ASPIRIN PO SCH (09:39)
[2022-03-22] MEDS: LANOXIN or DIGITEK PO SCH (09:39)
[2022-03-22] MEDS: ZITHROMAX INJ 500 MG VIAL 500 MG in NS 250 ML IV 250 ML IV SCH (09:40)
[2022-03-22] MEDS: VSL#3 PO SCH (09:40)
[2022-03-22] MEDS: HYDROCHLOROTHIAZIDE 12.5 MG CAP PO SCH (09:40)
[2022-03-22] MEDS: LOVENOX INJ 30 MG SYR SC SCH ×2 (09:47→20:57)
[2022-03-22] MEDS ORDERED: BUTT CREAM (COMPOUND) ONE (10:11)
[2022-03-22] MEDS: BUTT CREAM (COMPOUND) TOP PRN (10:48)
[2022-03-22] MEDS: CRESTOR TAB 10 MG PO SCH (20:56)
[2022-03-23] MEDS: XOPENEX 1.25 MG/3 ML NEBULE NEB SCH ×4 (00:50→16:56)
[2022-03-23] MEDS: ZOSYN VIAL 3.375 GRAMS 3.375 G in NS 100 ML IV 100 ML IV SCH ×3 (05:38→21:42)
[2022-03-23] MEDS: NS 1,000 ML IV 1,000 ML IV SCH ×2 (05:45→23:37)
[2022-03-23 06:00] LABS: BASOPHILS # (AUTO) 0.2 X10^3/uL (0.0-0.1); BASOPHILS % (AUTO) 1.3 % (0.2-1.0); EOSINOPHILS # (AUTO) 0.2 x10^3/uL (0.0-0.2); EOSINOPHILS % (AUTO) 1.4 % (0.9-2.9); HEMATOCRIT 34.3 % (36.0-47.0); HEMOGLOBIN 11.8 g/dL (12.0-16.0); LYMPHOCYTES # (AUTO) 1.7 X10^3/uL (1.3-2.9); LYMPHOCYTES % (AUTO) 12.2 % (21.0-51.0); MEAN CORPUSCULAR HEMOGLOBIN 30.1 pg (27.0-34.0); MEAN CORPUSCULAR HGB CONC 34.3 g/dL (33.0-35.0); MEAN CORPUSCULAR VOLUME 87.9 fL (80.0-100.0); MEAN PLATELET VOLUME 10.2 fL (7.4-11.0); MONOCYTES # (AUTO) 1.4 x10^3/uL (0.3-0.8); NEUTROPHILS # (AUTO) 10.3 x10^3/uL (2.2-4.8); NEUTROPHILS % (AUTO) 75.1 % (42.0-75.0); RED CELL DISTRIBUTION WIDTH 14.7 % (11.6-16.5); WHITE BLOOD COUNT 13.7 X10^3/uL (3.6-10.0)
[2022-03-23 06:16] LABS: ALANINE AMINOTRANSFERASE 27 Units/L (12-78); ALBUMIN 1.7 g/dL (3.4-5.0); ALKALINE PHOSPHATASE 132 Units/L (46-116); ASPARTATE AMINO TRANSFERASE 43 Units/L (15-37); BLOOD UREA NITROGEN 17 mg/dL (7-18); CALCIUM 7.9 mg/dL (8.5-10.1); CHLORIDE 104 mmol/L (98-107); COR CA(FOR HYPOALB) 9.7 mg/dL (8.5-10.1); CREATININE 0.89 mg/dL (0.55-1.02); SODIUM 138 mmol/L (136-145); TOTAL PROTEIN 6.6 g/dL (6.4-8.2); eGFR NON BLACK RACES > 60 (>60)
[2022-03-23 06:17] LABS: GIANT PLATELET FEW; PLATELET MORPHOLOGY COMMENT ABNORMAL (NORMAL)
[2022-03-23 06:18] LABS: TARGET CELLS SLIGHT
--- NOTE | 2022-03-23 08:09 | RAD ---
HISTORYRUL PNEUMONIA; SOBSTUDYCHEST, 1 [id number]/17/2022.TECHNIQUEAP view of the chestFINDINGSThe cardiac and mediastinal contours appear stable. Similar appearing right upper lobe airspace opacity with internal lucency. Blunted costophrenic sulci. No pneumothorax.IMPRESSIONNo significant change compared to prior radiograph. Blunted costophrenic sulci can be seen with small pleural effusions or pleuro-parynchemal scarring. Right upper lobe opacity likely cavitary pneumonia.Electronically signed by: Lawrence Campbell (Mar 23, 2022 08:08:24)
[2022-03-23] MEDS: ZITHROMAX INJ 500 MG VIAL 500 MG in NS 250 ML IV 250 ML IV SCH (08:39)
[2022-03-23] MEDS: LOVENOX INJ 30 MG SYR SC SCH ×2 (08:39→21:41)
[2022-03-23] MEDS: LOPRESSOR TAB 50 MG PO SCH ×3 (08:40→21:42)
[2022-03-23] MEDS: LANOXIN or DIGITEK PO SCH (08:40)
[2022-03-23] MEDS: VSL#3 PO SCH (08:40)
[2022-03-23] MEDS: CARDIZEM CD 180 MG 24-HR PO SCH (08:40)
[2022-03-23] MEDS: HYDROCHLOROTHIAZIDE 12.5 MG CAP PO SCH (08:40)
[2022-03-23] MEDS: ASPIRIN PO SCH (08:40)
--- NOTE | 2022-03-23 09:01 | PCM.PROG ---
Progress Note Progress Note for Day of Date of Exam: 03/22/22 Subjective Subjective: Pt is a 81 year old female past medical history Atrial Fibrillation, Hypertension, admitted for pneumonia. This morning she is resting comfortably in bed, her cough and shortness of breath has improved from yesterday. She is requiring 3L nasal cannula supplemental oxygen (BL~2L). She still reports feeling very weak. No acute events overnight. Labs/imaging: Wbc 17.7, Hgb 11.9, Plt 195, Na 138, K 3.5, Creatinine 1.00, Glucose 114, Blood culture NGTD. CXR was obtained: Stable heart size with clear left lung. There is persistent airspace disease in the right upper lobe partly obscured by overlying anatomic structures. Pt is currently on IVF NS@75ml/h, antibiotics: IV Zosyn q8h, IV Azithromycin, Bronchodilators, supplemental oxygen. Home medications have been resumed. Wean/titrate oxygen as tolerated. Will have physical therapy evaluate and work with patient. Start on daily probiotics. Otherwise, will continue with current treatment plan. Continue to closely monitor and follow up labs/imaging. Past Medical Family Social History Past Med/Fam/Surg Hx: No changes since H&P Allergies: Allergies ciprofloxacin Allergy (Severe, Verified 03/15/21 13:58) CARDIOVASCULAR COMPLICATIONS patient has flushing and cardiovascular complications including bijeminy and freq pvcs celecoxib [From Celebrex] Allergy (Unknown, Verified 03/06/21 10:53) codeine Allergy (Unknown, Verified 03/06/21 10:53) diphenhydramine [From Benadryl] Allergy (Unknown, Verified 03/06/21 10:53) levofloxacin [From Levaquin] Allergy (Unknown, Verified 03/06/21 10:53) DAUGHTER STATES WEB DEVELOPMENT MANAGER TOLD PT. TO NOT TAKE IT BECAUSE OF HER HEART AND A-FIB Sulfa (Sulfonamide Antibiotics) [SULFA] Allergy (Unknown, Verified 03/06/21 10:53) sulfamethoxazole [From Bactrim] Allergy (Unknown, Verified 03/06/21 10:53) trimethoprim [From Bactrim] Allergy (Unknown, Verified 03/06/21 10:53) Review of Systems ROS changes noted: See HPI Vital Signs and I&O's Vital Signs: Temperature 98.5 F Pulse Rate [Right Radial] 79 Pulse Rate 91 Respiratory Rate 18 Blood Pressure [Right Arm] 131/60 Blood Pressure 122/66 O2 Sat by Pulse Oximetry 93 Intake and Output: Intake & Output 03/20/22 03/21/22 03/22/22 03/23/22 23:59 23:59 23:59 23:59 Intake Total 1995 1652 / 1652 1466 / 1466 582 / 582 Balance 1995 1652 / 1652 1466 / 1466 582 / 582 Physical Exam Oriented: Normal Eyes: Normal Ear: Normal Nose: Normal Throat: Normal Respiratory: Generalized and Diminished Cardiovascular: Normal : Normal Auscultation: Bowel Sounds: Normal Palpation: Normal Tenderness: Normal Skin: Normal Musculoskeletal: Normal Psychiatric: Normal Mood Description: Calm and Appropriate Affect: Normal Speech Pattern: Clear and Appropriate Laboratory and Diagnostics Result Diagrams: 03/23/22 05:27 03/23/22 05:27 Labs: 03/18/22 10:00 Blood Blood Culture - Preliminary 03/18/22 09:59 Blood Blood Culture - Preliminary Laboratory WBC 13.7 X10^3/uL (3.6-10.0) H 03/23/22 05:27 RBC 3.90 X10^6/uL (3.5-5.4) 03/23/22 05:27 Hgb 11.8 g/dL (12.0-16.0) L 03/23/22 05:27 Hct 34.3 % (36.0-47.0) L 03/23/22 05:27 MCV 87.9 fL (80.0-100.0) 03/23/22 05:27 MCH 30.1 pg (27.0-34.0) 03/23/22 05:27 MCHC 34.3 g/dL (33.0-35.0) 03/23/22 05:27 RDW 14.7 % (11.6-16.5) 03/23/22 05:27 Plt Count 289 X10^3/uL (150.0-450.0) 03/23/22 05:27 Plt Count Comment Adequate (ADEQUATE) 03/23/22 05:27 MPV 10.2 fL (7.4-11.0) 03/23/22 05:27 Neut % (Auto) 75.1 % (42.0-75.0) H 03/23/22 05:27 Lymph % (Auto) 12.2 % (21.0-51.0) L 03/23/22 05:27 [place] % (Auto) 10.0 % (0.0-13.0) 03/23/22 05:27 Eos % (Auto) 1.4 % (0.9-2.9) 03/23/22 05:27 Baso % (Auto) 1.3 % (0.2-1.0) H 03/23/22 05:27 Neut # (Auto) 10.3 x10^3/uL (2.2-4.8) H 03/23/22 05:27 Lymph # (Auto) 1.7 X10^3/uL (1.3-2.9) 03/23/22 05:27 [place] # (Auto) 1.4 x10^3/uL (0.3-0.8) H 03/23/22 05:27 Eos # (Auto) 0.2 x10^3/uL (0.0-0.2) 03/23/22 05:27 Baso # (Auto) 0.2 X10^3/uL (0.0-0.1) H 03/23/22 05:27 Absolute Nucleated RBC 0.1 /100WBC 03/23/22 05:27 Total Counted 100 03/20/22 05:31 Neutrophils % (Manual) 83 % (39-76) H 03/20/22 05:31 Band Neutrophils % 8 % (0-10) 03/18/22 08:00 Lymphocytes % (Manual) 10 % (13-43) L 03/20/22 05:31 Monocytes % (Manual) 7 % (4-9) 03/20/22 05:31 Atypical Lymphocytes Few A 03/20/22 05:31 Giant Platelets Few 03/23/22 05:27 Plt Morphology Comment Abnormal (NORMAL) A 03/23/22 05:27 RBC Morphology Abnormal (NORMAL) A 03/23/22 05:27 Target Cells Slight A 03/23/22 05:27 Sodium 138 mmol/L (136-145) 03/23/22 05:27 Corrected Sodium TNP 03/23/22 05:27 Potassium 3.3 mmol/L (3.5-5.1) L 03/23/22 05:27 Chloride 104 mmol/L (98-107) 03/23/22 05:27 Carbon Dioxide 24.0 mmol/L (21-32) 03/23/22 05:27 BUN 17 mg/dL (7-18) 03/23/22 05:27 Creatinine 0.89 mg/dL (0.55-1.02) 03/23/22 05:27 Est GFR (MDRD) Af Amer > 60 (>60) 03/23/22 05:27 Est GFR (MDRD) Non-Af > 60 (>60) 03/23/22 05:27 Glucose 100 mg/dL (65-99) H 03/23/22 05:27 POC Glucose (mg/dL) 165 mg/dL (65-99) H 03/19/22 20:04 Calcium 7.9 mg/dL (8.5-10.1) L 03/23/22 05:27 Corrected Calcium 9.7 mg/dL (8.5-10.1) 03/23/22 05:27 Magnesium 1.9 mg/dL (1.7-2.9) 03/23/22 05:27 Total Bilirubin 0.40 mg/dL (0.2-1.0) 03/23/22 05:27 AST 43 Units/L (15-37) H 03/23/22 05:27 ALT 27 Units/L (12-78) 03/23/22 05:27 Alkaline Phosphatase 132 Units/L (46-116) H 03/23/22 05:27 Creatine Kinase 27 Units/L (26-192) 03/18/22 08:00 Troponin I High Sens 154.9 ng/L (4.0-60.0) H* 03/21/22 00:00 Total Protein 6.6 g/dL (6.4-8.2) 03/23/22 05:27 Albumin 1.7 g/dL (3.4-5.0) L 03/23/22 05:27 Globulin 4.9 g/dL (2.5-4.5) H 03/23/22 05:27 Albumin/Globulin Ratio 0.3 Ratio (1.1-2.1) L 03/23/22 05:27 SARS-CoV-2 (PCR) Negative (NEGATIVE) 03/18/22 08:00 Influenza Type A (PCR) Negative (NEGATIVE) 03/18/22 08:00 Influenza Type B (PCR) Negative (NEGATIVE) 03/18/22 08:00 RSV (PCR) Negative (NEGATIVE) 03/18/22 08:00 Resp Viral Panel (PCR) See scanned report 03/18/22 12:04 Plan (1) Pneumonia: Status: Acute Qualifiers: Laterality: right Lung location: upper lobe of lung Pneumonia type: due to unspecified organism Qualified Code(s): J18.9 - Pneumonia, unspecified organism Plan: NORMAL SALINE AT 75 ML/HR, AZITHROMYCIN 500MG IV DAILY, ZOSYN 3.375G IV TID, XOPENEX NEB [place] Q6H, PULMICORT NEB TX BID, LOVENOX 30MG SC BID, ZOFRAN 4MG IV Q6H PRN, CARDIZEM 180MG PO DAILY, LOPRESSOR 50MG PO BID, DIGOXIN 0.125MG PO DAILY, AND HER HOME MEDICATIONS WERE RESUMED. (2) Neutrophilic leukocytosis: Status: Acute (3) Generalized weakness: Status: Acute
[2022-03-23] MEDS: PULMICORT NEB TX 0.5 MG NEB SCH ×2 (09:38→20:54)
--- NOTE | 2022-03-23 09:40 | PCM.PROG ---
Progress Note Progress Note for Day of Date of Exam: 03/23/22 Subjective Subjective: Pt is a 81 year old female past medical history Atrial Fibrillation, Hypertension, admitted for pneumonia. This morning she is resting comfortably in bed eating breakfast. She is requiring 3L nasal cannula supplemental oxygen (BL~2L). She reports her atrial fibrillation makes her feel fatigue, she prefers when her heart rate is in the 60s-70s range. No acute events overnight. Labs/imaging: Wbc 13.7, Hgb 11.8, Plt 289, Na 138, K 3.3, Creatinine 0.89, Glucose 100, Blood culture NGTD. CXR was obtained: No significant change compared to prior radiograph. Blunted costophrenic sulci can be seen with small pleural effusions or pleuro-parynchemal scarring. Right upper lobe opacity likely cavitary pneumonia. Pt is currently on IVF NS@75ml/h, antibiotics: IV Zosyn q8h, IV Azithromycin, Bronchodilators, supplemental oxygen, PT, Probiotics. Home medications have been resumed. Wean/titrate oxygen as tolerated. Will change rate of IVF to KVO, order PPD and sputum culture due to imaging findings. Leukocytosis trending down. Will change metoprolol tart to TID dosing for rate control since patient was on that before and felt better. Consult cardiology for evaluation. Evaluate patient for physical rehab. Otherwise, will continue with current treatment plan. Continue to closely monitor and follow up labs/imaging. Past Medical Family Social History Past Med/Fam/Surg Hx: No changes since H&P Allergies: Allergies ciprofloxacin Allergy (Severe, Verified 03/15/21 13:58) CARDIOVASCULAR COMPLICATIONS patient has flushing and cardiovascular complications including bijeminy and freq pvcs celecoxib [From Celebrex] Allergy (Unknown, Verified 03/06/21 10:53) codeine Allergy (Unknown, Verified 03/06/21 10:53) diphenhydramine [From Benadryl] Allergy (Unknown, Verified 03/06/21 10:53) levofloxacin [From Levaquin] Allergy (Unknown, Verified 03/06/21 10:53) DAUGHTER STATES FACSIMILE OPERATOR TOLD PT. TO NOT TAKE IT BECAUSE OF HER HEART AND A-FIB Sulfa (Sulfonamide Antibiotics) [SULFA] Allergy (Unknown, Verified 03/06/21 10:53) sulfamethoxazole [From Bactrim] Allergy (Unknown, Verified 03/06/21 10:53) trimethoprim [From Bactrim] Allergy (Unknown, Verified 03/06/21 10:53) Review of Systems ROS: No change since H&P Vital Signs and I&O's Vital Signs: Temperature 98.5 F Pulse Rate [Right Radial] 79 Pulse Rate 91 Respiratory Rate 18 Blood Pressure [Right Arm] 131/60 Blood Pressure 122/66 O2 Sat by Pulse Oximetry 93 Intake and Output: Intake & Output 03/20/22 03/21/22 03/22/22 03/23/22 23:59 23:59 23:59 23:59 Intake Total 1995 1652 / 1652 1466 / 1466 582 / 582 Balance 1995 165 / 1652 1466 / 1466 582 / 582 Physical Exam Oriented: Normal Eyes: Normal Ear: Normal Nose: Normal Throat: Normal Respiratory: Generalized and Diminished Cardiovascular: Normal : Normal Auscultation: Bowel Sounds: Normal Tenderness: Normal Skin: Normal Musculoskeletal: Normal Psychiatric: Normal Mood Description: Calm and Appropriate Affect: Normal Speech Pattern: Clear and Appropriate Laboratory and Diagnostics Result Diagrams: 03/24/22 05:45 03/23/22 05:27 Labs: 03/18/22 10:00 Blood Blood Culture - Preliminary 03/18/22 09:59 Blood Blood Culture - Preliminary Laboratory WBC 13.7 X10^3/uL (3.6-10.0) H 03/23/22 05:27 RBC 3.90 X10^6/uL (3.5-5.4) 03/23/22 05:27 Hgb 11.8 g/dL (12.0-16.0) L 03/23/22 05:27 Hct 34.3 % (36.0-47.0) L 03/23/22 05:27 MCV 87.9 fL (80.0-100.0) 03/23/22 05:27 MCH 30.1 pg (27.0-34.0) 03/23/22 05:27 MCHC 34.3 g/dL (33.0-35.0) 03/23/22 05:27 RDW 14.7 % (11.6-16.5) 03/23/22 05:27 Plt Count 289 X10^3/uL (150.0-450.0) 03/23/22 05:27 Plt Count Comment Adequate (ADEQUATE) 03/23/22 05:27 MPV 10.2 fL (7.4-11.0) 03/23/22 05:27 Neut % (Auto) 75.1 % (42.0-75.0) H 03/23/22 05:27 Lymph % (Auto) 12.2 % (21.0-51.0) L 03/23/22 05:27 [place] % (Auto) 10.0 % (0.0-13.0) 03/23/22 05:27 Eos % (Auto) 1.4 % (0.9-2.9) 03/23/22 05:27 Baso % (Auto) 1.3 % (0.2-1.0) H 03/23/22 05:27 Neut # (Auto) 10.3 x10^3/uL (2.2-4.8) H 03/23/22 05:27 Lymph # (Auto) 1.7 X10^3/uL (1.3-2.9) 03/23/22 05:27 [place] # (Auto) 1.4 x10^3/uL (0.3-0.8) H 03/23/22 05:27 Eos # (Auto) 0.2 x10^3/uL (0.0-0.2) 03/23/22 05:27 Baso # (Auto) 0.2 X10^3/uL (0.0-0.1) H 03/23/22 05:27 Absolute Nucleated RBC 0.1 /100WBC 03/23/22 05:27 Total Counted 100 03/20/22 05:31 Neutrophils % (Manual) 83 % (39-76) H 03/20/22 05:31 Band Neutrophils % 8 % (0-10) 03/18/22 08:00 Lymphocytes % (Manual) 10 % (13-43) L 03/20/22 05:31 Monocytes % (Manual) 7 % (4-9) 03/20/22 05:31 Atypical Lymphocytes Few A 03/20/22 05:31 Giant Platelets Few 03/23/22 05:27 Plt Morphology Comment Abnormal (NORMAL) A 03/23/22 05:27 RBC Morphology Abnormal (NORMAL) A 03/23/22 05:27 Target Cells Slight A 03/23/22 05:27 Sodium 138 mmol/L (136-145) 03/23/22 05:27 Corrected Sodium TNP 03/23/22 05:27 Potassium 3.3 mmol/L (3.5-5.1) L 03/23/22 05:27 Chloride 104 mmol/L (98-107) 03/23/22 05:27 Carbon Dioxide 24.0 mmol/L (21-32) 03/23/22 05:27 BUN 17 mg/dL (7-18) 03/23/22 05:27 Creatinine 0.89 mg/dL (0.55-1.02) 03/23/22 05:27 Est GFR (MDRD) Af Amer > 60 (>60) 03/23/22 05:27 Est GFR (MDRD) Non-Af > 60 (>60) 03/23/22 05:27 Glucose 100 mg/dL (65-99) H 03/23/22 05:27 POC Glucose (mg/dL) 165 mg/dL (65-99) H 03/19/22 20:04 Calcium 7.9 mg/dL (8.5-10.1) L 03/23/22 05:27 Corrected Calcium 9.7 mg/dL (8.5-10.1) 03/23/22 05:27 Magnesium 1.9 mg/dL (1.7-2.9) 03/23/22 05:27 Total Bilirubin 0.40 mg/dL (0.2-1.0) 03/23/22 05:27 AST 43 Units/L (15-37) H 03/23/22 05:27 ALT 27 Units/L (12-78) 03/23/22 05:27 Alkaline Phosphatase 132 Units/L (46-116) H 03/23/22 05:27 Creatine Kinase 27 Units/L (26-192) 03/18/22 08:00 Troponin I High Sens 154.9 ng/L (4.0-60.0) H* 03/21/22 00:00 Total Protein 6.6 g/dL (6.4-8.2) 03/23/22 05:27 Albumin 1.7 g/dL (3.4-5.0) L 03/23/22 05:27 Globulin 4.9 g/dL (2.5-4.5) H 03/23/22 05:27 Albumin/Globulin Ratio 0.3 Ratio (1.1-2.1) L 03/23/22 05:27 SARS-CoV-2 (PCR) Negative (NEGATIVE) 03/18/22 08:00 Influenza Type A (PCR) Negative (NEGATIVE) 03/18/22 08:00 Influenza Type B (PCR) Negative (NEGATIVE) 03/18/22 08:00 RSV (PCR) Negative (NEGATIVE) 03/18/22 08:00 Resp Viral Panel (PCR) See scanned report 03/18/22 12:04 Plan (1) Pneumonia: Status: Acute Qualifiers: Laterality: right Lung location: upper lobe of lung Pneumonia type: due to unspecified organism Qualified Code(s): J18.9 - Pneumonia, unspecified organism Plan: NORMAL SALINE @KVO ML/HR, AZITHROMYCIN 500MG IV DAILY, ZOSYN 3.375G IV TID, XOPENEX NEB TX Q6H, PULMICORT NEB TX BID, LOVENOX 30MG SC BID, ZOFRAN 4MG IV Q6H PRN, CARDIZEM 180MG PO DAILY, LOPRESSOR 50MG PO TID, DIGOXIN 0.125MG PO DAILY, AND HER HOME MEDICATIONS WERE RESUMED. (2) Neutrophilic leukocytosis: Status: Acute (3) Generalized weakness: Status: Acute
[2022-03-23] MEDS: CRESTOR TAB 10 MG PO SCH (21:40)
[2022-03-23] MEDS: KLOR-CON PO PRN (21:42)
[2022-03-23] MEDS: ZOFRAN INJ 4 MG VIAL IVP PRN (23:53)
[2022-03-24] MEDS: XOPENEX 1.25 MG/3 ML NEBULE NEB SCH ×4 (00:30→17:04)
[2022-03-24] MEDS: MAGNESIUM SULFATE 1 GRAM/100 mL PREMIX 1 G/100 ML BAG IV PRN ×2 (01:18→02:30)
[2022-03-24] MEDS: LOPRESSOR TAB 50 MG PO SCH ×3 (06:07→21:09)
[2022-03-24] MEDS: ZOSYN VIAL 3.375 GRAMS 3.375 G in NS 100 ML IV 100 ML IV SCH ×3 (06:07→22:21)
[2022-03-24 06:40] LABS: BASOPHILS # (AUTO) 0.1 X10^3/uL (0.0-0.1); BASOPHILS % (AUTO) 0.5 % (0.2-1.0); EOSINOPHILS # (AUTO) 0.2 x10^3/uL (0.0-0.2); EOSINOPHILS % (AUTO) 1.2 % (0.9-2.9); HEMATOCRIT 35.5 % (36.0-47.0); HEMOGLOBIN 12.2 g/dL (12.0-16.0); LYMPHOCYTES # (AUTO) 1.7 X10^3/uL (1.3-2.9); MEAN CORPUSCULAR HEMOGLOBIN 30.4 pg (27.0-34.0); MEAN CORPUSCULAR HGB CONC 34.3 g/dL (33.0-35.0); MEAN CORPUSCULAR VOLUME 88.7 fL (80.0-100.0); MEAN PLATELET VOLUME 10.4 fL (7.4-11.0); MONOCYTES # (AUTO) 1.2 x10^3/uL (0.3-0.8); MONOCYTES % (AUTO) 7.3 % (0.0-13.0); NEUTROPHILS # (AUTO) 12.6 x10^3/uL (2.2-4.8); RED CELL DISTRIBUTION WIDTH 14.6 % (11.6-16.5); WHITE BLOOD COUNT 15.7 X10^3/uL (3.6-10.0)
[2022-03-24 06:46] LABS: BLOOD UREA NITROGEN 17 mg/dL (7-18); eGFR NON BLACK RACES > 60 (>60)
[2022-03-24 07:23] LABS: ALANINE AMINOTRANSFERASE 25 Units/L (12-78); ALBUMIN 1.6 g/dL (3.4-5.0); ALKALINE PHOSPHATASE 121 Units/L (46-116); ASPARTATE AMINO TRANSFERASE 31 Units/L (15-37); CARBON DIOXIDE 26.8 mmol/L (21-32); CHLORIDE 104 mmol/L (98-107); COR CA(FOR HYPOALB) 9.9 mg/dL (8.5-10.1); CREATININE 0.92 mg/dL (0.55-1.02); SODIUM 137 mmol/L (136-145); TOTAL PROTEIN 6.1 g/dL (6.4-8.2)
--- NOTE | 2022-03-24 07:43 | RAD ---
HISTORYPneumonia, shortness of breathSTUDYChest AP tinaoxyaRHKRUVNDEG10/18/2022FINDINGSThe heart remains enlarged. No congestive heart failure is identified. There is persistent abnormal parenchymal density in the right lung apex central to which there is cavitation. This likely represents cavitary pneumonia. TB not excluded. Cavitary neoplasm also not excluded. Remainder of the lung tripp are clear. No definite pleural effusions are identified. Bony thorax is unremarkable.IMPRESSIONNo change cavitary infiltrate right lung apex which could be bacterial, granulomatous, or neoplastic in origin.No change cardiomegaly without congestive heart failureElectronically signed by: TIFFANY IVERSON (Mar 24, 2022 07:41:17)
[2022-03-24] MEDS: PULMICORT NEB TX 0.5 MG NEB SCH ×2 (08:05→20:05)
[2022-03-24] MEDS ORDERED: APLISOL ID ONE (08:10)
[2022-03-24] MEDS: LOVENOX INJ 30 MG SYR SC SCH ×2 (08:52→20:42)
[2022-03-24] MEDS: HYDROCHLOROTHIAZIDE 12.5 MG CAP PO SCH (08:53)
[2022-03-24] MEDS: ASPIRIN PO SCH (08:53)
[2022-03-24] MEDS: CARDIZEM CD 180 MG 24-HR PO SCH (08:53)
[2022-03-24] MEDS: LANOXIN or DIGITEK PO SCH (08:53)
[2022-03-24] MEDS: ZITHROMAX INJ 500 MG VIAL 500 MG in NS 250 ML IV 250 ML IV SCH (08:53)
[2022-03-24] MEDS: VSL#3 PO SCH (08:57)
--- NOTE | 2022-03-24 13:00 | PCM.PROG ---
Progress Note Progress Note for Day of Date of Exam: 03/24/22 Subjective Subjective: Pt is a 81 year old female past medical history Atrial Fibrillation, Hypertension, admitted for pneumonia. This morning she is resting in bed. She continues to require 3L nasal cannula supplemental oxygen (BL~2L). She reports her atrial fibrillation makes her feel fatigue, she prefers when her heart rate is in the 60s-70s range. No acute events overnight. Labs/imaging: Wbc 15.7, Hgb 12.2, Plt 347, Na 137, K 3.6, Creatinine 0.92, Glucose 102, Respiratory panel positive for Pseudomonas aur. Blood culture NGTD. Pt is currently on IVF NS@KVO, antibiotics: IV Zosyn q8h, IV Azithromycin, Bronchodilators, supplemental oxygen, PT, Probiotics. Home medications have been resumed. Wean/titrate oxygen as tolerated. Discontinue Azithromycin. PPD and sputum culture ordered due to imaging findings. Cardiology consulted for evaluation. Evaluate patient for physical rehab. Otherwise, will continue with current treatment plan. Continue to closely monitor and follow up labs/imaging. Past Medical Family Social History Past Med/Fam/Surg Hx: No changes since H&P Allergies: Allergies ciprofloxacin Allergy (Severe, Verified 03/15/21 13:58) CARDIOVASCULAR COMPLICATIONS patient has flushing and cardiovascular complications including bijeminy and freq pvcs celecoxib [From Celebrex] Allergy (Unknown, Verified 03/06/21 10:53) codeine Allergy (Unknown, Verified 03/06/21 10:53) diphenhydramine [From Benadryl] Allergy (Unknown, Verified 03/06/21 10:53) levofloxacin [From Levaquin] Allergy (Unknown, Verified 03/06/21 10:53) DAUGHTER STATES MARKETING ANALYTICS MANAGER TOLD PT. TO NOT TAKE IT BECAUSE OF HER HEART AND A-FIB Sulfa (Sulfonamide Antibiotics) [SULFA] Allergy (Unknown, Verified 03/06/21 10 :53) sulfamethoxazole [From Bactrim] Allergy (Unknown, Verified 03/06/21 10:53) trimethoprim [From Bactrim] Allergy (Unknown, Verified 03/06/21 10:53) Review of Systems ROS: No change since H&P Vital Signs and I&O's Vital Signs: Temperature 98.6 F Pulse Rate [Right Radial] 71 Pulse Rate 70 Respiratory Rate 20 Blood Pressure [Right Arm] 130/63 Blood Pressure 122/66 O2 Sat by Pulse Oximetry 91 Intake and Output: Intake & Output 03/21/22 03/22/22 03/23/22 03/24/22 23:59 23:59 23:59 23:59 Intake Total 1652 / 1652 1466 / 1466 817 / 817 120 / 120 Output Total 765 / 765 Balance 1652 / 1652 1466 / 1466 817 / 817 -645 / -645 Physical Exam Oriented: Normal Eyes: Normal Ear: Normal Nose: Normal Throat: Normal Respiratory: Generalized and Diminished Cardiovascular: Normal : Normal Auscultation: Bowel Sounds: Normal Tenderness: Normal Skin: Normal Musculoskeletal: Normal Psychiatric: Normal Mood Description: Calm and Appropriate Affect: Normal Speech Pattern: Clear and Appropriate Laboratory and Diagnostics Result Diagrams: 03/24/22 05:45 03/24/22 05:45 Labs: 03/18/22 10:00 Blood Blood Culture - Final 03/18/22 09:59 Blood Blood Culture - Final Laboratory WBC 15.7 X10^3/uL (3.6-10.0) H 03/24/22 05:45 RBC 4.00 X10^6/uL (3.5-5.4) 03/24/22 05:45 Hgb 12.2 g/dL (12.0-16.0) 03/24/22 05:45 Hct 35.5 % (36.0-47.0) L 03/24/22 05:45 MCV 88.7 fL (80.0-100.0) 03/24/22 05:45 MCH 30.4 pg (27.0-34.0) 03/24/22 05:45 MCHC 34.3 g/dL (33.0-35.0) 03/24/22 05:45 RDW 14.6 % (11.6-16.5) 03/24/22 05:45 Plt Count 347 X10^3/uL (150.0-450.0) 03/24/22 05:45 Plt Count Comment Adequate (ADEQUATE) 03/23/22 05:27 MPV 10.4 fL (7.4-11.0) 03/24/22 05:45 Neut % (Auto) 80.0 % (42.0-75.0) H 03/24/22 05:45 Lymph % (Auto) 11.0 % (21.0-51.0) L 03/24/22 05:45 [place] % (Auto) 7.3 % (0.0-13.0) 03/24/22 05:45 Eos % (Auto) 1.2 % (0.9-2.9) 03/24/22 05:45 Baso % (Auto) 0.5 % (0.2-1.0) 03/24/22 05:45 Neut # (Auto) 12.6 x10^3/uL (2.2-4.8) H 03/24/22 05:45 Lymph # (Auto) 1.7 X10^3/uL (1.3-2.9) 03/24/22 05:45 [place] # (Auto) 1.2 x10^3/uL (0.3-0.8) H 03/24/22 05:45 Eos # (Auto) 0.2 x10^3/uL (0.0-0.2) 03/24/22 05:45 Baso # (Auto) 0.1 X10^3/uL (0.0-0.1) 03/24/22 05:45 Absolute Nucleated RBC 0.2 /100WBC 03/24/22 05:45 Total Counted 100 03/20/22 05:31 Neutrophils % (Manual) 83 % (39-76) H 03/20/22 05:31 Band Neutrophils % 8 % (0-10) 03/18/22 08:00 Lymphocytes % (Manual) 10 % (13-43) L 03/20/22 05:31 Monocytes % (Manual) 7 % (4-9) 03/20/22 05:31 Atypical Lymphocytes Few A 03/20/22 05:31 Giant Platelets Few 03/23/22 05:27 Plt Morphology Comment Abnormal (NORMAL) A 03/23/22 05:27 RBC Morphology Abnormal (NORMAL) A 03/23/22 05:27 Target Cells Slight A 03/23/22 05:27 Sodium 137 mmol/L (136-145) 03/24/22 05:45 Corrected Sodium TNP 03/24/22 05:45 Potassium 3.6 mmol/L (3.5-5.1) 03/24/22 05:45 Chloride 104 mmol/L (98-107) 03/24/22 05:45 Carbon Dioxide 26.8 mmol/L (21-32) 03/24/22 05:45 BUN 17 mg/dL (7-18) 03/24/22 05:45 Creatinine 0.92 mg/dL (0.55-1.02) 03/24/22 05:45 Est GFR (MDRD) Af Amer > 60 (>60) 03/24/22 05:45 Est GFR (MDRD) Non-Af > 60 (>60) 03/24/22 05:45 Glucose 102 mg/dL (65-99) H 03/24/22 05:45 POC Glucose (mg/dL) 165 mg/dL (65-99) H 03/19/22 20:04 Calcium 8.0 mg/dL (8.5-10.1) L 03/24/22 05:45 Corrected Calcium 9.9 mg/dL (8.5-10.1) 03/24/22 05:45 Magnesium 2.4 mg/dL (1.7-2.9) 03/24/22 05:45 Total Bilirubin 0.30 mg/dL (0.2-1.0) 03/24/22 05:45 AST 31 Units/L (15-37) 03/24/22 05:45 ALT 25 Units/L (12-78) 03/24/22 05:45 Alkaline Phosphatase 121 Units/L (46-116) H 03/24/22 05:45 Creatine Kinase 27 Units/L (26-192) 03/18/22 08:00 Troponin I High Sens 154.9 ng/L (4.0-60.0) H* 03/21/22 00:00 Total Protein 6.1 g/dL (6.4-8.2) L 03/24/22 05:45 Albumin 1.6 g/dL (3.4-5.0) L 03/24/22 05:45 Globulin 4.5 g/dL (2.5-4.5) 03/24/22 05:45 Albumin/Globulin Ratio 0.4 Ratio (1.1-2.1) L 03/24/22 05:45 SARS-CoV-2 (PCR) Negative (NEGATIVE) 03/18/22 08:00 Influenza Type A (PCR) Negative (NEGATIVE) 03/18/22 08:00 Influenza Type B (PCR) Negative (NEGATIVE) 03/18/22 08:00 RSV (PCR) Negative (NEGATIVE) 03/18/22 08:00 Resp Viral Panel (PCR) See scanned report 03/18/22 12:04 Plan (1) Pneumonia: Status: Acute Qualifiers: Laterality: right Lung location: upper lobe of lung Pneumonia type: due to unspecified organism Qualified Code(s): J18.9 - Pneumonia, unspecified organism Plan: NORMAL SALINE @KVO ML/HR, AZITHROMYCIN 500MG IV DAILY, ZOSYN 3.375G IV TID, XOPENEX NEB TX Q6H, PULMICORT NEB TX BID, LOVENOX 30MG SC BID, ZOFRAN 4MG IV Q6H PRN, CARDIZEM 180MG PO DAILY, LOPRESSOR 50MG PO TID, DIGOXIN 0.125MG PO DAILY, AND HER HOME MEDICATIONS WERE RESUMED. (2) Neutrophilic leukocytosis: Status: Acute (3) Generalized weakness: Status: Acute
--- NOTE | 2022-03-24 17:53 | RAD ---
EXAM: CHEST X-RAYHISTORY: Verification of PICC line position status post PICC placement.TECHNIQUE: AP chest x-ray dated March 24, 2022 at 5:21 PMCOMPARISON: CXR dated March 24, 2022 at 5:41 AM.FINDINGS:There is a right upper extremity PICC line with the distal tip in the expected location of the SVC (adequate position). Recommend careful clinical correlation to ensure venous blood return.There is cardiomegaly. There is a large right upper lobe consolidative lung parenchymal infiltrate in keeping with acute pneumonia in the appropriate clinical setting. There is no gross pleural effusion, or pneumothorax seen. The visualized bony structures are within normal limits.IMPRESSION:1. Right upper extremity PICC line with the distal tip in the expected location of the SVC (adequate position). Recommend careful clinical correlation to ensure venous blood return.2. Stable large right upper lobe lung parenchymal infiltrate in keeping with acute pneumonia.Electronically signed by: Maine Dias (Mar 24, 2022 17:52:00)
--- NOTE | 2022-03-24 18:01 | DR.UPDATE ---
H&P Update H&P Reviewed: Yes Any changes to H&P?: No Patient was examined?: Yes Procedures (ALL) - Central Line Placement PCM.CLCO: written consent Time out performed: Yes Patient placed pm monitor/pulse ox: Yes MD prep: mask, gown, gloves, other Centrial line prep: chlorhexidine scrub, sterile drapes applied Local anesthsia used: lidocane 1% Ultrasound used for placement: Yes (attemped L. basilic. picc placed right brachial. cannulation visualized) Central line lumen ininserted: double (5.5fr arrowpicc) Post procedure: good blood return, all ports aspirated, flushed,capped, sterile dressing applied Post procedure xray: tip oc catheter in good position (SVC), no pneumothorax seen Patient tolerated procedure: Yes Complications: none
[2022-03-24] MEDS: CRESTOR TAB 10 MG PO SCH (20:41)
[2022-03-25] MEDS: XOPENEX 1.25 MG/3 ML NEBULE NEB SCH ×4 (00:15→17:16)
[2022-03-25] MEDS: NS 1,000 ML IV 1,000 ML IV SCH ×2 (00:59→14:08)
[2022-03-25] MEDS: ZOFRAN INJ 4 MG VIAL IVP PRN (01:14)
[2022-03-25] MEDS: ZOSYN VIAL 3.375 GRAMS 3.375 G in NS 100 ML IV 100 ML IV SCH ×3 (05:03→21:46)
[2022-03-25] MEDS: LOPRESSOR TAB 50 MG PO SCH ×3 (05:03→21:31)
[2022-03-25 06:28] LABS: BASOPHILS % (AUTO) 0.3 % (0.2-1.0); EOSINOPHILS # (AUTO) 0.2 x10^3/uL (0.0-0.2); EOSINOPHILS % (AUTO) 1.6 % (0.9-2.9); HEMATOCRIT 31.3 % (36.0-47.0); HEMOGLOBIN 10.8 g/dL (12.0-16.0); LYMPHOCYTES # (AUTO) 1.5 X10^3/uL (1.3-2.9); LYMPHOCYTES % (AUTO) 11.2 % (21.0-51.0); MEAN CORPUSCULAR HEMOGLOBIN 30.1 pg (27.0-34.0); MEAN CORPUSCULAR HGB CONC 34.5 g/dL (33.0-35.0); MEAN CORPUSCULAR VOLUME 87.4 fL (80.0-100.0); MEAN PLATELET VOLUME 9.7 fL (7.4-11.0); MONOCYTES # (AUTO) 1.2 x10^3/uL (0.3-0.8); MONOCYTES % (AUTO) 8.9 % (0.0-13.0); NEUTROPHILS # (AUTO) 10.7 x10^3/uL (2.2-4.8); RED BLOOD COUNT 3.58 X10^6/uL (3.5-5.4); RED CELL DISTRIBUTION WIDTH 14.4 % (11.6-16.5); WHITE BLOOD COUNT 13.7 X10^3/uL (3.6-10.0)
[2022-03-25 06:42] LABS: ALANINE AMINOTRANSFERASE 20 Units/L (12-78); ALBUMIN 1.5 g/dL (3.4-5.0); ALKALINE PHOSPHATASE 110 Units/L (46-116); ASPARTATE AMINO TRANSFERASE 21 Units/L (15-37); BLOOD UREA NITROGEN 14 mg/dL (7-18); CALCIUM 7.7 mg/dL (8.5-10.1); CARBON DIOXIDE 28.4 mmol/L (21-32); CHLORIDE 106 mmol/L (98-107); COR CA(FOR HYPOALB) 9.7 mg/dL (8.5-10.1); CREATININE 0.83 mg/dL (0.55-1.02); SODIUM 140 mmol/L (136-145); eGFR NON BLACK RACES > 60 (>60)
--- NOTE | 2022-03-25 08:20 | RAD ---
HISTORYFollow-up right upper lobe pneumoniaSTUDYChest AP [id number]/19/2022FINDINGSTher e is a right-sided PICC line with its tip in the expected position of the superior vena cava. The heart is enlarged. No congestive heart failure is noted. No significant change in the right upper lobe alveolar infiltrate with what appears to be central cavitation. Remainder of the lung tripp appear clear. Bony thorax is unremarkable.IMPRESSIONNo change cavitary right upper lobe infiltrateNo change cardiomegaly without congestive heart failureElectronically signed by: TIFFANY IVERSON (Mar 25, 2022 08:18:34)
[2022-03-25] MEDS: PULMICORT NEB TX 0.5 MG NEB SCH ×2 (08:49→20:45)
[2022-03-25] MEDS: LANOXIN or DIGITEK PO SCH (09:34)
[2022-03-25] MEDS: ASPIRIN PO SCH (09:34)
[2022-03-25] MEDS: HYDROCHLOROTHIAZIDE 12.5 MG CAP PO SCH (09:34)
[2022-03-25] MEDS: VSL#3 PO SCH (09:35)
[2022-03-25] MEDS: CARDIZEM CD 180 MG 24-HR PO SCH (09:35)
[2022-03-25] MEDS: LOVENOX INJ 30 MG SYR SC SCH ×2 (09:35→21:30)
[2022-03-25 13:51] VITALS: BMI 33.1
[2022-03-25] MEDS: CRESTOR TAB 10 MG PO SCH (21:31)
[2022-03-26] MEDS: K-RIDER 10 MEQ/NS 100 ML 10 MEQ/100 ML BAG IV PRN ×3 (01:28→04:12)
[2022-03-26] MEDS: BUTT CREAM (COMPOUND) TOP PRN (04:14)
[2022-03-26] MEDS: NS 1,000 ML IV 1,000 ML IV SCH ×3 (04:16→17:09)
[2022-03-26] MEDS: LOPRESSOR TAB 50 MG PO SCH (05:00)
[2022-03-26] MEDS: ZOSYN VIAL 3.375 GRAMS 3.375 G in NS 100 ML IV 100 ML IV SCH (05:00)
[2022-03-26] MEDS: XOPENEX 1.25 MG/3 ML NEBULE NEB SCH ×4 (05:15→17:27)
[2022-03-26 06:47] LABS: BASOPHILS % (AUTO) 0.3 % (0.2-1.0); EOSINOPHILS # (AUTO) 0.1 x10^3/uL (0.0-0.2); HEMOGLOBIN 10.4 g/dL (12.0-16.0); LYMPHOCYTES # (AUTO) 1.2 X10^3/uL (1.3-2.9); MEAN CORPUSCULAR HEMOGLOBIN 30.6 pg (27.0-34.0); MEAN CORPUSCULAR HGB CONC 34.8 g/dL (33.0-35.0); MEAN CORPUSCULAR VOLUME 88.1 fL (80.0-100.0); MEAN PLATELET VOLUME 9.7 fL (7.4-11.0); MONOCYTES # (AUTO) 1.1 x10^3/uL (0.3-0.8); MONOCYTES % (AUTO) 7.9 % (0.0-13.0); NEUTROPHILS # (AUTO) 11.3 x10^3/uL (2.2-4.8); NEUTROPHILS % (AUTO) 81.8 % (42.0-75.0); RED CELL DISTRIBUTION WIDTH 14.2 % (11.6-16.5); WHITE BLOOD COUNT 13.8 X10^3/uL (3.6-10.0)
[2022-03-26 07:11] LABS: ALANINE AMINOTRANSFERASE 16 Units/L (12-78); ALBUMIN 1.5 g/dL (3.4-5.0); ALKALINE PHOSPHATASE 99 Units/L (46-116); ASPARTATE AMINO TRANSFERASE 20 Units/L (15-37); BLOOD UREA NITROGEN 11 mg/dL (7-18); CALCIUM 7.6 mg/dL (8.5-10.1); CARBON DIOXIDE 27.5 mmol/L (21-32); CHLORIDE 108 mmol/L (98-107); COR CA(FOR HYPOALB) 9.6 mg/dL (8.5-10.1); CREATININE 0.76 mg/dL (0.55-1.02); SODIUM 143 mmol/L (136-145); eGFR NON BLACK RACES > 60 (>60)
[2022-03-26] MEDS: PULMICORT NEB TX 0.5 MG NEB SCH ×2 (08:55→20:50)
[2022-03-26] MEDS: ASPIRIN PO SCH (09:30)
[2022-03-26] MEDS: HYDROCHLOROTHIAZIDE 12.5 MG CAP PO SCH (09:30)
[2022-03-26] MEDS: VSL#3 PO SCH (09:30)
[2022-03-26] MEDS: POTASSIUM CHLORIDE LIQ 20 MEQ UDC PO PRN (09:32)
[2022-03-26] MEDS: ELIQUIS PO SCH ×2 (09:41→21:07)
[2022-03-26] MEDS ORDERED: CARDIZEM CD 120 MG 24-HR PO SCH (10:00)
[2022-03-26] MEDS ORDERED: CIPRO IV 400 MG PREMIX* 400 MG/200 ML IV.SOLN. IV SCH (10:00)
[2022-03-26] MEDS: MERREM VIAL 1 G in NS 100 ML IV 100 ML IV SCH ×2 (13:36→21:09)
--- NOTE | 2022-03-26 13:37 | PCM.PROG ---
Progress Note Progress Note for Day of Date of Exam: 03/25/22 Subjective Subjective: Pt is a 81 year old female past medical history Atrial Fibrillation, Hypertension, admitted for pneumonia. This morning she is resting in bed. She continues to require 3L nasal cannula supplemental oxygen (BL~2L). She does have Pseudomonas aeruginosa positive sputum culture and has been on Zosyn. Her white blood cell count has slowly been trending down so we will keep her on it in the meantime. She does not voice any new complaints today. And had no acute problems last night. Past Medical Family Social History Past Med/Fam/Surg Hx: No changes since H&P Allergies: Allergies ciprofloxacin Allergy (Severe, Verified 03/15/21 13:58) CARDIOVASCULAR COMPLICATIONS patient has flushing and cardiovascular complications including bijeminy and freq pvcs celecoxib [From Celebrex] Allergy (Unknown, Verified 03/06/21 10:53) codeine Allergy (Unknown, Verified 03/06/21 10:53) diphenhydramine [From Benadryl] Allergy (Unknown, Verified 03/06/21 10:53) levofloxacin [From Levaquin] Allergy (Unknown, Verified 03/06/21 10:53) DAUGHTER STATES NURSERYPERSON TOLD PT. TO NOT TAKE IT BECAUSE OF HER HEART AND A-FIB Sulfa (Sulfonamide Antibiotics) [SULFA] Allergy (Unknown, Verified 03/06/21 10:53) sulfamethoxazole [From Bactrim] Allergy (Unknown, Verified 03/06/21 10:53) trimethoprim [From Bactrim] Allergy (Unknown, Verified 03/06/21 10:53) Review of Systems ROS: No change since H&P Vital Signs and I&O's Vital Signs: Temperature 97.8 F Pulse Rate [Right Radial] 78 Pulse Rate 62 Respiratory Rate 18 Blood Pressure [Right Arm] 141/76 Blood Pressure 122/66 O2 Sat by Pulse Oximetry 94 Intake and Output: Intake & Output 03/24/22 03/25/22 03/26/22 03/27/22 11:59 11:59 11:59 11:59 Intake Total 355 / 355 1700 / 1700 1480 / 1480 Output Total 765 / 765 Balance -410 / -410 1700 / 1700 1480 / 1480 Physical Exam Oriented: Normal Eyes: Normal Ear: Normal Nose: Normal Throat: Normal Respiratory: Generalized and Diminished Cardiovascular: Normal : Normal Auscultation: Bowel Sounds: Normal Tenderness: Normal Skin: Normal Musculoskeletal: Normal Psychiatric: Normal Mood Description: Calm and Appropriate Affect: Normal Speech Pattern: Clear and Appropriate Laboratory and Diagnostics Result Diagrams: 03/26/22 06:12 03/26/22 13:05 Labs: 03/18/22 10:00 Blood Blood Culture - Final 03/18/22 09:59 Blood Blood Culture - Final Laboratory WBC 13.8 X10^3/uL (3.6-10.0) H 03/26/22 06:12 RBC 3.40 X10^6/uL (3.5-5.4) L 03/26/22 06:12 Hgb 10.4 g/dL (12.0-16.0) L 03/26/22 06:12 Hct 30.0 % (36.0-47.0) L 03/26/22 06:12 MCV 88.1 fL (80.0-100.0) 03/26/22 06:12 MCH 30.6 pg (27.0-34.0) 03/26/22 06:12 MCHC 34.8 g/dL (33.0-35.0) 03/26/22 06:12 RDW 14.2 % (11.6-16.5) 03/26/22 06:12 Plt Count 321 X10^3/uL (150.0-450.0) 03/26/22 06:12 Plt Count Comment Adequate (ADEQUATE) 03/23/22 05:27 MPV 9.7 fL (7.4-11.0) 03/26/22 06:12 Neut % (Auto) 81.8 % (42.0-75.0) H 03/26/22 06:12 Lymph % (Auto) 9.0 % (21.0-51.0) L 03/26/22 06:12 [place] % (Auto) 7.9 % (0.0-13.0) 03/26/22 06:12 Eos % (Auto) 1.0 % (0.9-2.9) 03/26/22 06:12 Baso % (Auto) 0.3 % (0.2-1.0) 03/26/22 06:12 Neut # (Auto) 11.3 x10^3/uL (2.2-4.8) H 03/26/22 06:12 Lymph # (Auto) 1.2 X10^3/uL (1.3-2.9) L 03/26/22 06:12 [place] # (Auto) 1.1 x10^3/uL (0.3-0.8) H 03/26/22 06:12 Eos # (Auto) 0.1 x10^3/uL (0.0-0.2) 03/26/22 06:12 Baso # (Auto) 0.0 X10^3/uL (0.0-0.1) 03/26/22 06:12 Absolute Nucleated RBC 0.1 /100WBC 03/26/22 06:12 Total Counted 100 03/20/22 05:31 Neutrophils % (Manual) 83 % (39-76) H 03/20/22 05:31 Band Neutrophils % 8 % (0-10) 03/18/22 08:00 Lymphocytes % (Manual) 10 % (13-43) L 03/20/22 05:31 Monocytes % (Manual) 7 % (4-9) 03/20/22 05:31 Atypical Lymphocytes Few A 03/20/22 05:31 Giant Platelets Few 03/23/22 05:27 Plt Morphology Comment Abnormal (NORMAL) A 03/23/22 05:27 RBC Morphology Abnormal (NORMAL) A 03/23/22 05:27 Target Cells Slight A 03/23/22 05:27 Sodium 143 mmol/L (136-145) 03/26/22 06:12 Corrected Sodium TNP 03/26/22 06:12 Potassium 4.1 mmol/L (3.5-5.1) 03/26/22 13:05 Chloride 108 mmol/L (98-107) H 03/26/22 06:12 Carbon Dioxide 27.5 mmol/L (21-32) 03/26/22 06:12 BUN 11 mg/dL (7-18) 03/26/22 06:12 Creatinine 0.76 mg/dL (0.55-1.02) 03/26/22 06:12 Est GFR (MDRD) Af Amer > 60 (>60) 03/26/22 06:12 Est GFR (MDRD) Non-Af > 60 (>60) 03/26/22 06:12 Glucose 94 mg/dL (65-99) 03/26/22 06:12 POC Glucose (mg/dL) 165 mg/dL (65-99) H 03/19/22 20:04 Calcium 7.6 mg/dL (8.5-10.1) L 03/26/22 06:12 Corrected Calcium 9.6 mg/dL (8.5-10.1) 03/26/22 06:12 Magnesium 2.4 mg/dL (1.7-2.9) 03/24/22 05:45 Total Bilirubin 0.30 mg/dL (0.2-1.0) 03/26/22 06:12 AST 20 Units/L (15-37) 03/26/22 06:12 ALT 16 Units/L (12-78) 03/26/22 06:12 Alkaline Phosphatase 99 Units/L (46-116) 03/26/22 06:12 Creatine Kinase 27 Units/L (26-192) 03/18/22 08:00 Troponin I High Sens 154.9 ng/L (4.0-60.0) H* 03/21/22 00:00 Total Protein 6.0 g/dL (6.4-8.2) L 03/26/22 06:12 Albumin 1.5 g/dL (3.4-5.0) L 03/26/22 06:12 Globulin 4.5 g/dL (2.5-4.5) 03/26/22 06:12 Albumin/Globulin Ratio 0.3 Ratio (1.1-2.1) L 03/26/22 06:12 SARS-CoV-2 (PCR) Negative (NEGATIVE) 03/18/22 08:00 Influenza Type A (PCR) Negative (NEGATIVE) 03/18/22 08:00 Influenza Type B (PCR) Negative (NEGATIVE) 03/18/22 08:00 RSV (PCR) Negative (NEGATIVE) 03/18/22 08:00 Resp Viral Panel (PCR) See scanned report 03/18/22 12:04 SARS CoV-2 RNA Rapid SACHI Negative (NEGATIVE) 03/26/22 11:30 Radiology Reviewed: Yes Plan (1) Pneumonia: Status: Acute Qualifiers: Laterality: right Lung location: upper lobe of lung Pneumonia type: due to unspecified organism Qualified Code(s): J18.9 - Pneumonia, unspecified organism Plan: NORMAL SALINE @KVO ML/HR, AZITHROMYCIN 500MG IV DAILY, ZOSYN 3.375G IV TID, XOPENEX NEB TX Q6H, PULMICORT NEB TX BID, LOVENOX 30MG SC BID, ZOFRAN 4MG IV Q6H PRN, CARDIZEM 180MG PO DAILY, LOPRESSOR 50MG PO TID, DIGOXIN 0.125MG PO DAILY, AND HER HOME MEDICATIONS WERE RESUMED. (2) Neutrophilic leukocytosis: Status: Acute (3) Generalized weakness: Status: Acute
--- NOTE | 2022-03-26 13:41 | PCM.PROG ---
Progress Note Progress Note for Day of Date of Exam: 03/26/22 Subjective Subjective: Pt is a 81 year old female past medical history Atrial Fibrillation, Hypertension, admitted for pneumonia. This morning she is resting in bed. She continues to require 3L nasal cannula supplemental oxygen (BL~2L). She does have Pseudomonas aeruginosa positive sputum culture and has been on Zosyn. Her white blood cell count has not improved any since yesterday. I will DC the Zosyn and change her over to meropenem to get better coverage. Her chest x-ray yesterday showed showing a right upper lobe cavitary infiltrate. PPD was done and has been read as negative at this time. She does have acid-fast stains pending and are not back yet. I will stop her Zosyn since she is not having any improvement in her white blood cell count and put her on meropenem today. We are arranging for her to go to [facility] and they are ready to accept her but given she still has an elevated white count and not much improvement in her chest x-ray we will continue with the IV meropenem through the weekend and see if she is ready for discharge and transfer to [facility] for inpatient rehab. Past Medical Family Social History Past Med/Fam/Surg Hx: No changes since H&P Allergies: Allergies ciprofloxacin Allergy (Severe, Verified 03/15/21 13:58) CARDIOVASCULAR COMPLICATIONS patient has flushing and cardiovascular complications including bijeminy and freq pvcs celecoxib [From Celebrex] Allergy (Unknown, Verified 03/06/21 10:53) codeine Allergy (Unknown, Verified 03/06/21 10:53) diphenhydramine [From Benadryl] Allergy (Unknown, Verified 03/06/21 10:53) levofloxacin [From Levaquin] Allergy (Unknown, Verified 03/06/21 10:53) DAUGHTER STATES ORNAMENT SETTER TOLD PT. TO NOT TAKE IT BECAUSE OF HER HEART AND A-FIB Sulfa (Sulfonamide Antibiotics) [SULFA] Allergy (Unknown, Verified 03/06/21 10:53) sulfamethoxazole [From Bactrim] Allergy (Unknown, Verified 03/06/21 10:53) trimethoprim [From Bactrim] Allergy (Unknown, Verified 03/06/21 10:53) Review of Systems ROS: No change since H&P Vital Signs and I&O's Vital Signs: Temperature 97.8 F Pulse Rate [Right Radial] 78 Pulse Rate 62 Respiratory Rate 18 Blood Pressure [Right Arm] 141/76 Blood Pressure 122/66 O2 Sat by Pulse Oximetry 94 Intake and Output: Intake & Output 03/24/22 03/25/22 03/26/22 03/27/22 11:59 11:59 11:59 11:59 Intake Total 355 / 355 1700 / 1700 1480 / 1480 Output Total 765 / 765 Balance -410 / -410 1700 / 1700 1480 / 1480 Physical Exam Oriented: Normal Eyes: Normal Ear: Normal Nose: Normal Throat: Normal Respiratory: Generalized and Diminished Cardiovascular: Normal : Normal Auscultation: Bowel Sounds: Normal Tenderness: Normal Skin: Normal Musculoskeletal: Normal Psychiatric: Normal Mood Description: Calm and Appropriate Affect: Normal Speech Pattern: Clear and Appropriate Laboratory and Diagnostics Result Diagrams: 03/26/22 06:12 03/26/22 13:05 Labs: 03/18/22 10:00 Blood Blood Culture - Final 03/18/22 09:59 Blood Blood Culture - Final Laboratory WBC 13.8 X10^3/uL (3.6-10.0) H 03/26/22 06:12 RBC 3.40 X10^6/uL (3.5-5.4) L 03/26/22 06:12 Hgb 10.4 g/dL (12.0-16.0) L 03/26/22 06:12 Hct 30.0 % (36.0-47.0) L 03/26/22 06:12 MCV 88.1 fL (80.0-100.0) 03/26/22 06:12 MCH 30.6 pg (27.0-34.0) 03/26/22 06:12 MCHC 34.8 g/dL (33.0-35.0) 03/26/22 06:12 RDW 14.2 % (11.6-16.5) 03/26/22 06:12 Plt Count 321 X10^3/uL (150.0-450.0) 03/26/22 06:12 Plt Count Comment Adequate (ADEQUATE) 03/23/22 05:27 MPV 9.7 fL (7.4-11.0) 03/26/22 06:12 Neut % (Auto) 81.8 % (42.0-75.0) H 03/26/22 06:12 Lymph % (Auto) 9.0 % (21.0-51.0) L 03/26/22 06:12 [place] % (Auto) 7.9 % (0.0-13.0) 03/26/22 06:12 Eos % (Auto) 1.0 % (0.9-2.9) 03/26/22 06:12 Baso % (Auto) 0.3 % (0.2-1.0) 03/26/22 06:12 Neut # (Auto) 11.3 x10^3/uL (2.2-4.8) H 03/26/22 06:12 Lymph # (Auto) 1.2 X10^3/uL (1.3-2.9) L 03/26/22 06:12 [place] # (Auto) 1.1 x10^3/uL (0.3-0.8) H 03/26/22 06:12 Eos # (Auto) 0.1 x10^3/uL (0.0-0.2) 03/26/22 06:12 Baso # (Auto) 0.0 X10^3/uL (0.0-0.1) 03/26/22 06:12 Absolute Nucleated RBC 0.1 /100WBC 03/26/22 06:12 Total Counted 100 03/20/22 05:31 Neutrophils % (Manual) 83 % (39-76) H 03/20/22 05:31 Band Neutrophils % 8 % (0-10) 03/18/22 08:00 Lymphocytes % (Manual) 10 % (13-43) L 03/20/22 05:31 Monocytes % (Manual) 7 % (4-9) 03/20/22 05:31 Atypical Lymphocytes Few A 03/20/22 05:31 Giant Platelets Few 03/23/22 05:27 Plt Morphology Comment Abnormal (NORMAL) A 03/23/22 05:27 RBC Morphology Abnormal (NORMAL) A 03/23/22 05:27 Target Cells Slight A 03/23/22 05:27 Sodium 143 mmol/L (136-145) 03/26/22 06:12 Corrected Sodium TNP 03/26/22 06:12 Potassium 4.1 mmol/L (3.5-5.1) 03/26/22 13:05 Chloride 108 mmol/L (98-107) H 03/26/22 06:12 Carbon Dioxide 27.5 mmol/L (21-32) 03/26/22 06:12 BUN 11 mg/dL (7-18) 03/26/22 06:12 Creatinine 0.76 mg/dL (0.55-1.02) 03/26/22 06:12 Est GFR (MDRD) Af Amer > 60 (>60) 03/26/22 06:12 Est GFR (MDRD) Non-Af > 60 (>60) 03/26/22 06:12 Glucose 94 mg/dL (65-99) 03/26/22 06:12 POC Glucose (mg/dL) 165 mg/dL (65-99) H 03/19/22 20:04 Calcium 7.6 mg/dL (8.5-10.1) L 03/26/22 06:12 Corrected Calcium 9.6 mg/dL (8.5-10.1) 03/26/22 06:12 Magnesium 2.4 mg/dL (1.7-2.9) 03/24/22 05:45 Total Bilirubin 0.30 mg/dL (0.2-1.0) 03/26/22 06:12 AST 20 Units/L (15-37) 03/26/22 06:12 ALT 16 Units/L (12-78) 03/26/22 06:12 Alkaline Phosphatase 99 Units/L (46-116) 03/26/22 06:12 Creatine Kinase 27 Units/L (26-192) 03/18/22 08:00 Troponin I High Sens 154.9 ng/L (4.0-60.0) H* 03/21/22 00:00 Total Protein 6.0 g/dL (6.4-8.2) L 03/26/22 06:12 Albumin 1.5 g/dL (3.4-5.0) L 03/26/22 06:12 Globulin 4.5 g/dL (2.5-4.5) 03/26/22 06:12 Albumin/Globulin Ratio 0.3 Ratio (1.1-2.1) L 03/26/22 06:12 SARS-CoV-2 (PCR) Negative (NEGATIVE) 03/18/22 08:00 Influenza Type A (PCR) Negative (NEGATIVE) 03/18/22 08:00 Influenza Type B (PCR) Negative (NEGATIVE) 03/18/22 08:00 RSV (PCR) Negative (NEGATIVE) 03/18/22 08:00 Resp Viral Panel (PCR) See scanned report 03/18/22 12:04 SARS CoV-2 RNA Rapid SACHI Negative (NEGATIVE) 03/26/22 11:30 Plan (1) Pneumonia: Status: Acute Qualifiers: Laterality: right Lung location: upper lobe of lung Pneumonia type: due to unspecified organism Qualified Code(s): J18.9 - Pneumonia, unspecified organism Plan: I will DC Zosyn today and started on IV meropenem. Repeat chest x- ray in the morning along with routine labs. (2) Neutrophilic leukocytosis: Status: Acute (3) Generalized weakness: Status: Acute Plan: Patient will be discharged next week to [facility] once her Pseudomonas pneumonia is improved. This should take place early next week. (4) Atrial fibrillation with rapid ventricular response: Status: Acute Plan: We will put the patient on Eliquis 5 mg p.o. twice daily and stop her digoxin. We will also change her to Lopressor 50 mg twice daily and continue her Cardizem 180 mg daily at recommendations per cardiology, Dr. Simpson.
--- NOTE | 2022-03-26 16:37 | RAD ---
HISTORYRIGHT UPPER LOBE PNEUMONIASTUDYCHEST, 1 [id number]/2022FINDINGSThe lungs are not well inflated. As a result, there are hypoventilatory changes.Focal abnormal opacity in the right apex may be cavitated. Other focal areas of opacity in the right midlung and the right lateral lower lung are present. These are new but could be due to the poor degree of inflation. Differential diagnosis includes pneumonia.Left lung clear but with small left effusion.The heart size is magnified.Degenerative changes are present in the spine. [EKG leads are noted. A right peripherally inserted central catheter is present with the tip in the expected location of the superior vena cava. Surgical clips are in the upper left abdomen.]IMPRESSION1. New right middle and lower lobe atelectasis or pneumonia2. Stable cavitation right apex3. Small left effusionElectronically signed by: Kirby Guzman (Mar 26, 2022 16:36:02)
[2022-03-26] MEDS ORDERED: LOPRESSOR TAB 25 MG PO SCH (21:00)
[2022-03-26] MEDS: CRESTOR TAB 10 MG PO SCH (21:08)
[2022-03-26] MEDS: LOPRESSOR TAB 25 MG PO SCH (21:09)
[2022-03-26] MEDS ORDERED: CANDIDA ALBICANS SKIN TEST ID ONE (23:44)
[2022-03-27] MEDS: MERREM VIAL 1 G in NS 100 ML IV 100 ML IV SCH ×3 (05:24→21:05)
[2022-03-27] MEDS: NS 1,000 ML IV 1,000 ML IV SCH ×3 (05:51→21:05)
[2022-03-27] MEDS: XOPENEX 1.25 MG/3 ML NEBULE NEB SCH ×4 (06:00→17:00)
[2022-03-27 06:09] LABS: BASOPHILS % (AUTO) 0.2 % (0.2-1.0); EOSINOPHILS # (AUTO) 0.2 x10^3/uL (0.0-0.2); HEMATOCRIT 30.2 % (36.0-47.0); HEMOGLOBIN 10.4 g/dL (12.0-16.0); LYMPHOCYTES # (AUTO) 1.5 X10^3/uL (1.3-2.9); LYMPHOCYTES % (AUTO) 10.3 % (21.0-51.0); MEAN CORPUSCULAR HEMOGLOBIN 30.2 pg (27.0-34.0); MEAN CORPUSCULAR HGB CONC 34.5 g/dL (33.0-35.0); MEAN CORPUSCULAR VOLUME 87.6 fL (80.0-100.0); MEAN PLATELET VOLUME 9.6 fL (7.4-11.0); MONOCYTES # (AUTO) 1.2 x10^3/uL (0.3-0.8); MONOCYTES % (AUTO) 8.2 % (0.0-13.0); NEUTROPHILS # (AUTO) 11.7 x10^3/uL (2.2-4.8); NEUTROPHILS % (AUTO) 80.3 % (42.0-75.0); RED BLOOD COUNT 3.45 X10^6/uL (3.5-5.4); RED CELL DISTRIBUTION WIDTH 14.6 % (11.6-16.5); WHITE BLOOD COUNT 14.6 X10^3/uL (3.6-10.0)
[2022-03-27 06:17] LABS: ALANINE AMINOTRANSFERASE 14 Units/L (12-78); ALBUMIN 1.6 g/dL (3.4-5.0); ALKALINE PHOSPHATASE 95 Units/L (46-116); ASPARTATE AMINO TRANSFERASE 19 Units/L (15-37); BLOOD UREA NITROGEN 8 mg/dL (7-18); CALCIUM 7.9 mg/dL (8.5-10.1); CARBON DIOXIDE 30.9 mmol/L (21-32); CHLORIDE 108 mmol/L (98-107); COR CA(FOR HYPOALB) 9.8 mg/dL (8.5-10.1); CREATININE 0.73 mg/dL (0.55-1.02); SODIUM 145 mmol/L (136-145); eGFR NON BLACK RACES > 60 (>60)
[2022-03-27] MEDS: LOVENOX INJ 30 MG SYR SC SCH (07:14)
[2022-03-27] MEDS: CARDIZEM CD 180 MG 24-HR PO SCH ×2 (07:14→10:55)
[2022-03-27] MEDS: LANOXIN or DIGITEK PO SCH (07:15)
--- NOTE | 2022-03-27 08:11 | RAD ---
HISTORYPNEUMONIA HX: HTN, MVP, A-FIB SX: CABGSTUDYCHEST, 1 VIEWCOMPARISONChest radiograph dated March 26, 2022.FINDINGSThe trachea is midline. The cardiac silhouette is enlarged. Unchanged right apical cavitary parenchymal disease is again seen. This may be infectious, inflammatory, or malignant in nature. No other cardiopulmonary changes are seen. There is a stable right PICC line.IMPRESSIONStable chest without acute changes.Electronically signed by: ISAIAS KHAN III (Mar 27, 2022 08:09:16)
[2022-03-27] MEDS: PULMICORT NEB TX 0.5 MG NEB SCH ×2 (08:35→20:45)
[2022-03-27] MEDS: POTASSIUM CHLORIDE LIQ 20 MEQ UDC PO PRN (08:49)
[2022-03-27] MEDS: ASPIRIN PO SCH (08:50)
[2022-03-27] MEDS: VSL#3 PO SCH (08:50)
[2022-03-27] MEDS: HYDROCHLOROTHIAZIDE 12.5 MG CAP PO SCH (08:50)
[2022-03-27] MEDS: ELIQUIS PO SCH ×2 (08:50→20:12)
[2022-03-27] MEDS: LOPRESSOR TAB 25 MG PO SCH ×2 (08:51→20:12)
[2022-03-27] MEDS: MOBIC TAB 15 MG PO PRN (09:00)
[2022-03-27] MEDS ORDERED: CARDIZEM CD 120 MG 24-HR PO SCH (09:00)
[2022-03-27] MEDS ORDERED: LASIX PO ONE (09:28)
[2022-03-27] MEDS ORDERED: NYSTATIN OINT TOP SCH (09:30)
[2022-03-27] MEDS: TYLENOL 325 MG TAB PO PRN (17:58)
[2022-03-27] MEDS: CRESTOR TAB 10 MG PO SCH (20:12)
[2022-03-28] MEDS: XOPENEX 1.25 MG/3 ML NEBULE NEB SCH ×5 (00:15→17:05)
[2022-03-28] MEDS: MERREM VIAL 1 G in NS 100 ML IV 100 ML IV SCH ×3 (05:25→21:00)
[2022-03-28 06:12] LABS: BASOPHILS % (AUTO) 0 % (0.2-1.0); EOSINOPHILS # (AUTO) 0.2 x10^3/uL (0.0-0.2); EOSINOPHILS % (AUTO) 1.4 % (0.9-2.9); HEMATOCRIT 29.1 % (36.0-47.0); HEMOGLOBIN 10.1 g/dL (12.0-16.0); LYMPHOCYTES # (AUTO) 1.5 X10^3/uL (1.3-2.9); LYMPHOCYTES % (AUTO) 12.6 % (21.0-51.0); MEAN CORPUSCULAR HEMOGLOBIN 30.2 pg (27.0-34.0); MEAN CORPUSCULAR HGB CONC 34.5 g/dL (33.0-35.0); MEAN CORPUSCULAR VOLUME 87.5 fL (80.0-100.0); MEAN PLATELET VOLUME 9.1 fL (7.4-11.0); MONOCYTES # (AUTO) 0.9 x10^3/uL (0.3-0.8); MONOCYTES % (AUTO) 7.3 % (0.0-13.0); NEUTROPHILS # (AUTO) 9.4 x10^3/uL (2.2-4.8); NEUTROPHILS % (AUTO) 78.7 % (42.0-75.0); RED BLOOD COUNT 3.33 X10^6/uL (3.5-5.4); RED CELL DISTRIBUTION WIDTH 14.3 % (11.6-16.5); WHITE BLOOD COUNT 11.9 X10^3/uL (3.6-10.0)
[2022-03-28 06:26] LABS: ALANINE AMINOTRANSFERASE 15 Units/L (12-78); ALBUMIN 1.6 g/dL (3.4-5.0); ALKALINE PHOSPHATASE 87 Units/L (46-116); ASPARTATE AMINO TRANSFERASE 21 Units/L (15-37); BLOOD UREA NITROGEN 8 mg/dL (7-18); CALCIUM 7.8 mg/dL (8.5-10.1); CARBON DIOXIDE 31.4 mmol/L (21-32); CHLORIDE 107 mmol/L (98-107); COR CA(FOR HYPOALB) 9.7 mg/dL (8.5-10.1); CREATININE 0.85 mg/dL (0.55-1.02); SODIUM 143 mmol/L (136-145); TOTAL PROTEIN 5.9 g/dL (6.4-8.2); eGFR NON BLACK RACES > 60 (>60)
[2022-03-28] MEDS: VSL#3 PO SCH (09:21)
[2022-03-28] MEDS: LOPRESSOR TAB 25 MG PO SCH ×2 (09:21→20:17)
[2022-03-28] MEDS: ELIQUIS PO SCH ×2 (09:22→20:17)
[2022-03-28] MEDS: ASPIRIN PO SCH (09:22)
[2022-03-28] MEDS: CARDIZEM CD 180 MG 24-HR PO SCH (09:22)
[2022-03-28] MEDS: HYDROCHLOROTHIAZIDE 12.5 MG CAP PO SCH (09:23)
[2022-03-28] MEDS: PULMICORT NEB TX 0.5 MG NEB SCH ×2 (09:39→20:20)
[2022-03-28] MEDS: MAGNESIUM SULFATE 1 GRAM/100 mL PREMIX 1 G/100 ML BAG IV PRN ×2 (09:48→15:51)
[2022-03-28] MEDS: NS 1,000 ML IV 1,000 ML IV SCH (12:00)
[2022-03-28] MEDS: CRESTOR TAB 10 MG PO SCH (20:16)
[2022-03-28] MEDS: LOMOTIL PO PRN (20:17)
[2022-03-29] MEDS: XOPENEX 1.25 MG/3 ML NEBULE NEB SCH ×5 (00:03→17:08)
[2022-03-29] MEDS: NS 1,000 ML IV 1,000 ML IV SCH ×2 (02:00→19:38)
[2022-03-29] MEDS: MERREM VIAL 1 G in NS 100 ML IV 100 ML IV SCH ×3 (05:10→21:08)
[2022-03-29 06:15] LABS: BASOPHILS % (AUTO) 0.3 % (0.2-1.0); EOSINOPHILS # (AUTO) 0.2 x10^3/uL (0.0-0.2); EOSINOPHILS % (AUTO) 1.6 % (0.9-2.9); HEMATOCRIT 29.9 % (36.0-47.0); HEMOGLOBIN 10.3 g/dL (12.0-16.0); LYMPHOCYTES # (AUTO) 1.6 X10^3/uL (1.3-2.9); LYMPHOCYTES % (AUTO) 13.8 % (21.0-51.0); MEAN CORPUSCULAR HEMOGLOBIN 30.4 pg (27.0-34.0); MEAN CORPUSCULAR HGB CONC 34.5 g/dL (33.0-35.0); MEAN CORPUSCULAR VOLUME 88.1 fL (80.0-100.0); MEAN PLATELET VOLUME 9.6 fL (7.4-11.0); MONOCYTES % (AUTO) 8.7 % (0.0-13.0); NEUTROPHILS % (AUTO) 75.6 % (42.0-75.0); RED CELL DISTRIBUTION WIDTH 14.3 % (11.6-16.5)
[2022-03-29 06:37] LABS: ALANINE AMINOTRANSFERASE 16 Units/L (12-78); ALBUMIN 1.6 g/dL (3.4-5.0); ALKALINE PHOSPHATASE 88 Units/L (46-116); ASPARTATE AMINO TRANSFERASE 18 Units/L (15-37); BLOOD UREA NITROGEN 10 mg/dL (7-18); CALCIUM 7.8 mg/dL (8.5-10.1); CARBON DIOXIDE 32.7 mmol/L (21-32); CHLORIDE 107 mmol/L (98-107); COR CA(FOR HYPOALB) 9.7 mg/dL (8.5-10.1); CREATININE 0.85 mg/dL (0.55-1.02); SODIUM 142 mmol/L (136-145); TOTAL PROTEIN 6.1 g/dL (6.4-8.2); eGFR NON BLACK RACES > 60 (>60)
[2022-03-29] MEDS: CARDIZEM CD 180 MG 24-HR PO SCH (08:20)
[2022-03-29] MEDS: ASPIRIN PO SCH (08:20)
[2022-03-29] MEDS: ELIQUIS PO SCH ×2 (08:20→21:08)
[2022-03-29] MEDS: VSL#3 PO SCH (08:20)
[2022-03-29] MEDS: HYDROCHLOROTHIAZIDE 12.5 MG CAP PO SCH (08:20)
[2022-03-29] MEDS: LOPRESSOR TAB 25 MG PO SCH ×2 (08:21→21:07)
[2022-03-29] MEDS: PULMICORT NEB TX 0.5 MG NEB SCH ×2 (09:01→21:06)
--- NOTE | 2022-03-29 14:17 | PCM.PROG ---
Progress Note Progress Note for Day of Date of Exam: 03/29/22 Subjective Subjective: Patient reports she is breathing better this morning. Chest x-ray 2 days ago still revealing a cavitary lesion and that cannot rule out possible tumor. I will send her for a CT scan with IV contrast today. Past Medical Family Social History Past Med/Fam/Surg Hx: No changes since H&P Allergies: Allergies ciprofloxacin Allergy (Severe, Verified 03/15/21 13:58) CARDIOVASCULAR COMPLICATIONS patient has flushing and cardiovascular complications including bijeminy and freq pvcs celecoxib [From Celebrex] Allergy (Unknown, Verified 03/06/21 10:53) codeine Allergy (Unknown, Verified 03/06/21 10:53) diphenhydramine [From Benadryl] Allergy (Unknown, Verified 03/06/21 10:53) levofloxacin [From Levaquin] Allergy (Unknown, Verified 03/06/21 10:53) DAUGHTER STATES PHARMACEUTICAL SALES REPRESENTATIVE TOLD PT. TO NOT TAKE IT BECAUSE OF HER HEART AND A-FIB Sulfa (Sulfonamide Antibiotics) [SULFA] Allergy (Unknown, Verified 03/06/21 10:53) sulfamethoxazole [From Bactrim] Allergy (Unknown, Verified 03/06/21 10:53) trimethoprim [From Bactrim] Allergy (Unknown, Verified 03/06/21 10:53) Review of Systems ROS: No change since H&P Vital Signs and I&O's Vital Signs: Temperature 98.0 F Pulse Rate [Right Radial] 78 Pulse Rate 91 Respiratory Rate 18 Blood Pressure [Left Arm] 143/78 Blood Pressure [Right Arm] 168/73 Blood Pressure 122/66 O2 Sat by Pulse Oximetry 87 Intake and Output: Intake & Output 03/27/22 03/28/22 03/29/22 03/30/22 11:59 11:59 11:59 11:59 Intake Total 2160 / 2160 1770 / 1770 1710 / 1710 Balance 216 / 2160 1770 / 1770 1710 / 1710 Physical Exam Oriented: Normal Eyes: Normal Ear: Normal Nose: Normal Throat: Normal Respiratory: Generalized and Diminished Cardiovascular: Normal : Normal Auscultation: Bowel Sounds: Normal Tenderness: Normal Skin: Normal Musculoskeletal: Normal Psychiatric: Normal Mood Description: Calm and Appropriate Affect: Normal Speech Pattern: Clear and Appropriate Laboratory and Diagnostics Result Diagrams: 03/29/22 05:38 03/29/22 05:38 Labs: 03/18/22 10:00 Blood Blood Culture - Final 03/18/22 09:59 Blood Blood Culture - Final Laboratory WBC 12.0 X10^3/uL (3.6-10.0) H 03/29/22 05:38 RBC 3.40 X10^6/uL (3.5-5.4) L 03/29/22 05:38 Hgb 10.3 g/dL (12.0-16.0) L 03/29/22 05:38 Hct 29.9 % (36.0-47.0) L 03/29/22 05:38 MCV 88.1 fL (80.0-100.0) 03/29/22 05:38 MCH 30.4 pg (27.0-34.0) 03/29/22 05:38 MCHC 34.5 g/dL (33.0-35.0) 03/29/22 05:38 RDW 14.3 % (11.6-16.5) 03/29/22 05:38 Plt Count 364 X10^3/uL (150.0-450.0) 03/29/22 05:38 Plt Count Comment Adequate (ADEQUATE) 03/23/22 05:27 MPV 9.6 fL (7.4-11.0) 03/29/22 05:38 Neut % (Auto) 75.6 % (42.0-75.0) H 03/29/22 05:38 Lymph % (Auto) 13.8 % (21.0-51.0) L 03/29/22 05:38 [place] % (Auto) 8.7 % (0.0-13.0) 03/29/22 05:38 Eos % (Auto) 1.6 % (0.9-2.9) 03/29/22 05:38 Baso % (Auto) 0.3 % (0.2-1.0) 03/29/22 05:38 Neut # (Auto) 9.0 x10^3/uL (2.2-4.8) H 03/29/22 05:38 Lymph # (Auto) 1.6 X10^3/uL (1.3-2.9) 03/29/22 05:38 [place] # (Auto) 1.0 x10^3/uL (0.3-0.8) H 03/29/22 05:38 Eos # (Auto) 0.2 x10^3/uL (0.0-0.2) 03/29/22 05:38 Baso # (Auto) 0.0 X10^3/uL (0.0-0.1) 03/29/22 05:38 Absolute Nucleated RBC 0.2 /100WBC 03/29/22 05:38 Total Counted 100 03/20/22 05:31 Neutrophils % (Manual) 83 % (39-76) H 03/20/22 05:31 Band Neutrophils % 8 % (0-10) 03/18/22 08:00 Lymphocytes % (Manual) 10 % (13-43) L 03/20/22 05:31 Monocytes % (Manual) 7 % (4-9) 03/20/22 05:31 Atypical Lymphocytes Few A 03/20/22 05:31 Giant Platelets Few 03/23/22 05:27 Plt Morphology Comment Abnormal (NORMAL) A 03/23/22 05:27 RBC Morphology Abnormal (NORMAL) A 03/23/22 05:27 Target Cells Slight A 03/23/22 05:27 Sodium 142 mmol/L (136-145) 03/29/22 05:38 Corrected Sodium TNP 03/29/22 05:38 Potassium 3.6 mmol/L (3.5-5.1) 03/29/22 05:38 Chloride 107 mmol/L (98-107) 03/29/22 05:38 Carbon Dioxide 32.7 mmol/L (21-32) H 03/29/22 05:38 BUN 10 mg/dL (7-18) 03/29/22 05:38 Creatinine 0.85 mg/dL (0.55-1.02) 03/29/22 05:38 Est GFR (MDRD) Af Amer > 60 (>60) 03/29/22 05:38 Est GFR (MDRD) Non-Af > 60 (>60) 03/29/22 05:38 Glucose 88 mg/dL (65-99) 03/29/22 05:38 POC Glucose (mg/dL) 165 mg/dL (65-99) H 03/19/22 20:04 Calcium 7.8 mg/dL (8.5-10.1) L 03/29/22 05:38 Corrected Calcium 9.7 mg/dL (8.5-10.1) 03/29/22 05:38 Magnesium 2.0 mg/dL (2.0-2.9) 03/29/22 05:38 Total Bilirubin 0.20 mg/dL (0.2-1.0) 03/29/22 05:38 AST 18 Units/L (15-37) 03/29/22 05:38 ALT 16 Units/L (12-78) 03/29/22 05:38 Alkaline Phosphatase 88 Units/L (46-116) 03/29/22 05:38 Creatine Kinase 27 Units/L (26-192) 03/18/22 08:00 Troponin I High Sens 154.9 ng/L (4.0-60.0) H* 03/21/22 00:00 Total Protein 6.1 g/dL (6.4-8.2) L 03/29/22 05:38 Albumin 1.6 g/dL (3.4-5.0) L 03/29/22 05:38 Globulin 4.5 g/dL (2.5-4.5) 03/29/22 05:38 Albumin/Globulin Ratio 0.4 Ratio (1.1-2.1) L 03/29/22 05:38 Stl C. diff Tox B Gene Negative (NEGATIVE) 03/27/22 05:35 Stl C. diff [id number] Presumptive negative (NEGATIVE) 03/27/22 05:35 SARS-CoV-2 (PCR) Negative (NEGATIVE) 03/18/22 08:00 Influenza Type A (PCR) Negative (NEGATIVE) 03/18/22 08:00 Influenza Type B (PCR) Negative (NEGATIVE) 03/18/22 08:00 RSV (PCR) Negative (NEGATIVE) 03/18/22 08:00 Resp Viral Panel (PCR) See scanned report 03/18/22 12:04 SARS CoV-2 RNA Rapid SACHI Negative (NEGATIVE) 03/26/22 11:30 Plan (1) Pneumonia: Status: Acute Qualifiers: Laterality: right Lung location: upper lobe of lung Pneumonia type: due to unspecified organism Qualified Code(s): J18.9 - Pneumonia, unspecified organism Plan: I will DC Zosyn today and started on IV meropenem. Repeat chest x- ray in the morning along with routine labs. (2) Neutrophilic leukocytosis: Status: Acute (3) Generalized weakness: Status: Acute Plan: Patient will be discharged next week to [facility] once her Pseudomonas pneumonia is improved. This should take place early next week. (4) Atrial fibrillation with rapid ventricular response: Status: Acute Plan: We will put the patient on Eliquis 5 mg p.o. twice daily and stop he r digoxin. We will also change her to Lopressor 50 mg twice daily and continue her Cardizem 180 mg daily at recommendations per cardiology, Dr. Simpson.
--- NOTE | 2022-03-29 14:40 | CT ---
CTA CHESTCLINICAL INDICATION: LUNG LESIONPROCEDURE: Non gated axial images of the chest were obtained with intravenous contrast according to pulmonary embolism protocol. MIPS were reconstructed Dose reduction techniques including Automated Exposure Control (AEC) and adjustment of mA and kV were utlized.COMPARISON:NoneFINDINGS:No evidence of a pulmonary embolism to the level of the segmental pulmonary arteries.The heart is normal in size . No pericardial effusion . No suspicious mediastinal or axillary lymph nodes. Cavitary mass in the right upper lobe measuring approximately 9.1 x 4.3 cm. Previously this measured less than 6 cm in largest dimension. There is associated ground-glass surrounding the lesion as well as throughout the aerated portions of the lungs. This has progressed when compared to prior. Small bilateral pleural effusions.Limited images of the upper abdomen are unremarkable.No aggressive osseous lesions.IMPRESSION:1. Continued interval enlargement of cavitary lesion of the right upper lobe.2. Bilateral ground-glass and small effusions. This may represent edema versus atypical infection.Electronically signed by: WALKER SKY (Mar 29, 2022 14:39:24)
[2022-03-29] MEDS: CRESTOR TAB 10 MG PO SCH (21:08)
[2022-03-30] MEDS ORDERED: XOPENEX 1.25 MG/3 ML NEBULE NEB ONE (00:01)
[2022-03-30] MEDS: XOPENEX 1.25 MG/3 ML NEBULE NEB SCH ×4 (00:41→17:12)
[2022-03-30] MEDS: MERREM VIAL 1 G in NS 100 ML IV 100 ML IV SCH ×3 (05:21→21:27)
[2022-03-30] MEDS: NS 1,000 ML IV 1,000 ML IV SCH ×2 (05:30→21:43)
[2022-03-30 06:41] LABS: BASOPHILS # (AUTO) 0.1 X10^3/uL (0.0-0.1); BASOPHILS % (AUTO) 0.6 % (0.2-1.0); EOSINOPHILS # (AUTO) 0.2 x10^3/uL (0.0-0.2); EOSINOPHILS % (AUTO) 1.5 % (0.9-2.9); HEMOGLOBIN 11.1 g/dL (12.0-16.0); LYMPHOCYTES % (AUTO) 15.9 % (21.0-51.0); MEAN CORPUSCULAR HEMOGLOBIN 29.9 pg (27.0-34.0); MEAN CORPUSCULAR HGB CONC 33.6 g/dL (33.0-35.0); MEAN PLATELET VOLUME 9.9 fL (7.4-11.0); MONOCYTES % (AUTO) 7.7 % (0.0-13.0); NEUTROPHILS # (AUTO) 9.5 x10^3/uL (2.2-4.8); NEUTROPHILS % (AUTO) 74.3 % (42.0-75.0); RED CELL DISTRIBUTION WIDTH 14.7 % (11.6-16.5); WHITE BLOOD COUNT 12.8 X10^3/uL (3.6-10.0)
[2022-03-30 06:44] LABS: BLOOD UREA NITROGEN 9 mg/dL (7-18); CALCIUM 8.2 mg/dL (8.5-10.1); CARBON DIOXIDE 31.4 mmol/L (21-32); CHLORIDE 106 mmol/L (98-107); CREATININE 0.76 mg/dL (0.55-1.02); SODIUM 144 mmol/L (136-145); eGFR NON BLACK RACES > 60 (>60)
[2022-03-30] MEDS: PULMICORT NEB TX 0.5 MG NEB SCH ×2 (08:25→21:07)
[2022-03-30] MEDS: ASPIRIN PO SCH (09:37)
[2022-03-30] MEDS: CARDIZEM CD 180 MG 24-HR PO SCH (09:37)
[2022-03-30] MEDS: HYDROCHLOROTHIAZIDE 12.5 MG CAP PO SCH (09:37)
[2022-03-30] MEDS: VSL#3 PO SCH (09:37)
[2022-03-30] MEDS: LOPRESSOR TAB 25 MG PO SCH ×2 (09:37→21:26)
[2022-03-30] MEDS: ELIQUIS PO SCH ×2 (09:37→21:26)
[2022-03-30 11:44] LABS: ALANINE AMINOTRANSFERASE 19 Units/L (12-78); ALBUMIN 1.8 g/dL (3.4-5.0); ALKALINE PHOSPHATASE 97 Units/L (46-116); ASPARTATE AMINO TRANSFERASE 29 Units/L (15-37); TOTAL PROTEIN 6.6 g/dL (6.4-8.2)
[2022-03-30] MEDS: CRESTOR TAB 10 MG PO SCH (21:26)
[2022-03-31] MEDS: XOPENEX 1.25 MG/3 ML NEBULE NEB SCH ×4 (00:18→17:04)
[2022-03-31] MEDS: MERREM VIAL 1 G in NS 100 ML IV 100 ML IV SCH ×3 (05:25→21:05)
[2022-03-31 06:18] LABS: BASOPHILS % (AUTO) 0.1 % (0.2-1.0); EOSINOPHILS # (AUTO) 0.3 x10^3/uL (0.0-0.2); EOSINOPHILS % (AUTO) 2.1 % (0.9-2.9); HEMATOCRIT 31.7 % (36.0-47.0); HEMOGLOBIN 10.8 g/dL (12.0-16.0); LYMPHOCYTES # (AUTO) 1.8 X10^3/uL (1.3-2.9); LYMPHOCYTES % (AUTO) 14.9 % (21.0-51.0); MEAN CORPUSCULAR HEMOGLOBIN 30.4 pg (27.0-34.0); MEAN CORPUSCULAR HGB CONC 34.2 g/dL (33.0-35.0); MEAN PLATELET VOLUME 9.4 fL (7.4-11.0); MONOCYTES % (AUTO) 8.4 % (0.0-13.0); NEUTROPHILS # (AUTO) 9.1 x10^3/uL (2.2-4.8); NEUTROPHILS % (AUTO) 74.5 % (42.0-75.0); RED BLOOD COUNT 3.56 X10^6/uL (3.5-5.4); RED CELL DISTRIBUTION WIDTH 14.8 % (11.6-16.5); WHITE BLOOD COUNT 12.3 X10^3/uL (3.6-10.0)
[2022-03-31 06:57] LABS: ALANINE AMINOTRANSFERASE 20 Units/L (12-78); ALBUMIN 1.9 g/dL (3.4-5.0); ALKALINE PHOSPHATASE 101 Units/L (46-116); ASPARTATE AMINO TRANSFERASE 36 Units/L (15-37); BLOOD UREA NITROGEN 13 mg/dL (7-18); CALCIUM 8.2 mg/dL (8.5-10.1); CARBON DIOXIDE 32.1 mmol/L (21-32); CHLORIDE 106 mmol/L (98-107); COR CA(FOR HYPOALB) 9.9 mg/dL (8.5-10.1); SODIUM 142 mmol/L (136-145); TOTAL PROTEIN 6.5 g/dL (6.4-8.2); eGFR NON BLACK RACES > 60 (>60)
[2022-03-31] MEDS: PULMICORT NEB TX 0.5 MG NEB SCH ×2 (08:20→21:00)
[2022-03-31] MEDS: ELIQUIS PO SCH ×2 (09:48→21:05)
[2022-03-31] MEDS: ASPIRIN PO SCH (09:48)
[2022-03-31] MEDS: VSL#3 PO SCH (09:49)
[2022-03-31] MEDS: LOPRESSOR TAB 25 MG PO SCH ×2 (09:49→21:05)
[2022-03-31] MEDS: HYDROCHLOROTHIAZIDE 12.5 MG CAP PO SCH (09:49)
[2022-03-31] MEDS: CARDIZEM CD 180 MG 24-HR PO SCH (09:49)
[2022-03-31] MEDS: LOMOTIL PO PRN (09:55)
[2022-03-31] MEDS: BUTT CREAM (COMPOUND) TOP PRN (11:40)
[2022-03-31] MEDS: NS 1,000 ML IV 1,000 ML IV SCH (14:42)
--- NOTE | 2022-03-31 19:28 | PCM.PROG ---
Progress Note Progress Note for Day of Date of Exam: 03/30/22 Subjective Subjective: Patient reports she is breathing better this morning. 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 Winkler in [place], [place]. He reviewed the CT scan that we had just done the day before. Because he said it is increasing in size from previous CT scan done. He feels like more likely than not that the right upper lobe cavitary lesion is likely tuberculosis. He recommended doing TB blood test which we have ordered and sent off along with 3 sputum cultures. These have been collected and also will be sent off. There are acid-fast cultures so we will take a while to get this back so in the meantime we will put her on respiratory precautions and she is in a negative pressure room at this time. Since patient is not able to go to [facility] because of a possible diagnosis of TB we will be planning to change her to swing bed admission since she is not able to care for self but given her generalized state of weakness. She is currently at a high risk of falling and injuring herself so we will do swing bed admission instead. We will plan on working on this tomorrow and hopefully can get her changed over by the end of the week. Past Medical Family Social History Past Med/Fam/Surg Hx: No changes since H&P Allergies: Allergies ciprofloxacin Allergy (Severe, Verified 03/15/21 13:58) CARDIOVASCULAR COMPLICATIONS patient has flushing and cardiovascular complications including bijeminy and freq pvcs celecoxib [From Celebrex] Allergy (Unknown, Verified 03/06/21 10:53) codeine Allergy (Unknown, Verified 03/06/21 10:53) diphenhydramine [From Benadryl] Allergy (Unknown, Verified 03/06/21 10:53) levofloxacin [From Levaquin] Allergy (Unknown, Verified 03/06/21 10:53) DAUGHTER STATES MOTHER HELPER TOLD PT. TO NOT TAKE IT BECAUSE OF HER HEART AND A-FIB Sulfa (Sulfonamide Antibiotics) [SULFA] Allergy (Unknown, Verified 03/06/21 10:53) sulfamethoxazole [From Bactrim] Allergy (Unknown, Verified 03/06/21 10:53) trimethoprim [From Bactrim] Allergy (Unknown, Verified 03/06/21 10:53) Review of Systems ROS: No change since H&P Vital Signs and I&O's Vital Signs: Temperature 98.8 F Pulse Rate [Right Radial] 67 Pulse Rate 88 Respiratory Rate 20 Blood Pressure [Left Arm] 136/63 Blood Pressure [Right Arm] 168/73 Blood Pressure 122/66 O2 Sat by Pulse Oximetry 96 Intake and Output: Intake & Output 03/29/22 03/30/22 03/31/22 04/01/22 11:59 11:59 11:59 11:59 Intake Total 1710 / 1710 1938 / 1938 920 / 920 580 / 580 Output Total 900 / 900 Balance 1710 / 1710 1038 / 1038 920 / 920 580 / 580 Physical Exam Oriented: Normal Eyes: Normal Ear: Normal Nose: Normal Throat: Normal Respiratory: Generalized and Diminished Cardiovascular: Normal : Normal Auscultation: Bowel Sounds: Normal Tenderness: Normal Skin: Normal Musculoskeletal: Normal Psychiatric: Normal Mood Description: Calm and Appropriate Affect: Normal Speech Pattern: Clear and Appropriate Laboratory and Diagnostics Result Diagrams: 03/31/22 06:00 03/31/22 06:00 Labs: 03/18/22 10:00 Blood Blood Culture - Final 03/18/22 09:59 Blood Blood Culture - Final Laboratory WBC 12.3 X10^3/uL (3.6-10.0) H 03/31/22 06:00 RBC 3.56 X10^6/uL (3.5-5.4) 03/31/22 06:00 Hgb 10.8 g/dL (12.0-16.0) L 03/31/22 06:00 Hct 31.7 % (36.0-47.0) L 03/31/22 06:00 MCV 89.0 fL (80.0-100.0) 03/31/22 06:00 MCH 30.4 pg (27.0-34.0) 03/31/22 06:00 MCHC 34.2 g/dL (33.0-35.0) 03/31/22 06:00 RDW 14.8 % (11.6-16.5) 03/31/22 06:00 Plt Count 361 X10^3/uL (150.0-450.0) 03/31/22 06:00 Plt Count Comment Adequate (ADEQUATE) 03/23/22 05:27 MPV 9.4 fL (7.4-11.0) 03/31/22 06:00 Neut % (Auto) 74.5 % (42.0-75.0) 03/31/22 06:00 Lymph % (Auto) 14.9 % (21.0-51.0) L 03/31/22 06:00 [place] % (Auto) 8.4 % (0.0-13.0) 03/31/22 06:00 Eos % (Auto) 2.1 % (0.9-2.9) 03/31/22 06:00 Baso % (Auto) 0.1 % (0.2-1.0) L 03/31/22 06:00 Neut # (Auto) 9.1 x10^3/uL (2.2-4.8) H 03/31/22 06:00 Lymph # (Auto) 1.8 X10^3/uL (1.3-2.9) 03/31/22 06:00 [place] # (Auto) 1.0 x10^3/uL (0.3-0.8) H 03/31/22 06:00 Eos # (Auto) 0.3 x10^3/uL (0.0-0.2) H 03/31/22 06:00 Baso # (Auto) 0.0 X10^3/uL (0.0-0.1) 03/31/22 06:00 Absolute Nucleated RBC 0.0 /100WBC 03/31/22 06:00 Total Counted 100 03/20/22 05:31 Neutrophils % (Manual) 83 % (39-76) H 03/20/22 05:31 Band Neutrophils % 8 % (0-10) 03/18/22 08:00 Lymphocytes % (Manual) 10 % (13-43) L 03/20/22 05:31 Monocytes % (Manual) 7 % (4-9) 03/20/22 05:31 Atypical Lymphocytes Few A 03/20/22 05:31 Giant Platelets Few 03/23/22 05:27 Plt Morphology Comment Abnormal (NORMAL) A 03/23/22 05:27 RBC Morphology Abnormal (NORMAL) A 03/23/22 05:27 Target Cells Slight A 03/23/22 05:27 Sodium 142 mmol/L (136-145) 03/31/22 06:00 Corrected Sodium TNP 03/31/22 06:00 Potassium 4.1 mmol/L (3.5-5.1) 03/31/22 06:00 Chloride 106 mmol/L (98-107) 03/31/22 06:00 Carbon Dioxide 32.1 mmol/L (21-32) H 03/31/22 06:00 BUN 13 mg/dL (7-18) 03/31/22 06:00 Creatinine 0.80 mg/dL (0.55-1.02) 03/31/22 06:00 Est GFR (MDRD) Af Amer > 60 (>60) 03/31/22 06:00 Est GFR (MDRD) Non-Af > 60 (>60) 03/31/22 06:00 Glucose 89 mg/dL (65-99) 03/31/22 06:00 POC Glucose (mg/dL) 165 mg/dL (65-99) H 03/19/22 20:04 Calcium 8.2 mg/dL (8.5-10.1) L 03/31/22 06:00 Corrected Calcium 9.9 mg/dL (8.5-10.1) 03/31/22 06:00 Magnesium 2.0 mg/dL (2.0-2.9) 03/29/22 05:38 Total Bilirubin 0.20 mg/dL (0.2-1.0) 03/31/22 06:00 AST 36 Units/L (15-37) 03/31/22 06:00 ALT 20 Units/L (12-78) 03/31/22 06:00 Alkaline Phosphatase 101 Units/L (46-116) 03/31/22 06:00 Creatine Kinase 27 Units/L (26-192) 03/18/22 08:00 Troponin I High Sens 154.9 ng/L (4.0-60.0) H* 03/21/22 00:00 Total Protein 6.5 g/dL (6.4-8.2) 03/31/22 06:00 Albumin 1.9 g/dL (3.4-5.0) L 03/31/22 06:00 Globulin 4.6 g/dL (2.5-4.5) H 03/31/22 06:00 Albumin/Globulin Ratio 0.4 Ratio (1.1-2.1) L 03/31/22 06:00 Stl C. diff Tox B Gene Negative (NEGATIVE) 03/27/22 05:35 Stl C. diff [id number] Presumptive negative (NEGATIVE) 03/27/22 05:35 SARS-CoV-2 (PCR) Negative (NEGATIVE) 03/18/22 08:00 HIV-1 Ab Confirm (Blot) TNP 03/26/22 06:12 HIV 1&2 Antibody Screen Negative (Negative) 03/26/22 06:12 Influenza Type A (PCR) Negative (NEGATIVE) 03/18/22 08:00 Influenza Type B (PCR) Negative (NEGATIVE) 03/18/22 08:00 RSV (PCR) Negative (NEGATIVE) 03/18/22 08:00 Resp Viral Panel (PCR) See scanned report 03/18/22 12:04 SARS CoV-2 RNA Rapid SACHI Negative (NEGATIVE) 03/26/22 11:30 Plan (1) Pneumonia: Status: Acute Qualifiers: Laterality: right Lung location: upper lobe of lung Pneumonia type: due to unspecified organism Qualified Code(s): J18.9 - Pneumonia, unspecified organism Narrative Support Text: Patient had positive Pseudomonas aeruginosa on her sputum culture. It is s ensitive to the IV meropenem she is receiving. Plan: Continue IV meropenem. Repeat chest x-ray in the morning along with routine labs. (2) Neutrophilic leukocytosis: Status: Acute (3) Generalized weakness: Status: Acute Plan: We will start working on a swing bed admission for the patient. We have been treating her with IV meropenem for her pneumonia but there is a strong possibility that she may have TB which we are testing her for at this time. (4) Atrial fibrillation with rapid ventricular response: Status: Acute Plan: We will put the patient on Eliquis 5 mg p.o. twice daily and stop her digoxin. We will also change her to Lopressor 50 mg twice daily and continue her Cardizem 180 mg daily at recommendations per cardiology, Dr. Simpson.
--- NOTE | 2022-03-31 19:31 | PCM.PROG ---
Progress Note Progress Note for Day of Date of Exam: 03/31/22 Subjective Subjective: Patient reports she is breathing okay this morning. She is sitting up on the side of the bed this morning brushing her teeth. She does report going to the bathroom and back with some assistance from the nurses and manages okay with help. I discussed her with swing bed admission with case management this morning. They will start working on a swing bed admission for the patient. Past Medical Family Social History Past Med/Fam/Surg Hx: No changes since H&P Allergies: Allergies ciprofloxacin Allergy (Severe, Verified 03/15/21 13:58) CARDIOVASCULAR COMPLICATIONS patient has flushing and cardiovascular complications including bijeminy and freq pvcs celecoxib [From Celebrex] Allergy (Unknown, Verified 03/06/21 10:53) codeine Allergy (Unknown, Verified 03/06/21 10:53) diphenhydramine [From Benadryl] Allergy (Unknown, Verified 03/06/21 10:53) levofloxacin [From Levaquin] Allergy (Unknown, Verified 03/06/21 10:53) DAUGHTER STATES LABORATORY ASST TOLD PT. TO NOT TAKE IT BECAUSE OF HER HEART AND A-FIB Sulfa (Sulfonamide Antibiotics) [SULFA] Allergy (Unknown, Verified 03/06/21 10:53) sulfamethoxazole [From Bactrim] Allergy (Unknown, Verified 03/06/21 10:53) trimethoprim [From Bactrim] Allergy (Unknown, Verified 03/06/21 10:53) Review of Systems ROS: No change since H&P Vital Signs and I&O's Vital Signs: Temperature 98.8 F Pulse Rate [Right Radial] 67 Pulse Rate 88 Respiratory Rate 20 Blood Pressure [Left Arm] 136/63 Blood Pressure [Right Arm] 168/73 Blood Pressure 122/66 O2 Sat by Pulse Oximetry 96 Intake and Output: Intake & Output 03/29/22 03/30/22 03/31/22 04/01/22 11:59 11:59 11:59 11:59 Intake Total 1710 / 1710 1938 / 1938 920 / 920 580 / 580 Output Total 900 / 900 Balance 1710 / 1710 1038 / 1038 920 / 920 580 / 580 Physical Exam Oriented: Normal Eyes: Normal Ear: Normal Nose: Normal Throat: Normal Respiratory: Generalized and Diminished Cardiovascular: Normal : Normal Auscultation: Bowel Sounds: Normal Tenderness: Normal Skin: Normal Musculoskeletal: Normal Psychiatric: Normal Mood Description: Calm and Appropriate Affect: Normal Speech Pattern: Clear and Appropriate Laboratory and Diagnostics Result Diagrams: 03/31/22 06:00 03/31/22 06:00 Labs: 03/18/22 10:00 Blood Blood Culture - Final 03/18/22 09:59 Blood Blood Culture - Final Laboratory WBC 12.3 X10^3/uL (3.6-10.0) H 03/31/22 06:00 RBC 3.56 X10^6/uL (3.5-5.4) 03/31/22 06:00 Hgb 10.8 g/dL (12.0-16.0) L 03/31/22 06:00 Hct 31.7 % (36.0-47.0) L 03/31/22 06:00 MCV 89.0 fL (80.0-100.0) 03/31/22 06:00 MCH 30.4 pg (27.0-34.0) 03/31/22 06:00 MCHC 34.2 g/dL (33.0-35.0) 03/31/22 06:00 RDW 14.8 % (11.6-16.5) 03/31/22 06:00 Plt Count 361 X10^3/uL (150.0-450.0) 03/31/22 06:00 Plt Count Comment Adequate (ADEQUATE) 03/23/22 05:27 MPV 9.4 fL (7.4-11.0) 03/31/22 06:00 Neut % (Auto) 74.5 % (42.0-75.0) 03/31/22 06:00 Lymph % (Auto) 14.9 % (21.0-51.0) L 03/31/22 06:00 [place] % (Auto) 8.4 % (0.0-13.0) 03/31/22 06:00 Eos % (Auto) 2.1 % (0.9-2.9) 03/31/22 06:00 Baso % (Auto) 0.1 % (0.2-1.0) L 03/31/22 06:00 Neut # (Auto) 9.1 x10^3/uL (2.2-4.8) H 03/31/22 06:00 Lymph # (Auto) 1.8 X10^3/uL (1.3-2.9) 03/31/22 06:00 [place] # (Auto) 1.0 x10^3/uL (0.3-0.8) H 03/31/22 06:00 Eos # (Auto) 0.3 x10^3/uL (0.0-0.2) H 03/31/22 06:00 Baso # (Auto) 0.0 X10^3/uL (0.0-0.1) 03/31/22 06:00 Absolute Nucleated RBC 0.0 /100WBC 03/31/22 06:00 Total Counted 100 03/20/22 05:31 Neutrophils % (Manual) 83 % (39-76) H 03/20/22 05:31 Band Neutrophils % 8 % (0-10) 03/18/22 08:00 Lymphocytes % (Manual) 10 % (13-43) L 03/20/22 05:31 Monocytes % (Manual) 7 % (4-9) 03/20/22 05:31 Atypical Lymphocytes Few A 03/20/22 05:31 Giant Platelets Few 03/23/22 05:27 Plt Morphology Comment Abnormal (NORMAL) A 03/23/22 05:27 RBC Morphology Abnormal (NORMAL) A 03/23/22 05:27 Target Cells Slight A 03/23/22 05:27 Sodium 142 mmol/L (136-145) 03/31/22 06:00 Corrected Sodium TNP 03/31/22 06:00 Potassium 4.1 mmol/L (3.5-5.1) 03/31/22 06:00 Chloride 106 mmol/L (98-107) 03/31/22 06:00 Carbon Dioxide 32.1 mmol/L (21-32) H 03/31/22 06:00 BUN 13 mg/dL (7-18) 03/31/22 06:00 Creatinine 0.80 mg/dL (0.55-1.02) 03/31/22 06:00 Est GFR (MDRD) Af Amer > 60 (>60) 03/31/22 06:00 Est GFR (MDRD) Non-Af > 60 (>60) 03/31/22 06:00 Glucose 89 mg/dL (65-99) 03/31/22 06:00 POC Glucose (mg/dL) 165 mg/dL (65-99) H 03/19/22 20:04 Calcium 8.2 mg/dL (8.5-10.1) L 03/31/22 06:00 Corrected Calcium 9.9 mg/dL (8.5-10.1) 03/31/22 06:00 Magnesium 2.0 mg/dL (2.0-2.9) 03/29/22 05:38 Total Bilirubin 0.20 mg/dL (0.2-1.0) 03/31/22 06:00 AST 36 Units/L (15-37) 03/31/22 06:00 ALT 20 Units/L (12-78) 03/31/22 06:00 Alkaline Phosphatase 101 Units/L (46-116) 03/31/22 06:00 Creatine Kinase 27 Units/L (26-192) 03/18/22 08:00 Troponin I High Sens 154.9 ng/L (4.0-60.0) H* 03/21/22 00:00 Total Protein 6.5 g/dL (6.4-8.2) 03/31/22 06:00 Albumin 1.9 g/dL (3.4-5.0) L 03/31/22 06:00 Globulin 4.6 g/dL (2.5-4.5) H 03/31/22 06:00 Albumin/Globulin Ratio 0.4 Ratio (1.1-2.1) L 03/31/22 06:00 Stl C. diff Tox B Gene Negative (NEGATIVE) 03/27/22 05:35 Stl C. diff [id number] Presumptive negative (NEGATIVE) 03/27/22 05:35 SARS-CoV-2 (PCR) Negative (NEGATIVE) 03/18/22 08:00 HIV-1 Ab Confirm (Blot) TNP 03/26/22 06:12 HIV 1&2 Antibody Screen Negative (Negative) 03/26/22 06:12 Influenza Type A (PCR) Negative (NEGATIVE) 03/18/22 08:00 Influenza Type B (PCR) Negative (NEGATIVE) 03/18/22 08:00 RSV (PCR) Negative (NEGATIVE) 03/18/22 08:00 Resp Viral Panel (PCR) See scanned report 03/18/22 12:04 SARS CoV-2 RNA Rapid SACHI Negative (NEGATIVE) 03/26/22 11:30 Radiology Reviewed: Yes Plan (1) Pneumonia: Status: Acute Qualifiers: Laterality: right Lung location: upper lobe of lung Pneumonia type: due to unspecified organism Qualified Code(s): J18.9 - Pneumonia, unspecified organism Plan: Continue IV meropenem. Repeat chest x-ray in the morning along with routine labs. (2) Neutrophilic leukocytosis: Status: Acute (3) Generalized weakness: Status: Acute Plan: We will start working on a swing bed admission for the patient. We have been treating her with IV meropenem for her pneumonia but there is a strong possibility that she may have TB which we are testing her for at this time. (4) Atrial fibrillation with rapid ventricular response: Status: Acute Plan: We will put the patient on Eliquis 5 mg p.o. twice daily and stop her digoxin. We will also change her to Lopressor 50 mg twice daily and continue her Cardizem 180 mg daily at recommendations per cardiology, Dr. Simpson.
[2022-03-31] MEDS: CRESTOR TAB 10 MG PO SCH (21:05)
[2022-04-01] MEDS: NS 1,000 ML IV 1,000 ML IV SCH
[2022-04-01] MEDS: XOPENEX 1.25 MG/3 ML NEBULE NEB SCH ×3 (00:15→11:56)
[2022-04-01] MEDS: MERREM VIAL 1 G in NS 100 ML IV 100 ML IV SCH (05:02)
[2022-04-01] MEDS: ELIQUIS PO SCH (09:00)
[2022-04-01] MEDS: HYDROCHLOROTHIAZIDE 12.5 MG CAP PO SCH (09:01)
[2022-04-01] MEDS: LOPRESSOR TAB 25 MG PO SCH (09:02)
[2022-04-01] MEDS: CARDIZEM CD 180 MG 24-HR PO SCH (09:02)
[2022-04-01] MEDS: ASPIRIN PO SCH (09:02)
[2022-04-01] MEDS: VSL#3 PO SCH (09:05)
[2022-04-01] MEDS: PULMICORT NEB TX 0.5 MG NEB SCH (09:29)
[2022-04-01 11:50] VITALS: BP 183/67
== END 2022-04-01 13:22 | disposition swing bed (61) | DRG 193 ==
LOC: ER 07:43 → MED/SURG 07:43 → OBSVTOIN 10:43 → MED/SURG 12:00
PROVIDERS: ADMIT Family Medicine; ATTEND Family Medicine
DX: I87.2 Venous insufficiency (chronic) (peripheral); I48.91 Unspecified atrial fibrillation; R10.84 Generalized abdominal pain; R07.89 Other chest pain; Z20.822 Contact with and (suspected) exposure to COVID-19; J18.8 Other pneumonia, unspecified organism; J81.0 Acute pulmonary edema; I10 Essential (primary) hypertension; R26.89 Other abnormalities of gait and mobility; R06.02 Shortness of breath; R77.8 Other specified abnormalities of plasma proteins

== ENCOUNTER 2022-04-01 13:23 | Inpatient (IN) ==
[2022-04-01] MEDS ORDERED: K-DUR TAB 20 MEQ PO PRN (14:25)
[2022-04-01] MEDS ORDERED: MICRO K EXTEN CAP 10 MEQ PO PRN (14:25)
[2022-04-01] MEDS ORDERED: ZOFRAN INJ 4 MG VIAL IVP PRN (14:25)
[2022-04-01] MEDS ORDERED: BUTT CREAM (COMPOUND) TOP PRN (14:25)
[2022-04-01] MEDS ORDERED: POTASSIUM CHLORIDE LIQ 20 MEQ UDC PO PRN (14:25)
[2022-04-01] MEDS ORDERED: K-RIDER 10 MEQ/NS 100 ML 10 MEQ/100 ML BAG IV PRN (14:25)
[2022-04-01] MEDS ORDERED: TYLENOL 325 MG TAB PO PRN (14:25)
[2022-04-01] MEDS ORDERED: LOMOTIL PO PRN (14:25)
[2022-04-01] MEDS: MERREM VIAL 1 G in NS 100 ML IV 100 ML IV SCH ×2 (15:36→21:39)
[2022-04-01] MEDS ORDERED: XOPENEX 1.25 MG/3 ML NEBULE NEB ONE (16:28)
[2022-04-01] MEDS: XOPENEX 1.25 MG/3 ML NEBULE NEB SCH ×2 (16:31→18:47)
[2022-04-01] MEDS ORDERED: PULMICORT NEB TX 0.5 MG NEB ONE (19:14)
--- NOTE | 2022-04-01 19:45 | PT/OTEVAL ---
PT/OT OBJECTIVES - HISTORY Prescription: PT Consult Diagnosis: Pneumonia, Possible TB Precautions: Fall Risk, Airborne Precautions PMH: AFib, HTN, Kidney Stones, CABG/Valve Sx, Spleenectomy Prior Level of Function: Assistance Required Other: Per pt report- prior to hospitalization: she resides alone in single story home with 1 step to enter. Reports that she was independent with all mobility tasks within home with rollator. Pt does report that she has had an overall decline in her mobility and now requires home O2 since having COVID-19. Pt has a daughter locally who assists her as able and needed. Pt was participating in home health services as well. - COGNITION Mental Status: Alert, Oriented, Name, Date, Place, Purpose Communication Status: Verbal Ability to Follow Directions: 2 Step - PAIN No signs of pain Pain Scale: No Pain neck Pain Scale: Mild (3-4) Comments: "You know my neck, it's always hurting" - BED MOBILITY Rolling: Minimal Scooting: Maximum Bridging: Minimal - TRANSFERS Supine to Sit: Minimal Sit to Stand: Minimal Sit to Stand Comment: CGA for balanace Sit or Stand Pivot: Minimal Sit or Stand Pivot Comment: CGA - BALANCE Static Sitting: Good Standing: Fair Dynamic Sitting: Good Standing: Poor - NEUROMOTOR/SENSATION Stefan. Lower Ext Sensation: WFL Coordination: WFL Proprioception: WFL Stefan. Upper Ext Sensation: WFL Coordination: WFL - HAND DOMINANCE Extremity Function: Hand Dominance: Right - ROM Bilateral LE ROM: WFL Muscle Tone: WFL - STRENGTH Bilateral UE Strength Number: 3 Other comment: B UE 3/5 Right LE Strength Number: 3 Other comment: 3+/5 Left LE Strength Number: 4 Other comment: 4-/5 - GAIT Pt. ambulates how many feet?: 40 Amount of Assistance Required: Minimal Type of Assistive Device: Rolling Walker Comments: CGA- easily fatigued. Forward flexed posture, decreased step length PT/OT ASSESSMENT - PT Problem List: Decreased Bed Mobility, Decreased Transfers, Decreased Gait, Decreased Balance, Decreased Safety, Decreased LE Strength - PT GOALS Short Term Goals Days: 10 Mobility: Pt will perform bed mobility tasks with CGA Transfers: Pt will perform functional transfers with supervision Gait: Pt will ambulate 75ft with FWW with supervision Balance: Pt will increase static standing balance to good- Prison Goals Days: 20 Mobility: Pt will perform bed mobility tasks with mod I Transfers: Pt will perform functional transfers with mod I Gait: Pt will ambulate 150ft with FWW with mod I Balance: Pt will increase dynamic standing balance to fair+ ROM/Strength: Pt will increase BLE strength by 1 MMT grade Others: Pt will ascend/descend 1 step with mod I - PATIENT GOALS Patient/Family Goals: "I just want to get stronger & better so I can go back home" Goals Discussed with Patient/Family: Yes Rehabilitation Potential: Good to meet stated goals Justification for Potential: Facilitate highest level of function & safe discharge planning If yes, explain: Complicated medical status - PLAN Suggested Treatment Plan: Bed Mobility Training, Therapeutic Activity, Gait Training, Neuro Re-education, Therapeutic Ex with HEP, Patient Education - FREQUENCY AND DURATION PT: 3-5x per week x hospital stay Expected Continuation of Care at Discharge: Home Health
[2022-04-01] MEDS: PULMICORT NEB TX 0.5 MG NEB SCH (20:10)
[2022-04-01] MEDS: LOPRESSOR TAB 25 MG PO SCH (20:46)
[2022-04-01] MEDS: CRESTOR TAB 10 MG PO SCH (20:46)
[2022-04-01] MEDS: ELIQUIS PO SCH (20:46)
[2022-04-02] MEDS: XOPENEX 1.25 MG/3 ML NEBULE NEB SCH ×3 (00:05→12:04)
[2022-04-02] MEDS: MERREM VIAL 1 G in NS 100 ML IV 100 ML IV SCH ×3 (05:02→21:38)
[2022-04-02] MEDS: ELIQUIS PO SCH ×2 (08:24→21:38)
[2022-04-02] MEDS: ASPIRIN PO SCH (08:24)
[2022-04-02] MEDS: CARDIZEM CD 180 MG 24-HR PO SCH (08:24)
[2022-04-02] MEDS: LOPRESSOR TAB 25 MG PO SCH ×2 (08:24→21:39)
[2022-04-02] MEDS: HYDROCHLOROTHIAZIDE 12.5 MG CAP PO SCH (08:24)
[2022-04-02] MEDS: VSL#3 PO SCH (08:25)
[2022-04-02] MEDS: PULMICORT NEB TX 0.5 MG NEB SCH ×2 (08:27→20:00)
--- NOTE | 2022-04-02 10:42 | PT/OTEVAL ---
PT/OT OBJECTIVES - HISTORY Prescription: OT Consult Diagnosis: Pneumonia, possible TB Precautions: Falls, SOB, Airborne Precautions PMH: A-fib, HTN, Kidney Stones, CABG/Valve Sx, Spleenectomy Prior Level of Function: Assistance Required Other, comment: Per pt interview, she lives in a single-story house with 3-steps and Other: bilateral handrails to get in/out of the house. Pt requires assistance with steps. Pt daughter assist pt during shower/bathing and pt independent with UB/LB dressing skills, independent with toileting skills, independent with ADL transfers and independent with ambulation using the RW. Pt has home health nursing assisting pt with managing her medication. - COGNITION Mental Status: Alert, Oriented, Name, Date, Place, Purpose Communication Status: Verbal Ability to Follow Directions: 3 Step Memory Loss: None - PAIN No signs of pain Pain Scale: No Pain neck Pain Scale: Mild (3-4) Comments: "You know my neck, it's always hurting" - BED MOBILITY Rolling: Minimal Scooting: Moderate Bridging: Minimal - TRANSFERS Supine to Sit: Minimal Sit to Stand: Minimal Sit to Stand Comment: CGA Sit or Stand Pivot: Minimal - ADL'S Feeding: Independent Grooming: Independent Upper Body ADL: Minimum Upper Body ADL Comment: CGA Lower Body ADL: Moderate Toileting: Minimum Toileting Comment: CGA - BALANCE Static Sitting: Good Standing: Fair Balance Comment: fair+ static standing Dynamic Sitting: Good Balance Comment: fair dynamic standing - NEUROMOTOR/SENSATION Stefan. Lower Ext Sensation: WFL Coordination: WFL Proprioception: WFL Stefan. Upper Ext Sensation: WFL Coordination: WFL Proprioception: WFL - HAND DOMINANCE Extremity Function: Hand Dominance: Right - ROM Bilateral UE Muscle Tone: WFL - STRENGTH Right LE Strength Number: 3 Other comment: 3+/5 Bilateral UE Strength Number: 3 Other comment: B UE 3/5 Bilateral LE Strength Number: 3 Other comment: 3+/5 Left LE Strength Number: 4 Other comment: 4-/5 - GAIT Pt. ambulates how many feet?: 15 Amount of assistance required: Minimal Amount of Assistance Required: Minimal Type of Assistive Device: Rolling Walker PT/OT ASSESSMENT - OT Problem List: Decreased Mobility ADL's, Decreased Dressing, Decreased Bathing, Decreased UE Strength - PT GOALS Short Term Goals Days: 10 Mobility: Pt will perform bed mobility tasks with CGA Transfers: Pt will perform functional transfers with supervision Gait: Pt will ambulate 75ft with FWW with supervision Balance: Pt will increase static standing balance to good- Senior Qa Analyst Goals Days: 20 Mobility: Pt will perform bed mobility tasks with mod I Transfers: Pt will perform functional transfers with mod I Gait: Pt will ambulate 150ft with FWW with mod I Balance: Pt will increase dynamic standing balance to fair+ ROM/Strength: Pt will increase BLE strength by 1 MMT grade Others: Pt will ascend/descend 1 step with mod I - OT GOALS Short Term Goals Days: 10 Mobility for ADL's: Pt will increase ADL transfers to set-up A using A.D. as necessary. Dressing: Pt will increase UB/LB dressing skills to set-up A. Bathing: Pt will increase bathing skills to partial A using A.D. as necessary. Upper Ext. Strength/Use: Pt will increase UB strength to 4-/5. Senior Qa Analyst Goals Days: 20 Mobility for ADL's: Pt will increase ADL transfers to independent using A.D. as necessary. Dressing: Pt will increase UB/LB dressing skills to independent. Bathing: Pt will increase bathing skills to supv A using A.D. as necessary. Upper Ext. Strength/Use: Pt will increase UB strength to 4+/5. - PATIENT GOALS Patient/Family Goals: Return to PLOF and get back home Goals Discussed with Patient/Family: Yes Rehabilitation Potential: good Justification for Potential: PLOF and good family support - PLAN Suggested Treatment Plan: Therapeutic Activity, Self Care Training, Neuro Re- education, Therapeutic Ex with HEP, Home Management, Patient Education, Family Education - FREQUENCY AND DURATION OT: 3x/wk x hospital stay Expected Continuation of Care at Discharge: Home Health
--- NOTE | 2022-04-02 13:51 | DR.H&P ---
H&P History & Physical for Day of: H&P Date: 04/01/22 Chief Complaint Chief Complaint: Weakness with right upper lobe cavitary lesion rule out TB Allergies Allergies Allergy/AdvReac Type Severity Reaction Status Date / Time ciprofloxacin Allergy Severe CARDIOVASCULAR Verified 03/15/21 13:58 COMPLICATIONS celecoxib [From Celebrex] Allergy Unknown Verified 03/06/21 10:53 codeine Allergy Unknown Verified 03/06/21 10:53 diphenhydramine Allergy Unknown Verified 03/06/21 10:53 [From Benadryl] levofloxacin [From Levaquin] Allergy Unknown Verified 03/06/21 10:53 Sulfa (Sulfonamide Allergy Unknown Verified 03/06/21 10:53 Antibiotics) [SULFA] sulfamethoxazole Allergy Unknown Verified 03/06/21 10:53 [From Bactrim] trimethoprim [From Bactrim] Allergy Unknown Verified 03/06/21 10:53 History of Present Illness History of Present Illness: This is a pleasant 81-year-old white female who is a patient of Dr. Raphael. He had admitted her to the hospital on March 18, 2022 for increasing weakness over 3 to 4 days. She does have a history of atrial fibrillation, hypertension. She presented to the emergency department with fever, chills, shortness of breath and weakness. Work-up revealed she had pneumonia cultures grew out Pseudomonas aeruginosa and she was treated with that with Zosyn and then later on meropenem. Pneumonia has resolved however the question remains if she has tuberculosis or not. She has had greater than 3 acid-fast sputum cultures done and they are still pending. She also had the TB blood antibody test done that also to test for antigens and should be back in a short number of days. Also a PCR test was performed for TB we also currently awaiting the results for that. Says she remained too weak to go home and she was unable to go to [facility] like she had hoped for because of the possibility of the diagnosis of pulmonary tuberculosis we will in the meantime admitted for swing bed until we have her blood test back. She is at great risk for falling at home given recent bout with her pneumonia and other chronic medical problems. 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: CABG/Valve Surgery and Spleenectomy Family History Family Medical History: Cancer, [place], Coronary Artery Disease, Heart Failure, Sudden Cardiac and Hypertension Medications Home Medications: ciprofloxacin Allergy (Severe, Verified 03/15/21 13:58) CARDIOVASCULAR COMPLICATIONS celecoxib [From Celebrex] Allergy (Unknown, Verified 03/06/21 10:53) codeine Allergy (Unknown, Verified 03/06/21 10:53) diphenhydramine [From Benadryl] Allergy (Unknown, Verified 03/06/21 10:53) levofloxacin [From Levaquin] Allergy (Unknown, Verified 03/06/21 10:53) Sulfa (Sulfonamide Antibiotics) [SULFA] Allergy (Unknown, Verified 03/06/21 10:53) sulfamethoxazole [From Bactrim] Allergy (Unknown, Verified 03/06/21 10:53) trimethoprim [From Bactrim] Allergy (Unknown, Verified 03/06/21 10:53) Review of Systems Constitutional: Weakness Eyes: No Symptoms Reported Respiratory: Cough Cardiovascular: Palpitations Gastrointestinal: No Symptoms Reported Genitourinary: No Symptoms Reported Musculoskeletal: No Symptoms Reported Skin: No Symptoms Reported Neurological: No Symptoms Reported Physical Exam Vital Signs: Temperature 97.4 F Pulse Rate [Brachial] 80 Pulse Rate 72 Respiratory Rate 20 Blood Pressure [Left Arm] 144/76 O2 Sat by Pulse Oximetry 90 Oriented: Normal, Time, Person and Place Eyes: Normal Ear: Normal Nose: Normal Throat: Normal Respiratory: Clear Throughout Cardiovascular: Normal Auscultation: Bowel Sounds: Normal Palpation: Normal Tenderness: Normal Skin: Normal Musculoskeletal: Normal Psychiatric: Normal Mood Description: Calm Affect: Normal Speech Pattern: Clear and Appropriate Assessment/Plan (1) Cavitary lesion of lung: Status: Acute Plan: Acid-fast sputum cultures pending, PCR testing results and serum antibody and antigen TB test pending. Continue contact precautions as well as keep her in the negative pressure room. (2) Atrial fibrillation with rapid ventricular response: Status: Acute Plan: Continue metoprolol 50 mg twice daily along with Cardizem 180 mg p.o. daily. I will double check to see if the patient is anticoagulated and if not make sure she is on Eliquis 5 mg twice daily. (3) Generalized weakness: Status: Acute Plan: Continue physical therapy. (4) Essential hypertension: Status: Acute Plan: Continue metoprolol, losartan, HCTZ, hydralazine and diltiazem daily Review H&P Reviewed: Yes Patient was examined?: Yes
[2022-04-02] MEDS: CRESTOR TAB 10 MG PO SCH (21:37)
[2022-04-03] MEDS: XOPENEX 1.25 MG/3 ML NEBULE NEB SCH ×4 (00:10→17:35)
[2022-04-03] MEDS: MERREM VIAL 1 G in NS 100 ML IV 100 ML IV SCH ×3 (05:24→21:22)
[2022-04-03] MEDS: PULMICORT NEB TX 0.5 MG NEB SCH ×2 (09:13→20:45)
[2022-04-03] MEDS: ASPIRIN PO SCH (09:33)
[2022-04-03] MEDS: LOPRESSOR TAB 25 MG PO SCH ×2 (09:34→21:23)
[2022-04-03] MEDS: HYDROCHLOROTHIAZIDE 12.5 MG CAP PO SCH (09:34)
[2022-04-03] MEDS: CARDIZEM CD 180 MG 24-HR PO SCH (09:34)
[2022-04-03] MEDS: ELIQUIS PO SCH ×2 (09:35→21:23)
[2022-04-03] MEDS: VSL#3 PO SCH (09:36)
[2022-04-03] MEDS: MOBIC TAB 15 MG PO PRN (09:41)
--- NOTE | 2022-04-03 13:30 | PCM.PROG ---
Progress Note - Progress Note for Day of Date of Exam: 04/03/22 - Subjective Subjective: Swind Bed Therapy Patient, 81-year-old white female who is a patient of Dr. Raphael. He had admitted her to the hospital on March 18, 2022 for increasing weakness over 3 to 4 days. She does have a history of atrial fibrillation, hypertension. She presented to the emergency department with fever, chills, shortness of breath and weakness. Work-up revealed she had pneumonia cultures grew out Pseudomonas aeruginosa and she was treated with that with Zosyn and then later on meropenem. Pneumonia has resolved however the question remains if she has tuberculosis or not. She has had greater than 3 acid-fast sputum cultures done and they are still pending. She also had the TB blood antibody test done that also to test for antigens and should be back in a short number of days. Also a PCR test was performed for TB we also currently awaiting the results for that. Says she remained too weak to go home and she was unable to go to [facility] like she had hoped for because of the possibility of the diagnosis of pulmonary tuberculosis we will in the meantime admitted for swing bed until we have her blood test back. She is at great risk for falling at home given recent bout with her pneumonia and other chronic medical problems. - Past Medical Family Social History Past Med/Fam/Surg Hx: No changes since H&P Allergies: Allergies ciprofloxacin Allergy (Severe, Verified 03/15/21 13:58) CARDIOVASCULAR COMPLICATIONS patient has flushing and cardiovascular complications including bijeminy and freq pvcs celecoxib [From Celebrex] Allergy (Unknown, Verified 03/06/21 10:53) codeine Allergy (Unknown, Verified 03/06/21 10:53) diphenhydramine [From Benadryl] Allergy (Unknown, Verified 03/06/21 10:53) levofloxacin [From Levaquin] Allergy (Unknown, Verified 03/06/21 10:53) DAUGHTER STATES CROWN PRESSER TOLD PT. TO NOT TAKE IT BECAUSE OF HER HEART AND A-FIB Sulfa (Sulfonamide Antibiotics) [SULFA] Allergy (Unknown, Verified 03/06/21 10:53) sulfamethoxazole [From Bactrim] Allergy (Unknown, Verified 03/06/21 10:53) trimethoprim [From Bactrim] Allergy (Unknown, Verified 03/06/21 10:53) - Review of Systems ROS: No change since H&P - Vital Signs and I&O's Vital Signs: Temperature 97.7 F Pulse Rate [Brachial] 73 Pulse Rate 71 Respiratory Rate 20 Blood Pressure [Left Arm] 140/66 O2 Sat by Pulse Oximetry 95 Intake and Output: Intake & Output 04/01/22 04/02/22 04/03/22 04/04/22 11:59 11:59 11:59 11:59 Intake Total 1404 / 1404 1120 / 1120 Balance 1404 / 1404 1120 / 1120 - Physical Exam Oriented: Normal, Time, Person, Place Eyes: Normal Ear: Normal Nose: Normal Throat: Normal Respiratory: Diminished Cardiovascular: Normal Auscultation: Bowel Sounds: Normal Tenderness: Normal Skin: Normal Musculoskeletal: Normal (mild diffuse weakness), Motor Deficit Psychiatric: Normal Mood Description: Calm Affect: Normal Speech Pattern: Clear, Appropriate - Plan (1) Generalized weakness Status: Acute Plan: Continue physical therapy. (2) Essential hypertension Status: Acute Plan: Continue metoprolol, losartan, HCTZ, hydralazine and diltiazem daily (3) Cavitary lesion of lung Status: Acute Plan: Acid-fast sputum cultures pending, PCR testing results and serum antibody and antigen TB test pending. Continue contact precautions as well as keep her in the negative pressure room.
[2022-04-03] MEDS: CRESTOR TAB 10 MG PO SCH (21:22)
[2022-04-04] MEDS: XOPENEX 1.25 MG/3 ML NEBULE NEB SCH ×4 (00:10→17:49)
[2022-04-04] MEDS: MERREM VIAL 1 G in NS 100 ML IV 100 ML IV SCH ×4 (05:26→22:00)
[2022-04-04] MEDS ORDERED: NS 100 ML IV 100 ML ONE ×2 (05:34→15:43)
[2022-04-04] MEDS: PULMICORT NEB TX 0.5 MG NEB SCH ×2 (08:29→20:55)
[2022-04-04] MEDS: CARDIZEM CD 180 MG 24-HR PO SCH (09:21)
[2022-04-04] MEDS: LOPRESSOR TAB 25 MG PO SCH ×2 (09:21→20:26)
[2022-04-04] MEDS: ASPIRIN PO SCH (09:22)
[2022-04-04] MEDS: ELIQUIS PO SCH ×2 (09:22→20:27)
[2022-04-04] MEDS: VSL#3 PO SCH (09:23)
[2022-04-04] MEDS: HYDROCHLOROTHIAZIDE 12.5 MG CAP PO SCH (09:23)
[2022-04-04 11:28] VITALS: BMI 28.8
[2022-04-04] MEDS: CRESTOR TAB 10 MG PO SCH (20:27)
[2022-04-05] MEDS: MERREM VIAL 1 G in NS 100 ML IV 100 ML IV SCH ×3 (05:31→21:45)
[2022-04-05] MEDS: XOPENEX 1.25 MG/3 ML NEBULE NEB SCH ×4 (05:37→17:40)
[2022-04-05 06:00] LABS: BASOPHILS # (AUTO) 0.1 X10^3/uL (0.0-0.1); EOSINOPHILS # (AUTO) 0.3 x10^3/uL (0.0-0.2); EOSINOPHILS % (AUTO) 3.3 % (0.9-2.9); HEMOGLOBIN 10.9 g/dL (12.0-16.0); LYMPHOCYTES # (AUTO) 2.4 X10^3/uL (1.3-2.9); LYMPHOCYTES % (AUTO) 28.9 % (21.0-51.0); MEAN CORPUSCULAR HEMOGLOBIN 30.8 pg (27.0-34.0); MEAN CORPUSCULAR HGB CONC 34.2 g/dL (33.0-35.0); MEAN CORPUSCULAR VOLUME 90.1 fL (80.0-100.0); MEAN PLATELET VOLUME 9.8 fL (7.4-11.0); MONOCYTES # (AUTO) 0.9 x10^3/uL (0.3-0.8); MONOCYTES % (AUTO) 11.3 % (0.0-13.0); NEUTROPHILS # (AUTO) 4.6 x10^3/uL (2.2-4.8); NEUTROPHILS % (AUTO) 55.5 % (42.0-75.0); RED BLOOD COUNT 3.55 X10^6/uL (3.5-5.4); WHITE BLOOD COUNT 8.3 X10^3/uL (3.6-10.0)
[2022-04-05 06:02] LABS: BLOOD UREA NITROGEN 16 mg/dL (7-18); CALCIUM 8.3 mg/dL (8.5-10.1); CARBON DIOXIDE 29.6 mmol/L (21-32); CHLORIDE 106 mmol/L (98-107); CREATININE 0.86 mg/dL (0.55-1.02); SODIUM 143 mmol/L (136-145); eGFR NON BLACK RACES > 60 (>60)
[2022-04-05 06:15] LABS: ALANINE AMINOTRANSFERASE 33 Units/L (12-78); ALBUMIN 2.1 g/dL (3.4-5.0); ALKALINE PHOSPHATASE 120 Units/L (46-116); ASPARTATE AMINO TRANSFERASE 38 Units/L (15-37); COR CA(FOR HYPOALB) 9.8 mg/dL (8.5-10.1); TOTAL PROTEIN 6.9 g/dL (6.4-8.2)
[2022-04-05] MEDS: KLOR-CON PO PRN (06:20)
[2022-04-05] MEDS: ASPIRIN PO SCH (08:43)
[2022-04-05] MEDS: ELIQUIS PO SCH ×2 (08:43→20:47)
[2022-04-05] MEDS: LOPRESSOR TAB 25 MG PO SCH ×2 (08:43→20:46)
[2022-04-05] MEDS: CARDIZEM CD 180 MG 24-HR PO SCH (08:43)
[2022-04-05] MEDS: HYDROCHLOROTHIAZIDE 12.5 MG CAP PO SCH (08:43)
[2022-04-05] MEDS: VSL#3 PO SCH (08:44)
[2022-04-05] MEDS: PULMICORT NEB TX 0.5 MG NEB SCH ×2 (09:25→20:14)
--- NOTE | 2022-04-05 17:36 | PCM.PROG ---
Progress Note - Progress Note for Day of Date of Exam: 04/04/22 - Subjective Subjective: Swing Bed Therapy Patient, 81-year-old white female who is a patient of Dr. Raphael. He had admitted her to the hospital on March 18, 2022 for increasing weakness over 3 to 4 days. She does have a history of atrial fibrillation, hypertension. She presented to the emergency department with fever, chills, shortness of breath and weakness. Work-up revealed she had pneumonia cultures grew out Pseudomonas aeruginosa and she was treated with that with Zosyn and then later on meropenem. Pneumonia has resolved however the question remains if she has tuberculosis or not. She has had greater than 3 acid-fast sputum cultures done and they are still pending. She also had the TB blood antibody test done that also to test for antigens and should be back in a short number of days. Also a PCR test was performed for TB we also currently awaiting the results for that. Says she remained too weak to go home and she was unable to go to [facility] like she had hoped for because of the possibility of the diagnosis of pulmonary tuberculosis we will in the meantime admitted for swing bed until we have her blood test back. She is at great risk for falling at home given recent bout with her pneumonia and other chronic medical problems. - Past Medical Family Social History Past Med/Fam/Surg Hx: No changes since H&P Allergies: Allergies ciprofloxacin Allergy (Severe, Verified 03/15/21 13:58) CARDIOVASCULAR COMPLICATIONS patient has flushing and cardiovascular complications including bijeminy and freq pvcs celecoxib [From Celebrex] Allergy (Unknown, Verified 03/06/21 10:53) codeine Allergy (Unknown, Verified 03/06/21 10:53) diphenhydramine [From Benadryl] Allergy (Unknown, Verified 03/06/21 10:53) levofloxacin [From Levaquin] Allergy (Unknown, Verified 03/06/21 10:53) DAUGHTER STATES FIRE OPERATIONS FORESTER TOLD PT. TO NOT TAKE IT BECAUSE OF HER HEART AND A-FIB Sulfa (Sulfonamide Antibiotics) [SULFA] Allergy (Unknown, Verified 03/06/21 10:53) sulfamethoxazole [From Bactrim] Allergy (Unknown, Verified 03/06/21 10:53) trimethoprim [From Bactrim] Allergy (Unknown, Verified 03/06/21 10:53) - Review of Systems ROS: No change since H&P - Vital Signs and I&O's Vital Signs: Temperature 97.8 F Pulse Rate [Brachial] 62 Pulse Rate 77 Respiratory Rate 18 Blood Pressure [Left Arm] 146/68 O2 Sat by Pulse Oximetry 95 Intake and Output: Intake & Output 04/03/22 04/04/22 04/05/22 04/06/22 11:59 11:59 11:59 11:59 Intake Total 1120 / 1120 1160 / 1160 1640 / 1640 830 / 830 Balance 1120 / 1120 1160 / 1160 1640 / 1640 830 / 830 - Physical Exam Oriented: Normal, Time, Person, Place Eyes: Normal Ear: Normal Nose: Normal Throat: Normal Respiratory: Diminished Cardiovascular: Normal Auscultation: Bowel Sounds: Normal Tenderness: Normal Skin: Normal Musculoskeletal: Normal (mild diffuse weakness), Motor Deficit Psychiatric: Normal Mood Description: Calm Affect: Normal Speech Pattern: Clear, Appropriate - Laboratory and Diagnostics Result Diagrams: 04/05/22 05:18 04/05/22 05:18 Labs: Laboratory WBC 8.3 X10^3/uL (3.6-10.0) 04/05/22 05:18 RBC 3.55 X10^6/uL (3.5-5.4) 04/05/22 05:18 Hgb 10.9 g/dL (12.0-16.0) L 04/05/22 05:18 Hct 32.0 % (36.0-47.0) L 04/05/22 05:18 MCV 90.1 fL (80.0-100.0) 04/05/22 05:18 MCH 30.8 pg (27.0-34.0) 04/05/22 05:18 MCHC 34.2 g/dL (33.0-35.0) 04/05/22 05:18 RDW 16.0 % (11.6-16.5) 04/05/22 05:18 Plt Count 355 X10^3/uL (150.0-450.0) 04/05/22 05:18 MPV 9.8 fL (7.4-11.0) 04/05/22 05:18 Neut % (Auto) 55.5 % (42.0-75.0) 04/05/22 05:18 Lymph % (Auto) 28.9 % (21.0-51.0) 04/05/22 05:18 [place] % (Auto) 11.3 % (0.0-13.0) 04/05/22 05:18 Eos % (Auto) 3.3 % (0.9-2.9) H 04/05/22 05:18 Baso % (Auto) 1.0 % (0.2-1.0) 04/05/22 05:18 Neut # (Auto) 4.6 x10^3/uL (2.2-4.8) 04/05/22 05:18 Lymph # (Auto) 2.4 X10^3/uL (1.3-2.9) 04/05/22 05:18 [place] # (Auto) 0.9 x10^3/uL (0.3-0.8) H 04/05/22 05:18 Eos # (Auto) 0.3 x10^3/uL (0.0-0.2) H 04/05/22 05:18 Baso # (Auto) 0.1 X10^3/uL (0.0-0.1) 04/05/22 05:18 Absolute Nucleated RBC 0.1 /100WBC 04/05/22 05:18 Sodium 143 mmol/L (136-145) 04/05/22 05:18 Corrected Sodium TNP 04/05/22 05:18 Potassium 3.5 mmol/L (3.5-5.1) 04/05/22 05:18 Chloride 106 mmol/L (98-107) 04/05/22 05:18 Carbon Dioxide 29.6 mmol/L (21-32) 04/05/22 05:18 BUN 16 mg/dL (7-18) 04/05/22 05:18 Creatinine 0.86 mg/dL (0.55-1.02) 04/05/22 05:18 Est GFR (MDRD) Af Amer > 60 (>60) 04/05/22 05:18 Est GFR (MDRD) Non-Af > 60 (>60) 04/05/22 05:18 Glucose 88 mg/dL (65-99) 04/05/22 05:18 Calcium 8.3 mg/dL (8.5-10.1) L 04/05/22 05:18 Corrected Calcium 9.8 mg/dL (8.5-10.1) 04/05/22 05:18 Total Bilirubin 0.30 mg/dL (0.2-1.0) 04/05/22 05:18 AST 38 Units/L (15-37) H 04/05/22 05:18 ALT 33 Units/L (12-78) 04/05/22 05:18 Alkaline Phosphatase 120 Units/L (46-116) H 04/05/22 05:18 Total Protein 6.9 g/dL (6.4-8.2) 04/05/22 05:18 Albumin 2.1 g/dL (3.4-5.0) L 04/05/22 05:18 Globulin 4.8 g/dL (2.5-4.5) H 04/05/22 05:18 Albumin/Globulin Ratio 0.4 Ratio (1.1-2.1) L 04/05/22 05:18 Resp Viral Panel (PCR) See scanned report 04/02/22 12:16 - Plan (1) Generalized weakness Status: Acute Plan: Continue physical therapy. (2) Essential hypertension Status: Acute Plan: Continue metoprolol, losartan, HCTZ, hydralazine and diltiazem daily (3) Cavitary lesion of lung Status: Acute Plan: Acid-fast sputum cultures pending, PCR testing results and serum antibody and antigen TB test pending. Continue contact precautions as well as keep her in the negative pressure room.
[2022-04-05] MEDS: CRESTOR TAB 10 MG PO SCH (20:46)
[2022-04-06] MEDS: XOPENEX 1.25 MG/3 ML NEBULE NEB SCH ×4 (00:50→16:41)
[2022-04-06] MEDS: MERREM VIAL 1 G in NS 100 ML IV 100 ML IV SCH ×3 (05:58→21:34)
[2022-04-06] MEDS: PULMICORT NEB TX 0.5 MG NEB SCH ×2 (09:25→21:47)
[2022-04-06] MEDS: HYDROCHLOROTHIAZIDE 12.5 MG CAP PO SCH (09:38)
[2022-04-06] MEDS: ELIQUIS PO SCH ×2 (09:38→20:52)
[2022-04-06] MEDS: ASPIRIN PO SCH (09:39)
[2022-04-06] MEDS: LOPRESSOR TAB 25 MG PO SCH ×2 (09:39→20:51)
[2022-04-06] MEDS: CARDIZEM CD 180 MG 24-HR PO SCH (09:39)
[2022-04-06] MEDS: VSL#3 PO SCH (09:40)
[2022-04-06] MEDS: CRESTOR TAB 10 MG PO SCH (20:52)
[2022-04-06] MEDS ORDERED: NS 250 ML IV 250 ML IV ONE (22:22)
--- NOTE | 2022-04-06 22:33 | PCM.PROG ---
Progress Note Progress Note for Day of Date of Exam: 04/06/22 Subjective Subjective: Pt is a Swing Bed Therapy Patient, 81-year-old white female with history of atrial fibrillation, hypertension. She presented to the emergency department with fever, chills, shortness of breath and weakness. Work-up revealed she had pneumonia cultures grew out Pseudomonas aeruginosa and she was treated with that with Zosyn and then later on meropenem. Pneumonia has resolved however the question remains if she has tuberculosis or not. She has had greater than 3 acid-fast sputum cultures done and they are still pending. It will take 6 weeks to get results back and health department will follow up with her outpatient. TB blood antibody test and antigens, PCR test have all resulted negative. She has received adequate antibiotic treatment with leukocytosis trended down back to normal limits. Discontinue antibiotics today. She is at great risk for falling at home given recent bout with her pneumonia and other chronic medical problems. Will continue physical therapy and continue with current treatment plan. Past Medical Family Social History Past Med/Fam/Surg Hx: No changes since H&P Allergies: Allergies ciprofloxacin Allergy (Severe, Verified 03/15/21 13:58) CARDIOVASCULAR COMPLICATIONS patient has flushing and cardiovascular complications including bijeminy and freq pvcs celecoxib [From Celebrex] Allergy (Unknown, Verified 03/06/21 10:53) codeine Allergy (Unknown, Verified 03/06/21 10:53) diphenhydramine [From Benadryl] Allergy (Unknown, Verified 03/06/21 10:53) levofloxacin [From Levaquin] Allergy (Unknown, Verified 03/06/21 10:53) DAUGHTER STATES LANDING GEAR MECHANIC TOLD PT. TO NOT TAKE IT BECAUSE OF HER HEART AND A-FIB Sulfa (Sulfonamide Antibiotics) [SULFA] Allergy (Unknown, Verified 03/06/21 10:53) sulfamethoxazole [From Bactrim] Allergy (Unknown, Verified 03/06/21 10:53) trimethoprim [From Bactrim] Allergy (Unknown, Verified 03/06/21 10:53) Review of Systems ROS: No change since H&P Vital Signs and I&O's Vital Signs: Temperature 98.0 F Pulse Rate [Brachial] 68 Pulse Rate 77 Respiratory Rate 22 Blood Pressure [Left Arm] 174/72 O2 Sat by Pulse Oximetry 94 Intake and Output: Intake & Output 04/03/22 04/04/22 04/05/22 04/06/22 23:59 23:59 23:59 23:59 Intake Total 1180 / 1180 1180 / 1180 1787 / 1787 1089 / 1089 Output Total Balance 1180 / 1180 1180 / 1180 1787 / 1787 1088 / 1088 Physical Exam Oriented: Normal, Time, Person and Place Eyes: Normal Ear: Normal Nose: Normal Throat: Normal Respiratory: Diminished Cardiovascular: Normal Auscultation: Bowel Sounds: Normal Tenderness: Normal Skin: Normal Musculoskeletal: Normal (mild diffuse weakness) and Motor Deficit Psychiatric: Normal Mood Description: Calm Affect: Normal Speech Pattern: Clear and Appropriate Laboratory and Diagnostics Result Diagrams: 04/05/22 05:18 04/05/22 05:18 Labs: Laboratory WBC 8.3 X10^3/uL (3.6-10.0) 04/05/22 05:18 RBC 3.55 X10^6/uL (3.5-5.4) 04/05/22 05:18 Hgb 10.9 g/dL (12.0-16.0) L 04/05/22 05:18 Hct 32.0 % (36.0-47.0) L 04/05/22 05:18 MCV 90.1 fL (80.0-100.0) 04/05/22 05:18 MCH 30.8 pg (27.0-34.0) 04/05/22 05:18 MCHC 34.2 g/dL (33.0-35.0) 04/05/22 05:18 RDW 16.0 % (11.6-16.5) 04/05/22 05:18 Plt Count 355 X10^3/uL (150.0-450.0) 04/05/22 05:18 MPV 9.8 fL (7.4-11.0) 04/05/22 05:18 Neut % (Auto) 55.5 % (42.0-75.0) 04/05/22 05:18 Lymph % (Auto) 28.9 % (21.0-51.0) 04/05/22 05:18 [place] % (Auto) 11.3 % (0.0-13.0) 04/05/22 05:18 Eos % (Auto) 3.3 % (0.9-2.9) H 04/05/22 05:18 Baso % (Auto) 1.0 % (0.2-1.0) 04/05/22 05:18 Neut # (Auto) 4.6 x10^3/uL (2.2-4.8) 04/05/22 05:18 Lymph # (Auto) 2.4 X10^3/uL (1.3-2.9) 04/05/22 05:18 [place] # (Auto) 0.9 x10^3/uL (0.3-0.8) H 04/05/22 05:18 Eos # (Auto) 0.3 x10^3/uL (0.0-0.2) H 04/05/22 05:18 Baso # (Auto) 0.1 X10^3/uL (0.0-0.1) 04/05/22 05:18 Absolute Nucleated RBC 0.1 /100WBC 04/05/22 05:18 Sodium 143 mmol/L (136-145) 04/05/22 05:18 Corrected Sodium TNP 04/05/22 05:18 Potassium 3.5 mmol/L (3.5-5.1) 04/05/22 05:18 Chloride 106 mmol/L (98-107) 04/05/22 05:18 Carbon Dioxide 29.6 mmol/L (21-32) 04/05/22 05:18 BUN 16 mg/dL (7-18) 04/05/22 05:18 Creatinine 0.86 mg/dL (0.55-1.02) 04/05/22 05:18 Est GFR (MDRD) Af Amer > 60 (>60) 04/05/22 05:18 Est GFR (MDRD) Non-Af > 60 (>60) 04/05/22 05:18 Glucose 88 mg/dL (65-99) 04/05/22 05:18 Calcium 8.3 mg/dL (8.5-10.1) L 04/05/22 05:18 Corrected Calcium 9.8 mg/dL (8.5-10.1) 04/05/22 05:18 Total Bilirubin 0.30 mg/dL (0.2-1.0) 04/05/22 05:18 AST 38 Units/L (15-37) H 04/05/22 05:18 ALT 33 Units/L (12-78) 04/05/22 05:18 Alkaline Phosphatase 120 Units/L (46-116) H 04/05/22 05:18 Total Protein 6.9 g/dL (6.4-8.2) 04/05/22 05:18 Albumin 2.1 g/dL (3.4-5.0) L 04/05/22 05:18 Globulin 4.8 g/dL (2.5-4.5) H 04/05/22 05:18 Albumin/Globulin Ratio 0.4 Ratio (1.1-2.1) L 04/05/22 05:18 Resp Viral Panel (PCR) See scanned report 04/02/22 12:16 Plan (1) Generalized weakness: Status: Acute Plan: Continue physical therapy. (2) Essential hypertension: Status: Acute Plan: Continue metoprolol, losartan, HCTZ, hydralazine and diltiazem daily (3) Cavitary lesion of lung: Status: Acute Plan: Acid-fast sputum cultures pending, PCR, serum antibody, and antigen TB test negative. Continue contact precautions as well as keep her in the negative pressure room.
[2022-04-07] MEDS: XOPENEX 1.25 MG/3 ML NEBULE NEB SCH ×6 (00:21→18:00)
[2022-04-07] MEDS: MERREM VIAL 1 G in NS 100 ML IV 100 ML IV SCH ×3 (05:23→21:01)
[2022-04-07 06:24] LABS: BASOPHILS # (AUTO) 0.1 X10^3/uL (0.0-0.1); BASOPHILS % (AUTO) 1.9 % (0.2-1.0); EOSINOPHILS # (AUTO) 0.4 x10^3/uL (0.0-0.2); EOSINOPHILS % (AUTO) 5.5 % (0.9-2.9); HEMATOCRIT 34.7 % (36.0-47.0); HEMOGLOBIN 11.8 g/dL (12.0-16.0); LYMPHOCYTES # (AUTO) 1.6 X10^3/uL (1.3-2.9); LYMPHOCYTES % (AUTO) 23.2 % (21.0-51.0); MEAN CORPUSCULAR HEMOGLOBIN 30.7 pg (27.0-34.0); MEAN CORPUSCULAR VOLUME 90.2 fL (80.0-100.0); MEAN PLATELET VOLUME 9.6 fL (7.4-11.0); MONOCYTES # (AUTO) 0.7 x10^3/uL (0.3-0.8); MONOCYTES % (AUTO) 10.6 % (0.0-13.0); NEUTROPHILS # (AUTO) 4.1 x10^3/uL (2.2-4.8); NEUTROPHILS % (AUTO) 58.8 % (42.0-75.0); RED BLOOD COUNT 3.84 X10^6/uL (3.5-5.4); RED CELL DISTRIBUTION WIDTH 16.7 % (11.6-16.5)
[2022-04-07 06:26] LABS: ALANINE AMINOTRANSFERASE 63 Units/L (12-78); ALBUMIN 2.3 g/dL (3.4-5.0); ALKALINE PHOSPHATASE 132 Units/L (46-116); ASPARTATE AMINO TRANSFERASE 74 Units/L (15-37); BLOOD UREA NITROGEN 14 mg/dL (7-18); CALCIUM 8.8 mg/dL (8.5-10.1); CARBON DIOXIDE 30.6 mmol/L (21-32); CHLORIDE 108 mmol/L (98-107); COR CA(FOR HYPOALB) 10.2 mg/dL (8.5-10.1); CREATININE 0.88 mg/dL (0.55-1.02); SODIUM 145 mmol/L (136-145); TOTAL PROTEIN 6.9 g/dL (6.4-8.2); eGFR NON BLACK RACES > 60 (>60)
[2022-04-07] MEDS: PULMICORT NEB TX 0.5 MG NEB SCH ×2 (08:59→22:00)
[2022-04-07] MEDS: ELIQUIS PO SCH ×2 (09:35→20:51)
[2022-04-07] MEDS: CARDIZEM CD 180 MG 24-HR PO SCH (09:35)
[2022-04-07] MEDS: LOPRESSOR TAB 25 MG PO SCH ×2 (09:35→20:52)
[2022-04-07] MEDS: ASPIRIN PO SCH (09:35)
[2022-04-07] MEDS: HYDROCHLOROTHIAZIDE 12.5 MG CAP PO SCH (09:35)
[2022-04-07] MEDS: VSL#3 PO SCH (09:36)
[2022-04-07] MEDS: CRESTOR TAB 10 MG PO SCH (20:52)
[2022-04-08] MEDS: XOPENEX 1.25 MG/3 ML NEBULE NEB SCH ×4 (01:01→17:15)
[2022-04-08] MEDS: MERREM VIAL 1 G in NS 100 ML IV 100 ML IV SCH ×3 (05:32→21:00)
[2022-04-08] MEDS: PULMICORT NEB TX 0.5 MG NEB SCH ×2 (08:20→20:51)
[2022-04-08] MEDS: ELIQUIS PO SCH ×2 (09:11→20:55)
[2022-04-08] MEDS: LOPRESSOR TAB 25 MG PO SCH ×2 (09:11→20:55)
[2022-04-08] MEDS: HYDROCHLOROTHIAZIDE 12.5 MG CAP PO SCH (09:11)
[2022-04-08] MEDS: VSL#3 PO SCH (09:12)
[2022-04-08] MEDS: CARDIZEM CD 180 MG 24-HR PO SCH (09:12)
[2022-04-08] MEDS: ASPIRIN PO SCH (09:12)
[2022-04-08] MEDS: CRESTOR TAB 10 MG PO SCH (20:55)
[2022-04-09] MEDS: XOPENEX 1.25 MG/3 ML NEBULE NEB SCH ×4 (00:46→17:03)
[2022-04-09] MEDS: MERREM VIAL 1 G in NS 100 ML IV 100 ML IV SCH ×3 (05:28→21:45)
[2022-04-09 06:04] LABS: BASOPHILS # (AUTO) 0.2 X10^3/uL (0.0-0.1); BASOPHILS % (AUTO) 2.7 % (0.2-1.0); EOSINOPHILS # (AUTO) 0.4 x10^3/uL (0.0-0.2); EOSINOPHILS % (AUTO) 5.8 % (0.9-2.9); HEMATOCRIT 32.2 % (36.0-47.0); HEMOGLOBIN 10.8 g/dL (12.0-16.0); LYMPHOCYTES # (AUTO) 1.8 X10^3/uL (1.3-2.9); LYMPHOCYTES % (AUTO) 25.7 % (21.0-51.0); MEAN CORPUSCULAR HEMOGLOBIN 30.3 pg (27.0-34.0); MEAN CORPUSCULAR HGB CONC 33.6 g/dL (33.0-35.0); MEAN CORPUSCULAR VOLUME 90.3 fL (80.0-100.0); MEAN PLATELET VOLUME 9.4 fL (7.4-11.0); MONOCYTES # (AUTO) 0.9 x10^3/uL (0.3-0.8); MONOCYTES % (AUTO) 12.7 % (0.0-13.0); NEUTROPHILS # (AUTO) 3.7 x10^3/uL (2.2-4.8); NEUTROPHILS % (AUTO) 53.1 % (42.0-75.0); RED BLOOD COUNT 3.56 X10^6/uL (3.5-5.4); RED CELL DISTRIBUTION WIDTH 16.8 % (11.6-16.5); WHITE BLOOD COUNT 6.9 X10^3/uL (3.6-10.0)
[2022-04-09 06:06] LABS: ALANINE AMINOTRANSFERASE 68 Units/L (12-78); ALBUMIN 2.1 g/dL (3.4-5.0); ALKALINE PHOSPHATASE 119 Units/L (46-116); ASPARTATE AMINO TRANSFERASE 63 Units/L (15-37); BLOOD UREA NITROGEN 17 mg/dL (7-18); CALCIUM 8.4 mg/dL (8.5-10.1); CARBON DIOXIDE 33.1 mmol/L (21-32); CHLORIDE 107 mmol/L (98-107); COR CA(FOR HYPOALB) 9.9 mg/dL (8.5-10.1); CREATININE 0.77 mg/dL (0.55-1.02); SODIUM 146 mmol/L (136-145); TOTAL PROTEIN 6.3 g/dL (6.4-8.2); eGFR NON BLACK RACES > 60 (>60)
[2022-04-09] MEDS: KLOR-CON PO PRN (06:22)
[2022-04-09 06:46] LABS: GIANT PLATELET FEW; PLATELET MORPHOLOGY COMMENT ABNORMAL (NORMAL); TARGET CELLS SLIGHT
[2022-04-09] MEDS: PULMICORT NEB TX 0.5 MG NEB SCH ×2 (08:26→20:30)
[2022-04-09] MEDS: VSL#3 PO SCH (09:03)
[2022-04-09] MEDS: ASPIRIN PO SCH (09:03)
[2022-04-09] MEDS: ELIQUIS PO SCH ×2 (09:03→20:40)
[2022-04-09] MEDS: LOPRESSOR TAB 25 MG PO SCH ×2 (09:04→20:40)
[2022-04-09] MEDS: CARDIZEM CD 180 MG 24-HR PO SCH (09:04)
[2022-04-09] MEDS: HYDROCHLOROTHIAZIDE 12.5 MG CAP PO SCH (09:04)
[2022-04-09] MEDS: MOBIC TAB 15 MG PO PRN (09:09)
[2022-04-09] MEDS: CRESTOR TAB 10 MG PO SCH (20:40)
[2022-04-10] MEDS: XOPENEX 1.25 MG/3 ML NEBULE NEB SCH ×4 (00:01→16:40)
[2022-04-10] MEDS ORDERED: NS 100 ML IV 100 ML ONE (01:58)
[2022-04-10] MEDS: MERREM VIAL 1 G in NS 100 ML IV 100 ML IV SCH ×3 (05:18→21:03)
[2022-04-10] MEDS: CARDIZEM CD 180 MG 24-HR PO SCH (08:42)
[2022-04-10] MEDS: LOPRESSOR TAB 25 MG PO SCH ×2 (08:43→20:53)
[2022-04-10] MEDS: ELIQUIS PO SCH ×2 (08:43→20:53)
[2022-04-10] MEDS: VSL#3 PO SCH (08:43)
[2022-04-10] MEDS: ASPIRIN PO SCH (08:43)
[2022-04-10] MEDS: HYDROCHLOROTHIAZIDE 12.5 MG CAP PO SCH (08:43)
[2022-04-10] MEDS: PULMICORT NEB TX 0.5 MG NEB SCH ×2 (08:45→20:30)
[2022-04-10] MEDS ORDERED: NS 250 ML IV 250 ML IV ONE (19:35)
[2022-04-10] MEDS: CRESTOR TAB 10 MG PO SCH (20:53)
[2022-04-11] MEDS: XOPENEX 1.25 MG/3 ML NEBULE NEB SCH ×5 (00:30→16:50)
[2022-04-11] MEDS: MERREM VIAL 1 G in NS 100 ML IV 100 ML IV SCH ×3 (06:13→21:12)
[2022-04-11] MEDS: ASPIRIN PO SCH (08:21)
[2022-04-11] MEDS: CARDIZEM CD 180 MG 24-HR PO SCH (08:22)
[2022-04-11] MEDS: HYDROCHLOROTHIAZIDE 12.5 MG CAP PO SCH (08:22)
[2022-04-11] MEDS: LOPRESSOR TAB 25 MG PO SCH ×2 (08:22→20:21)
[2022-04-11] MEDS: ELIQUIS PO SCH ×2 (08:22→20:22)
[2022-04-11] MEDS: VSL#3 PO SCH (08:22)
[2022-04-11] MEDS: PULMICORT NEB TX 0.5 MG NEB SCH ×2 (08:36→21:35)
[2022-04-11] MEDS ORDERED: NS 250 ML IV 250 ML IV PRN (19:02)
[2022-04-11] MEDS ORDERED: NS 250 ML IV 250 ML IV ONE (19:05)
[2022-04-11] MEDS: CRESTOR TAB 10 MG PO SCH (20:22)
[2022-04-12] MEDS: XOPENEX 1.25 MG/3 ML NEBULE NEB SCH ×2 (01:01→06:19)
[2022-04-12] MEDS: MERREM VIAL 1 G in NS 100 ML IV 100 ML IV SCH (05:27)
[2022-04-12 06:09] LABS: BASOPHILS # (AUTO) 0.1 X10^3/uL (0.0-0.1); BASOPHILS % (AUTO) 1.3 % (0.2-1.0); EOSINOPHILS # (AUTO) 0.6 x10^3/uL (0.0-0.2); EOSINOPHILS % (AUTO) 7.1 % (0.9-2.9); HEMATOCRIT 34.7 % (36.0-47.0); HEMOGLOBIN 11.8 g/dL (12.0-16.0); LYMPHOCYTES # (AUTO) 2.3 X10^3/uL (1.3-2.9); LYMPHOCYTES % (AUTO) 27.5 % (21.0-51.0); MEAN CORPUSCULAR HEMOGLOBIN 31.1 pg (27.0-34.0); MEAN CORPUSCULAR HGB CONC 34.1 g/dL (33.0-35.0); MEAN CORPUSCULAR VOLUME 91.4 fL (80.0-100.0); MEAN PLATELET VOLUME 9.7 fL (7.4-11.0); MONOCYTES # (AUTO) 1.1 x10^3/uL (0.3-0.8); MONOCYTES % (AUTO) 12.8 % (0.0-13.0); NEUTROPHILS # (AUTO) 4.3 x10^3/uL (2.2-4.8); NEUTROPHILS % (AUTO) 51.3 % (42.0-75.0); RED CELL DISTRIBUTION WIDTH 17.3 % (11.6-16.5); WHITE BLOOD COUNT 8.5 X10^3/uL (3.6-10.0)
[2022-04-12 06:21] LABS: ALANINE AMINOTRANSFERASE 120 Units/L (12-78); ALBUMIN 2.3 g/dL (3.4-5.0); ALKALINE PHOSPHATASE 134 Units/L (46-116); ASPARTATE AMINO TRANSFERASE 120 Units/L (15-37); BLOOD UREA NITROGEN 18 mg/dL (7-18); CALCIUM 8.8 mg/dL (8.5-10.1); CARBON DIOXIDE 30.5 mmol/L (21-32); CHLORIDE 108 mmol/L (98-107); COR CA(FOR HYPOALB) 10.2 mg/dL (8.5-10.1); CREATININE 0.91 mg/dL (0.55-1.02); SODIUM 145 mmol/L (136-145); TOTAL PROTEIN 6.8 g/dL (6.4-8.2); eGFR NON BLACK RACES > 60 (>60)
[2022-04-12 07:31] LABS: ANISOCYTOSIS SLIGHT; GIANT PLATELET RARE; PLATELET MORPHOLOGY COMMENT ABNORMAL (NORMAL); TARGET CELLS 1+
[2022-04-12] MEDS: CARDIZEM CD 180 MG 24-HR PO SCH (08:27)
[2022-04-12] MEDS: ASPIRIN PO SCH (08:27)
[2022-04-12] MEDS: ELIQUIS PO SCH (08:28)
[2022-04-12] MEDS: VSL#3 PO SCH (08:28)
[2022-04-12] MEDS: HYDROCHLOROTHIAZIDE 12.5 MG CAP PO SCH (08:28)
[2022-04-12] MEDS: LOPRESSOR TAB 25 MG PO SCH (08:28)
[2022-04-12] MEDS: PULMICORT NEB TX 0.5 MG NEB SCH (08:41)
[2022-04-12 11:04] VITALS: BP 178/77
--- NOTE | 2022-04-12 12:27 | PCM.PROG ---
Progress Note Progress Note for Day of Date of Exam: 04/09/22 Subjective Subjective: Pt is a Swing Bed Therapy Patient, 81-year-old white female with history of atrial fibrillation, hypertension. She presented to the emergency department with fever, chills, shortness of breath and weakness. Work-up revealed she had pneumonia cultures grew out Pseudomonas aeruginosa and she was treated with that with Zosyn and then later on meropenem. Pneumonia has resolved however the question remains if she has tuberculosis or not. She has had greater than 3 acid-fast sputum cultures done and they are still pending. It will take 6 weeks to get results back and health department will follow up with her outpatient. TB blood antibody test and antigens, PCR test have all resulted negative. She has received adequate antibiotic treatment with leukocytosis trended down back to normal limits. Discontinue antibiotics today. She is at great risk for falling at home given recent bout with her pneumonia and other chronic medical problems. Will continue physical therapy and continue with current treatment plan. We will plan on patient discharge after this weekend for several weeks at that time. Continue current treatment. Past Medical Family Social History Past Med/Fam/Surg Hx: No changes since H&P Allergies: Allergies ciprofloxacin Allergy (Severe, Verified 03/15/21 13:58) CARDIOVASCULAR COMPLICATIONS patient has flushing and cardiovascular complications including bijeminy and freq pvcs celecoxib [From Celebrex] Allergy (Unknown, Verified 03/06/21 10:53) codeine Allergy (Unknown, Verified 03/06/21 10:53) diphenhydramine [From Benadryl] Allergy (Unknown, Verified 03/06/21 10:53) levofloxacin [From Levaquin] Allergy (Unknown, Verified 03/06/21 10:53) DAUGHTER STATES DEPUTY DIRECTOR OF NURSING TOLD PT. TO NOT TAKE IT BECAUSE OF HER HEART AND A-FIB Sulfa (Sulfonamide Antibiotics) [SULFA] Allergy (Unknown, Verified 03/06/21 10:53) sulfamethoxazole [From Bactrim] Allergy (Unknown, Verified 03/06/21 10:53) trimethoprim [From Bactrim] Allergy (Unknown, Verified 03/06/21 10:53) Review of Systems ROS: No change since H&P Vital Signs and I&O's Vital Signs: Temperature 97.7 F Pulse Rate [Brachial] 64 Pulse Rate 64 Respiratory Rate 18 Blood Pressure [Left Arm] 178/77 O2 Sat by Pulse Oximetry 93 Intake and Output: Intake & Output 04/10/22 04/11/22 04/12/22 04/13/22 12:59 11:59 11:59 11:59 Intake Total 1909 Balance 1909 Physical Exam Oriented: Normal, Time, Person and Place Eyes: Normal Ear: Normal Nose: Normal Throat: Normal Respiratory: Diminished Cardiovascular: Normal Auscultation: Bowel Sounds: Normal Tenderness: Normal Skin: Normal Musculoskeletal: Normal (mild diffuse weakness) and Motor Deficit Psychiatric: Normal Mood Description: Calm Affect: Normal Speech Pattern: Clear and Appropriate Laboratory and Diagnostics Result Diagrams: 04/12/22 05:42 04/12/22 05:42 Labs: Laboratory WBC 8.5 X10^3/uL (3.6-10.0) 04/12/22 05:42 RBC 3.80 X10^6/uL (3.5-5.4) 04/12/22 05:42 Hgb 11.8 g/dL (12.0-16.0) L 04/12/22 05:42 Hct 34.7 % (36.0-47.0) L 04/12/22 05:42 MCV 91.4 fL (80.0-100.0) 04/12/22 05:42 MCH 31.1 pg (27.0-34.0) 04/12/22 05:42 MCHC 34.1 g/dL (33.0-35.0) 04/12/22 05:42 RDW 17.3 % (11.6-16.5) H 04/12/22 05:42 Plt Count 300 X10^3/uL (150.0-450.0) 04/12/22 05:42 Plt Count Comment Adequate (ADEQUATE) 04/12/22 05:42 MPV 9.7 fL (7.4-11.0) 04/12/22 05:42 Neut % (Auto) 51.3 % (42.0-75.0) 04/12/22 05:42 Lymph % (Auto) 27.5 % (21.0-51.0) 04/12/22 05:42 [place] % (Auto) 12.8 % (0.0-13.0) 04/12/22 05:42 Eos % (Auto) 7.1 % (0.9-2.9) H 04/12/22 05:42 Baso % (Auto) 1.3 % (0.2-1.0) H 04/12/22 05:42 Neut # (Auto) 4.3 x10^3/uL (2.2-4.8) 04/12/22 05:42 Lymph # (Auto) 2.3 X10^3/uL (1.3-2.9) 04/12/22 05:42 [place] # (Auto) 1.1 x10^3/uL (0.3-0.8) H 04/12/22 05:42 Eos # (Auto) 0.6 x10^3/uL (0.0-0.2) H 04/12/22 05:42 Baso # (Auto) 0.1 X10^3/uL (0.0-0.1) 04/12/22 05:42 Absolute Nucleated RBC 0.1 /100WBC 04/12/22 05:42 Giant Platelets Rare 04/12/22 05:42 Plt Morphology Comment Abnormal (NORMAL) A 04/12/22 05:42 RBC Morphology Abnormal (NORMAL) A 04/12/22 05:42 Anisocytosis Slight A 04/12/22 05:42 Target Cells 1+ A 04/12/22 05:42 Sodium 145 mmol/L (136-145) 04/12/22 05:42 Corrected Sodium TNP 04/12/22 05:42 Potassium 4.2 mmol/L (3.5-5.1) 04/12/22 05:42 Chloride 108 mmol/L (98-107) H 04/12/22 05:42 Carbon Dioxide 30.5 mmol/L (21-32) 04/12/22 05:42 BUN 18 mg/dL (7-18) 04/12/22 05:42 Creatinine 0.91 mg/dL (0.55-1.02) 04/12/22 05:42 Est GFR (MDRD) Af Amer > 60 (>60) 04/12/22 05:42 Est GFR (MDRD) Non-Af > 60 (>60) 04/12/22 05:42 Glucose 89 mg/dL (65-99) 04/12/22 05:42 Calcium 8.8 mg/dL (8.5-10.1) 04/12/22 05:42 Corrected Calcium 10.2 mg/dL (8.5-10.1) H 04/12/22 05:42 Total Bilirubin 0.30 mg/dL (0.2-1.0) 04/12/22 05:42 AST 120 Units/L (15-37) H 04/12/22 05:42 ALT 120 Units/L (12-78) H 04/12/22 05:42 Alkaline Phosphatase 134 Units/L (46-116) H 04/12/22 05:42 Total Protein 6.8 g/dL (6.4-8.2) 04/12/22 05:42 Albumin 2.3 g/dL (3.4-5.0) L 04/12/22 05:42 Globulin 4.5 g/dL (2.5-4.5) 04/12/22 05:42 Albumin/Globulin Ratio 0.5 Ratio (1.1-2.1) L 04/12/22 05:42 Resp Viral Panel (PCR) See scanned report 04/02/22 12:16 Plan (1) Generalized weakness: Status: Acute Plan: Continue physical therapy. (2) Essential hypertension: Status: Acute Plan: Continue metoprolol, losartan, HCTZ, hydralazine and diltiazem daily (3) Cavitary lesion of lung: Status: Acute Plan: Acid-fast sputum cultures pending, PCR, serum antibody, and antigen TB test negative. Continue contact precautions as well as keep her in the negative pressure room.
== END 2022-04-12 13:30 | disposition home health service (06) | DRG 206 ==
LOC: MED/SURG 13:23
PROVIDERS: ADMIT Family Medicine; ATTEND Family Medicine
DX: I10 Essential (primary) hypertension; Z51.89 Encounter for other specified aftercare; I48.91 Unspecified atrial fibrillation; R53.1 Weakness; J98.4 Other disorders of lung; R26.89 Other abnormalities of gait and mobility

== ENCOUNTER 2022-06-04 14:56 | Observation (INO) ==
--- NOTE | 2022-06-04 15:14 | DR.DIZZY ---
HPI Time seen Time Seen by Provider: 06/04/22 15:13 Complaint Chief Complaint Doctor Comments: 82 y/o female brought in by EMS for evaluation. Has been hospitalized at several other facilities for the past several weeks. Started off with atrial fibrillation, ended up getting cardioverted. PT d/c'd ye sterday from rehab. + extremely weak, can't ambulate, has been nauseous. No report of fever, chills, URI symptoms. Has swelling of bilateral legs. + short of breath with exertion. Family can't care for pt, looking for some placement. COVID-19 Coronavirus risk:travel/contact w/high risk person: No Has patient experienced Coronavirus symptoms: No Nurses Notes Reviewed Nurses Notes Review: Yes Source History Provided: Patient and Family Member Mode of Arrival Mode of Arrival: Wheelchair Context Stroke Symptoms: None PMH PMH Past Medical History: Hypertension and Kidney Stones Past Surgical History: Yes Surgical History: CABG/Valve Surgery and Spleenectomy Family History Family Medical History: Cancer, MD, Coronary Artery Disease, Heart Failure, Sudden Cardiac and Hypertension Social History Do you use any recreational Drugs:: No Travel Risk Coronavirus risk:travel/contact w/high risk person: No Has patient experienced Coronavirus symptoms: No ROS Review of Systems Constitutional: Malaise, Weakness and Fatigue Eyes: No Symptoms Reported ENTM: No Symptoms Reported Respiratoy: Non-Productive Cough and Short of Breath Cardiovascular: No Symptoms Reported Gastrointestinal/Abdominal: No Symptoms Reported Genitourinary: No Symptoms Reported Neurological: Weakness Musculoskeletal: No Symptoms Reported Integumentary: No Symptoms Reported Hematologic/Lymphatic: No Symptoms Reported Psychiatric: No Symptoms Reported All Other Systems: Reviewed and Negative PE Vital Signs Vitals: Temperature 98.8 F Pulse Rate 75 Respiratory Rate 38 Blood Pressure [Left Arm] 178/77 Blood Pressure [Right Arm] 168/73 Blood Pressure 173/74 O2 Sat by Pulse Oximetry 90 General General Appearance: Alert, In No Apparent Distress and Other (pulse ox 91-93% on RA) Eyes Eye exam: PERRL and EOMI ENT ENT Exam: Normal Exam, Normal Oropharynx and Mucous Membranes Moist Neck Neck Exam: Normal Inspection and Full ROM; negative Tenderness Respiratory Respiratory Exam: Other (+ bibasilar rales. No respiratory distress.) Cardiovascular Cardiovascular Exam: Regular Rate, Normal Rhythm and Normal Heart Sounds Abdominal Exam Abdominal Exam: Normal Inspection, Normal Bowel Sounds and Soft; negative T enderness Extremeties Extremities Exam: Edema (3+ bilateral lower exts) Back Back Exam: Normal Inspection; negative Tenderness Neurologic Neurological Exam: Alert, Oriented X3 and CN II-XII Intact; negative Motor Sensory Deficit Skin Skin Exam: Warm and Dry COURSE Treatment Treatment: 82 y/o female with prolonged hospitalizations x several weeks. Home yesterday, too weak for family to care for. + bilateral lower ext edema, + bibasilar rales. Parson placed. Pt given IV lasix. W/u initiated. LAbs overall acceptable except for elevated BNP > 600. CXR appear wet. Pt clinically with CHF, put on O2, given IV lasix. Discussed with Dr Johnson, will admit pt. Family interested in placement. [facility]OR Labs Reviewed Laboratory Results Reviewed?: Yes Result Diagrams: 06/04/22 15:25 06/04/22 15:25 Laboratory: WBC 7.6 X10^3/uL (3.6-10.0) 06/04/22 15:25 RBC 4.01 X10^6/uL (3.5-5.4) 06/04/22 15:25 Hgb 11.5 g/dL (12.0-16.0) L 06/04/22 15:25 Hct 35.7 % (36.0-47.0) L 06/04/22 15:25 MCV 89.1 fL (80.0-100.0) 06/04/22 15:25 MCH 28.6 pg (27.0-34.0) 06/04/22 15:25 MCHC 32.1 g/dL (33.0-35.0) L 06/04/22 15:25 RDW 16.4 % (11.6-16.5) 06/04/22 15:25 Plt Count 276 X10^3/uL (150.0-450.0) 06/04/22 15:25 MPV 9.4 fL (7.4-11.0) 06/04/22 15:25 Neut % (Auto) 51.8 % (42.0-75.0) 06/04/22 15:25 Lymph % (Auto) 34.9 % (21.0-51.0) 06/04/22 15:25 [place] % (Auto) 11.2 % (0.0-13.0) 06/04/22 15:25 Eos % (Auto) 0.9 % (0.9-2.9) 06/04/22 15:25 Baso % (Auto) 1.2 % (0.2-1.0) H 06/04/22 15:25 Neut # (Auto) 4.0 x10^3/uL (2.2-4.8) 06/04/22 15:25 Lymph # (Auto) 2.7 X10^3/uL (1.3-2.9) 06/04/22 15:25 [place] # (Auto) 0.9 x10^3/uL (0.3-0.8) H 06/04/22 15:25 Eos # (Auto) 0.1 x10^3/uL (0.0-0.2) 06/04/22 15:25 Baso # (Auto) 0.1 X10^3/uL (0.0-0.1) 06/04/22 15:25 Absolute Nucleated RBC 0.2 /100WBC 06/04/22 15:25 Sodium 142 mmol/L (136-145) 06/04/22 15:25 Corrected Sodium 143 mmol/L (136-145) 06/04/22 15:25 Potassium 3.3 mmol/L (3.5-5.1) L 06/04/22 15:25 Chloride 105 mmol/L (98-107) 06/04/22 15:25 Carbon Dioxide 30.1 mmol/L (21-32) 06/04/22 15:25 BUN 15 mg/dL (7-18) 06/04/22 15:25 Creatinine 0.91 mg/dL (0.55-1.02) 06/04/22 15:25 Est GFR (MDRD) Af Amer > 60 (>60) 06/04/22 15:25 Est GFR (MDRD) Non-Af > 60 (>60) 06/04/22 15:25 Glucose 128 mg/dL (65-99) H 06/04/22 15:25 Calcium 8.7 mg/dL (8.5-10.1) 06/04/22 15:25 Corrected Calcium 9.9 mg/dL (8.5-10.1) 06/04/22 15:25 Total Bilirubin 0.30 mg/dL (0.2-1.0) 06/04/22 15:25 AST 25 Units/L (15-37) 06/04/22 15:25 ALT 14 Units/L (12-78) 06/04/22 15:25 Alkaline Phosphatase 109 Units/L (46-116) 06/04/22 15:25 B-Natriuretic Peptide 697 pg/mL (0-79) H* 06/04/22 15:25 Total Protein 7.2 g/dL (6.4-8.2) 06/04/22 15:25 Albumin 2.5 g/dL (3.4-5.0) L 06/04/22 15:25 Globulin 4.7 g/dL (2.5-4.5) H 06/04/22 15:25 Albumin/Globulin Ratio 0.5 Ratio (1.1-2.1) L 06/04/22 15:25 Lipase 125 Units/L (73-393) 06/04/22 15:25 Specimen Type Catherized urine 06/04/22 16:55 Urine Color Yellow (YELLOW) 06/04/22 16:55 Urine Appearance Slightly hazy (CLEAR) 06/04/22 16:55 Urine pH 7.0 (5.0 - 8.0) 06/04/22 16:55 Ur Specific [place] 1.015 (1.000-1.030) 06/04/22 16:55 Urine Protein 2+ (NEGATIVE) 06/04/22 16:55 Urine Glucose (UA) Negative (NEGATIVE) 06/04/22 16:55 Urine Ketones 1+ (NEGATIVE) 06/04/22 16:55 Urine Blood 1+ (NEGATIVE) 06/04/22 16:55 Urine Nitrite Negative (NEGATIVE) 06/04/22 16:55 Urine Bilirubin Negative (NEGATIVE) 06/04/22 16:55 Urine Urobilinogen Normal (NORMAL) 06/04/22 16:55 Ur Leukocyte Esterase 1+ (NEGATIVE) 06/04/22 16:55 Urine RBC 0-2 /HPF (0-3) 06/04/22 16:55 Urine WBC 3-5 /HPF (0-5) 06/04/22 16:55 Ur Squamous Epith Cells Moderate /HPF (NEGATIVE) 06/04/22 16:55 Urine Bacteria Trace /HPF (NEGATIVE) 06/04/22 16:55 Urine Mucus Rare /HPF (NEGATIVE) 06/04/22 16:55 Ur Culture Indicated? No/not indicated 06/04/22 16:55 BNP 697 Opioid Opioid Risk Tool Age (Harry box if 16-45): No History of Preadolescent Sexual Abuse: No Total: 0 Total Score Risk Category: Low Risk Copyright: Dank PETERS predicting aberrant behaviors Discharge Plan Diagnosis Discharge Problem: Congestive heart failure, Generalized weakness Discharge Plan Patient Disposition: 09 ADMITTED INPATIENT Condition: Stable Orders to Discharge Patient Discharge Orders: Transfer (Routine); Ordered 06/04/22 Ordered By: Ajit Rolon
[2022-06-04 15:31] VITALS: BMI 32.5
[2022-06-04 15:50] LABS: BASOPHILS # (AUTO) 0.1 X10^3/uL (0.0-0.1); BASOPHILS % (AUTO) 1.2 % (0.2-1.0); EOSINOPHILS # (AUTO) 0.1 x10^3/uL (0.0-0.2); EOSINOPHILS % (AUTO) 0.9 % (0.9-2.9); HEMATOCRIT 35.7 % (36.0-47.0); HEMOGLOBIN 11.5 g/dL (12.0-16.0); LYMPHOCYTES # (AUTO) 2.7 X10^3/uL (1.3-2.9); LYMPHOCYTES % (AUTO) 34.9 % (21.0-51.0); MEAN CORPUSCULAR HEMOGLOBIN 28.6 pg (27.0-34.0); MEAN CORPUSCULAR HGB CONC 32.1 g/dL (33.0-35.0); MEAN CORPUSCULAR VOLUME 89.1 fL (80.0-100.0); MEAN PLATELET VOLUME 9.4 fL (7.4-11.0); MONOCYTES # (AUTO) 0.9 x10^3/uL (0.3-0.8); MONOCYTES % (AUTO) 11.2 % (0.0-13.0); NEUTROPHILS % (AUTO) 51.8 % (42.0-75.0); RED BLOOD COUNT 4.01 X10^6/uL (3.5-5.4); RED CELL DISTRIBUTION WIDTH 16.4 % (11.6-16.5); WHITE BLOOD COUNT 7.6 X10^3/uL (3.6-10.0)
[2022-06-04 15:59] LABS: ALANINE AMINOTRANSFERASE 14 Units/L (12-78); ALBUMIN 2.5 g/dL (3.4-5.0); ALKALINE PHOSPHATASE 109 Units/L (46-116); ASPARTATE AMINO TRANSFERASE 25 Units/L (15-37); BLOOD UREA NITROGEN 15 mg/dL (7-18); CALCIUM 8.7 mg/dL (8.5-10.1); CARBON DIOXIDE 30.1 mmol/L (21-32); CHLORIDE 105 mmol/L (98-107); COR CA(FOR HYPOALB) 9.9 mg/dL (8.5-10.1); COR NA(FOR HYPERGLY) 143 mmol/L (136-145); CREATININE 0.91 mg/dL (0.55-1.02); LIPASE 125 Units/L (73-393); SODIUM 142 mmol/L (136-145); TOTAL PROTEIN 7.2 g/dL (6.4-8.2); eGFR NON BLACK RACES > 60 (>60)
[2022-06-04 17:19] LABS: BILIRUBIN,URINE NEGATIVE (NEGATIVE); BLOOD/HEMOGLOBIN,URINE 1+ (NEGATIVE); GLUCOSE, URINE NEGATIVE (NEGATIVE); KETONES,URINE 1+ (NEGATIVE); LEUKOCYTE ESTERASE ,URINE 1+ (NEGATIVE); NITRITES,URINE NEGATIVE (NEGATIVE); PROTEIN,URINE 2+ (NEGATIVE); UROBILINOGEN,URINE NORMAL (NORMAL)
[2022-06-04 17:30] LABS: APPEARANCE,URINE SLIGHTLY HAZY (CLEAR); COLOR,URINE YELLOW (YELLOW)
[2022-06-04 17:31] LABS: BACTERIA,URINE TRACE /HPF (NEGATIVE); RBC,URINE 0-2 /HPF (0-3); SQUAMOUS EPITHELIAL CELL,UR MODERATE /HPF (NEGATIVE)
[2022-06-04] MEDS ORDERED: XOPENEX 1.25 MG/3 ML NEBULE NEB PRN (18:28)
[2022-06-04] MEDS ORDERED: KLOR-CON PO PRN (20:25)
[2022-06-04] MEDS ORDERED: MICRO K EXTEN CAP 10 MEQ PO PRN (20:25)
[2022-06-04] MEDS ORDERED: K-RIDER 10 MEQ/NS 100 ML 10 MEQ/100 ML BAG IV PRN (20:25)
[2022-06-04] MEDS ORDERED: POTASSIUM CHLORIDE LIQ 20 MEQ UDC PO PRN (20:25)
--- NOTE | 2022-06-04 20:45 | RAD ---
HISTORYWEAKNESS Relevant Clinical InformationSTUDYCHEST, 1 [id number]/2022.FINDINGSThe trachea is midline. The cardiac silhouette is enlarged but stable. The aorta is tortuous. There is a persistent right upper lobe opacity as well some loculated pleural fluid or pleural thickening. There is persistent nonspecific right base opacity. The left lung is grossly clear. There is questionably a small left effusion. The bony thorax is unremarkable.IMPRESSION1. Improved but persistent right apical opacity with loculated pleural fluid or pleural thickening. 2. Persistent nonspecific right base opacity with questionably small bilateral pleural effusions.Electronically signed by: Cabrera Wright (Jun 04, 2022 20:43:43)
[2022-06-04] MEDS ORDERED: PULMICORT NEB TX 0.5 MG NEB SCH ×2 (21:00)
[2022-06-04] MEDS: ELIQUIS PO SCH (21:01)
[2022-06-04] MEDS: CORDARONE TAB 200 MG PO SCH (21:01)
[2022-06-04] MEDS: LIPITOR TAB 20 MG PO SCH (21:01)
[2022-06-04] MEDS: APRESOLINE TAB 25 MG PO SCH (21:01)
[2022-06-04] MEDS ORDERED: NS 100 ML IV 100 ML ONE (21:19)
[2022-06-04] MEDS: MAGNESIUM SULFATE 1 GRAM/100 mL PREMIX 1 G/100 ML BAG IV PRN ×2 (21:36→22:47)
[2022-06-05 05:16] LABS: BASOPHILS # (AUTO) 0.1 X10^3/uL (0.0-0.1); BASOPHILS % (AUTO) 0.8 % (0.2-1.0); EOSINOPHILS # (AUTO) 0.2 x10^3/uL (0.0-0.2); EOSINOPHILS % (AUTO) 2.9 % (0.9-2.9); HEMATOCRIT 32.4 % (36.0-47.0); HEMOGLOBIN 10.2 g/dL (12.0-16.0); LYMPHOCYTES # (AUTO) 3.1 X10^3/uL (1.3-2.9); LYMPHOCYTES % (AUTO) 39.5 % (21.0-51.0); MEAN CORPUSCULAR HEMOGLOBIN 28.1 pg (27.0-34.0); MEAN CORPUSCULAR HGB CONC 31.4 g/dL (33.0-35.0); MEAN CORPUSCULAR VOLUME 89.4 fL (80.0-100.0); MEAN PLATELET VOLUME 9.5 fL (7.4-11.0); MONOCYTES % (AUTO) 12.6 % (0.0-13.0); NEUTROPHILS # (AUTO) 3.4 x10^3/uL (2.2-4.8); NEUTROPHILS % (AUTO) 44.2 % (42.0-75.0); RED BLOOD COUNT 3.62 X10^6/uL (3.5-5.4); RED CELL DISTRIBUTION WIDTH 16.4 % (11.6-16.5); WHITE BLOOD COUNT 7.7 X10^3/uL (3.6-10.0)
[2022-06-05 05:26] LABS: ALANINE AMINOTRANSFERASE 13 Units/L (12-78); ALBUMIN 2.3 g/dL (3.4-5.0); ALKALINE PHOSPHATASE 95 Units/L (46-116); ASPARTATE AMINO TRANSFERASE 23 Units/L (15-37); BLOOD UREA NITROGEN 14 mg/dL (7-18); CALCIUM 8.1 mg/dL (8.5-10.1); CARBON DIOXIDE 29.9 mmol/L (21-32); CHLORIDE 107 mmol/L (98-107); COR CA(FOR HYPOALB) 9.5 mg/dL (8.5-10.1); CREATININE 0.71 mg/dL (0.55-1.02); MAGNESIUM 2.3 mg/dL (2.0-2.9); SODIUM 141 mmol/L (136-145); TOTAL PROTEIN 6.6 g/dL (6.4-8.2); eGFR NON BLACK RACES > 60 (>60)
[2022-06-05] MEDS ORDERED: PULMICORT NEB TX 0.5 MG NEB ONE (08:29)
[2022-06-05] MEDS ORDERED: XOPENEX 1.25 MG/3 ML NEBULE NEB ONE (08:29)
[2022-06-05] MEDS: PULMICORT NEB TX 0.5 MG NEB SCH ×2 (08:31→20:55)
[2022-06-05] MEDS: XOPENEX 1.25 MG/3 ML NEBULE NEB SCH ×3 (08:31→20:55)
[2022-06-05] MEDS ORDERED: PULMICORT NEB TX 0.5 MG NEB SCH (09:00)
[2022-06-05] MEDS: ELIQUIS PO SCH ×2 (10:13→20:39)
[2022-06-05] MEDS: CORDARONE TAB 200 MG PO SCH ×2 (10:13→20:38)
[2022-06-05] MEDS: LOPRESSOR TAB 25 MG PO SCH (10:13)
[2022-06-05] MEDS: CARDIZEM CD 180 MG 24-HR PO SCH (10:13)
[2022-06-05] MEDS: APRESOLINE TAB 25 MG PO SCH ×2 (10:13→20:39)
[2022-06-05] MEDS: ASPIRIN 81 MG CHEWTAB PO SCH (10:13)
[2022-06-05] MEDS: ZESTRIL TAB 10 MG PO SCH (10:14)
[2022-06-05] MEDS: LASIX IVP SCH ×2 (11:15→16:43)
[2022-06-05] MEDS: LIPITOR TAB 20 MG PO SCH (20:39)
[2022-06-05] MEDS: BUTT CREAM (COMPOUND) TOP PRN (20:39)
[2022-06-06 06:03] LABS: BASOPHILS # (AUTO) 0.1 X10^3/uL (0.0-0.1); BASOPHILS % (AUTO) 0.7 % (0.2-1.0); EOSINOPHILS # (AUTO) 0.2 x10^3/uL (0.0-0.2); HEMATOCRIT 32.7 % (36.0-47.0); HEMOGLOBIN 10.4 g/dL (12.0-16.0); LYMPHOCYTES # (AUTO) 3.4 X10^3/uL (1.3-2.9); LYMPHOCYTES % (AUTO) 38.6 % (21.0-51.0); MEAN CORPUSCULAR HEMOGLOBIN 28.1 pg (27.0-34.0); MEAN CORPUSCULAR HGB CONC 31.9 g/dL (33.0-35.0); MEAN PLATELET VOLUME 9.5 fL (7.4-11.0); MONOCYTES # (AUTO) 0.9 x10^3/uL (0.3-0.8); MONOCYTES % (AUTO) 10.8 % (0.0-13.0); NEUTROPHILS # (AUTO) 4.2 x10^3/uL (2.2-4.8); NEUTROPHILS % (AUTO) 47.9 % (42.0-75.0); RED BLOOD COUNT 3.71 X10^6/uL (3.5-5.4); RED CELL DISTRIBUTION WIDTH 16.5 % (11.6-16.5); WHITE BLOOD COUNT 8.8 X10^3/uL (3.6-10.0)
[2022-06-06 06:13] LABS: ALANINE AMINOTRANSFERASE 15 Units/L (12-78); ALBUMIN 2.2 g/dL (3.4-5.0); ALKALINE PHOSPHATASE 94 Units/L (46-116); ASPARTATE AMINO TRANSFERASE 21 Units/L (15-37); BLOOD UREA NITROGEN 13 mg/dL (7-18); CALCIUM 7.8 mg/dL (8.5-10.1); CARBON DIOXIDE 31.1 mmol/L (21-32); CHLORIDE 106 mmol/L (98-107); COR CA(FOR HYPOALB) 9.2 mg/dL (8.5-10.1); CREATININE 0.78 mg/dL (0.55-1.02); SODIUM 144 mmol/L (136-145); TOTAL PROTEIN 6.3 g/dL (6.4-8.2); eGFR NON BLACK RACES > 60 (>60)
[2022-06-06] MEDS: XOPENEX 1.25 MG/3 ML NEBULE NEB SCH ×3 (06:25→20:00)
[2022-06-06] MEDS: PULMICORT NEB TX 0.5 MG NEB SCH ×2 (08:55→20:00)
[2022-06-06] MEDS: LOPRESSOR TAB 25 MG PO SCH (09:22)
[2022-06-06] MEDS: CORDARONE TAB 200 MG PO SCH ×2 (09:22→20:08)
[2022-06-06] MEDS: CARDIZEM CD 180 MG 24-HR PO SCH (09:22)
[2022-06-06] MEDS: K-DUR TAB 20 MEQ PO PRN ×2 (09:23→16:12)
[2022-06-06] MEDS: ELIQUIS PO SCH ×2 (09:23→20:08)
[2022-06-06] MEDS: ASPIRIN 81 MG CHEWTAB PO SCH (09:23)
[2022-06-06] MEDS: APRESOLINE TAB 25 MG PO SCH ×2 (09:23→20:08)
[2022-06-06] MEDS: ZESTRIL TAB 10 MG PO SCH (09:23)
[2022-06-06] MEDS: MAGNESIUM SULFATE 1 GRAM/100 mL PREMIX 1 G/100 ML BAG IV PRN (09:26)
[2022-06-06] MEDS: LASIX IVP SCH ×2 (09:31→16:12)
[2022-06-06] MEDS ORDERED: ZOFRAN INJ 4 MG VIAL IVP PRN (16:57)
[2022-06-06] MEDS: LIPITOR TAB 20 MG PO SCH (20:08)
[2022-06-07 05:28] LABS: BASOPHILS # (AUTO) 0.1 X10^3/uL (0.0-0.1); BASOPHILS % (AUTO) 0.7 % (0.2-1.0); EOSINOPHILS # (AUTO) 0.2 x10^3/uL (0.0-0.2); EOSINOPHILS % (AUTO) 2.1 % (0.9-2.9); HEMATOCRIT 32.1 % (36.0-47.0); HEMOGLOBIN 10.4 g/dL (12.0-16.0); LYMPHOCYTES # (AUTO) 2.7 X10^3/uL (1.3-2.9); LYMPHOCYTES % (AUTO) 28.6 % (21.0-51.0); MEAN CORPUSCULAR HEMOGLOBIN 28.1 pg (27.0-34.0); MEAN CORPUSCULAR HGB CONC 32.4 g/dL (33.0-35.0); MEAN CORPUSCULAR VOLUME 86.8 fL (80.0-100.0); MEAN PLATELET VOLUME 9.2 fL (7.4-11.0); MONOCYTES # (AUTO) 1.1 x10^3/uL (0.3-0.8); NEUTROPHILS # (AUTO) 5.4 x10^3/uL (2.2-4.8); NEUTROPHILS % (AUTO) 56.6 % (42.0-75.0); RED CELL DISTRIBUTION WIDTH 16.4 % (11.6-16.5); WHITE BLOOD COUNT 9.5 X10^3/uL (3.6-10.0)
[2022-06-07] MEDS: XOPENEX 1.25 MG/3 ML NEBULE NEB SCH ×3 (05:37→20:20)
[2022-06-07 05:46] LABS: ALANINE AMINOTRANSFERASE 12 Units/L (12-78); ALBUMIN 2.2 g/dL (3.4-5.0); ALKALINE PHOSPHATASE 100 Units/L (46-116); ASPARTATE AMINO TRANSFERASE 20 Units/L (15-37); BLOOD UREA NITROGEN 14 mg/dL (7-18); CALCIUM 7.9 mg/dL (8.5-10.1); CARBON DIOXIDE 31.2 mmol/L (21-32); CHLORIDE 106 mmol/L (98-107); COR CA(FOR HYPOALB) 9.3 mg/dL (8.5-10.1); CREATININE 0.74 mg/dL (0.55-1.02); MAGNESIUM 2.1 mg/dL (2.0-2.9); SODIUM 142 mmol/L (136-145); TOTAL PROTEIN 6.3 g/dL (6.4-8.2); eGFR NON BLACK RACES > 60 (>60)
[2022-06-07] MEDS: PULMICORT NEB TX 0.5 MG NEB SCH ×2 (08:44→20:20)
[2022-06-07] MEDS: ASPIRIN 81 MG CHEWTAB PO SCH (09:34)
[2022-06-07] MEDS: CORDARONE TAB 200 MG PO SCH ×2 (09:34→20:59)
[2022-06-07] MEDS: ZESTRIL TAB 10 MG PO SCH (09:34)
[2022-06-07] MEDS: CARDIZEM CD 180 MG 24-HR PO SCH (09:35)
[2022-06-07] MEDS: APRESOLINE TAB 25 MG PO SCH ×2 (09:35→20:58)
[2022-06-07] MEDS: ELIQUIS PO SCH ×2 (09:35→20:58)
[2022-06-07] MEDS: LOPRESSOR TAB 25 MG PO SCH (09:35)
[2022-06-07] MEDS: LASIX IVP SCH ×2 (09:41→17:51)
[2022-06-07] MEDS: K-DUR TAB 20 MEQ PO PRN (09:45)
[2022-06-07] MEDS ORDERED: NYSTATIN CREAM TOP PRN (13:29)
[2022-06-07] MEDS: LIPITOR TAB 20 MG PO SCH (20:58)
[2022-06-07] MEDS: TYLENOL 325 MG TAB PO PRN (21:49)
[2022-06-08] MEDS: XOPENEX 1.25 MG/3 ML NEBULE NEB SCH ×4 (05:01→20:45)
[2022-06-08 06:01] LABS: BASOPHILS # (AUTO) 0.1 X10^3/uL (0.0-0.1); EOSINOPHILS # (AUTO) 0.1 x10^3/uL (0.0-0.2); EOSINOPHILS % (AUTO) 1.3 % (0.9-2.9); HEMATOCRIT 32.3 % (36.0-47.0); HEMOGLOBIN 10.3 g/dL (12.0-16.0); LYMPHOCYTES # (AUTO) 2.6 X10^3/uL (1.3-2.9); LYMPHOCYTES % (AUTO) 25.6 % (21.0-51.0); MEAN CORPUSCULAR HEMOGLOBIN 28.3 pg (27.0-34.0); MEAN CORPUSCULAR VOLUME 88.3 fL (80.0-100.0); MEAN PLATELET VOLUME 9.6 fL (7.4-11.0); NEUTROPHILS # (AUTO) 6.3 x10^3/uL (2.2-4.8); NEUTROPHILS % (AUTO) 62.1 % (42.0-75.0); RED BLOOD COUNT 3.65 X10^6/uL (3.5-5.4); RED CELL DISTRIBUTION WIDTH 16.6 % (11.6-16.5); WHITE BLOOD COUNT 10.1 X10^3/uL (3.6-10.0)
[2022-06-08 06:18] LABS: ALANINE AMINOTRANSFERASE 15 Units/L (12-78); ALBUMIN 2.2 g/dL (3.4-5.0); ALKALINE PHOSPHATASE 101 Units/L (46-116); ASPARTATE AMINO TRANSFERASE 19 Units/L (15-37); BLOOD UREA NITROGEN 25 mg/dL (7-18); CALCIUM 8.3 mg/dL (8.5-10.1); CARBON DIOXIDE 31.9 mmol/L (21-32); CHLORIDE 103 mmol/L (98-107); COR CA(FOR HYPOALB) 9.7 mg/dL (8.5-10.1); COR NA(FOR HYPERGLY) 142 mmol/L (136-145); CREATININE 0.99 mg/dL (0.55-1.02); SODIUM 141 mmol/L (136-145); TOTAL PROTEIN 6.5 g/dL (6.4-8.2); eGFR NON BLACK RACES 57 (>60)
--- NOTE | 2022-06-08 08:25 | PCM.PROG ---
Progress Note Progress Note for Day of Date of Exam: 06/07/22 Subjective Subjective: Pt is a 82 year old female admitted for CHF exacerbation and generalized weakness. This morning she is resting comfortably in bed. No acute concerns overnight. Labs/imaging: Wbc 9.5, Hgb 10.4, Plt 272, Na 142, K 3.7, Creatinine 0.74, Glucose 89, BNP 502. Her home medications have been resumed and she is currently receiving IV Lasix 20mg BID. She is responding well to treatments. Due to her significant weakness she will need SNF or [facility]ci living arrangements to be made at her discharge. Will have PT evaluate. Otherwise, continue with current treatment plan. Continue to closely monitor. Past Medical Family Social History Past Med/Fam/Surg Hx: No changes since H&P Allergies: Allergies ciprofloxacin Allergy (Severe, Verified 06/04/22 15:32) CARDIOVASCULAR COMPLICATIONS patient has flushing and cardiovascular complications including bijeminy and freq pvcs celecoxib [From Celebrex] Allergy (Unknown, Verified 06/04/22 15:32) codeine Allergy (Unknown, Verified 06/04/22 15:32) diphenhydramine [From Benadryl] Allergy (Unknown, Verified 06/04/22 15:32) levofloxacin [From Levaquin] Allergy (Unknown, Verified 06/04/22 15:32) DAUGHTER STATES RV SERVICER TOLD PT. TO NOT TAKE IT BECAUSE OF HER HEART AND A-FIB Sulfa (Sulfonamide Antibiotics) [SULFA] Allergy (Unknown, Verified 06/04/22 15:32) sulfamethoxazole [From Bactrim] Allergy (Unknown, Verified 06/04/22 15:32) trimethoprim [From Bactrim] Allergy (Unknown, Verified 06/04/22 15:32) Review of Systems ROS: No change since H&P Vital Signs and I&O's Vital Signs: Temperature 97.7 F Pulse Rate [Bilateral Radial] 75 Pulse Rate 67 Respiratory Rate 18 Blood Pressure [Left Arm] 111/56 Blood Pressure [Right Arm] 168/73 Blood Pressure 173/74 O2 Sat by Pulse Oximetry 91 Intake and Output: Intake & Output 06/05/22 06/06/22 06/07/22 06/08/22 23:59 23:59 23:59 23:59 Intake Total 1120 / 1120 1350 / 1350 1002 / 1002 610 / 610 Output Total 890 / 890 3200 / 3200 600 / 600 550 / 550 Balance 230 / 230 -1850 / -1850 402 / 402 60 / 60 Physical Exam Oriented: Normal Eyes: Normal Ear: Normal Nose: Normal Throat: Normal Respiratory: Normal Cardiovascular: Normal : Normal Auscultation: Bowel Sounds: Normal Palpation: Normal Tenderness: Normal Skin: Normal Musculoskeletal: Normal Psychiatric: Normal Speech Pattern: Clear and Appropriate Laboratory and Diagnostics Result Diagrams: 06/08/22 05:37 06/08/22 05:37 Labs: Laboratory WBC 10.1 X10^3/uL (3.6-10.0) H 06/08/22 05:37 RBC 3.65 X10^6/uL (3.5-5.4) 06/08/22 05:37 Hgb 10.3 g/dL (12.0-16.0) L 06/08/22 05:37 Hct 32.3 % (36.0-47.0) L 06/08/22 05:37 MCV 88.3 fL (80.0-100.0) 06/08/22 05:37 MCH 28.3 pg (27.0-34.0) 06/08/22 05:37 MCHC 32.0 g/dL (33.0-35.0) L 06/08/22 05:37 RDW 16.6 % (11.6-16.5) H 06/08/22 05:37 Plt Count 261 X10^3/uL (150.0-450.0) 06/08/22 05:37 MPV 9.6 fL (7.4-11.0) 06/08/22 05:37 Neut % (Auto) 62.1 % (42.0-75.0) 06/08/22 05:37 Lymph % (Auto) 25.6 % (21.0-51.0) 06/08/22 05:37 [place] % (Auto) 10.0 % (0.0-13.0) 06/08/22 05:37 Eos % (Auto) 1.3 % (0.9-2.9) 06/08/22 05:37 Baso % (Auto) 1.0 % (0.2-1.0) 06/08/22 05:37 Neut # (Auto) 6.3 x10^3/uL (2.2-4.8) H 06/08/22 05:37 Lymph # (Auto) 2.6 X10^3/uL (1.3-2.9) 06/08/22 05:37 [place] # (Auto) 1.0 x10^3/uL (0.3-0.8) H 06/08/22 05:37 Eos # (Auto) 0.1 x10^3/uL (0.0-0.2) 06/08/22 05:37 Baso # (Auto) 0.1 X10^3/uL (0.0-0.1) 06/08/22 05:37 Absolute Nucleated RBC 0.1 /100WBC 06/08/22 05:37 Sodium 141 mmol/L (136-145) 06/08/22 05:37 Corrected Sodium 142 mmol/L (136-145) 06/08/22 05:37 Potassium 4.0 mmol/L (3.5-5.1) 06/08/22 05:37 Chloride 103 mmol/L (98-107) 06/08/22 05:37 Carbon Dioxide 31.9 mmol/L (21-32) 06/08/22 05:37 BUN 25 mg/dL (7-18) H 06/08/22 05:37 Creatinine 0.99 mg/dL (0.55-1.02) 06/08/22 05:37 Est GFR (MDRD) Af Amer > 60 (>60) 06/08/22 05:37 Est GFR (MDRD) Non-Af 57 (>60) L 06/08/22 05:37 Glucose 134 mg/dL (65-99) H 06/08/22 05:37 Calcium 8.3 mg/dL (8.5-10.1) L 06/08/22 05:37 Corrected Calcium 9.7 mg/dL (8.5-10.1) 06/08/22 05:37 Magnesium 2.1 mg/dL (2.0-2.9) 06/07/22 04:50 Total Bilirubin 0.20 mg/dL (0.2-1.0) 06/08/22 05:37 AST 19 Units/L (15-37) 06/08/22 05:37 ALT 15 Units/L (12-78) 06/08/22 05:37 Alkaline Phosphatase 101 Units/L (46-116) 06/08/22 05:37 B-Natriuretic Peptide 502 pg/mL (0-79) H* 06/06/22 05:33 Total Protein 6.5 g/dL (6.4-8.2) 06/08/22 05:37 Albumin 2.2 g/dL (3.4-5.0) L 06/08/22 05:37 Globulin 4.3 g/dL (2.5-4.5) 06/08/22 05:37 Albumin/Globulin Ratio 0.5 Ratio (1.1-2.1) L 06/08/22 05:37 Lipase 125 Units/L (73-393) 06/04/22 15:25 Specimen Type Catherized urine 06/04/22 16:55 Urine Color Yellow (YELLOW) 06/04/22 16:55 Urine Appearance Slightly hazy (CLEAR) 06/04/22 16:55 Urine pH 7.0 (5.0 - 8.0) 06/04/22 16:55 Ur Specific [place] 1.015 (1.000-1.030) 06/04/22 16:55 Urine Protein 2+ (NEGATIVE) 06/04/22 16:55 Urine Glucose (UA) Negative (NEGATIVE) 06/04/22 16:55 Urine Ketones 1+ (NEGATIVE) 06/04/22 16:55 Urine Blood 1+ (NEGATIVE) 06/04/22 16:55 Urine Nitrite Negative (NEGATIVE) 06/04/22 16:55 Urine Bilirubin Negative (NEGATIVE) 06/04/22 16:55 Urine Urobilinogen Normal (NORMAL) 06/04/22 16:55 Ur Leukocyte Esterase 1+ (NEGATIVE) 06/04/22 16:55 Urine RBC 0-2 /HPF (0-3) 06/04/22 16:55 Urine WBC 3-5 /HPF (0-5) 06/04/22 16:55 Ur Squamous Epith Cells Moderate /HPF (NEGATIVE) 06/04/22 16:55 Urine Bacteria Trace /HPF (NEGATIVE) 06/04/22 16:55 Urine Mucus Rare /HPF (NEGATIVE) 06/04/22 16:55 Ur Culture Indicated? No/not indicated 06/04/22 16:55 Plan (1) Congestive heart failure: Status: Acute (2) Generalized weakness: Status: Acute
[2022-06-08] MEDS: PULMICORT NEB TX 0.5 MG NEB SCH ×2 (09:00→20:45)
[2022-06-08] MEDS: ZESTRIL TAB 10 MG PO SCH (09:14)
[2022-06-08] MEDS: ELIQUIS PO SCH ×2 (09:14→20:23)
[2022-06-08] MEDS: APRESOLINE TAB 25 MG PO SCH ×2 (09:14→21:45)
[2022-06-08] MEDS: CORDARONE TAB 200 MG PO SCH ×2 (09:14→20:23)
[2022-06-08] MEDS: LOPRESSOR TAB 25 MG PO SCH (09:15)
[2022-06-08] MEDS: ASPIRIN 81 MG CHEWTAB PO SCH (09:15)
[2022-06-08] MEDS: LASIX IVP SCH ×2 (09:15→17:24)
[2022-06-08] MEDS: CARDIZEM CD 180 MG 24-HR PO SCH (09:15)
[2022-06-08] MEDS: MOBIC TAB 15 MG PO PRN (10:48)
[2022-06-08] MEDS: BUTT CREAM (COMPOUND) TOP PRN (15:17)
[2022-06-08] MEDS: LIPITOR TAB 20 MG PO SCH (20:23)
[2022-06-09] MEDS: XOPENEX 1.25 MG/3 ML NEBULE NEB SCH ×3 (05:30→21:00)
[2022-06-09 06:31] LABS: ALANINE AMINOTRANSFERASE 13 Units/L (12-78); ALBUMIN 2.1 g/dL (3.4-5.0); ALKALINE PHOSPHATASE 97 Units/L (46-116); ASPARTATE AMINO TRANSFERASE 23 Units/L (15-37); BASOPHILS # (AUTO) 0.1 X10^3/uL (0.0-0.1); BASOPHILS % (AUTO) 0.8 % (0.2-1.0); BLOOD UREA NITROGEN 25 mg/dL (7-18); CARBON DIOXIDE 33.2 mmol/L (21-32); CHLORIDE 101 mmol/L (98-107); COR CA(FOR HYPOALB) 9.5 mg/dL (8.5-10.1); CREATININE 0.99 mg/dL (0.55-1.02); EOSINOPHILS # (AUTO) 0.1 x10^3/uL (0.0-0.2); EOSINOPHILS % (AUTO) 1.4 % (0.9-2.9); HEMATOCRIT 30.2 % (36.0-47.0); HEMOGLOBIN 9.9 g/dL (12.0-16.0); LYMPHOCYTES # (AUTO) 2.1 X10^3/uL (1.3-2.9); LYMPHOCYTES % (AUTO) 26.1 % (21.0-51.0); MEAN CORPUSCULAR HEMOGLOBIN 28.4 pg (27.0-34.0); MEAN CORPUSCULAR HGB CONC 32.6 g/dL (33.0-35.0); MEAN PLATELET VOLUME 9.4 fL (7.4-11.0); MONOCYTES # (AUTO) 0.9 x10^3/uL (0.3-0.8); MONOCYTES % (AUTO) 11.5 % (0.0-13.0); NEUTROPHILS # (AUTO) 4.9 x10^3/uL (2.2-4.8); NEUTROPHILS % (AUTO) 60.2 % (42.0-75.0); RED BLOOD COUNT 3.47 X10^6/uL (3.5-5.4); RED CELL DISTRIBUTION WIDTH 16.6 % (11.6-16.5); SODIUM 140 mmol/L (136-145); TOTAL PROTEIN 6.3 g/dL (6.4-8.2); WHITE BLOOD COUNT 8.2 X10^3/uL (3.6-10.0); eGFR NON BLACK RACES 57 (>60)
[2022-06-09] MEDS: PULMICORT NEB TX 0.5 MG NEB SCH ×2 (08:34→21:00)
[2022-06-09] MEDS: LASIX IVP SCH ×2 (09:01→17:34)
[2022-06-09] MEDS: LOPRESSOR TAB 25 MG PO SCH (09:01)
[2022-06-09] MEDS: ASPIRIN 81 MG CHEWTAB PO SCH (09:01)
[2022-06-09] MEDS: ZESTRIL TAB 10 MG PO SCH (09:01)
[2022-06-09] MEDS: CARDIZEM CD 180 MG 24-HR PO SCH (09:02)
[2022-06-09] MEDS: CORDARONE TAB 200 MG PO SCH ×2 (09:02→20:07)
[2022-06-09] MEDS: ELIQUIS PO SCH ×2 (09:02→20:07)
[2022-06-09] MEDS: APRESOLINE TAB 25 MG PO SCH ×2 (09:02→20:07)
[2022-06-09] MEDS: TYLENOL 325 MG TAB PO PRN (17:51)
[2022-06-09] MEDS: LIPITOR TAB 20 MG PO SCH (20:07)
[2022-06-10] MEDS: XOPENEX 1.25 MG/3 ML NEBULE NEB SCH (05:54)
[2022-06-10 06:13] LABS: ALANINE AMINOTRANSFERASE 17 Units/L (12-78); ALBUMIN 2.1 g/dL (3.4-5.0); ALKALINE PHOSPHATASE 109 Units/L (46-116); ASPARTATE AMINO TRANSFERASE 29 Units/L (15-37); BLOOD UREA NITROGEN 25 mg/dL (7-18); CALCIUM 7.9 mg/dL (8.5-10.1); CARBON DIOXIDE 34.5 mmol/L (21-32); CHLORIDE 97 mmol/L (98-107); COR CA(FOR HYPOALB) 9.4 mg/dL (8.5-10.1); CREATININE 1.03 mg/dL (0.55-1.02); SODIUM 136 mmol/L (136-145); TOTAL PROTEIN 6.3 g/dL (6.4-8.2); eGFR NON BLACK RACES 55 (>60)
--- NOTE | 2022-06-10 07:43 | PCM.PROG ---
Progress Note Progress Note for Day of Date of Exam: 06/08/22 Subjective Subjective: Pt is a 82 year old female admitted for CHF exacerbation and generalized weakness. She is doing well this morning with no acute concerns overnight. Labs/imaging: Wbc 10.1, Hgb 10.3, Plt 261, Na 141, K 4, Creatinine 0.99, Glucose 134. Her home medications have been resumed and she is continues to receive IV Lasix 20mg BID. She is responding well to treatments. Due to her significant weakness she will need SNF or adjunct faculty for medical terminology living arrangements to be made at her discharge. PT to evaluate. Otherwise, continue with current treatment plan. Continue to closely monitor. Past Medical Family Social History Past Med/Fam/Surg Hx: No changes since H&P Allergies: Allergies ciprofloxacin Allergy (Severe, Verified 06/04/22 15:32) CARDIOVASCULAR COMPLICATIONS patient has flushing and cardiovascular complications including bijeminy and freq pvcs celecoxib [From Celebrex] Allergy (Unknown, Verified 06/04/22 15:32) codeine Allergy (Unknown, Verified 06/04/22 15:32) diphenhydramine [From Benadryl] Allergy (Unknown, Verified 06/04/22 15:32) levofloxacin [From Levaquin] Allergy (Unknown, Verified 06/04/22 15:32) DAUGHTER STATES TEACHER ADULT EDUCATION TOLD PT. TO NOT TAKE IT BECAUSE OF HER HEART AND A-FIB Sulfa (Sulfonamide Antibiotics) [SULFA] Allergy (Unknown, Verified 06/04/22 15:32) sulfamethoxazole [From Bactrim] Allergy (Unknown, Verified 06/04/22 15:32) trimethoprim [From Bactrim] Allergy (Unknown, Verified 06/04/22 15:32) Review of Systems ROS: No change since H&P Vital Signs and I&O's Vital Signs: Temperature 98.2 F Pulse Rate [Bilateral Radial] 60 Pulse Rate 67 Respiratory Rate 20 Blood Pressure [Left Arm] 111/53 Blood Pressure [Right Arm] 168/73 Blood Pressure 173/74 O2 Sat by Pulse Oximetry 88 Intake and Output: Intake & Output 06/07/22 06/08/22 06/09/22 06/10/22 23:59 23:59 23:59 23:59 Intake Total 1002 / 1002 1580 / 1580 1460 / 1460 232 / 232 Output Total 600 / 600 1400 / 1400 1300 / 1300 250 / 250 Balance 402 / 402 180 / 180 160 / 160 -18 / -18 Physical Exam Oriented: Normal Eyes: Normal Ear: Normal Nose: Normal Throat: Normal Respiratory: Normal Cardiovascular: Normal : Normal Auscultation: Bowel Sounds: Normal Tenderness: Normal Skin: Normal Musculoskeletal: Normal Psychiatric: Normal Speech Pattern: Clear and Appropriate Laboratory and Diagnostics Result Diagrams: 06/09/22 05:45 06/10/22 05:41 Labs: Laboratory WBC 8.2 X10^3/uL (3.6-10.0) 06/09/22 05:45 RBC 3.47 X10^6/uL (3.5-5.4) L 06/09/22 05:45 Hgb 9.9 g/dL (12.0-16.0) L 06/09/22 05:45 Hct 30.2 % (36.0-47.0) L 06/09/22 05:45 MCV 87.0 fL (80.0-100.0) 06/09/22 05:45 MCH 28.4 pg (27.0-34.0) 06/09/22 05:45 MCHC 32.6 g/dL (33.0-35.0) L 06/09/22 05:45 RDW 16.6 % (11.6-16.5) H 06/09/22 05:45 Plt Count 255 X10^3/uL (150.0-450.0) 06/09/22 05:45 MPV 9.4 fL (7.4-11.0) 06/09/22 05:45 Neut % (Auto) 60.2 % (42.0-75.0) 06/09/22 05:45 Lymph % (Auto) 26.1 % (21.0-51.0) 06/09/22 05:45 [place] % (Auto) 11.5 % (0.0-13.0) 06/09/22 05:45 Eos % (Auto) 1.4 % (0.9-2.9) 06/09/22 05:45 Baso % (Auto) 0.8 % (0.2-1.0) 06/09/22 05:45 Neut # (Auto) 4.9 x10^3/uL (2.2-4.8) H 06/09/22 05:45 Lymph # (Auto) 2.1 X10^3/uL (1.3-2.9) 06/09/22 05:45 [place] # (Auto) 0.9 x10^3/uL (0.3-0.8) H 06/09/22 05:45 Eos # (Auto) 0.1 x10^3/uL (0.0-0.2) 06/09/22 05:45 Baso # (Auto) 0.1 X10^3/uL (0.0-0.1) 06/09/22 05:45 Absolute Nucleated RBC 0.1 /100WBC 06/09/22 05:45 Sodium 136 mmol/L (136-145) 06/10/22 05:41 Corrected Sodium TNP 06/10/22 05:41 Potassium 4.0 mmol/L (3.5-5.1) 06/10/22 05:41 Chloride 97 mmol/L (98-107) L 06/10/22 05:41 Carbon Dioxide 34.5 mmol/L (21-32) H 06/10/22 05:41 BUN 25 mg/dL (7-18) H 06/10/22 05:41 Creatinine 1.03 mg/dL (0.55-1.02) H 06/10/22 05:41 Est GFR (MDRD) Af Amer > 60 (>60) 06/10/22 05:41 Est GFR (MDRD) Non-Af 55 (>60) L 06/10/22 05:41 Glucose 85 mg/dL (65-99) 06/10/22 05:41 Calcium 7.9 mg/dL (8.5-10.1) L 06/10/22 05:41 Corrected Calcium 9.4 mg/dL (8.5-10.1) 06/10/22 05:41 Magnesium 2.1 mg/dL (2.0-2.9) 06/07/22 04:50 Total Bilirubin 0.20 mg/dL (0.2-1.0) 06/10/22 05:41 AST 29 Units/L (15-37) 06/10/22 05:41 ALT 17 Units/L (12-78) 06/10/22 05:41 Alkaline Phosphatase 109 Units/L (46-116) 06/10/22 05:41 B-Natriuretic Peptide 502 pg/mL (0-79) H* 06/06/22 05:33 Total Protein 6.3 g/dL (6.4-8.2) L 06/10/22 05:41 Albumin 2.1 g/dL (3.4-5.0) L 06/10/22 05:41 Globulin 4.2 g/dL (2.5-4.5) 06/10/22 05:41 Albumin/Globulin Ratio 0.5 Ratio (1.1-2.1) L 06/10/22 05:41 Lipase 125 Units/L (73-393) 06/04/22 15:25 Specimen Type Catherized urine 06/04/22 16:55 Urine Color Yellow (YELLOW) 06/04/22 16:55 Urine Appearance Slightly hazy (CLEAR) 06/04/22 16:55 Urine pH 7.0 (5.0 - 8.0) 06/04/22 16:55 Ur Specific [place] 1.015 (1.000-1.030) 06/04/22 16:55 Urine Protein 2+ (NEGATIVE) 06/04/22 16:55 Urine Glucose (UA) Negative (NEGATIVE) 06/04/22 16:55 Urine Ketones 1+ (NEGATIVE) 06/04/22 16:55 Urine Blood 1+ (NEGATIVE) 06/04/22 16:55 Urine Nitrite Negative (NEGATIVE) 06/04/22 16:55 Urine Bilirubin Negative (NEGATIVE) 06/04/22 16:55 Urine Urobilinogen Normal (NORMAL) 06/04/22 16:55 Ur Leukocyte Esterase 1+ (NEGATIVE) 06/04/22 16:55 Urine RBC 0-2 /HPF (0-3) 06/04/22 16:55 Urine WBC 3-5 /HPF (0-5) 06/04/22 16:55 Ur Squamous Epith Cells Moderate /HPF (NEGATIVE) 06/04/22 16:55 Urine Bacteria Trace /HPF (NEGATIVE) 06/04/22 16:55 Urine Mucus Rare /HPF (NEGATIVE) 06/04/22 16:55 Ur Culture Indicated? No/not indicated 06/04/22 16:55 Plan (1) Congestive heart failure: Status: Acute (2) Generalized weakness: Status: Acute
--- NOTE | 2022-06-10 07:56 | PCM.PROG ---
Progress Note Progress Note for Day of Date of Exam: 06/09/22 Subjective Subjective: Pt is a 82 year old female admitted for CHF exacerbation and generalized weakness. This morning patient appears to be well. She just completed bronchodilator treatment by respiratory therapy. She is eating well. Labs/imaging: Wbc 8.2, Hgb 9.9, Plt 255, Na 140, K 4, Creatinine 0.99, Glucose 8 3. Her home medications have been resumed and she is continues to receive IV Lasix 20mg BID. Will change lasix over to PO. She is responding well to treatments. Due to her significant weakness she will need SNF or fpc living arrangements to be made at her discharge. Otherwise, continue with cu rrent treatment plan. Continue to closely monitor. Past Medical Family Social History Past Med/Fam/Surg Hx: No changes since H&P Allergies: Allergies ciprofloxacin Allergy (Severe, Verified 06/04/22 15:32) CARDIOVASCULAR COMPLICATIONS patient has flushing and cardiovascular complications including bijeminy and freq pvcs celecoxib [From Celebrex] Allergy (Unknown, Verified 06/04/22 15:32) codeine Allergy (Unknown, Verified 06/04/22 15:32) diphenhydramine [From Benadryl] Allergy (Unknown, Verified 06/04/22 15:32) levofloxacin [From Levaquin] Allergy (Unknown, Verified 06/04/22 15:32) DAUGHTER STATES DIRECT MARKETING EXECUTIVE TOLD PT. TO NOT TAKE IT BECAUSE OF HER HEART AND A-FIB Sulfa (Sulfonamide Antibiotics) [SULFA] Allergy (Unknown, Verified 06/04/22 15:32) sulfamethoxazole [From Bactrim] Allergy (Unknown, Verified 06/04/22 15:32) trimethoprim [From Bactrim] Allergy (Unknown, Verified 06/04/22 15:32) Review of Systems ROS: No change since H&P Vital Signs and I&O's Vital Signs: Temperature 98.2 F Pulse Rate [Bilateral Radial] 60 Pulse Rate 67 Respiratory Rate 20 Blood Pressure [Left Arm] 111/53 Blood Pressure [Right Arm] 168/73 Blood Pressure 173/74 O2 Sat by Pulse Oximetry 88 Intake and Output: Intake & Output 06/07/22 06/08/22 06/09/22 06/10/22 23:59 23:59 23:59 23:59 Intake Total 1002 / 1002 1580 / 1580 1460 / 1460 232 / 232 Output Total 600 / 600 1400 / 1400 1300 / 1300 250 / 250 Balance 402 / 402 180 / 180 160 / 160 -18 / -18 Physical Exam Oriented: Normal Eyes: Normal Ear: Normal Nose: Normal Throat: Normal Respiratory: Normal Cardiovascular: Normal : Normal Auscultation: Bowel Sounds: Normal Tenderness: Normal Skin: Normal Musculoskeletal: Normal Psychiatric: Normal Speech Pattern: Clear and Appropriate Laboratory and Diagnostics Result Diagrams: 06/09/22 05:45 06/10/22 05:41 Labs: Laboratory WBC 8.2 X10^3/uL (3.6-10.0) 06/09/22 05:45 RBC 3.47 X10^6/uL (3.5-5.4) L 06/09/22 05:45 Hgb 9.9 g/dL (12.0-16.0) L 06/09/22 05:45 Hct 30.2 % (36.0-47.0) L 06/09/22 05:45 MCV 87.0 fL (80.0-100.0) 06/09/22 05:45 MCH 28.4 pg (27.0-34.0) 06/09/22 05:45 MCHC 32.6 g/dL (33.0-35.0) L 06/09/22 05:45 RDW 16.6 % (11.6-16.5) H 06/09/22 05:45 Plt Count 255 X10^3/uL (150.0-450.0) 06/09/22 05:45 MPV 9.4 fL (7.4-11.0) 06/09/22 05:45 Neut % (Auto) 60.2 % (42.0-75.0) 06/09/22 05:45 Lymph % (Auto) 26.1 % (21.0-51.0) 06/09/22 05:45 [place] % (Auto) 11.5 % (0.0-13.0) 06/09/22 05:45 Eos % (Auto) 1.4 % (0.9-2.9) 06/09/22 05:45 Baso % (Auto) 0.8 % (0.2-1.0) 06/09/22 05:45 Neut # (Auto) 4.9 x10^3/uL (2.2-4.8) H 06/09/22 05:45 Lymph # (Auto) 2.1 X10^3/uL (1.3-2.9) 06/09/22 05:45 [place] # (Auto) 0.9 x10^3/uL (0.3-0.8) H 06/09/22 05:45 Eos # (Auto) 0.1 x10^3/uL (0.0-0.2) 06/09/22 05:45 Baso # (Auto) 0.1 X10^3/uL (0.0-0.1) 06/09/22 05:45 Absolute Nucleated RBC 0.1 /100WBC 06/09/22 05:45 Sodium 136 mmol/L (136-145) 06/10/22 05:41 Corrected Sodium TNP 06/10/22 05:41 Potassium 4.0 mmol/L (3.5-5.1) 06/10/22 05:41 Chloride 97 mmol/L (98-107) L 06/10/22 05:41 Carbon Dioxide 34.5 mmol/L (21-32) H 06/10/22 05:41 BUN 25 mg/dL (7-18) H 06/10/22 05:41 Creatinine 1.03 mg/dL (0.55-1.02) H 06/10/22 05:41 Est GFR (MDRD) Af Amer > 60 (>60) 06/10/22 05:41 Est GFR (MDRD) Non-Af 55 (>60) L 06/10/22 05:41 Glucose 85 mg/dL (65-99) 06/10/22 05:41 Calcium 7.9 mg/dL (8.5-10.1) L 06/10/22 05:41 Corrected Calcium 9.4 mg/dL (8.5-10.1) 06/10/22 05:41 Magnesium 2.1 mg/dL (2.0-2.9) 06/07/22 04:50 Total Bilirubin 0.20 mg/dL (0.2-1.0) 06/10/22 05:41 AST 29 Units/L (15-37) 06/10/22 05:41 ALT 17 Units/L (12-78) 06/10/22 05:41 Alkaline Phosphatase 109 Units/L (46-116) 06/10/22 05:41 B-Natriuretic Peptide 502 pg/mL (0-79) H* 06/06/22 05:33 Total Protein 6.3 g/dL (6.4-8.2) L 06/10/22 05:41 Albumin 2.1 g/dL (3.4-5.0) L 06/10/22 05:41 Globulin 4.2 g/dL (2.5-4.5) 06/10/22 05:41 Albumin/Globulin Ratio 0.5 Ratio (1.1-2.1) L 06/10/22 05:41 Lipase 125 Units/L (73-393) 06/04/22 15:25 Specimen Type Catherized urine 06/04/22 16:55 Urine Color Yellow (YELLOW) 06/04/22 16:55 Urine Appearance Slightly hazy (CLEAR) 06/04/22 16:55 Urine pH 7.0 (5.0 - 8.0) 06/04/22 16:55 Ur Specific [place] 1.015 (1.000-1.030) 06/04/22 16:55 Urine Protein 2+ (NEGATIVE) 06/04/22 16:55 Urine Glucose (UA) Negative (NEGATIVE) 06/04/22 16:55 Urine Ketones 1+ (NEGATIVE) 06/04/22 16:55 Urine Blood 1+ (NEGATIVE) 06/04/22 16:55 Urine Nitrite Negative (NEGATIVE) 06/04/22 16:55 Urine Bilirubin Negative (NEGATIVE) 06/04/22 16:55 Urine Urobilinogen Normal (NORMAL) 06/04/22 16:55 Ur Leukocyte Esterase 1+ (NEGATIVE) 06/04/22 16:55 Urine RBC 0-2 /HPF (0-3) 06/04/22 16:55 Urine WBC 3-5 /HPF (0-5) 06/04/22 16:55 Ur Squamous Epith Cells Moderate /HPF (NEGATIVE) 06/04/22 16:55 Urine Bacteria Trace /HPF (NEGATIVE) 06/04/22 16:55 Urine Mucus Rare /HPF (NEGATIVE) 06/04/22 16:55 Ur Culture Indicated? No/not indicated 06/04/22 16:55 Plan (1) Congestive heart failure: Status: Acute (2) Generalized weakness: Status: Acute
[2022-06-10] MEDS: PULMICORT NEB TX 0.5 MG NEB SCH (08:41)
[2022-06-10] MEDS: CORDARONE TAB 200 MG PO SCH (08:46)
[2022-06-10] MEDS: ASPIRIN 81 MG CHEWTAB PO SCH (08:46)
[2022-06-10] MEDS: CARDIZEM CD 180 MG 24-HR PO SCH (08:46)
[2022-06-10] MEDS: APRESOLINE TAB 25 MG PO SCH (08:46)
[2022-06-10] MEDS: ELIQUIS PO SCH (08:47)
[2022-06-10] MEDS ORDERED: LASIX PO SCH (09:00)
[2022-06-10] MEDS: MOBIC TAB 15 MG PO PRN (10:29)
[2022-06-10 12:15] VITALS: BP 109/54
[2022-06-10] MEDS: LOPRESSOR TAB 25 MG PO SCH (12:15)
[2022-06-10] MEDS: ZESTRIL TAB 10 MG PO SCH (12:15)
== END 2022-06-10 15:25 ==
LOC: MED/SURG 14:56 → ER 14:56 → MED/SURG 18:15
PROVIDERS: ADMIT Family Medicine; ATTEND Family Medicine
DX: I50.9 Heart failure, unspecified; R53.1 Weakness; R60.0 Localized edema; R26.89 Other abnormalities of gait and mobility; I11.0 Hypertensive heart disease with heart failure; R06.02 Shortness of breath; E87.6 Hypokalemia